=== PATIENT | male | born 1955 | race Caucasian/White ===

== ENCOUNTER 2016-06-07 11:02 | Inpatient (IN) | payer OTHER ==
[2016-06-07 11:21] VITALS: BMI 36.1
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
[2016-06-07] MEDS ORDERED: NICOTINE POLACRILEX 4 MG GUM BUC PRN (14:35)
[2016-06-07] MEDS ORDERED: guaiFENesin/D-METHORPHAN HB 10 ML UNIT-DOSE CUPS PO PRN (14:35)
[2016-06-07] MEDS ORDERED: ACETAMINOPHEN 325 MG TABLET (FP) PO PRN (14:35)
[2016-06-07] MEDS ORDERED: MAGNESIUM HYDROX 2400MG/30ML ORAL SUSPENSION 30 ML CUP PO PRN (14:35)
[2016-06-07] MEDS ORDERED: MAG HYDROX/AL HYDROX/SIMETH 30 ML UNIT-DOSE CUP PO PRN (14:35)
[2016-06-07] MEDS ORDERED: P-EPHED 60MG/TRIPROLIDI 2.5MG TABLET PO PRN (14:35)
[2016-06-07] MEDS ORDERED: MAGNESIUM CITRATE 300 ML BOTTLE PO PRN (14:35)
[2016-06-07] MEDS ORDERED: LOPERAMIDE HCL 2 MG CAPSULE PO PRN (14:35)
[2016-06-07] MEDS ORDERED: MENTHOL/PHENOL 1 EACH UD MM PRN (14:35)
[2016-06-07] MEDS ORDERED: diphenhydrAMINE HCL 50 MG CAPSULE PO PRN (14:35)
[2016-06-07] MEDS ORDERED: hydrOXYzine PAMOATE 50 MG CAPSULE (FP) PO PRN (14:35)
[2016-06-07] MEDS ORDERED: ALBUTEROL SO4 6.7 GM HFA INHALER IH PRN (14:37)
[2016-06-07] MEDS ORDERED: chlordiazePOXIDE HCL 25 MG CAPSULE PO ONE (14:49)
[2016-06-07] MEDS ORDERED: ALBUTEROL SO4 2.5/IPRATROPIUM 0.5 INH SOL 3 ML VIAL.NEB. NEB ONE (14:51)
[2016-06-07] MEDS: IBUPROFEN 400 MG TABLET (FP) PO PRN (17:22)
[2016-06-07] MEDS: chlordiazePOXIDE HCL 25 MG CAPSULE PO SCH ×2 (17:23→22:27)
[2016-06-07] MEDS: metFORMIN HCL 500 MG TABLET (FP) PO SCH ×2 (17:24→22:31)
[2016-06-07] MEDS: chlordiazePOXIDE HCL 25 MG CAPSULE PO PRN (19:04)
[2016-06-07] MEDS: THIAMINE HCL 100 MG TABLET (FP) PO SCH (22:27)
[2016-06-08] MEDS: chlordiazePOXIDE HCL 25 MG CAPSULE PO PRN (00:52)
[2016-06-08 02:28] LABS: HIV 1 & 2 AB NEGATIVE; HIV 1 AGp24 NEGATIVE
[2016-06-08] MEDS ORDERED: METHADONE HCL 40 MG DISPERSABLE TABLET ONE (04:32)
[2016-06-08] MEDS ORDERED: METHADONE HCL 10 MG TABLET ONE (04:32)
[2016-06-08] MEDS: METHADONE 80 MG, METHADONE 10 MG PO SCH (05:35)
[2016-06-08] MEDS: chlordiazePOXIDE HCL 25 MG CAPSULE PO SCH ×4 (05:36→22:20)
[2016-06-08] MEDS ORDERED: METHADONE HCL 10 MG TABLET PO SCH (06:00)
[2016-06-08] MEDS: metFORMIN HCL 500 MG TABLET (FP) PO SCH ×2 (08:07→17:11)
[2016-06-08] MEDS: PRENATAL VITAMINS W/ FOLIC ACID TABLET (FP) PO SCH (10:16)
[2016-06-08] MEDS: NICOTINE 21 MG/24 HOURS TOPICAL PATCH TD SCH (10:16)
[2016-06-08] MEDS: HYDROCHLOROTHIAZIDE 25 MG TABLET (FP) PO SCH (10:16)
[2016-06-08 10:22] LABS: MCH 30.3 pg (25.7-33.7); MCHC 31.9 g/dl (32.0-35.9); MEAN CELL VOLUME 95.2 fl (80-96); MEAN PLT VOLUME 8.5 fl (7.5-11.1); PLATELET COUNT 128 K/MM3 (134-434); RDW 17.1 % (11.9-15.9); WHITE BLOOD COUNT 5.2 K/mm3 (4.0-10.0)
[2016-06-08 10:38] LABS: ALBUMIN 3.5 g/dl (3.4-5.0); ALK PHOS 160 U/L (45-117); ANION GAP 15 (8-16); BILIRUBIN,TOTAL 0.7 mg/dL (0.2-1.0); CO2 28 mmol/L (21-32); CREATININE 0.8 mg/dL (0.7-1.3); GLUCOSE,RANDOM 107 mg/dL (74-106); SGOT/AST 161 U/L (15-37); SGPT/ALT 67 U/L (12-78); TOT PROT 7.1 g/dl (6.4-8.2)
--- NOTE | 2016-06-08 10:49 | CONSULT ---
[facility] Psychiatric Consult - Data Date of interview: 06/08/16 Admission source: [facility] Identifying data: Readmission to [facility] for this 61 y/o male seeking detox treatment on for opioid and alcohol dependence.Patient is single without chldren,domiciled,disabled and supported on SSD benefits. Substance Abuse History: - Smoking Cessation. Smoking history: Current every day smoker. Have you smoked in the past 12 months: Yes. Aproximately how many cigarettes per day: 15. Hx Chewing Tobacco Use: No. Initiated information on smoking cessation: Yes. 'Breaking Loose' booklet given: 06/07/16. - Substance & Tx. History. Hx Alcohol Use: Yes. Hx Substance Use: Yes. Substance Use Type : Alcohol. Hx Substance Use Treatment: No. - Substances Abused. Alcohol. Route: Oral. Frequency: Daily. Amount used: 2-3 pints vodka. Age of first use : 21. Date of Last Use: 06/07/16. Confirmed by the patient. Medical History: Bronchial asthma,diabetes mellitus,hypertension,hepatitis C, obesity and neuropathy. Psychiatric History: No reported history of psychiatric hospitalizations.Patient endorses the diagnoses of MDD and insomnia.He states that he gets his psychiatric outpatient services at [facility].Medications : bupropion and trazodone (doses not recalled).Mr Castro denies history of suicide attempts. Physical/Sexual Abuse/Trauma History: Patient denies. Additional Comment: Urine Drug Screen Results: BZO-Benzodiazepines, MTD- Methadone.Noted. Mental Status Exam - Mental Status Exam Alert and Oriented to: Time, Place, Person Cognitive Function: Good Patient Appearance: Well Groomed Mood: Nervous, Withdrawn, Anxious Affect: Mood Congruent Patient Behavior: Fatigued, Appropriate, Cooperative Speech Pattern: Clear, Appropriate Voice Loudness: Normal Thought Process: Goal Oriented Thought Disorder: Not Present Hallucinations: Denies Suicidal Ideation: Denies Homicidal Ideation: Denies Insight/Judgement: Poor Sleep: Poorly, Difficulty falling asleep Appetite: Good Muscle strength/Tone: Normal Gait/Station: Other (walks with a cane.) Psychiatric Findings - Problem List ([place] 1, 2,3) (1) Alcohol dependence with uncomplicated withdrawal Current Visit: Yes Status: Acute (2) Nicotine dependence Current Visit: Yes Status: Acute Qualifiers: Nicotine product type: cigarettes Substance use status: uncomplicated Qualified Code(s): F17.210 - Nicotine dependence, cigarettes, uncomplicated (3) Opioid dependence on agonist therapy Current Visit: Yes Status: Acute (4) Substance induced mood disorder Current Visit: Yes Status: Acute (5) Depressive disorder Current Visit: Yes Status: Chronic (6) Bilateral edema of lower extremity Current Visit: Yes Status: Chronic (7) Asthma Current Visit: Yes Status: Chronic Qualifiers: Asthma severity: mild intermittent Asthma complication type: uncomplicated Qualified Code(s): J45.20 - Mild intermittent asthma, uncomplicated (8) Diabetes mellitus Current Visit: Yes Status: Chronic Qualifiers: Diabetes mellitus type: type 1 Diabetes mellitus complication status: without complication Qualified Code(s): E10.9 - Type 1 diabetes mellitus without complications (9) Hypertension Current Visit: Yes Status: Chronic Qualifiers: Hypertension type: essential hypertension Qualified Code(s): I10 - Essential (primary) hypertension - Initial Treatment Plan Initial Treatment Plan: Psychoeducation.Detoxification.Medications : trazodone 100 mg po hs + bupropion XL 150 mg po daily.Seroquel held (prolonged QT on EKG) .Side effects/benefits discussed with the patient.Made aware of the risk of priapism and advised to alert MD/RN if painful/prolonged erection.He agrees with this plan.Medications are verified via review of pharmacy claims.Noted filled scripts on 05/27/16 for trazodone,bupropion and seroquel @ [facility].No scripts necessary at discharge.
--- NOTE | 2016-06-08 11:14 | EKG ---
Test Reason : Blood Pressure : / mmHG Vent. Rate : 089 BPM Atrial Rate : 089 BPM P-R Int : 136 ms QRS Dur : 082 ms QT Int : 382 ms P-R-T Axes : 068 057 039 degrees QTc Int : 464 ms NORMAL SINUS RHYTHM NONSPECIFIC ST AND T WAVE ABNORMALITY PROLONGED QT ABNORMAL ECG NO PREVIOUS ECGS AVAILABLE Confirmed by JOYCELYN AARON MD ([id number]) on 06/08/2016 11:13:57 AM Referred By: Filemon Bojorquez Confirmed By:JOYCELYN AARON MD
--- NOTE | 2016-06-08 11:15 | PN ---
[facility] CIWA - CIWA Score Nausea/Vomitin-No Nausea/No Vomiting Muscle Tremors: 4-Moderate,w/Arms Extend Anxiety: 4-Mod. Anxious/Guarded Agitation: 4-Moderately Restless Paroxysmal Sweats: 1-Minimal Palms Moist Orientation: 0-Oriented Tacttile Disturbances: 3-Moderate Itch/Numb/Burn Auditory Disturbances: 0-None Visual Disturbances: 0-None Headache: 0-None Present CIWA-Ar Total Score: 16 BHS Progress Note (SOAP) Subjective: TREMORS,SWEATS,ANXIETY,FATIGUE. Objective: 06/08/16 11:14 Vital Signs Temperature 97.9 F 06/08/16 09:40 Pulse Rate 81 06/08/16 09:40 Respiratory Rate 18 06/08/16 09:40 Blood Pressure 143/76 06/08/16 09:40 O2 Sat by Pulse Oximetry (%) Laboratory Last Values WBC 5.2 K/mm3 (4.0-10.0) 06/08/16 06:00 RBC 3.89 M/mm3 (4.00-5.60) L 06/08/16 06:00 Hgb 11.8 GM/dL (11.7-16.9) 06/08/16 06:00 Hct 37.1 % (35.4-49) 06/08/16 06:00 MCV 95.2 fl (80-96) 06/08/16 06:00 MCHC 31.9 g/dl (32.0-35.9) L 06/08/16 06:00 RDW 17.1 % (11.9-15.9) H 06/08/16 06:00 Plt Count 128 K/MM3 (134-434) L 06/08/16 06:00 MPV 8.5 fl (7.5-11.1) 06/08/16 06:00 Sodium 142 mmol/L (136-145) 06/08/16 06:00 Potassium 4.5 mmol/L (3.5-5.1) 06/08/16 06:00 Chloride 99 mmol/L (98-107) 06/08/16 06:00 Carbon Dioxide 28 mmol/L (21-32) 06/08/16 06:00 Anion Gap 15 (8-16) 06/08/16 06:00 BUN 10 mg/dL (7-18) 06/08/16 06:00 Creatinine 0.8 mg/dL (0.7-1.3) 06/08/16 06:00 Creat Clearance w eGFR > 60 (>60) 06/08/16 06:00 POC Glucometer 84 UNITS (()) 06/08/16 05:34 Random Glucose 107 mg/dL (74-106) H 06/08/16 06:00 Calcium 8.0 mg/dL (8.5-10.1) L 06/08/16 06:00 Total Bilirubin 0.7 mg/dL (0.2-1.0) 06/08/16 06:00 AST 161 U/L (15-37) H 06/08/16 06:00 ALT 67 U/L (12-78) 06/08/16 06:00 Alkaline Phosphatase 160 U/L (45-117) H 06/08/16 06:00 Total Protein 7.1 g/dl (6.4-8.2) 06/08/16 06:00 Albumin 3.5 g/dl (3.4-5.0) 06/08/16 06:00 HIV 1&2 Antibody Screen Negative 06/07/16 13:00 HIV P24 Antigen Negative 06/07/16 13:00 Assessment: 06/08/16 11:15 WITHDRAWAL SX Plan: CONTINUE DETOX
[2016-06-08] MEDS: IBUPROFEN 400 MG TABLET (FP) PO PRN (20:17)
--- NOTE | 2016-06-08 20:34 | PN ---
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
[2016-06-08] MEDS: THIAMINE HCL 100 MG TABLET (FP) PO SCH (22:20)
[2016-06-08] MEDS: traZODone HCL 100 MG TABLET (FP) PO SCH (22:20)
[2016-06-08] MEDS: GABAPENTIN 300 MG CAPSULE (FP) PO SCH (22:20)
[2016-06-09] MEDS ORDERED: METHADONE HCL 10 MG TABLET ONE (04:17)
[2016-06-09] MEDS ORDERED: METHADONE HCL 40 MG DISPERSABLE TABLET ONE (04:18)
[2016-06-09] MEDS: METHADONE 80 MG, METHADONE 10 MG PO SCH (06:00)
[2016-06-09] MEDS: chlordiazePOXIDE HCL 25 MG CAPSULE PO SCH ×2 (06:00→10:17)
[2016-06-09] MEDS: metFORMIN HCL 500 MG TABLET (FP) PO SCH ×2 (06:52→17:27)
[2016-06-09] MEDS: PRENATAL VITAMINS W/ FOLIC ACID TABLET (FP) PO SCH (10:16)
[2016-06-09] MEDS: GABAPENTIN 300 MG CAPSULE (FP) PO SCH ×2 (10:16→22:19)
[2016-06-09] MEDS: HYDROCHLOROTHIAZIDE 25 MG TABLET (FP) PO SCH (10:16)
[2016-06-09] MEDS: NICOTINE 21 MG/24 HOURS TOPICAL PATCH TD SCH (10:17)
--- NOTE | 2016-06-09 14:23 | PN ---
S CIWA - CIWA Score Nausea/Vomitin-No Nausea/No Vomiting Muscle Tremors: 4-Moderate,w/Arms Extend Anxiety: 3 Agitation: 2 Paroxysmal Sweats: 3 Orientation: 4Disoriented Place/Person Tacttile Disturbances: 1-Very Mild Itch/Numbness Auditory Disturbances: 0-None Visual Disturbances: 0-None Headache: 2-Mild CIWA-Ar Total Score: 19 S Progress Note (SOAP) Subjective: Tremors, Body Aches, Sweating, H/A, Interrupted sleep. Objective: PT. A 7 O X 2 (DISORIENTED TO LOCATION); PT. OBSERVED AMBULATING ON UNIT. 06/09/16 14:20 Vital Signs Temperature 96.7 F L 06/09/16 11:17 Pulse Rate 86 06/09/16 11:17 Respiratory Rate 19 06/09/16 11:17 Blood Pressure 126/79 06/09/16 11:17 O2 Sat by Pulse Oximetry (%) Laboratory Last Values WBC 5.2 K/mm3 (4.0-10.0) 06/08/16 06:00 RBC 3.89 M/mm3 (4.00-5.60) L 06/08/16 06:00 Hgb 11.8 GM/dL (11.7-16.9) 06/08/16 06:00 Hct 37.1 % (35.4-49) 06/08/16 06:00 MCV 95.2 fl (80-96) 06/08/16 06:00 MCHC 31.9 g/dl (32.0-35.9) L 06/08/16 06:00 RDW 17.1 % (11.9-15.9) H 06/08/16 06:00 Plt Count 128 K/MM3 (134-434) L 06/08/16 06:00 MPV 8.5 fl (7.5-11.1) 06/08/16 06:00 Sodium 142 mmol/L (136-145) 06/08/16 06:00 Potassium 4.5 mmol/L (3.5-5.1) 06/08/16 06:00 Chloride 99 mmol/L (98-107) 06/08/16 06:00 Carbon Dioxide 28 mmol/L (21-32) 06/08/16 06:00 Anion Gap 15 (8-16) 06/08/16 06:00 BUN 10 mg/dL (7-18) 06/08/16 06:00 Creatinine 0.8 mg/dL (0.7-1.3) 06/08/16 06:00 Creat Clearance w eGFR > 60 (>60) 06/08/16 06:00 POC Glucometer 105 UNITS (()) 06/09/16 06:02 Random Glucose 107 mg/dL (74-106) H 06/08/16 06:00 Calcium 8.0 mg/dL (8.5-10.1) L 06/08/16 06:00 Total Bilirubin 0.7 mg/dL (0.2-1.0) 06/08/16 06:00 AST 161 U/L (15-37) H 06/08/16 06:00 ALT 67 U/L (12-78) 06/08/16 06:00 Alkaline Phosphatase 160 U/L (45-117) H 06/08/16 06:00 Total Protein 7.1 g/dl (6.4-8.2) 06/08/16 06:00 Albumin 3.5 g/dl (3.4-5.0) 06/08/16 06:00 RPR Titer Nonreactive (NONREACTIVE) 06/08/16 06:00 HIV 1&2 Antibody Screen Negative 06/07/16 13:00 HIV P24 Antigen Negative 06/07/16 13:00 LABS NOTED. Assessment: 06/09/16 14:22 WITHDRAWAL SYMPTOMS. Plan: CONTINUE DETOX. ADVISED PATIENT TO FOLLOW-UP WITH [facility] / REHAB MEDICAL PROVIDER AFTER DISCHARGE FROM DETOX FOR GENERAL MEDICAL ASSESSMENT AND FOR ABNORMAL LAB VALUES.
[2016-06-09] MEDS: chlordiazePOXIDE 5 MG CAPSULE PO SCH ×2 (17:27→22:19)
[2016-06-09] MEDS: THIAMINE HCL 100 MG TABLET (FP) PO SCH (22:19)
[2016-06-09] MEDS: traZODone HCL 100 MG TABLET (FP) PO SCH (22:19)
[2016-06-10] MEDS ORDERED: METHADONE HCL 40 MG DISPERSABLE TABLET ONE (04:38)
[2016-06-10] MEDS ORDERED: METHADONE HCL 10 MG TABLET ONE (04:38)
[2016-06-10] MEDS: METHADONE 80 MG, METHADONE 10 MG PO SCH (05:39)
[2016-06-10] MEDS: chlordiazePOXIDE 5 MG CAPSULE PO SCH ×2 (05:39→10:34)
[2016-06-10] MEDS: IBUPROFEN 400 MG TABLET (FP) PO PRN (05:42)
[2016-06-10] MEDS: metFORMIN HCL 500 MG TABLET (FP) PO SCH ×2 (08:02→16:30)
[2016-06-10] MEDS: PRENATAL VITAMINS W/ FOLIC ACID TABLET (FP) PO SCH (10:33)
[2016-06-10] MEDS: NICOTINE 21 MG/24 HOURS TOPICAL PATCH TD SCH (10:34)
[2016-06-10] MEDS: HYDROCHLOROTHIAZIDE 25 MG TABLET (FP) PO SCH (10:34)
[2016-06-10] MEDS: GABAPENTIN 300 MG CAPSULE (FP) PO SCH ×2 (10:34→22:55)
--- NOTE | 2016-06-10 11:28 | PN ---
BHS Progress Note (SOAP) Subjective: Sweating,interrupted sleep,restless Objective: 06/10/16 11:27 Laboratory Last Values WBC 5.2 K/mm3 (4.0-10.0) 06/08/16 06:00 RBC 3.89 M/mm3 (4.00-5.60) L 06/08/16 06:00 Hgb 11.8 GM/dL (11.7-16.9) 06/08/16 06:00 Hct 37.1 % (35.4-49) 06/08/16 06:00 MCV 95.2 fl (80-96) 06/08/16 06:00 MCHC 31.9 g/dl (32.0-35.9) L 06/08/16 06:00 RDW 17.1 % (11.9-15.9) H 06/08/16 06:00 Plt Count 128 K/MM3 (134-434) L 06/08/16 06:00 MPV 8.5 fl (7.5-11.1) 06/08/16 06:00 Sodium 142 mmol/L (136-145) 06/08/16 06:00 Potassium 4.5 mmol/L (3.5-5.1) 06/08/16 06:00 Chloride 99 mmol/L (98-107) 06/08/16 06:00 Carbon Dioxide 28 mmol/L (21-32) 06/08/16 06:00 Anion Gap 15 (8-16) 06/08/16 06:00 BUN 10 mg/dL (7-18) 06/08/16 06:00 Creatinine 0.8 mg/dL (0.7-1.3) 06/08/16 06:00 Creat Clearance w eGFR > 60 (>60) 06/08/16 06:00 POC Glucometer 128 UNITS (()) 06/10/16 05:39 Random Glucose 107 mg/dL (74-106) H 06/08/16 06:00 Calcium 8.0 mg/dL (8.5-10.1) L 06/08/16 06:00 Total Bilirubin 0.7 mg/dL (0.2-1.0) 06/08/16 06:00 AST 161 U/L (15-37) H 06/08/16 06:00 ALT 67 U/L (12-78) 06/08/16 06:00 Alkaline Phosphatase 160 U/L (45-117) H 06/08/16 06:00 Total Protein 7.1 g/dl (6.4-8.2) 06/08/16 06:00 Albumin 3.5 g/dl (3.4-5.0) 06/08/16 06:00 RPR Titer Nonreactive (NONREACTIVE) 06/08/16 06:00 HIV 1&2 Antibody Screen Negative 06/07/16 13:00 HIV P24 Antigen Negative 06/07/16 13:00 Vital Signs - 8 hr 06/10/16 06/10/16 03:30 06:28 Temperature 98 F Pulse Rate 98 H Respiratory 20 20 Rate Blood Pressure 142/86 labs noted Assessment: 06/10/16 11:27 Withdrawal Sx. Plan: Continue detox
[2016-06-10] MEDS ORDERED: chlordiazePOXIDE HCL 10 MG CAPSULE PO PRN (13:52)
[2016-06-10] MEDS ORDERED: chlordiazePOXIDE HCL 10 MG CAPSULE PO SCH (17:00)
[2016-06-10] MEDS: traZODone HCL 100 MG TABLET (FP) PO SCH (22:55)
[2016-06-10] MEDS: THIAMINE HCL 100 MG TABLET (FP) PO SCH (22:55)
[2016-06-11] MEDS ORDERED: METHADONE HCL 10 MG TABLET ONE (01:32)
[2016-06-11] MEDS ORDERED: METHADONE HCL 40 MG DISPERSABLE TABLET ONE (01:33)
[2016-06-11] MEDS: METHADONE 80 MG, METHADONE 10 MG PO SCH (05:14)
[2016-06-11] MEDS: metFORMIN HCL 500 MG TABLET (FP) PO SCH ×2 (06:30→17:33)
[2016-06-11] MEDS: HYDROCHLOROTHIAZIDE 25 MG TABLET (FP) PO SCH (10:18)
[2016-06-11] MEDS: PRENATAL VITAMINS W/ FOLIC ACID TABLET (FP) PO SCH (10:18)
[2016-06-11] MEDS: GABAPENTIN 300 MG CAPSULE (FP) PO SCH ×2 (10:19→21:18)
[2016-06-11] MEDS: NICOTINE 21 MG/24 HOURS TOPICAL PATCH TD SCH (10:19)
--- NOTE | 2016-06-11 16:37 | PN ---
[facility]HS Progress Note (SOAP) Subjective: Tremors, Sweating, Fatigue, Body aches, Nausea, interrupted sleep. Objective: PT. A & O X 3, OBSERVED AMBULATING ON UNIT WITH CANE. 06/11/16 16:33 Vital Signs Temperature 98.7 F 06/11/16 10:19 Pulse Rate 99 H 06/11/16 10:19 Respiratory Rate 18 06/11/16 10:19 Blood Pressure 106/71 06/11/16 10:19 O2 Sat by Pulse Oximetry (%) Laboratory Last Values WBC 5.2 K/mm3 (4.0-10.0) 06/08/16 06:00 RBC 3.89 M/mm3 (4.00-5.60) L 06/08/16 06:00 Hgb 11.8 GM/dL (11.7-16.9) 06/08/16 06:00 Hct 37.1 % (35.4-49) 06/08/16 06:00 MCV 95.2 fl (80-96) 06/08/16 06:00 MCHC 31.9 g/dl (32.0-35.9) L 06/08/16 06:00 RDW 17.1 % (11.9-15.9) H 06/08/16 06:00 Plt Count 128 K/MM3 (134-434) L 06/08/16 06:00 MPV 8.5 fl (7.5-11.1) 06/08/16 06:00 Sodium 142 mmol/L (136-145) 06/08/16 06:00 Potassium 4.5 mmol/L (3.5-5.1) 06/08/16 06:00 Chloride 99 mmol/L (98-107) 06/08/16 06:00 Carbon Dioxide 28 mmol/L (21-32) 06/08/16 06:00 Anion Gap 15 (8-16) 06/08/16 06:00 BUN 10 mg/dL (7-18) 06/08/16 06:00 Creatinine 0.8 mg/dL (0.7-1.3) 06/08/16 06:00 Creat Clearance w eGFR > 60 (>60) 06/08/16 06:00 POC Glucometer 116 UNITS (()) 06/11/16 05:14 Random Glucose 107 mg/dL (74-106) H 06/08/16 06:00 Calcium 8.0 mg/dL (8.5-10.1) L 06/08/16 06:00 Total Bilirubin 0.7 mg/dL (0.2-1.0) 06/08/16 06:00 AST 161 U/L (15-37) H 06/08/16 06:00 ALT 67 U/L (12-78) 06/08/16 06:00 Alkaline Phosphatase 160 U/L (45-117) H 06/08/16 06:00 Total Protein 7.1 g/dl (6.4-8.2) 06/08/16 06:00 Albumin 3.5 g/dl (3.4-5.0) 06/08/16 06:00 RPR Titer Nonreactive (NONREACTIVE) 06/08/16 06:00 HIV 1&2 Antibody Screen Negative 06/07/16 13:00 HIV P24 Antigen Negative 06/07/16 13:00 LABS NOTED. 06/11/16 16:35 Assessment: 06/11/16 16:35 WITHDRAWAL SYMPTOMS. Plan: CONTINUE DETOX. ADVISED PATIENT TO FOLLOW-UP WITH [facility]OR / REHAB MEDICAL PROVIDER AFTER DISCHARGE FROM DETOX FOR MEDICAL ASSESSMENT AND FOR ABNORMAL LAB VALUES.
[2016-06-11] MEDS: traZODone HCL 100 MG TABLET (FP) PO SCH (21:18)
[2016-06-11] MEDS: THIAMINE HCL 100 MG TABLET (FP) PO SCH (21:18)
[2016-06-12] MEDS ORDERED: ALBUTEROL SO4 2.5/IPRATROPIUM 0.5 INH SOL 3 ML VIAL.NEB. NEB ONE (01:47)
--- NOTE | 2016-06-12 02:16 | PN ---
[facility] Progress Note Note: CALLED TO EVALUATE PATIENT WHO FELL IN THE ROOM ALERT,NO LOC NO OBVIOUS HEAD INJURY LUNG EXPIRATORY WHEEZING BOTH LUNG HEART TACHYCARDIA ABDOMEN SOFT,NO TENDERNESS EXTREMITIES EDEMA BOTH LEGS PULSE OX 81,[id number] IMPRESSION FALL POSSIBLE HEAD INJURY ACUTE EXACERBATION OF ASTHMA TYPE 2 DM HTN EDEMA BOTH LEGS ALCOHOL DEPENDENCE WITH UNCOMPLICATED WITHDRAWAL MMTP 90 MGS/DAY,LAST MEDICATED 06/11/16 TREATMENT O2 BY NASAL CANULA 2 L/MIN DUONEB NEBULIZER TREATMENT TO ER FOR EVALUATION AT [facility] INITIATE FALL PROTOCOL1 SPOKE WITH DR HAWK TO BE TRANSPORTED BY [facility] ACLS PULSE OX IS 96,BP 118/78,P110.R24,T 99.2
[2016-06-12] MEDS ORDERED: METHADONE HCL 10 MG TABLET ONE (05:57)
[2016-06-12] MEDS ORDERED: METHADONE HCL 40 MG DISPERSABLE TABLET ONE (05:58)
[2016-06-12] MEDS: METHADONE 80 MG, METHADONE 10 MG PO SCH (06:10)
[2016-06-12] MEDS: metFORMIN HCL 500 MG TABLET (FP) PO SCH ×2 (07:39→17:55)
[2016-06-12 09:45] VITALS: BP 139/74; PULSE 105; TEMP 97.9
[2016-06-12] MEDS ORDERED: NALOXONE HCL 0.4 MG/ML VIAL IM ONE (10:11)
--- NOTE | 2016-06-12 10:36 | PN ---
[facility] Progress Note Note: SAW PT DURING MORNING ROUNDS VERY LETHARGIC, SLIGHTLY LABORED BREATHING, DIFFICULT TO AROUSE, SOME EYE OPENING ON COMMAND,DIAPHORETIC. STAFF REPORTED THAT PT WAS BROUGHT BACK TO [facility] FROM [facility] ER EARLIER THIS MORNING AT 06:05 PER NURSE FOR C/O FALL LAST NIGHT. PT RECIEVED METHADONE 90 MG THIS MORNING AT 6:10 PER NURSE. PT COMPLETING HIS DETOX PROTOCOL TODAY. Vital Signs Temperature 97.9 F 06/12/16 09:00 Pulse Rate 105 H 06/12/16 09:00 Respiratory Rate 20 06/12/16 09:00 Blood Pressure 139/74 06/12/16 09:00 O2 Sat by Pulse Oximetry (%) PULSE OX: 53% ROOM AIR; RR 17 BGM = 146 MG/DL PLAN:NARCAN 0.4 MG ONCE. TRANSPORT PT BY AMBULANCE TO [facility] FOR STABILIZATION BEFORE DISCHARGING PATIENT. PT HAS COMPLETED DETOX TODAY. SPOKE TO DR. GAINES AT THE [facility] ER AND ACCEPTED PATIENT'S CASE. ADDENDUM: PT RESPONDING NOW FAVORABLY AFTER NARCAN 0.4 MG I.M X 1 DOSE AT 10: 20 AM. SPONTENOUS VERBAL RESPONSE NOW TO EMT CREW'S COMMANDS. REPEAT PULSE OX WITH O2 2 L NC = 95%
[2016-06-12] MEDS: HYDROCHLOROTHIAZIDE 25 MG TABLET (FP) PO SCH (10:55)
[2016-06-12] MEDS: GABAPENTIN 300 MG CAPSULE (FP) PO SCH ×2 (10:55→23:16)
[2016-06-12] MEDS: PRENATAL VITAMINS W/ FOLIC ACID TABLET (FP) PO SCH (10:55)
[2016-06-12] MEDS: NICOTINE 21 MG/24 HOURS TOPICAL PATCH TD SCH (10:55)
[2016-06-12] MEDS: traZODone HCL 100 MG TABLET (FP) PO SCH (23:16)
[2016-06-12] MEDS: THIAMINE HCL 100 MG TABLET (FP) PO SCH (23:16)
--- NOTE | 2016-06-16 10:39 | DS ---
[facility] Detox Discharge Summary Admission Date: 06/07/16 Discharge Date: 06/12/16 - History Present History: Alcohol Dependence, MMTP Pertinent Past History: type II DM Edema of the legs - Physical Exam Results Vital Signs: Vital Signs Temperature 97.9 F 06/12/16 09:00 Pulse Rate 105 H 06/12/16 09:00 Respiratory Rate 20 06/12/16 09:00 Blood Pressure 139/74 06/12/16 09:00 O2 Sat by Pulse Oximetry (%) Pertinent Admission Physical Exam Findings: withdrawal sx. Laboratory Last Values WBC 5.2 K/mm3 (4.0-10.0) 06/08/16 06:00 RBC 3.89 M/mm3 (4.00-5.60) L 06/08/16 06:00 Hgb 11.8 GM/dL (11.7-16.9) 06/08/16 06:00 Hct 37.1 % (35.4-49) 06/08/16 06:00 MCV 95.2 fl (80-96) 06/08/16 06:00 MCHC 31.9 g/dl (32.0-35.9) L 06/08/16 06:00 RDW 17.1 % (11.9-15.9) H 06/08/16 06:00 Plt Count 128 K/MM3 (134-434) L 06/08/16 06:00 MPV 8.5 fl (7.5-11.1) 06/08/16 06:00 Sodium 142 mmol/L (136-145) 06/08/16 06:00 Potassium 4.5 mmol/L (3.5-5.1) 06/08/16 06:00 Chloride 99 mmol/L (98-107) 06/08/16 06:00 Carbon Dioxide 28 mmol/L (21-32) 06/08/16 06:00 Anion Gap 15 (8-16) 06/08/16 06:00 BUN 10 mg/dL (7-18) 06/08/16 06:00 Creatinine 0.8 mg/dL (0.7-1.3) 06/08/16 06:00 Creat Clearance w eGFR > 60 (>60) 06/08/16 06:00 POC Glucometer 146 UNITS (()) 06/12/16 09:56 Random Glucose 107 mg/dL (74-106) H 06/08/16 06:00 Calcium 8.0 mg/dL (8.5-10.1) L 06/08/16 06:00 Total Bilirubin 0.7 mg/dL (0.2-1.0) 06/08/16 06:00 AST 161 U/L (15-37) H 06/08/16 06:00 ALT 67 U/L (12-78) 06/08/16 06:00 Alkaline Phosphatase 160 U/L (45-117) H 06/08/16 06:00 Total Protein 7.1 g/dl (6.4-8.2) 06/08/16 06:00 Albumin 3.5 g/dl (3.4-5.0) 06/08/16 06:00 RPR Titer Nonreactive (NONREACTIVE) 06/08/16 06:00 HIV 1&2 Antibody Screen Negative 06/07/16 13:00 HIV P24 Antigen Negative 06/07/16 13:00 labs noted - Treatment Hospital Course: Detox Protocol Followed Patient has Accepted a Rehab Referral to: Pt. was transferred to med/surg because he was very drowsy. - Medication Discharge Medications: Ambulatory Orders Albuterol Sulfate Inhaler - [Ventolin Hfa Inhaler -] 2 inh PO Q4H PRN 06/07/16 Bupropion HCl [Wellbutrin Xl -] 150 mg PO DAILY 06/07/16 Gabapentin [Neurontin] 600 mg PO BID 06/07/16 Hydrochlorothiazide [Hctz -] 25 mg PO DAILY 06/07/16 Ibuprofen [Motrin -] 800 mg PO BID 06/07/16 Metformin HCl [Glucophage] 1,000 mg PO BID 06/07/16 Quetiapine Fumarate [Seroquel -] 200 mg PO HS 06/07/16 Trazodone HCl [Desyrel -] 100 mg PO HS 06/07/16 - Diagnosis (1) Alcohol dependence with uncomplicated withdrawal Status: Acute (2) Nicotine dependence Status: Acute Qualifiers: Nicotine product type: cigarettes Substance use status: uncomplicated Qualified Code(s): F17.210 - Nicotine dependence, cigarettes, uncomplicated (3) Opioid dependence on agonist therapy Status: Acute (4) Asthma Status: Chronic Qualifiers: Asthma severity: mild intermittent Asthma complication type: uncomplicated Qualified Code(s): J45.20 - Mild intermittent asthma, uncomplicated (5) Bilateral edema of lower extremity Status: Chronic (6) Diabetes mellitus Status: Chronic Qualifiers: Diabetes mellitus type: type 2 Diabetes mellitus complication status: without complication Diabetes mellitus intermodal truck driver insulin use: with intermodal truck driver use Qualified Code(s): E11.9 - Type 2 diabetes mellitus without complications; Z79.4 - assisted (current) use of insulin (7) Hypertension Status: Chronic Qualifiers: Hypertension type: essential hypertension Qualified Code(s): I10 - Essential (primary) hypertension (8) Substance induced mood disorder Status: Acute (9) Depressive disorder Status: Chronic - AMA Did Patient Leave Against Medical Advice: No
== END 2016-06-12 11:37 | disposition short-term general hospital (02) | DRG 897 ==
LOC: YASAS 11:02 → Y3N 13:45
PROVIDERS: ADMIT Internal Medicine; ATTEND Internal Medicine
PROC: HZ2ZZZZ Detoxification Services for Substance Abuse Treatment (ICD-10-PCS; principal; 2016-06-07)
DX: F10.230 Alcohol dependence with withdrawal, uncomplicated (principal); F11.20 Opioid dependence, uncomplicated; J45.901 Unspecified asthma with (acute) exacerbation; F17.210 Nicotine dependence, cigarettes, uncomplicated; F19.24 Other psychoactive substance dependence with psychoactive substance-induced mood disorder; F32.9 Major depressive disorder, single episode, unspecified; E11.42 Type 2 diabetes mellitus with diabetic polyneuropathy; I10 Essential (primary) hypertension; R60.9 Edema, unspecified; R26.2 Difficulty in walking, not elsewhere classified; E66.9 Obesity, unspecified; Z68.36 Body mass index [BMI] 36.0-36.9, adult; B18.2 Chronic viral hepatitis C; R06.00 Dyspnea, unspecified; S09.90XA Unspecified injury of head, initial encounter; Y93.9 Activity, unspecified; Y92.230 Patient room in hospital as the place of occurrence of the external cause; W45.8XXA Other foreign body or object entering through skin, initial encounter; X58.XXXA Exposure to other specified factors, initial encounter
CPT/HCPCS: 36415; 80053; 85027; 86593; 87389; 93005; 93010; 94640

== ENCOUNTER 2016-06-12 11:02 | Inpatient (IN) | payer OTHER ==
--- NOTE | 2016-06-12 11:07 | PDOC ---
History of Present Illness - General History Source: Patient, EMS, Old Records Exam Limitations: No Limitations - History of Present Illness Initial Comments: 06/12/16 11:34 The patient is a 61 year old male brought via EMS from [facility], with a significant past medical history of alcohol dependence, diabetes mellitus, hypertension, Hepatitis C, obesity and asthma, who presents to the emergency department after being disoriented after he was given methadone today, he was given Narcan on route. He states that he uses 90 mg of methadone. The patient was in the ED earlier this morning s/p fall and wheezing and got a head CT that was within normal limits. The patient denies chest pain, shortness of breath, headache and dizziness. Denies fever, chills, nausea, vomit, diarrhea and constipation. Denies dysuria, frequency, urgency and hematuria. Allergies: None Past surgical history: None reported Social history: Alcohol use (2-3 pints vodka daily). Cigarette use (15 daily). Opioid abuse <Sergey Burton - Last Filed: 06/12/16 12:15> - General History Source: Patient Exam Limitations: No Limitations <Jo Lopez - Last Filed: 06/12/16 16:45> - General Stated Complaint: OVERDOSE Time Seen by Provider: 06/12/16 11:06 Past History <Sergey Burton - Last Filed: 06/12/16 12:15> - Past Medical History Anemia: No Asthma: Yes Cancer: No Cardiac Disorders: No CVA: No COPD: No Diabetes: Yes GI Disorders: No Disorders: No HTN: Yes (on meds.) Hypercholesterolemia: No Kidney Stones: No Liver Disease: No Suicide Attempt (Hx): No Seizures: No Thyroid Disease: No - Surgical History Abdominal Surgery: No Appendectomy: No Cardiac Surgery: No Cholecystectomy: No Gastric Stapling: No GI Surgery: No Lung Surgery: No Neurologic Surgery: No - Reproductive History Testicular Surgery: No - Immunization History Immunization Up to Date: No - Psycho/Social/Smoking Cessation Hx Anxiety: Yes Suicidal Ideation: No Smoking History: Current every day smoker Have you smoked in the past 12 months: Yes Number of Cigarettes Smoked Daily: 15 'Breaking Loose' booklet given: 06/07/16 Hx Alcohol Use: Yes Drug/Substance Use Hx: Yes Substance Use Type: Alcohol Hx Substance Use Treatment: No <Jo Lopez - Last Filed: 06/12/16 16:45> - Past Medical History Allergies/Adverse Reactions: Allergies Allergy/AdvReac Type Severity Reaction Status Date / Time No Known Allergies Allergy Verified 06/12/16 03:24 Home Medications: Ambulatory Orders Albuterol Sulfate Inhaler - [Ventolin Hfa Inhaler -] 2 inh PO Q4H PRN 06/07/16 Bupropion HCl [Wellbutrin Xl -] 150 mg PO DAILY 06/07/16 Gabapentin [Neurontin] 600 mg PO BID 06/07/16 Hydrochlorothiazide [Hctz -] 25 mg PO DAILY 06/07/16 Ibuprofen [Motrin -] 800 mg PO BID 06/07/16 Metformin HCl [Glucophage] 1,000 mg PO BID 06/07/16 Quetiapine Fumarate [Seroquel -] 200 mg PO HS 06/07/16 Trazodone HCl [Desyrel -] 100 mg PO HS 06/07/16 Review of Systems - Review of Systems Able to Perform ROS?: Yes Comments:: 06/12/16 11:34 GENERAL/CONSTITUTIONAL: +Disoriented. No fever or chills. No weakness. HEAD, EYES, EARS, NOSE AND THROAT: No change in vision. No ear pain or discharge. No sore throat. CARDIOVASCULAR: No chest pain or shortness of breath RESPIRATORY: No cough, wheezing, or hemoptysis. GASTROINTESTINAL: No nausea, vomiting, diarrhea or constipation. GENITOURINARY: No dysuria, frequency, or change in urination. MUSCULOSKELETAL: No joint or muscle swelling or pain. No neck or back pain. SKIN: No rash NEUROLOGIC: No headache, vertigo, loss of consciousness, or change in strength/ sensation. ENDOCRINE: No increased thirst. No abnormal weight change HEMATOLOGIC/LYMPHATIC: No anemia, easy bleeding, or history of blood clots. ALLERGIC/IMMUNOLOGIC: No hives or skin allergy. <Sergey Burton - Last Filed: 06/12/16 12:15> *Physical Exam - Vital Signs Last Vital Signs Temp Pulse Resp BP Pulse Ox 97.9 F 89 20 128/73 94 L 06/12/16 11:17 06/12/16 11:17 06/12/16 11:17 06/12/16 11:06/12/16 11:20 - Physical Exam Comments: 06/12/16 11:35 GENERAL: Awake, lethargic but arousable to verbal stimuli, in no acute distress HEAD: No signs of trauma, normocephalic, atraumatic EYES: PERRLA, EOMI, sclera anicteric, conjunctiva clear ENT: Auricles normal inspection, hearing grossly normal, nares patent, oropharynx clear without exudates. Moist mucosa NECK: Normal ROM, supple, no lymphadenopathy, JVD, or masses LUNGS: +Expiratory ronchi. No distress, speaks full sentences. HEART: Regular rate and rhythm, normal S1 and S2, no murmurs, rubs or gallops, peripheral pulses normal and equal bilaterally. ABDOMEN: Soft, nontender, normoactive bowel sounds. No guarding, no rebound. No masses EXTREMITIES: +Venous stasis changes of the lower extremities bilaterally. Normal range of motion, no edema. No clubbing or cyanosis. NEUROLOGICAL: Cranial nerves II through XII grossly intact. Normal speech, no focal sensorimotor deficits SKIN: Warm, Dry, normal turgor, no rashes or lesions noted. <Sergey Burton - Last Filed: 06/12/16 12:15> Heart Score/ECG Review #1 ECG reviewed & interpreted by me at: 16:44 06/12/16 16:44 Twelve-lead EKG was performed and reviewed by me. There is normal sinus rhythm with a normal rate of 89 bpm. The axis is normal. The intervals are abnormal - pr:89ms, QRS:80ms, QTc:506ms (prolonged). There are no ST or T wave abnormalities. <Jo Lopez - Last Filed: 06/12/16 16:45> ED Treatment Course - LABORATORY CBC & Chemistry Diagram: 06/12/16 11:50 - RADIOLOGY Radiograph Interpretation: 06/12/16 12:16 Chest X-Ray Reviewed by: Dr. Maximo Santiago Impression: No evidence of active pulmonary disease. - Medications Given in the ED: ED Medications Discontinued Medications Generic Name Dose Route Start Last Admin Trade Name Freq PRN Reason Stop Dose Admin Naloxone HCl 0.4 mg 06/12/16 11:21 06/12/16 11:28 Narcan - IVPUSH 06/12/16 11:22 0.4 mg ONCE ONE Administration <Sergey Burton - Last Filed: 06/12/16 12:15> - LABORATORY CBC & Chemistry Diagram: 06/12/16 12:28 06/12/16 11:50 <Jo Lopez - Last Filed: 06/12/16 16:45> Medical Decision Making - Medical Decision Making 06/12/16 11:06 A portion of this note was documented by scribe services under my direction. I have reviewed the details of the note, within reason, and agree with the documentation with the following case summary and management plan written by me. Nursing documentation reviewed and incorporated into medical decision making 06/12/16 13:37 THis is a 61 yo M with a history of HTN, HLD, DM, Alcohol abuse, Opioid abuse on methadone who presents to the ER for a 2nd time due to somnolence He was seen in the ER s/p a fall from standing Work up in the ER was negative Pt discharged back to [facility] Pt found several hours later unresponsive and hypoxic to 50% Pt give supplemental O2 Pt sent to the ER via EMS Pt given Narcan en route Pt more awake Pt noted to be somnolent in the ER Given Narcan 0.4 Pt arousable to voice RR: 10 Will check labs Will monitor for hypoxia 06/12/16 13:40 Laboratory Tests 06/12/16 06/12/16 11:50 12:28 WBC 6.2 Hgb 12.0 Hct 36.9 Plt Count 112 L Anion Gap 10 Creatinine 0.8 Creatine Kinase 637 H CK-MB (CK-2) 1.122 Troponin I 0.02 B-Natriuretic Peptide 43.45 case reviewed with Tom Will place on observation to monitor for hypoxia Will return to [facility] in the AM <Jo Lopez - Last Filed: 06/12/16 16:45> *DC/Admit/Observation/Transfer - Attestations Scribe Attestion: 06/12/16 11:35 Documentation prepared by Sergey Burton, acting as medical administrative technician for Jo Lopez MD <Sergey Burton - Last Filed: 06/12/16 12:15> - Discharge Dispostion Admit: Yes <Jo Lopez - Last Filed: 06/12/16 16:45> Diagnosis at time of Disposition: Sedated due to medication - Discharge Dispostion Condition at time of disposition: Stable
[2016-06-12] MEDS ORDERED: NALOXONE HCL 0.4 MG/ML VIAL ONE (11:15)
[2016-06-12 11:20] VITALS: BMI 35.2
[2016-06-12] MEDS ORDERED: NALOXONE HCL 0.4 MG/ML VIAL IVPUSH ONE (11:21)
[2016-06-12 12:27] LABS: ALBUMIN 2.9 g/dl (3.4-5.0); ANION GAP 10 (8-16); CALCIUM 8.5 mg/dL (8.5-10.1); CO2 30 mmol/L (21-32); CREATININE 0.8 mg/dL (0.7-1.3); GLUCOSE,RANDOM 130 mg/dL (74-106); SGPT/ALT 53 U/L (12-78); TOT PROT 6.5 g/dl (6.4-8.2)
[2016-06-12 12:29] LABS: ALK PHOS 115 U/L (45-117); TROPONIN I 0.02 ng/ml (0.00-0.05)
[2016-06-12 12:30] LABS: SGOT/AST 83 U/L (15-37)
[2016-06-12 12:43] LABS: BASOPHIL 0.2 % (0-2.0); EOSINOPHIL 0.6 % (0-4.5); MCH 30.9 pg (25.7-33.7); MCHC 32.6 g/dl (32.0-35.9); MEAN PLT VOLUME 7.8 fl (7.5-11.1); NEUTROPHILS 77.1 % (42.8-82.8); PLATELET COUNT 112 K/MM3 (134-434); WHITE BLOOD COUNT 6.2 K/mm3 (4.0-10.0)
[2016-06-12 13:33] LABS: URINE APPEARANCE CLEAR; URINE BILIRUBIN NEGATIVE (NEGATIVE); URINE BLOOD NEGATIVE (NEGATIVE); URINE COLOR YELLOW; URINE GLUCOSE (UA) NEGATIVE (NEGATIVE); URINE KETONE NEGATIVE (NEGATIVE); URINE LEUK ESTERASE NEGATIVE (NEGATIVE); URINE NITRITE NEGATIVE (NEGATIVE); URINE PROTEIN NEGATIVE (NEGATIVE); URINE UROBILINOGEN 2.0 E.U/dl E.U./dl (0.2-1.0)
[2016-06-12 13:47] LABS: URINE MARIJUANA THC NEGATIVE ng/ml (CUTOFF=50)
[2016-06-12] MEDS ORDERED: ALBUTEROL SO4 6.7 GM HFA INHALER IH PRN (14:47)
[2016-06-12] MEDS ORDERED: IBUPROFEN 400 MG TABLET (FP) PO PRN (14:47)
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
[2016-06-12] MEDS ORDERED: ONDANSETRON 4 MG/2 ML VIAL IVPB PRN (14:49)
[2016-06-12] MEDS ORDERED: ALBUTEROL SO4 0.083% IH SOL 2.5 MG/3 ML VIAL.NEB. NEB PRN (14:49)
[2016-06-12] MEDS ORDERED: ACETAMINOPHEN 325 MG TABLET (FP) PO PRN (14:49)
[2016-06-12] MEDS: SODIUM CHLORIDE 1,000 ML IV SCH (15:08)
[2016-06-12] MEDS: metFORMIN HCL 500 MG TABLET (FP) PO SCH (18:48)
[2016-06-12] MEDS ORDERED: PT OWN MED DRAWER 7, Y5N ONE (21:11)
[2016-06-12] MEDS ORDERED: traZODone HCL 50 MG TABLET (FP) ONE (21:11)
--- NOTE | 2016-06-12 21:24 | EKG ---
Test Reason : Blood Pressure : / mmHG Vent. Rate : 089 BPM Atrial Rate : 089 BPM P-R Int : 136 ms QRS Dur : 080 ms QT Int : 416 ms P-R-T Axes : 053 051 014 degrees QTc Int : 506 ms NORMAL SINUS RHYTHM PROLONGED QT ABNORMAL ECG WHEN COMPARED WITH ECG OF 07-JUN-2016 15:47, T WAVE VARIATION Confirmed by SHEN ESCALANTE MD ([id number]) on 06/12/2016 9:24:27 PM Referred By: Confirmed By:SHEN ESCALANTE MD
[2016-06-12] MEDS ORDERED: PATIENT'S OWN MEDICATION (NON-FORMULARY) (Gabapentin [Neurontin] 600 MG) PO SCH (22:00)
[2016-06-12] MEDS ORDERED: PATIENT'S OWN MEDICATION (NON-FORMULARY) (Metformin Hcl [Glucophage] 1,000 MG) PO SCH (22:00)
[2016-06-12] MEDS: traZODone HCL 100 MG TABLET (FP) PO SCH (22:19)
[2016-06-12] MEDS: QUEtiapine FUMARATE 200 MG TABLET PO SCH (22:20)
[2016-06-12] MEDS: GABAPENTIN 300 MG CAPSULE (FP) PO SCH (22:20)
[2016-06-13] MEDS ORDERED: METHADONE HCL 10 MG TABLET PO SCH (06:00)
[2016-06-13] MEDS: metFORMIN HCL 500 MG TABLET (FP) PO SCH ×2 (06:31→18:08)
[2016-06-13] MEDS ORDERED: METHADONE HCL 40 MG DISPERSABLE TABLET ONE (07:02)
[2016-06-13] MEDS ORDERED: METHADONE HCL 10 MG TABLET ONE (07:02)
[2016-06-13] MEDS: METHADONE 80 MG, METHADONE 10 MG PO SCH (07:03)
[2016-06-13 08:03] LABS: MCH 30.6 pg (25.7-33.7); MEAN CELL VOLUME 95.4 fl (80-96); MEAN PLT VOLUME 8.4 fl (7.5-11.1); PLATELET COUNT 112 K/MM3 (134-434); RDW 16.3 % (11.9-15.9); WHITE BLOOD COUNT 5.2 K/mm3 (4.0-10.0)
[2016-06-13 08:33] LABS: CALCIUM 8.5 mg/dL (8.5-10.1); CREATININE 0.6 mg/dL (0.7-1.3)
[2016-06-13] MEDS ORDERED: PT OWN MED DRAWER 7, Y5N ONE ×3 (09:55→21:15)
[2016-06-13] MEDS: HYDROCHLOROTHIAZIDE 25 MG TABLET (FP) PO SCH (10:01)
[2016-06-13] MEDS: GABAPENTIN 300 MG CAPSULE (FP) PO SCH ×2 (10:04→22:14)
[2016-06-13] MEDS: SODIUM CHLORIDE 1,000 ML IV SCH ×2 (15:38→20:14)
--- NOTE | 2016-06-13 17:21 | PN ---
Physical Exam: SUBJECTIVE: Patient seen and examined. He was sitting in the chair, in no acute distress, on 2 liters of nasal cannula. He was able to answered my questions slowly, with slurred speech and fell back to sleep easily. Denies any chest pain. OBJECTIVE: Vital Signs Period Temp Pulse Resp BP Sys/Cavazos Pulse Ox Last 24 Hr 98 F-98.9 F 73-88 18-20 92-120/60-78 94-94 GENERAL: Lethargic, in no acute distress, requires supplemental oxygenation, slurred speech HEAD: Normal with no signs of trauma. EYES: PERRL, extraocular movements intact, sclera anicteric, conjunctiva clear. No ptosis. ENT: moist mucous membranes. NECK: Trachea midline, full range of motion, supple. LUNGS: Posterior bilateral lung sounds with diminished breath sounds, no wheezing. HEART: Regular rate and rhythm ABDOMEN: Soft, nontender, nondistended, normoactive bowel sounds, no guarding, no rebound, no hepatosplenomegaly, no masses. EXTREMITIES: Trace edema on bilateral lower extremities. NEUROLOGICAL: Normal speech PSYCH: Normal mood, normal affect. SKIN: Warm, dry, normal turgor, no rashes or lesions noted Laboratory Results - last 24 hr 06/13/16 06/13/16 06/13/16 06:20 06:20 06:30 WBC 5.2 RBC 3.87 L Hgb 11.8 Hct 36.9 MCV 95.4 MCHC 32.0 RDW 16.3 H Plt Count 112 L MPV 8.4 Sodium 140 Potassium 3.9 Chloride 98 Carbon Dioxide 33 H Anion Gap 9 BUN 13 Creatinine 0.6 L D POC Glucometer 97 Random Glucose 79 D Calcium 8.5 Active Medications Generic Name Dose Route Start Last Admin Trade Name Freq PRN Reason Stop Dose Admin Acetaminophen 650 mg 06/12/16 14:49 Tylenol - PO Q4H PRN FEVER OR PAIN Albuterol Sulfate 1 amp 06/12/16 14:49 Ventolin 0.083% Nebulizer Soln - NEB Q4H PRN SHORT OF BREATH/WHEEZING Albuterol Sulfate 2 puff 06/12/16 14:47 Ventolin Hfa Inhaler - IH Q4H PRN ASTHMA Bupropion HCl 150 mg 06/13/16 10:00 06/13/16 10:02 Wellbutrin Xl - PO 150 mg DAILY THERESA Administration Gabapentin 600 mg 06/12/16 22:00 06/13/16 10:04 Neurontin - PO Not Given BID THERESA Hydrochlorothiazide 25 mg 06/13/16 10:00 06/13/16 10:01 Hctz - PO 25 mg DAILY THERESA Administration Sodium Chloride 1,000 mls @ 75 mls/hr 06/12/16 15:00 06/13/16 15:38 Normal Saline - IV Not Given ASDIR THERESA Ibuprofen 800 mg 06/12/16 14:47 Motrin - PO Q12H PRN PAIN Metformin HCl 1,000 mg 06/12/16 16:30 06/13/16 06:31 Glucophage - PO 1,000 mg BIDI THERESA Administration Methadone HCl 80 mg/ Methadone 90 mg 06/13/16 07:00 06/13/16 07:03 HCl 10 mg PO 90 mg DAILY@0600 THERESA Administration Ondansetron HCl 4 mg 06/12/16 14:49 Zofran Injection IVPB Q6H PRN NAUSEA Quetiapine Fumarate 200 mg 06/12/16 22:00 06/12/16 22:20 Seroquel - PO Not Given HS THERESA Trazodone HCl 100 mg 06/12/16 22:00 06/12/16 22:19 Desyrel - PO Not Given HS THERESA ASSESSMENT/PLAN: The patient is a 61 year old male brought via EMS from [facility]. He has a significant past medical history of alcohol dependence, diabetes mellitus, hypertension, Hepatitis C, obesity and asthma. He presented to the ED after becoming disoriented after he was given methadone maintenance. He was given Narcan x 2 doses and now admitted for inpatient observation. The patient denies chest pain, shortness of breath, headache and dizziness. UTOX + ecstasy, + benzos Imaging: chest xray 06/12/2016 with no evidence of active pulmonary disease. Pulmonary; Acute hypoxic respiratory failure - likely secondary to methadone maintenance dose Assessment/Plan: During admission, given Narcan twice for worsening lethargy. He is on 2 liters of nasal cannula but remains lethargic - wean off oxygen as tolerated Primary RN attempted to wean him of supplemental oxygen but his oxygen saturations dropped down to the 80s on room air Dr. Velasquez consulted for further methadone management Respiratory pre and post ordered, PT evaluation ordered Fall Risk Asthma - chronic Assessment/Plan: No acute exacerbation, no wheezing noted on exam Albuterol PRN Supplemental oxygen as needed - wean off as tolerated Cardiology: Hypertension - chronic Assessment/Plan: BP controlled on HCTZ 25mg daily monitor Psych: Depression - chronic Assessment/Plan: Currently managed on Trazodone, Wellbutrin, Seroquel ETOH dependence: Assessment/Plan: s/p Librium taper, now on methadone maintenance Endocrine: Diabetes mellitus - chronic Assessment/Plan: Novolog sliding scale, monitor BGMs. F.E.N. Fluids: no IVF, tolerating PO Electrolytes: within normal limits Nutrition: diabetic diet Prophylaxis: DVT: SCDS bilateral legs GI: colace as needed PT evaluation: walked only 45 feet with PT today, monitor for improvement. Disposition: Requires inpatient observation. Full Code. Visit type - Emergency Visit Emergency Visit: Yes ED Registration Date: 06/12/16 Care time: The patient presented to the Emergency Department on the above date and was hospitalized for further evaluation of their emergent condition. - New Patient This patient is new to me today: Yes Date on this admission: 06/13/16 - Critical Care Critical Care patient: No - Discharge Referral Referred to [facility] No
[2016-06-13] MEDS ORDERED: traZODone HCL 50 MG TABLET (FP) ONE (21:14)
[2016-06-13] MEDS: traZODone HCL 100 MG TABLET (FP) PO SCH (22:13)
[2016-06-13] MEDS: QUEtiapine FUMARATE 200 MG TABLET PO SCH (22:14)
[2016-06-14] MEDS ORDERED: METHADONE HCL 10 MG TABLET ONE (05:46)
[2016-06-14] MEDS ORDERED: METHADONE HCL 40 MG DISPERSABLE TABLET ONE (05:46)
[2016-06-14] MEDS: METHADONE 80 MG, METHADONE 10 MG PO SCH (06:05)
[2016-06-14] MEDS: metFORMIN HCL 500 MG TABLET (FP) PO SCH (06:58)
[2016-06-14 08:30] LABS: BASOPHIL 0.5 % (0-2.0); EOSINOPHIL 2.4 % (0-4.5); MCH 30.6 pg (25.7-33.7); MCHC 31.8 g/dl (32.0-35.9); MEAN PLT VOLUME 8.5 fl (7.5-11.1); PLATELET COUNT 130 K/MM3 (134-434); RDW 15.6 % (11.9-15.9); WHITE BLOOD COUNT 4.2 K/mm3 (4.0-10.0)
[2016-06-14] MEDS ORDERED: SODIUM CHLORIDE 1,000 ML IV STA (09:03)
[2016-06-14 09:04] LABS: ALBUMIN 2.8 g/dl (3.4-5.0); ALK PHOS 119 U/L (45-117); ANION GAP 7 (8-16); BILIRUBIN,TOTAL 0.8 mg/dL (0.2-1.0); CALCIUM 8.1 mg/dL (8.5-10.1); CO2 34 mmol/L (21-32); CREATININE 0.7 mg/dL (0.7-1.3); GLUCOSE,RANDOM 79 mg/dL (74-106); SGOT/AST 89 U/L (15-37); SGPT/ALT 53 U/L (12-78); TOT PROT 6.2 g/dl (6.4-8.2)
[2016-06-14] MEDS ORDERED: PT OWN MED DRAWER 7, Y5N ONE ×3 (09:43→09:48)
[2016-06-14] MEDS: HYDROCHLOROTHIAZIDE 25 MG TABLET (FP) PO SCH (09:45)
[2016-06-14] MEDS: GABAPENTIN 300 MG CAPSULE (FP) PO SCH (09:46)
[2016-06-14] MEDS: SODIUM CHLORIDE 1,000 ML IV SCH (10:37)
[2016-06-14] MEDS ORDERED: QUEtiapine FUMARATE 200 MG TABLET PO SCH ×2 (11:04→11:17)
[2016-06-14] MEDS ORDERED: METHADONE HCL 40 MG DISPERSABLE TABLET PO SCH (11:09)
--- NOTE | 2016-06-14 11:24 | PN ---
Physical Exam: SUBJECTIVE: Patient seen and examined. He says he likes to sleep, he denies CP, nausea, vomiting. He is unable to have a meaningful conversation Events: hypotensive, 1L bolus given OBJECTIVE: Vital Signs Period Temp Pulse Resp BP Sys/Cavazos Pulse Ox Last 24 Hr 97.4 F-99.0 F 70-104 18-20 92-122/60-70 94-94 PE Gen: lethargic Neuro: awakens to verbal stimuli, slurred speech, cn 2-12intact Heent: b/l [place] pupils Pulm: bi basilar crackles, mild wheeze + NC CV: s1 s2 rrr no mrg Abd: s nt nd + bs, trace dermatitis to lower abd Ext: venous skin changes b/l lethargy with +1 edema CBCD WBC 4.2 K/mm3 (4.0-10.0) 06/14/16 07:00 RBC 3.75 M/mm3 (4.00-5.60) L 06/14/16 07:00 Hgb 11.5 GM/dL (11.7-16.9) L 06/14/16 07:00 Hct 36.0 % (35.4-49) 06/14/16 07:00 MCV 96.0 fl (80-96) 06/14/16 07:00 MCHC 31.8 g/dl (32.0-35.9) L 06/14/16 07:00 RDW 15.6 % (11.9-15.9) 06/14/16 07:00 Plt Count 130 K/MM3 (134-434) L 06/14/16 07:00 MPV 8.5 fl (7.5-11.1) 06/14/16 07:00 CMP Sodium 143 mmol/L (136-145) 06/14/16 07:00 Potassium 4.4 mmol/L (3.5-5.1) 06/14/16 07:00 Chloride 102 mmol/L (98-107) 06/14/16 07:00 Carbon Dioxide 34 mmol/L (21-32) H 06/14/16 07:00 Anion Gap 7 (8-16) L 06/14/16 07:00 BUN 17 mg/dL (7-18) D 06/14/16 07:00 Creatinine 0.7 mg/dL (0.7-1.3) 06/14/16 07:00 Creat Clearance w eGFR > 60 (>60) 06/14/16 07:00 Calcium 8.1 mg/dL (8.5-10.1) L 06/14/16 07:00 Total Bilirubin 0.8 mg/dL (0.2-1.0) 06/14/16 07:00 AST 89 U/L (15-37) H 06/14/16 07:00 ALT 53 U/L (12-78) 06/14/16 07:00 Alkaline Phosphatase 119 U/L (45-117) H 06/14/16 07:00 Total Protein 6.2 g/dl (6.4-8.2) L 06/14/16 07:00 Albumin 2.8 g/dl (3.4-5.0) L 06/14/16 07:00 06/12/16 13:30 MDMA (Ecstasy) Screen Positive Active Medications Generic Name Dose Route Start Last Admin Trade Name Freq PRN Reason Stop Dose Admin Acetaminophen 650 mg 06/12/16 14:49 Tylenol - PO Q4H PRN FEVER OR PAIN Albuterol Sulfate 1 amp 06/12/16 14:49 06/13/16 22:35 Ventolin 0.083% Nebulizer Soln - NEB 1 amp Q4H PRN Administration SHORT OF BREATH/WHEEZING Albuterol Sulfate 2 puff 06/12/16 14:47 Ventolin Hfa Inhaler - IH Q4H PRN ASTHMA Albuterol/Ipratropium 1 amp 06/14/16 11:30 Duoneb - NEB 06/15/16 11:29 Q4H THERESA Bupropion HCl 150 mg 06/13/16 10:00 06/14/16 09:46 Wellbutrin Xl - PO 150 mg DAILY THERESA Administration Gabapentin 600 mg 06/12/16 22:00 06/14/16 09:46 Neurontin - PO Not Given BID THERESA Hydrochlorothiazide 25 mg 06/13/16 10:00 06/14/16 09:45 Hctz - PO Not Given DAILY THERESA Sodium Chloride 1,000 mls @ 75 mls/hr 06/12/16 15:00 06/14/16 10:37 Normal Saline - IV 75 mls/hr ASDIR THERESA Administration Methadone HCl 40 mg 06/14/16 11:09 Dolophine - PO DAILY@0600 THERESA Ondansetron HCl 4 mg 06/12/16 14:49 Zofran Injection IVPB Q6H PRN NAUSEA Quetiapine Fumarate 100 mg 06/14/16 11:17 Seroquel - PO HS THERESA Trazodone HCl 100 mg 06/12/16 22:00 06/13/16 22:13 Desyrel - PO 100 mg HS THERESA Administration Assessment: 61 year male with a history of HTN, DM II, asthma, depression, alcohol dependence admitted for hypxia and lethargy at [facility] for ETOH detox , given narcan x2 in field. Plan: 1. Acute hypoxic respiratory failure likely secondary to Methadone with AMS - Stable on NC, however continues to be lethargic requiring supplemental oxygen - Decrease maintenance dose methadone to 40mg daily - Start duonebs q4 x24hr - Monitor for hypoxia - Dr. Tano Dyson to see pt 2. Hypotensive - Likely from high dose methadone - 1L NS bolus with moderate increase, asymptomatic - Hold HCTZ today - Narcan PRN 3. Depression - Decrease Seroquel 100mg HS, give HS PRN insomnia, otherwise hold - Continue Wellbutrin - Hold Trazodone, neurontin prn lethargy 4. Alcohol dependence with withdrawal - Completed Librium detox 5. DM II - Hold metformin, pt is too lethargic to eat - Fingersticks with Novolog sliding scale Visit type - Emergency Visit Emergency Visit: Yes ED Registration Date: 06/12/16 Care time: The patient presented to the Emergency Department on the above date and was hospitalized for further evaluation of their emergent condition. - New Patient This patient is new to me today: Yes Date on this admission: 06/14/16 - Critical Care Critical Care patient: No - Discharge Referral Referred to [facility] Med P.C.: No
[2016-06-14] MEDS ORDERED: QUEtiapine FUMARATE 100 MG TABLET (FP) PO PRN (11:40)
[2016-06-14] MEDS: ALBUTEROL SO4 2.5/IPRATROPIUM 0.5 INH SOL 3 ML VIAL.NEB. NEB SCH ×4 (12:44→23:28)
[2016-06-14] MEDS ORDERED: INSULIN SLIDING SCALE (NOVOLOG) 1 VIAL SQ SCH (16:30)
[2016-06-14] MEDS: INSULIN SLIDING SCALE (NOVOLOG) 1 VIAL SQ SCH ×2 (17:30→22:34)
[2016-06-15] MEDS: ALBUTEROL SO4 2.5/IPRATROPIUM 0.5 INH SOL 3 ML VIAL.NEB. NEB SCH ×2 (03:00→07:33)
[2016-06-15] MEDS: INSULIN SLIDING SCALE (NOVOLOG) 1 VIAL SQ SCH ×4 (06:41→21:47)
[2016-06-15 08:17] LABS: CALCIUM 7.9 mg/dL (8.5-10.1); CREATININE 0.6 mg/dL (0.7-1.3); MAGNESIUM 1.4 mg/dL (1.8-2.4); PHOSPHOROUS 3.1 mg/dL (2.5-4.9)
[2016-06-15] MEDS ORDERED: PT OWN MED DRAWER 7, Y5N ONE (09:55)
[2016-06-15] MEDS: GABAPENTIN 300 MG CAPSULE (FP) PO SCH (09:59)
[2016-06-15] MEDS: HYDROCHLOROTHIAZIDE 25 MG TABLET (FP) PO SCH (09:59)
[2016-06-15] MEDS ORDERED: MAGNESIUM SULF 50% (8.12 MEQ/2 ML-1 GM VIAL) IVPB ONE (12:00)
--- NOTE | 2016-06-15 13:31 | PN ---
Physical Exam: SUBJECTIVE: Patient seen and examined. His mental status is greatly improved today, he does remember me. He wants to know how he came to the hospital. He is tolerating meals and aware of his medical hx. OBJECTIVE: Vital Signs Period Temp Pulse Resp BP Sys/Cavazos Pulse Ox Last 24 Hr 97.5 F-98.9 F 73-84 16-20 108-123/64-74 90-94 PE Neuro: awake, alert, cn 2-12intact Pulm: L base crackles +NC CV: s1 s2 rrr no mrg Abd: s nt nd + bs Ext: venous skin changes b/l lethargy with +1 edema Laboratory Results - last 24 hr 06/14/16 06/15/16 06/15/16 17:14 06:30 06:40 Sodium 142 Potassium 4.3 Chloride 101 Carbon Dioxide 32 Anion Gap 9 BUN 13 D Creatinine 0.6 L POC Glucometer 101 99 Random Glucose 91 Calcium 7.9 L Phosphorus 3.1 Magnesium 1.4 L Active Medications Generic Name Dose Route Start Last Admin Trade Name Freq PRN Reason Stop Dose Admin Acetaminophen 650 mg 06/12/16 14:49 Tylenol - PO Q4H PRN FEVER OR PAIN Albuterol Sulfate 1 amp 06/12/16 14:49 06/13/16 22:35 Ventolin 0.083% Nebulizer Soln - NEB 1 amp Q4H PRN Administration SHORT OF BREATH/WHEEZING Albuterol Sulfate 2 puff 06/12/16 14:47 Ventolin Hfa Inhaler - IH Q4H PRN ASTHMA Bupropion HCl 150 mg 06/13/16 10:00 06/15/16 09:59 Wellbutrin Xl - PO 150 mg DAILY THERESA Administration Gabapentin 600 mg 06/12/16 22:00 06/15/16 09:59 Neurontin - PO Not Given BID THERESA Hydrochlorothiazide 25 mg 06/13/16 10:00 06/15/16 09:59 Hctz - PO Not Given DAILY THERESA Sodium Chloride 1,000 mls @ 75 mls/hr 06/12/16 15:00 06/14/16 10:37 Normal Saline - IV 75 mls/hr ASDIR THERESA Administration Insulin Aspart 1 vial 06/14/16 16:30 06/15/16 12:37 Novolog Vial Sliding Scale - SQ Not Given ACHS THERESA Protocol Methadone HCl 40 mg 06/14/16 11:09 06/15/16 06:15 Dolophine - PO 40 mg DAILY@0600 THERESA Administration Ondansetron HCl 4 mg 06/12/16 14:49 Zofran Injection IVPB Q6H PRN NAUSEA Quetiapine Fumarate 100 mg 06/14/16 11:40 Seroquel - PO HS PRN INSOMNIA Trazodone HCl 100 mg 06/12/16 22:00 06/13/16 22:13 Desyrel - PO 100 mg HS THERESA Administration Assessment: 61 year male with a history of HTN, DM II, asthma, depression, alcohol dependence admitted for hypxia and lethargy at [facility] for ETOH detox , given narcan x2 in field. Plan: 1. Acute hypoxic respiratory failure likely secondary to Methadone with AMS - Mental status improved - Methadone 40mg daily - Awaiting Dr. Tano Dyson input regarding dose 2. Hypotensive - BP stable - Resume HCTZ 3. Depression - Resume home dose seroquel 200mg HS - Will stop trazodone - Continue Wellbutrin - Restart Gabapentin tomorrow - Placed call to Psych MD Dr. Sanders re psych meds, awaiting call back 4. Alcohol dependence with withdrawal - Completed Librium detox 5. DM II - Hold metformin, pt is too lethargic to eat - BGM, ISS, ACHS 6. Hypomagnesemia - Replete 2gm IV x1 Visit type - Emergency Visit Emergency Visit: Yes ED Registration Date: 06/12/16 Care time: The patient presented to the Emergency Department on the above date and was hospitalized for further evaluation of their emergent condition. - New Patient This patient is new to me today: No - Critical Care Critical Care patient: No
--- NOTE | 2016-06-15 15:54 | PN ---
[facility] Progress Note (SOAP) Subjective: Pt. was sent to [facility] because of over sedation. Pt. wqas on methadone 90mg, neurontin 600mg bid & seroquel 200mg hs in addition to wellbutrin 150mg daily. Objective: 06/15/16 15:52 Vital Signs - 8 hr 06/15/16 06/15/16 06/15/16 08:00 09:06 14:43 Temperature 98.9 F 99 F Pulse Rate 84 73 Respiratory 20 20 Rate Blood Pressure 123/74 O2 Sat by Pulse 94 L Oximetry (%) Laboratory Last Values WBC 4.2 K/mm3 (4.0-10.0) 06/14/16 07:00 RBC 3.75 M/mm3 (4.00-5.60) L 06/14/16 07:00 Hgb 11.5 GM/dL (11.7-16.9) L 06/14/16 07:00 Hct 36.0 % (35.4-49) 06/14/16 07:00 MCV 96.0 fl (80-96) 06/14/16 07:00 MCHC 31.8 g/dl (32.0-35.9) L 06/14/16 07:00 RDW 15.6 % (11.9-15.9) 06/14/16 07:00 Plt Count 130 K/MM3 (134-434) L 06/14/16 07:00 MPV 8.5 fl (7.5-11.1) 06/14/16 07:00 Neutrophils % 56.0 % (42.8-82.8) D 06/14/16 07:00 Lymphocytes % 29.6 % (8-40) D 06/14/16 07:00 Monocytes % 11.5 % (3.8-10.2) H 06/14/16 07:00 Eosinophils % 2.4 % (0-4.5) D 06/14/16 07:00 Basophils % 0.5 % (0-2.0) 06/14/16 07:00 Sodium 142 mmol/L (136-145) 06/15/16 06:30 Potassium 4.3 mmol/L (3.5-5.1) 06/15/16 06:30 Chloride 101 mmol/L (98-107) 06/15/16 06:30 Carbon Dioxide 32 mmol/L (21-32) 06/15/16 06:30 Anion Gap 9 (8-16) 06/15/16 06:30 BUN 13 mg/dL (7-18) D 06/15/16 06:30 Creatinine 0.6 mg/dL (0.7-1.3) L 06/15/16 06:30 Creat Clearance w eGFR > 60 (>60) 06/14/16 07:00 POC Glucometer 110 UNITS (()) 06/15/16 12:10 Random Glucose 91 mg/dL (74-106) 06/15/16 06:30 Calcium 7.9 mg/dL (8.5-10.1) L 06/15/16 06:30 Phosphorus 3.1 mg/dL (2.5-4.9) 06/15/16 06:30 Magnesium 1.4 mg/dL (1.8-2.4) L 06/15/16 06:30 Total Bilirubin 0.8 mg/dL (0.2-1.0) 06/14/16 07:00 AST 89 U/L (15-37) H 06/14/16 07:00 ALT 53 U/L (12-78) 06/14/16 07:00 Alkaline Phosphatase 119 U/L (45-117) H 06/14/16 07:00 Creatine Kinase 637 IU/L (39-308) H 06/12/16 11:50 Creatine Kinase Index 0.2 % (0.0-5.0) 06/12/16 11:50 CK-MB (CK-2) 1.122 ng/ml (0.5-3.6) 06/12/16 11:50 CK-MB (CK-2) Rel Index Cancelled 06/12/16 11:50 Troponin I 0.02 ng/ml (0.00-0.05) 06/12/16 11:50 B-Natriuretic Peptide 43.45 pg/ml (5-125) 06/12/16 11:50 Total Protein 6.2 g/dl (6.4-8.2) L 06/14/16 07:00 Albumin 2.8 g/dl (3.4-5.0) L 06/14/16 07:00 Urine Color Yellow 06/12/16 13:19 Urine Appearance Clear 06/12/16 13:19 Urine pH 6.0 (5.0-8.0) 06/12/16 13:19 Ur Specific [place] 1.011 (1.001-1.035) 06/12/16 13:19 Urine Protein Negative (NEGATIVE) 06/12/16 13:19 Urine Glucose (UA) Negative (NEGATIVE) 06/12/16 13:19 Urine Ketones Negative (NEGATIVE) 06/12/16 13:19 Urine Blood Negative (NEGATIVE) 06/12/16 13:19 Urine Nitrite Negative (NEGATIVE) 06/12/16 13:19 Urine Bilirubin Negative (NEGATIVE) 06/12/16 13:19 Urine Urobilinogen 2.0 e.u/dl E.U./dl (0.2-1.0) 06/12/16 13:19 Ur Leukocyte Esterase Negative (NEGATIVE) 06/12/16 13:19 Opiates Screen Negative ng/ml (FPRHTV=084) 06/12/16 13:30 Methadone Screen Positive ng/ml (DHRLMN=820) 06/12/16 13:30 Barbiturate Screen Negative ng/ml (PSUEYF=414) 06/12/16 13:30 Phencyclidine Screen Negative ng/ml (CUTOFF=25) 06/12/16 13:30 Ur Amphetamines Screen Negative ng/ml (YFUBJI=876) 06/12/16 13:30 MDMA (Ecstasy) Screen Positive ng/ml (NXZHRV=891) 06/12/16 13:30 Benzodiazepines Screen Positive ng/ml (YJXFXA=181) 06/12/16 13:30 Cocaine Screen Negative ng/ml (VVLCCH=717) 06/12/16 13:30 U Marijuana (THC) Screen Negative ng/ml (CUTOFF=50) 06/12/16 13:30 labs noted Assessment: 06/15/16 15:53 Drug interactions Plan: lower the dose of all the meds & observe Pt.
[2016-06-15] MEDS: GABAPENTIN 100 MG CAPSULE (FP) PO SCH (21:47)
[2016-06-15] MEDS: QUEtiapine FUMARATE 25 MG TABLET (FP) PO SCH (21:47)
[2016-06-15] MEDS ORDERED: QUEtiapine FUMARATE 100 MG TABLET (FP) PO SCH (22:00)
[2016-06-16] MEDS: INSULIN SLIDING SCALE (NOVOLOG) 1 VIAL SQ SCH ×4 (06:53→21:49)
[2016-06-16 08:05] LABS: CALCIUM 8.3 mg/dL (8.5-10.1); CREATININE 0.6 mg/dL (0.7-1.3); MAGNESIUM 1.7 mg/dL (1.8-2.4)
[2016-06-16] MEDS ORDERED: PT OWN MED DRAWER 7, Y5N ONE (08:49)
[2016-06-16] MEDS: HYDROCHLOROTHIAZIDE 25 MG TABLET (FP) PO SCH (08:59)
[2016-06-16] MEDS: GABAPENTIN 100 MG CAPSULE (FP) PO SCH ×2 (08:59→21:42)
[2016-06-16] MEDS: METHADONE HCL 40 MG DISPERSABLE TABLET PO SCH (08:59)
[2016-06-16] MEDS ORDERED: MAGNESIUM SULF 50% (8.12 MEQ/2 ML-1 GM VIAL) IVPB ONE (10:00)
--- NOTE | 2016-06-16 14:29 | PN ---
Physical Exam: SUBJECTIVE: Patient seen and examined. He says he is feeling better today, he is still weak. He wants to go to rehab OBJECTIVE: Vital Signs Period Temp Pulse Resp BP Sys/Cavazos Pulse Ox Last 24 Hr 98.2 F-98.6 F 71-88 18-20 126-138/68-77 88-96 PE Neuro: awake, alert, cn 2-12intact Pulm: Clear with scattered rhonchi CV: s1 s2 rrr no mrg Abd: s nt nd + bs Ext: venous skin changes b/l lethargy with +1 edema Gait: ambulating with walker well Laboratory Results - last 24 hr 06/15/16 06/15/16 06/16/16 16:48 21:46 06:00 Sodium 142 Potassium 4.1 Chloride 103 Carbon Dioxide 32 Anion Gap 7 L BUN 9 D Creatinine 0.6 L POC Glucometer 108 149 Random Glucose 98 Calcium 8.3 L Magnesium 1.7 L D Active Medications Generic Name Dose Route Start Last Admin Trade Name Freq PRN Reason Stop Dose Admin Acetaminophen 650 mg 06/12/16 14:49 Tylenol - PO Q4H PRN FEVER OR PAIN Albuterol Sulfate 1 amp 06/12/16 14:49 06/13/16 22:35 Ventolin 0.083% Nebulizer Soln - NEB 1 amp Q4H PRN Administration SHORT OF BREATH/WHEEZING Albuterol Sulfate 2 puff 06/12/16 14:47 Ventolin Hfa Inhaler - IH Q4H PRN ASTHMA Bupropion HCl 150 mg 06/13/16 10:00 06/16/16 09:00 Wellbutrin Xl - PO 150 mg DAILY THERESA Administration Gabapentin 200 mg 06/15/16 15:50 06/16/16 08:59 Neurontin - PO 200 mg BID THERESA Administration Hydrochlorothiazide 25 mg 06/13/16 10:00 06/16/16 08:59 Hctz - PO 25 mg DAILY THERESA Administration Insulin Aspart 1 vial 06/14/16 16:30 06/16/16 11:57 Novolog Vial Sliding Scale - SQ Not Given ACHS THERESA Protocol Methadone HCl 40 mg 06/16/16 10:00 06/16/16 08:59 Dolophine - PO 40 mg DAILY THERESA Administration Ondansetron HCl 4 mg 06/12/16 14:49 Zofran Injection IVPB Q6H PRN NAUSEA Quetiapine Fumarate 50 mg 06/15/16 22:00 06/15/16 21:47 Seroquel - PO 50 mg HS THERESA Administration Assessment: 61 year male with a history of HTN, DM II, asthma, depression, alcohol dependence admitted for hypxia and lethargy at [facility] for ETOH detox , given narcan x2 in field. Plan: 1. Acute hypoxic respiratory failure likely secondary to Methadone with AMS - Mental status appears at baseline - Methadone 40mg daily - Stable on RA 2. Depression - Reduce seroquel 50mg HS - Continue Wellbutrin - Gabapentin 200 BID 3. Hypotensive - BP stable - Daily HCTZ 4. Alcohol dependence with withdrawal - Completed Librium detox - Pt would like to return to [facility] for rehab, d/w CCM plan initiated 5. DM II - BGM, ISS, ACHS 6. Hypomagnesemia - Replete 1gm IV x1 today Dispo: - Pt goes to [facility] for methadone clinic and psych treatment Visit type - Emergency Visit Emergency Visit: Yes ED Registration Date: 06/15/16 Care time: The patient presented to the Emergency Department on the above date and was hospitalized for further evaluation of their emergent condition. - New Patient This patient is new to me today: No - Critical Care Critical Care patient: No
[2016-06-16] MEDS: QUEtiapine FUMARATE 25 MG TABLET (FP) PO SCH (21:42)
[2016-06-17] MEDS: INSULIN SLIDING SCALE (NOVOLOG) 1 VIAL SQ SCH ×4 (06:07→23:08)
[2016-06-17] MEDS ORDERED: PT OWN MED DRAWER 7, Y5N ONE (09:13)
[2016-06-17] MEDS: HYDROCHLOROTHIAZIDE 25 MG TABLET (FP) PO SCH (09:33)
[2016-06-17] MEDS: GABAPENTIN 100 MG CAPSULE (FP) PO SCH ×2 (09:33→22:35)
[2016-06-17] MEDS: METHADONE HCL 40 MG DISPERSABLE TABLET PO SCH (09:33)
[2016-06-17] MEDS ORDERED: MAGNESIUM SULF 50% (8.12 MEQ/2 ML-1 GM VIAL) IVPB ONE (16:20)
--- NOTE | 2016-06-17 16:22 | PN ---
Physical Exam: SUBJECTIVE: Patient seen and examined. NAD, stable off RA. OBJECTIVE: Vital Signs Period Temp Pulse Resp BP Sys/Cavazos Pulse Ox Last 24 Hr 98.1 F-99 F 72-93 18-20 108-137/66-80 90-90 PE Neuro: awake, alert, cn 2-12intact Pulm: Clear with scattered rhonchi CV: s1 s2 rrr no mrg Abd: s nt nd + bs Ext: venous skin changes b/l lethargy with +1 edema Laboratory Results - last 24 hr 06/16/16 06/16/16 06/17/16 17:59 21:48 05:32 POC Glucometer 104 108 94 Magnesium 06/17/16 06/17/16 07:00 11:38 POC Glucometer 131 Magnesium 1.5 L Active Medications Generic Name Dose Route Start Last Admin Trade Name Freq PRN Reason Stop Dose Admin Acetaminophen 650 mg 06/12/16 14:49 Tylenol - PO Q4H PRN FEVER OR PAIN Albuterol Sulfate 1 amp 06/12/16 14:49 06/13/16 22:35 Ventolin 0.083% Nebulizer Soln - NEB 1 amp Q4H PRN Administration SHORT OF BREATH/WHEEZING Albuterol Sulfate 2 puff 06/12/16 14:47 Ventolin Hfa Inhaler - IH Q4H PRN ASTHMA Bupropion HCl 150 mg 06/13/16 10:00 06/17/16 09:34 Wellbutrin Xl - PO 150 mg DAILY THERESA Administration Gabapentin 200 mg 06/15/16 15:50 06/17/16 09:33 Neurontin - PO 200 mg BID THERESA Administration Hydrochlorothiazide 25 mg 06/13/16 10:00 06/17/16 09:33 Hctz - PO 25 mg DAILY THERESA Administration Insulin Aspart 1 vial 06/14/16 16:30 06/17/16 11:39 Novolog Vial Sliding Scale - SQ Not Given ACHS THERESA Protocol Methadone HCl 40 mg 06/16/16 10:00 06/17/16 09:33 Dolophine - PO 40 mg DAILY THERESA Administration Ondansetron HCl 4 mg 06/12/16 14:49 Zofran Injection IVPB Q6H PRN NAUSEA Quetiapine Fumarate 50 mg 06/15/16 22:00 06/16/16 21:42 Seroquel - PO 50 mg HS THERESA Administration Assessment: 61 year male with a history of HTN, DM II, asthma, depression, alcohol dependence admitted for hypoxia and lethargy at [facility] for ETOH detox , given narcan x2 in field. Plan: 1. Acute hypoxic respiratory failure likely secondary to Methadone with AMS - Resolved - Maintain methadone 40mg daily per Dr. Tano Dyson 2. Depression - Seroquel 50mg HS - Continue Wellbutrin - Gabapentin 200 BID 3. Hypotensive - BP stable - Daily HCTZ 4. Alcohol dependence with withdrawal - Completed Librium detox - Add Folic acid, Thiamin daily - Pt would like to return to [facility] for rehab, plan for transfer tomorrow 5. DM II - BGM, ISS, ACHS 6. Hypomagnesemia - Replete 1gm IV x2 today Dispo: - Pt goes to [facility] for methadone clinic and psych treatment Visit type - Emergency Visit Emergency Visit: Yes ED Registration Date: 06/15/16 Care time: The patient presented to the Emergency Department on the above date and was hospitalized for further evaluation of their emergent condition. - New Patient This patient is new to me today: No - Critical Care Critical Care patient: No
[2016-06-17] MEDS: FOLIC ACID 1 MG TABLET (FP) PO SCH (17:47)
[2016-06-17] MEDS: QUEtiapine FUMARATE 25 MG TABLET (FP) PO SCH (22:35)
[2016-06-17] MEDS: THIAMINE HCL 100 MG TABLET (FP) PO SCH (22:36)
[2016-06-18] MEDS: INSULIN SLIDING SCALE (NOVOLOG) 1 VIAL SQ SCH ×4 (06:16→21:48)
[2016-06-18 09:27] LABS: CALCIUM 9.2 mg/dL (8.5-10.1); CREATININE 0.8 mg/dL (0.7-1.3); MAGNESIUM 1.6 mg/dL (1.8-2.4)
[2016-06-18] MEDS: HYDROCHLOROTHIAZIDE 25 MG TABLET (FP) PO SCH (09:38)
[2016-06-18] MEDS: GABAPENTIN 100 MG CAPSULE (FP) PO SCH ×2 (09:38→21:12)
[2016-06-18] MEDS: FOLIC ACID 1 MG TABLET (FP) PO SCH (09:38)
[2016-06-18] MEDS: METHADONE HCL 40 MG DISPERSABLE TABLET PO SCH (09:38)
[2016-06-18] MEDS ORDERED: METHADONE HCL 40 MG DISPERSABLE TABLET PO SCH (11:01)
[2016-06-18] MEDS ORDERED: METHADONE HCL 10 MG TABLET PO ONE (11:01)
--- NOTE | 2016-06-18 11:07 | PN ---
Physical Exam: SUBJECTIVE: Patient seen and examined. He says he feels uncomfortable and anxious, he would like his regular dose of methadone, he says he cant sleep. He is alert and aware of his clinic, he says he will bring his d/c papers to his doctor at [facility]. OBJECTIVE: Vital Signs Period Temp Pulse Resp BP Sys/Cavazos Pulse Ox Last 24 Hr 97.9 F-99 F 76-84 16-20 108-122/65-72 94 PE Neuro: awake, alert, cn 2-12intact Pulm: clear bases, scattered crackles, +productive intermittent cough, no sob CV: s1 s2 rrr no mrg Abd: s nt nd + bs Ext: venous skin changes b/l lethargy with +1 edema Skin: r arm tattoo Laboratory Results - last 24 hr 06/18/16 06/18/16 05:54 06:30 Sodium 140 Potassium 4.0 Chloride 99 Carbon Dioxide 34 H Anion Gap 7 L BUN 13 D Creatinine 0.8 D POC Glucometer 105 Random Glucose 92 Calcium 9.2 Magnesium 1.6 L Active Medications Generic Name Dose Route Start Last Admin Trade Name Freq PRN Reason Stop Dose Admin Acetaminophen 650 mg 06/12/16 14:49 Tylenol - PO Q4H PRN FEVER OR PAIN Albuterol Sulfate 1 amp 06/12/16 14:49 06/13/16 22:35 Ventolin 0.083% Nebulizer Soln - NEB 1 amp Q4H PRN Administration SHORT OF BREATH/WHEEZING Albuterol Sulfate 2 puff 06/12/16 14:47 Ventolin Hfa Inhaler - IH Q4H PRN ASTHMA Bupropion HCl 150 mg 06/13/16 10:00 06/18/16 09:39 Wellbutrin Xl - PO 150 mg DAILY THERESA Administration Folic Acid 1 mg 06/17/16 16:30 06/18/16 09:38 Folic Acid - PO 1 mg DAILY THERESA Administration Gabapentin 200 mg 06/15/16 15:50 06/18/16 09:38 Neurontin - PO 200 mg BID THERESA Administration Hydrochlorothiazide 25 mg 06/13/16 10:00 06/18/16 09:38 Hctz - PO 25 mg DAILY THERESA Administration Insulin Aspart 1 vial 06/14/16 16:30 06/18/16 06:16 Novolog Vial Sliding Scale - SQ Not Given ACHS THERESA Protocol Ondansetron HCl 4 mg 06/12/16 14:49 Zofran Injection IVPB Q6H PRN NAUSEA Quetiapine Fumarate 50 mg 06/15/16 22:00 06/17/16 22:35 Seroquel - PO 50 mg HS THERESA Administration Thiamine HCl 100 mg 06/17/16 22:00 06/17/16 22:36 Vitamin B1 - PO 100 mg HS THERESA Administration Assessment: 61 year male with a history of HTN, DM II, asthma, depression, alcohol dependence admitted for hypoxia and lethargy at [facility] for ETOH detox , given narcan x2 in field. Plan: 1. Acute hypoxic respiratory failure likely secondary to Methadone with AMS - Resolved - Resume regular maintenance dose of 90mg methadone today, observe response 2. Depression - Increase seroquel 100mg HS - Continue Wellbutrin - Gabapentin 200 BID 3. Hypotensive - Daily HCTZ 4. Alcohol dependence with withdrawal - Completed Librium detox - Continue Folic acid, Thiamin daily 5. DM II - BGM, ISS, ACHS 6. Hypomagnesemia - Replete 2gm IV x1 today Dispo: - If stable with increased methadone, pr home tomorrow Visit type - Emergency Visit Emergency Visit: Yes ED Registration Date: 06/15/16 Care time: The patient presented to the Emergency Department on the above date and was hospitalized for further evaluation of their emergent condition. - New Patient This patient is new to me today: No - Critical Care Critical Care patient: No
[2016-06-18] MEDS ORDERED: METHADONE HCL 40 MG DISPERSABLE TABLET ONE (11:23)
[2016-06-18] MEDS ORDERED: METHADONE HCL 10 MG TABLET ONE (11:23)
[2016-06-18] MEDS ORDERED: METHADONE 40 MG, METHADONE 10 MG PO ONE (11:30)
[2016-06-18] MEDS ORDERED: MAGNESIUM SULF 50% (8.12 MEQ/2 ML-1 GM VIAL) IVPB ONE (11:35)
[2016-06-18] MEDS: THIAMINE HCL 100 MG TABLET (FP) PO SCH (21:12)
[2016-06-18] MEDS ORDERED: QUEtiapine FUMARATE 100 MG TABLET (FP) PO SCH (22:00)
[2016-06-19] MEDS ORDERED: METHADONE HCL 10 MG TABLET ONE (05:36)
[2016-06-19] MEDS ORDERED: METHADONE HCL 40 MG DISPERSABLE TABLET ONE (05:36)
[2016-06-19] MEDS ORDERED: METHADONE 80 MG, METHADONE 10 MG PO SCH (06:00)
[2016-06-19] MEDS ORDERED: METHADONE HCL 40 MG DISPERSABLE TABLET PO SCH (06:00)
[2016-06-19] MEDS: INSULIN SLIDING SCALE (NOVOLOG) 1 VIAL SQ SCH ×2 (06:08→11:06)
[2016-06-19] MEDS ORDERED: PT OWN MED DRAWER 7, Y5N ONE (08:46)
[2016-06-19] MEDS: HYDROCHLOROTHIAZIDE 25 MG TABLET (FP) PO SCH (09:04)
[2016-06-19] MEDS: FOLIC ACID 1 MG TABLET (FP) PO SCH (09:04)
[2016-06-19] MEDS: GABAPENTIN 100 MG CAPSULE (FP) PO SCH (09:08)
--- NOTE | 2016-06-19 09:14 | DS ---
Physical Exam: SUBJECTIVE: Patient seen and examined. He feels well, he says he no longer feels anxious and uncomfortable. He tolerated his regular dose of methadone well. OBJECTIVE: Vital Signs Period Temp Pulse Resp BP Sys/Cavazos Pulse Ox Last 24 Hr 97.8 F-98.2 F 70-83 16-20 100-120/65-76 94-95 PE Neuro: awake, alert, cn 2-12intact Pulm: clear bases, scattered crackles, +productive intermittent cough, no sob CV: s1 s2 rrr no mrg Abd: s nt nd + bs Ext: venous skin changes b/l lethargy with +1 edema Skin: r arm tattoo Laboratory Results - last 24 hr 06/18/16 06/18/16 06/18/16 06:30 17:37 21:15 Sodium 140 Potassium 4.0 Chloride 99 Carbon Dioxide 34 H Anion Gap 7 L BUN 13 D Creatinine 0.8 D POC Glucometer 109 122 Random Glucose 92 Calcium 9.2 Magnesium 1.6 L 06/19/16 06:01 Sodium Potassium Chloride Carbon Dioxide Anion Gap BUN Creatinine POC Glucometer 81 Random Glucose Calcium Magnesium HOSPITAL COURSE: Date of Admission:06/15/16 Date of Discharge: 06/19/16 Minutes to complete discharge: 35 Discharge Summary Reason For Visit: SEDATED DUE TO MEDICATION Current Active Problems Sedated due to medication (Acute) Hospital Course: Initial Hospital Course: Briefly, this 61 year old male who was admitted to [facility] for alcohol detox on 06/07. He fell in his room did not lose consciousness. It was not known if he hit his head. He was found to be wheezing with oxygen saturation 81%. He was given albuterol and sent to the ER. In the ER, he was in no respiratory distress and oxygen saturation was 96%. He was noted to have slurred speech. Head CT was unremarkable and he was discharged back to [facility]. The next morning he was given Methadone 90 mg and later was noted to be lethargic and diaphoretic with labored breathing. Oxygen saturation was 53%. He was given Narcan 0.4 mg and awoke. Oxygen saturation was then 95% on 2 L. In the ER he was noted to again be lethargic and was given another dose of Narcan 0.4 mg, he was unable to give a history and did not know how he came to the ER. Subsequent Hospital Course/Progress note/Discharge Summary by a/p: Assessment: 61 year male with a history of HTN, DM II, asthma, depression, alcohol dependence admitted for hypoxia and lethargy at [facility] for ETOH detox , given narcan x2 in field. Plan: 1. Acute hypoxic respiratory failure likely secondary to Methadone with AMS - Required continuous oxygen for 3 days, tapered off until stable on RA - Methadone decreased to 40mg daily, now 90mg - Resume Methadone he is stable and tolerating well without resp or mental changes 2. Depression - Decreased Seroquel 100mg HS; maintain - Continue Wellbutrin 150mg daily - Decreased Gabapentin 200 BID; maintain 3. HTN - Stable - Daily HCTZ 4. Alcohol dependence with withdrawal - Completed Librium detox - Continue Folic acid, Thiamin daily 5. DM II - Resume homoe metformin 6. Hypomagnesemia - Required IV repletion - Home with mg ox 400mg daily x1 week Dispo: - [facility], will return to psych and methadone clinic [facility] in the [place] for follow up with Dr. Bledsoe, pt is aware of changes and plan and agrees to above plan Condition: Stable - Instructions Diet, Activity, Other Instructions: Please return to the ED for any new, persistent, or worsening symptoms. Follow up with Dr. Sanders this for follow up on your medications and review. Continue medications as directed on home medication as listed on discharge paper work, you are no longer taking trazadone. Changed made: Gabapentin 200mg BID Seroquel 100mg HS Referrals: Filemon Bojorquez MD [Staff Physician] - Disposition: HOME - Home Medications Comprehensive Discharge Medication List: Ambulatory Orders Albuterol Sulfate Inhaler - [Ventolin HFA Inhaler -] 2 inh PO Q4H PRN 06/07/16 Bupropion HCl [Wellbutrin Xl -] 150 mg PO DAILY 06/07/16 Hydrochlorothiazide [Hctz -] 25 mg PO DAILY 06/07/16 Metformin HCl [Glucophage] 1,000 mg PO BID 06/07/16 Folic Acid - 1 mg PO DAILY #30 tablet 06/19/16 Gabapentin [Neurontin -] 200 mg PO BID #120 capsule 06/19/16 Magnesium Oxide [Mag-Ox -] 400 mg PO DAILY #7 tablet 06/19/16 Methadone [Dolophine -] 90 mg PO DAILY@0600 #0 tablet MDD 90mg 06/19/16 Quetiapine Fumarate [Seroquel] 100 mg PO HS #30 tablet 06/19/16 Thiamine HCl [Vitamin B1 -] 100 mg PO HS #30 tablet 06/19/16 This patient is new to me today: No Emergency Visit: Yes ED Registration Date: 06/15/16 Care time: The patient presented to the Emergency Department on the above date and was hospitalized for further evaluation of their emergent condition. Critical Care patient: No - Discharge Referral Referred to [facility] No
[2016-06-19 10:20] VITALS: BP 122/71; PULSE 80; TEMP 98.1
== END 2016-06-19 11:45 | disposition home or self-care (01) | DRG 189 ==
LOC: JER 11:02 → JERBED 13:46 → J8W 16:08 → OBSVTOIN 06-15 15:01
PROVIDERS: ADMIT Internal Medicine; ATTEND Nurse Practitioner Acute Care
PROC: 3E0F7GC Introduction of Other Therapeutic Substance into Respiratory Tract, Via Natural or Artificial Opening (ICD-10-PCS; principal; 2016-06-12)
DX: J96.01 Acute respiratory failure with hypoxia (principal); T40.3X5A Adverse effect of methadone, initial encounter; F10.20 Alcohol dependence, uncomplicated; E11.9 Type 2 diabetes mellitus without complications; J45.909 Unspecified asthma, uncomplicated; F32.9 Major depressive disorder, single episode, unspecified; F17.210 Nicotine dependence, cigarettes, uncomplicated; R41.82 Altered mental status, unspecified; Z79.891 Long term (current) use of opiate analgesic; E83.42 Hypomagnesemia
CPT/HCPCS: 36415; 70450-TC; 71010-TC; 80048; 80053; 80307; 81003; 82550; 82553; 83735; 83880; 84100; 84484; 85025; 85027; 87086; 93005; 93010; 94640; 97116-GP; 97161-GP; 99282-25; 99283-25; G0378; G0480

== ENCOUNTER 2016-06-19 12:26 | Inpatient (IN) | payer OTHER ==
[2016-06-19 13:48] VITALS: BMI 27.2
--- NOTE | 2016-06-19 14:48 | HP ---
[facility] Rehab Assess/Revision - Admission History Admitted to Rehab from: Medical/Surgical Date of Admission to Rehab: 06/19/16. - Vital signs Vital Signs: Vital Signs Period Temp Pulse Resp BP Sys/Cavazos Pulse Ox Last 24 Hr 97.9 F 115 18 122/76 - Findings Detox History & Physical reviewed: No Concur with findings: Yes Comments/Additional Findings: mtp on methadone 90mg/d. chronic alcoholism. dm2. htn. acute hypoxic respiratory failure 2nd methadone.
[2016-06-19] MEDS ORDERED: MAGNESIUM HYDROX 2400MG/30ML ORAL SUSPENSION 30 ML CUP PO PRN (14:52)
[2016-06-19] MEDS ORDERED: P-EPHED 60MG/TRIPROLIDI 2.5MG TABLET PO PRN (14:52)
[2016-06-19] MEDS ORDERED: ACETAMINOPHEN 325 MG TABLET (FP) PO PRN (14:52)
[2016-06-19] MEDS ORDERED: guaiFENesin/D-METHORPHAN HB 10 ML UNIT-DOSE CUPS PO PRN (14:52)
[2016-06-19] MEDS ORDERED: MENTHOL/PHENOL 1 EACH UD MM PRN (14:52)
[2016-06-19] MEDS ORDERED: LOPERAMIDE HCL 2 MG CAPSULE PO PRN (14:52)
[2016-06-19] MEDS ORDERED: NICOTINE POLACRILEX 4 MG GUM BUC PRN (14:52)
[2016-06-19] MEDS ORDERED: MAG HYDROX/AL HYDROX/SIMETH 30 ML UNIT-DOSE CUP PO PRN (14:52)
[2016-06-19] MEDS ORDERED: MAGNESIUM CITRATE 300 ML BOTTLE PO PRN (14:52)
[2016-06-19] MEDS ORDERED: ALBUTEROL SO4 6.7 GM HFA INHALER IH PRN (14:54)
[2016-06-19] MEDS: metFORMIN HCL 500 MG TABLET (FP) PO SCH (16:42)
[2016-06-19] MEDS: INSULIN SLIDING SCALE (NOVOLOG) 1 VIAL SQ SCH (16:44)
[2016-06-19] MEDS: IBUPROFEN 400 MG TABLET (FP) PO PRN (18:26)
[2016-06-19] MEDS: THIAMINE HCL 100 MG TABLET (FP) PO SCH (21:19)
[2016-06-19] MEDS: GABAPENTIN 100 MG CAPSULE (FP) PO SCH (21:19)
[2016-06-19] MEDS: traZODone HCL 100 MG TABLET (FP) PO SCH (21:19)
[2016-06-19] MEDS: diphenhydrAMINE HCL 50 MG CAPSULE PO PRN (21:20)
[2016-06-19] MEDS ORDERED: QUEtiapine FUMARATE 100 MG TABLET (FP) PO SCH (22:00)
[2016-06-20] MEDS: INSULIN SLIDING SCALE (NOVOLOG) 1 VIAL SQ SCH ×2 (06:19→16:54)
[2016-06-20] MEDS: metFORMIN HCL 500 MG TABLET (FP) PO SCH ×2 (06:19→16:54)
[2016-06-20] MEDS ORDERED: METHADONE HCL 10 MG TABLET (FOR DETOX USE ONLY) PO ONE (09:30)
[2016-06-20] MEDS ORDERED: METHADONE HCL 10 MG TABLET PO ONE (09:35)
[2016-06-20] MEDS ORDERED: METHADONE 80 MG, METHADONE 10 MG PO ONE (09:45)
[2016-06-20] MEDS ORDERED: METHADONE HCL 40 MG DISPERSABLE TABLET ONE (09:47)
[2016-06-20] MEDS ORDERED: METHADONE HCL 10 MG TABLET ONE (09:47)
[2016-06-20] MEDS: GABAPENTIN 100 MG CAPSULE (FP) PO SCH ×2 (09:49→21:25)
[2016-06-20] MEDS: HYDROCHLOROTHIAZIDE 25 MG TABLET (FP) PO SCH (09:49)
[2016-06-20] MEDS: MAGNESIUM OXIDE 400 MG TABLET (FP) PO SCH (09:49)
[2016-06-20] MEDS: FOLIC ACID 1 MG TABLET (FP) PO SCH (09:50)
[2016-06-20] MEDS: NICOTINE 21 MG/24 HOURS TOPICAL PATCH TD SCH (09:52)
[2016-06-20] MEDS: PRENATAL VITAMINS W/ FOLIC ACID TABLET (FP) PO SCH (09:52)
[2016-06-20] MEDS ORDERED: INFLUENZA VACCINE 45 MCG/0.5 ML (MDV 16-17) IM ONE (12:00)
--- NOTE | 2016-06-20 12:00 | HP ---
Psychiatrist Admission - Data Date of interview: 06/20/16 Admission source: [facility] Identifying data: This is the second 5N inpatient rehabilitation admission for this 61 year old male who is single without chldren,domiciled, disabled and supported on SSD benefits. Medical History: Bronchial asthma,diabetes mellitus,hypertension,hepatitis C, obesity and neuropathy, smokes cigarettes 1PPD, on MMTP 90 mg/daily. Psychiatric History: Patient reports was diagnosed with Depression, first psychiatric contact in 2012 , saw the psychiatrist at [facility] outpatient program who started with Wellbutrin and Trazodone, he was on and off medications, was seen by and continued medications. Patient reports no history of psychiatric hospitalizations. Physical/Sexual Abuse/Trauma History: Patient denies history of sexual, physical and verbal abuse. Vital Signs: Vital Signs - 24 hr 06/19/16 06/20/16 06/20/16 13:46 00:30 03:30 Temperature 97.9 F Pulse Rate 115 H Respiratory 18 18 18 Rate Blood Pressure 122/76 06/20/16 06/20/16 06:46 10:29 Temperature 98.9 F Pulse Rate 80 Respiratory 20 74 H Rate Blood Pressure 107/65 98/65 Allergies/Adverse Reactions: Allergies Allergy/AdvReac Type Severity Reaction Status Date / Time No Known Allergies Allergy Verified 06/19/16 14:30 Date of last physical exam: 06/19/16 Concur with the findings of this exam: Yes - Substance Abuse/Tx History Hx Alcohol Use: Yes (2-3 pints of vodka) Hx Substance Use: No Hx Substance Use Treatment: Yes ([facility] inpt. and outpatient prograam.) - Admission Criteria Previous failed treatment: Yes Poor recovery environment: Yes Comorbidities: Yes Lacks judgement: Yes Mental Status Exam - Mental Status Exam Alert and Oriented to: Time, Place, Person Cognitive Function: Grossly Intact Patient Appearance: Well Groomed Mood: Depressed, Sad, Anxious Affect: Labile Patient Behavior: Crying, Appropriate, Cooperative Speech Pattern: Clear, Appropriate Voice Loudness: Normal Thought Process: Intact Thought Disorder: Not Present Hallucinations: Denies Suicidal Ideation: Denies Homicidal Ideation: Denies Insight/Judgement: Fair Sleep: Poorly Appetite: Fair Muscle strength/Tone: Normal Gait/Station: Normal Psychiatric Findings - Problem List ([place] 1, 2,3) (1) Methadone maintenance therapy patient Current Visit: No Status: Acute Comment: last dose taken today [id number] of methadone. dose verified (2) Nicotine dependence Current Visit: No Status: Acute Qualifiers: Nicotine product type: cigarettes Substance use status: uncomplicated Qualified Code(s): F17.210 - Nicotine dependence, cigarettes, uncomplicated (3) Alcohol dependence Current Visit: Yes Status: Acute (4) MDD (major depressive disorder), recurrent episode, moderate Current Visit: Yes Status: Acute - Initial Treatment Plan Initial Treatment Plan: Will continue Trazodone and Wellbutrin, monitor progress as needed.
[2016-06-20] MEDS: ACAMPROSATE CALCIUM 333 MG TABLET.DR PO SCH ×2 (13:49→21:25)
[2016-06-20] MEDS: traZODone HCL 100 MG TABLET (FP) PO SCH (21:25)
[2016-06-20] MEDS: THIAMINE HCL 100 MG TABLET (FP) PO SCH (21:25)
[2016-06-21] MEDS ORDERED: METHADONE HCL 10 MG TABLET ONE (03:10)
[2016-06-21] MEDS ORDERED: METHADONE HCL 40 MG DISPERSABLE TABLET ONE (03:10)
[2016-06-21] MEDS ORDERED: METHADONE HCL 40 MG DISPERSABLE TABLET PO SCH (06:00)
[2016-06-21] MEDS: ACAMPROSATE CALCIUM 333 MG TABLET.DR PO SCH ×3 (06:04→21:39)
[2016-06-21] MEDS: metFORMIN HCL 500 MG TABLET (FP) PO SCH ×2 (06:04→16:42)
[2016-06-21] MEDS: METHADONE 80 MG, METHADONE 10 MG PO SCH (06:04)
[2016-06-21] MEDS: INSULIN SLIDING SCALE (NOVOLOG) 1 VIAL SQ SCH ×2 (06:27→16:43)
[2016-06-21] MEDS: GABAPENTIN 100 MG CAPSULE (FP) PO SCH ×2 (09:50→21:38)
[2016-06-21] MEDS: PRENATAL VITAMINS W/ FOLIC ACID TABLET (FP) PO SCH (09:50)
[2016-06-21] MEDS: FOLIC ACID 1 MG TABLET (FP) PO SCH (09:50)
[2016-06-21] MEDS: HYDROCHLOROTHIAZIDE 25 MG TABLET (FP) PO SCH ×2 (09:50→09:53)
[2016-06-21] MEDS: MAGNESIUM OXIDE 400 MG TABLET (FP) PO SCH (09:50)
[2016-06-21] MEDS: NICOTINE 21 MG/24 HOURS TOPICAL PATCH TD SCH (09:51)
--- NOTE | 2016-06-21 14:17 | EKG ---
Test Reason : Blood Pressure : / mmHG Vent. Rate : 083 BPM Atrial Rate : 083 BPM P-R Int : 142 ms QRS Dur : 088 ms QT Int : 434 ms P-R-T Axes : 047 038 004 degrees QTc Int : 509 ms NORMAL SINUS RHYTHM PROLONGED QT ABNORMAL ECG WHEN COMPARED WITH ECG OF 12-JUN-2016 11:16, NO SIGNIFICANT CHANGE WAS FOUND Confirmed by CARMEL DORSEY MD ([id number]) on 06/21/2016 2:16:56 PM Referred By: Confirmed By:CARMEL DORSEY MD
[2016-06-21] MEDS: traZODone HCL 100 MG TABLET (FP) PO SCH (21:38)
[2016-06-21] MEDS: THIAMINE HCL 100 MG TABLET (FP) PO SCH (21:38)
[2016-06-22] MEDS ORDERED: METHADONE HCL 10 MG TABLET ONE (03:07)
[2016-06-22] MEDS ORDERED: METHADONE HCL 40 MG DISPERSABLE TABLET ONE (03:07)
[2016-06-22] MEDS: ACAMPROSATE CALCIUM 333 MG TABLET.DR PO SCH ×3 (06:05→21:39)
[2016-06-22] MEDS: METHADONE 80 MG, METHADONE 10 MG PO SCH (06:05)
[2016-06-22] MEDS: metFORMIN HCL 500 MG TABLET (FP) PO SCH ×2 (06:06→16:41)
[2016-06-22] MEDS: INSULIN SLIDING SCALE (NOVOLOG) 1 VIAL SQ SCH ×2 (06:08→16:41)
[2016-06-22] MEDS: HYDROCHLOROTHIAZIDE 12.5 MG CAPSULE (FP) PO SCH (09:52)
[2016-06-22] MEDS: PRENATAL VITAMINS W/ FOLIC ACID TABLET (FP) PO SCH (09:52)
[2016-06-22] MEDS: MAGNESIUM OXIDE 400 MG TABLET (FP) PO SCH (09:52)
[2016-06-22] MEDS: GABAPENTIN 100 MG CAPSULE (FP) PO SCH ×2 (09:52→21:39)
[2016-06-22] MEDS: FOLIC ACID 1 MG TABLET (FP) PO SCH (09:53)
[2016-06-22] MEDS: NICOTINE 21 MG/24 HOURS TOPICAL PATCH TD SCH (09:54)
[2016-06-22] MEDS: THIAMINE HCL 100 MG TABLET (FP) PO SCH (21:39)
[2016-06-22] MEDS: traZODone HCL 100 MG TABLET (FP) PO SCH (21:39)
[2016-06-23] MEDS ORDERED: METHADONE HCL 10 MG TABLET ONE (03:25)
[2016-06-23] MEDS ORDERED: METHADONE HCL 40 MG DISPERSABLE TABLET ONE (03:26)
[2016-06-23] MEDS: metFORMIN HCL 500 MG TABLET (FP) PO SCH ×2 (06:19→16:39)
[2016-06-23] MEDS: ACAMPROSATE CALCIUM 333 MG TABLET.DR PO SCH ×3 (06:19→21:19)
[2016-06-23] MEDS: METHADONE 80 MG, METHADONE 10 MG PO SCH (06:19)
[2016-06-23] MEDS: INSULIN SLIDING SCALE (NOVOLOG) 1 VIAL SQ SCH ×2 (06:21→16:39)
[2016-06-23] MEDS: GABAPENTIN 100 MG CAPSULE (FP) PO SCH ×2 (09:48→21:19)
[2016-06-23] MEDS: MAGNESIUM OXIDE 400 MG TABLET (FP) PO SCH (09:48)
[2016-06-23] MEDS: HYDROCHLOROTHIAZIDE 12.5 MG CAPSULE (FP) PO SCH (09:48)
[2016-06-23] MEDS: FOLIC ACID 1 MG TABLET (FP) PO SCH (09:49)
[2016-06-23] MEDS: NICOTINE 21 MG/24 HOURS TOPICAL PATCH TD SCH (09:49)
[2016-06-23] MEDS: PRENATAL VITAMINS W/ FOLIC ACID TABLET (FP) PO SCH (09:49)
[2016-06-23] MEDS: HYDROCORTISONE 1% TOPICAL CREAM 30 GM TUBE TP PRN (09:52)
[2016-06-23] MEDS: traZODone HCL 100 MG TABLET (FP) PO SCH (21:19)
[2016-06-23] MEDS: THIAMINE HCL 100 MG TABLET (FP) PO SCH (21:19)
[2016-06-24] MEDS ORDERED: METHADONE HCL 10 MG TABLET ONE (04:44)
[2016-06-24] MEDS ORDERED: METHADONE HCL 40 MG DISPERSABLE TABLET ONE (04:45)
[2016-06-24] MEDS: METHADONE 80 MG, METHADONE 10 MG PO SCH (05:54)
[2016-06-24] MEDS: ACAMPROSATE CALCIUM 333 MG TABLET.DR PO SCH ×3 (05:54→21:12)
[2016-06-24] MEDS: INSULIN SLIDING SCALE (NOVOLOG) 1 VIAL SQ SCH ×2 (06:01→16:36)
[2016-06-24] MEDS: metFORMIN HCL 500 MG TABLET (FP) PO SCH ×2 (06:01→16:36)
[2016-06-24] MEDS: HYDROCHLOROTHIAZIDE 12.5 MG CAPSULE (FP) PO SCH (09:55)
[2016-06-24] MEDS: GABAPENTIN 100 MG CAPSULE (FP) PO SCH ×2 (09:55→21:12)
[2016-06-24] MEDS: MAGNESIUM OXIDE 400 MG TABLET (FP) PO SCH (09:55)
[2016-06-24] MEDS: FOLIC ACID 1 MG TABLET (FP) PO SCH (09:56)
[2016-06-24] MEDS: NICOTINE 21 MG/24 HOURS TOPICAL PATCH TD SCH (09:56)
[2016-06-24] MEDS: PRENATAL VITAMINS W/ FOLIC ACID TABLET (FP) PO SCH (09:57)
[2016-06-24] MEDS: traZODone HCL 100 MG TABLET (FP) PO SCH (21:12)
[2016-06-24] MEDS: THIAMINE HCL 100 MG TABLET (FP) PO SCH (21:12)
[2016-06-25] MEDS ORDERED: METHADONE HCL 10 MG TABLET ONE (03:06)
[2016-06-25] MEDS ORDERED: METHADONE HCL 40 MG DISPERSABLE TABLET ONE (03:07)
[2016-06-25] MEDS: ACAMPROSATE CALCIUM 333 MG TABLET.DR PO SCH ×3 (05:58→21:29)
[2016-06-25] MEDS: METHADONE 80 MG, METHADONE 10 MG PO SCH (05:59)
[2016-06-25] MEDS: metFORMIN HCL 500 MG TABLET (FP) PO SCH ×2 (05:59→16:37)
[2016-06-25] MEDS: INSULIN SLIDING SCALE (NOVOLOG) 1 VIAL SQ SCH ×2 (06:25→16:37)
[2016-06-25] MEDS: GABAPENTIN 100 MG CAPSULE (FP) PO SCH ×2 (09:43→21:29)
[2016-06-25] MEDS: HYDROCHLOROTHIAZIDE 12.5 MG CAPSULE (FP) PO SCH (09:43)
[2016-06-25] MEDS: PRENATAL VITAMINS W/ FOLIC ACID TABLET (FP) PO SCH (09:43)
[2016-06-25] MEDS: MAGNESIUM OXIDE 400 MG TABLET (FP) PO SCH (09:44)
[2016-06-25] MEDS: FOLIC ACID 1 MG TABLET (FP) PO SCH (09:45)
[2016-06-25] MEDS: NICOTINE 21 MG/24 HOURS TOPICAL PATCH TD SCH (09:46)
[2016-06-25] MEDS: THIAMINE HCL 100 MG TABLET (FP) PO SCH (21:29)
[2016-06-25] MEDS: IBUPROFEN 400 MG TABLET (FP) PO PRN (21:29)
[2016-06-25] MEDS: traZODone HCL 100 MG TABLET (FP) PO SCH (21:32)
[2016-06-26] MEDS ORDERED: METHADONE HCL 40 MG DISPERSABLE TABLET ONE (03:05)
[2016-06-26] MEDS ORDERED: METHADONE HCL 10 MG TABLET ONE (03:05)
[2016-06-26] MEDS: ACAMPROSATE CALCIUM 333 MG TABLET.DR PO SCH ×3 (05:52→21:02)
[2016-06-26] MEDS: METHADONE 80 MG, METHADONE 10 MG PO SCH (05:52)
[2016-06-26] MEDS: INSULIN SLIDING SCALE (NOVOLOG) 1 VIAL SQ SCH ×2 (06:10→16:47)
[2016-06-26] MEDS: metFORMIN HCL 500 MG TABLET (FP) PO SCH ×2 (06:11→16:27)
[2016-06-26] MEDS: GABAPENTIN 100 MG CAPSULE (FP) PO SCH ×2 (09:34→21:03)
[2016-06-26] MEDS: FOLIC ACID 1 MG TABLET (FP) PO SCH (09:35)
[2016-06-26] MEDS: MAGNESIUM OXIDE 400 MG TABLET (FP) PO SCH (09:35)
[2016-06-26] MEDS: HYDROCHLOROTHIAZIDE 12.5 MG CAPSULE (FP) PO SCH (09:35)
[2016-06-26] MEDS: PRENATAL VITAMINS W/ FOLIC ACID TABLET (FP) PO SCH (09:35)
[2016-06-26] MEDS: NICOTINE 21 MG/24 HOURS TOPICAL PATCH TD SCH (09:36)
[2016-06-26] MEDS: IBUPROFEN 400 MG TABLET (FP) PO PRN (21:02)
[2016-06-26] MEDS: traZODone HCL 100 MG TABLET (FP) PO SCH (21:03)
[2016-06-26] MEDS: THIAMINE HCL 100 MG TABLET (FP) PO SCH (21:03)
[2016-06-27] MEDS ORDERED: METHADONE HCL 40 MG DISPERSABLE TABLET ONE (06:00)
[2016-06-27] MEDS ORDERED: METHADONE HCL 10 MG TABLET ONE (06:00)
[2016-06-27] MEDS: METHADONE 80 MG, METHADONE 10 MG PO SCH (06:01)
[2016-06-27] MEDS: metFORMIN HCL 500 MG TABLET (FP) PO SCH ×2 (06:01→16:50)
[2016-06-27] MEDS: ACAMPROSATE CALCIUM 333 MG TABLET.DR PO SCH ×3 (06:01→21:15)
[2016-06-27] MEDS: INSULIN SLIDING SCALE (NOVOLOG) 1 VIAL SQ SCH ×2 (06:03→16:50)
[2016-06-27] MEDS: MAGNESIUM OXIDE 400 MG TABLET (FP) PO SCH (10:02)
[2016-06-27] MEDS: HYDROCHLOROTHIAZIDE 12.5 MG CAPSULE (FP) PO SCH (10:02)
[2016-06-27] MEDS: PRENATAL VITAMINS W/ FOLIC ACID TABLET (FP) PO SCH (10:02)
[2016-06-27] MEDS: GABAPENTIN 100 MG CAPSULE (FP) PO SCH ×2 (10:02→21:15)
[2016-06-27] MEDS: TETRAHYDROZOLINE HCL 1 DROP DROPS OD PRN (10:03)
[2016-06-27] MEDS: HYDROCORTISONE 1% TOPICAL CREAM 30 GM TUBE TP PRN (10:03)
[2016-06-27] MEDS: FOLIC ACID 1 MG TABLET (FP) PO SCH (10:04)
[2016-06-27] MEDS: NICOTINE 21 MG/24 HOURS TOPICAL PATCH TD SCH (10:04)
[2016-06-27] MEDS: THIAMINE HCL 100 MG TABLET (FP) PO SCH (21:15)
[2016-06-27] MEDS: traZODone HCL 100 MG TABLET (FP) PO SCH (21:15)
[2016-06-27] MEDS: IBUPROFEN 400 MG TABLET (FP) PO PRN (21:47)
[2016-06-28] MEDS ORDERED: METHADONE HCL 10 MG TABLET ONE (04:56)
[2016-06-28] MEDS ORDERED: METHADONE HCL 40 MG DISPERSABLE TABLET ONE (04:56)
[2016-06-28] MEDS: metFORMIN HCL 500 MG TABLET (FP) PO SCH ×2 (06:11→16:44)
[2016-06-28] MEDS: METHADONE 80 MG, METHADONE 10 MG PO SCH (06:11)
[2016-06-28] MEDS: ACAMPROSATE CALCIUM 333 MG TABLET.DR PO SCH ×3 (06:11→21:13)
[2016-06-28] MEDS: INSULIN SLIDING SCALE (NOVOLOG) 1 VIAL SQ SCH ×2 (06:12→16:44)
[2016-06-28] MEDS: NICOTINE 21 MG/24 HOURS TOPICAL PATCH TD SCH (10:10)
[2016-06-28] MEDS: PRENATAL VITAMINS W/ FOLIC ACID TABLET (FP) PO SCH (10:10)
[2016-06-28] MEDS: MAGNESIUM OXIDE 400 MG TABLET (FP) PO SCH (10:11)
[2016-06-28] MEDS: GABAPENTIN 100 MG CAPSULE (FP) PO SCH ×2 (10:12→21:13)
[2016-06-28] MEDS: FOLIC ACID 1 MG TABLET (FP) PO SCH (10:12)
[2016-06-28] MEDS: HYDROCHLOROTHIAZIDE 12.5 MG CAPSULE (FP) PO SCH (10:12)
[2016-06-28] MEDS: THIAMINE HCL 100 MG TABLET (FP) PO SCH (21:13)
[2016-06-28] MEDS: traZODone HCL 100 MG TABLET (FP) PO SCH (21:13)
[2016-06-28] MEDS: IBUPROFEN 400 MG TABLET (FP) PO PRN (21:14)
[2016-06-29] MEDS ORDERED: METHADONE HCL 10 MG TABLET ONE (02:54)
[2016-06-29] MEDS ORDERED: METHADONE HCL 40 MG DISPERSABLE TABLET ONE (02:55)
[2016-06-29] MEDS: METHADONE 80 MG, METHADONE 10 MG PO SCH (05:49)
[2016-06-29] MEDS: ACAMPROSATE CALCIUM 333 MG TABLET.DR PO SCH ×3 (05:49→21:05)
[2016-06-29] MEDS: INSULIN SLIDING SCALE (NOVOLOG) 1 VIAL SQ SCH ×2 (06:59→16:55)
[2016-06-29] MEDS: metFORMIN HCL 500 MG TABLET (FP) PO SCH ×2 (07:01→17:14)
[2016-06-29] MEDS: HYDROCHLOROTHIAZIDE 12.5 MG CAPSULE (FP) PO SCH (10:08)
[2016-06-29] MEDS: FOLIC ACID 1 MG TABLET (FP) PO SCH (10:08)
[2016-06-29] MEDS: NICOTINE 21 MG/24 HOURS TOPICAL PATCH TD SCH (10:09)
[2016-06-29] MEDS: MAGNESIUM OXIDE 400 MG TABLET (FP) PO SCH (10:10)
[2016-06-29] MEDS: GABAPENTIN 100 MG CAPSULE (FP) PO SCH ×2 (10:11→21:05)
[2016-06-29] MEDS: PRENATAL VITAMINS W/ FOLIC ACID TABLET (FP) PO SCH (10:11)
[2016-06-29] MEDS: IBUPROFEN 400 MG TABLET (FP) PO PRN (21:05)
[2016-06-29] MEDS: THIAMINE HCL 100 MG TABLET (FP) PO SCH (21:05)
[2016-06-29] MEDS: traZODone HCL 100 MG TABLET (FP) PO SCH (21:07)
[2016-06-30] MEDS ORDERED: METHADONE HCL 10 MG TABLET ONE (03:50)
[2016-06-30] MEDS ORDERED: METHADONE HCL 40 MG DISPERSABLE TABLET ONE (03:51)
[2016-06-30] MEDS: METHADONE 80 MG, METHADONE 10 MG PO SCH (06:03)
[2016-06-30] MEDS: ACAMPROSATE CALCIUM 333 MG TABLET.DR PO SCH ×3 (06:04→21:12)
[2016-06-30] MEDS: metFORMIN HCL 500 MG TABLET (FP) PO SCH ×2 (06:04→16:38)
[2016-06-30] MEDS: INSULIN SLIDING SCALE (NOVOLOG) 1 VIAL SQ SCH ×2 (06:21→16:55)
[2016-06-30] MEDS: HYDROCHLOROTHIAZIDE 12.5 MG CAPSULE (FP) PO SCH (09:48)
[2016-06-30] MEDS: MAGNESIUM OXIDE 400 MG TABLET (FP) PO SCH (09:48)
[2016-06-30] MEDS: PRENATAL VITAMINS W/ FOLIC ACID TABLET (FP) PO SCH (09:48)
[2016-06-30] MEDS: GABAPENTIN 100 MG CAPSULE (FP) PO SCH ×2 (09:48→21:12)
[2016-06-30] MEDS: FOLIC ACID 1 MG TABLET (FP) PO SCH (09:48)
[2016-06-30] MEDS: NICOTINE 21 MG/24 HOURS TOPICAL PATCH TD SCH (09:49)
[2016-06-30] MEDS: THIAMINE HCL 100 MG TABLET (FP) PO SCH (21:12)
[2016-06-30] MEDS: traZODone HCL 100 MG TABLET (FP) PO SCH (21:12)
[2016-06-30] MEDS: IBUPROFEN 400 MG TABLET (FP) PO PRN (21:15)
[2016-07-01] MEDS ORDERED: METHADONE HCL 10 MG TABLET ONE (04:11)
[2016-07-01] MEDS ORDERED: METHADONE HCL 40 MG DISPERSABLE TABLET ONE (04:11)
[2016-07-01] MEDS: METHADONE 80 MG, METHADONE 10 MG PO SCH (05:51)
[2016-07-01] MEDS: ACAMPROSATE CALCIUM 333 MG TABLET.DR PO SCH ×3 (05:51→21:10)
[2016-07-01] MEDS: INSULIN SLIDING SCALE (NOVOLOG) 1 VIAL SQ SCH ×2 (06:30→16:35)
[2016-07-01] MEDS: metFORMIN HCL 500 MG TABLET (FP) PO SCH ×2 (06:37→16:34)
[2016-07-01] MEDS: HYDROCHLOROTHIAZIDE 12.5 MG CAPSULE (FP) PO SCH (09:47)
[2016-07-01] MEDS: GABAPENTIN 100 MG CAPSULE (FP) PO SCH ×2 (09:47→21:10)
[2016-07-01] MEDS: TETRAHYDROZOLINE HCL 1 DROP DROPS OD PRN (09:47)
[2016-07-01] MEDS: HYDROCORTISONE 1% TOPICAL CREAM 30 GM TUBE TP PRN (09:47)
[2016-07-01] MEDS: MAGNESIUM OXIDE 400 MG TABLET (FP) PO SCH (09:47)
[2016-07-01] MEDS: FOLIC ACID 1 MG TABLET (FP) PO SCH (09:47)
[2016-07-01] MEDS: PRENATAL VITAMINS W/ FOLIC ACID TABLET (FP) PO SCH (09:48)
[2016-07-01] MEDS: NICOTINE 21 MG/24 HOURS TOPICAL PATCH TD SCH (09:48)
[2016-07-01] MEDS: traZODone HCL 100 MG TABLET (FP) PO SCH (21:10)
[2016-07-01] MEDS: THIAMINE HCL 100 MG TABLET (FP) PO SCH (21:10)
[2016-07-01] MEDS: diphenhydrAMINE HCL 50 MG CAPSULE PO PRN (21:11)
[2016-07-02] MEDS ORDERED: METHADONE HCL 40 MG DISPERSABLE TABLET ONE (03:11)
[2016-07-02] MEDS ORDERED: METHADONE HCL 10 MG TABLET ONE (03:11)
[2016-07-02] MEDS: METHADONE 80 MG, METHADONE 10 MG PO SCH (06:11)
[2016-07-02] MEDS: metFORMIN HCL 500 MG TABLET (FP) PO SCH ×2 (06:11→17:26)
[2016-07-02] MEDS: ACAMPROSATE CALCIUM 333 MG TABLET.DR PO SCH ×3 (06:11→21:08)
[2016-07-02] MEDS: INSULIN SLIDING SCALE (NOVOLOG) 1 VIAL SQ SCH ×2 (06:17→17:27)
[2016-07-02] MEDS: GABAPENTIN 100 MG CAPSULE (FP) PO SCH ×2 (09:39→21:08)
[2016-07-02] MEDS: PRENATAL VITAMINS W/ FOLIC ACID TABLET (FP) PO SCH (09:39)
[2016-07-02] MEDS: MAGNESIUM OXIDE 400 MG TABLET (FP) PO SCH (09:40)
[2016-07-02] MEDS: FOLIC ACID 1 MG TABLET (FP) PO SCH (09:40)
[2016-07-02] MEDS: HYDROCHLOROTHIAZIDE 12.5 MG CAPSULE (FP) PO SCH (09:40)
[2016-07-02] MEDS: NICOTINE 21 MG/24 HOURS TOPICAL PATCH TD SCH (09:41)
[2016-07-02] MEDS: traZODone HCL 100 MG TABLET (FP) PO SCH (21:08)
[2016-07-02] MEDS: THIAMINE HCL 100 MG TABLET (FP) PO SCH (21:08)
[2016-07-02] MEDS: diphenhydrAMINE HCL 50 MG CAPSULE PO PRN (21:09)
[2016-07-03] MEDS ORDERED: METHADONE HCL 10 MG TABLET ONE (03:07)
[2016-07-03] MEDS ORDERED: METHADONE HCL 40 MG DISPERSABLE TABLET ONE (03:08)
[2016-07-03] MEDS: ACAMPROSATE CALCIUM 333 MG TABLET.DR PO SCH ×3 (06:06→21:18)
[2016-07-03] MEDS: METHADONE 80 MG, METHADONE 10 MG PO SCH (06:06)
[2016-07-03] MEDS: metFORMIN HCL 500 MG TABLET (FP) PO SCH ×2 (06:06→17:03)
[2016-07-03] MEDS: INSULIN SLIDING SCALE (NOVOLOG) 1 VIAL SQ SCH ×2 (07:09→17:04)
[2016-07-03] MEDS: HYDROCHLOROTHIAZIDE 12.5 MG CAPSULE (FP) PO SCH (09:32)
[2016-07-03] MEDS: FOLIC ACID 1 MG TABLET (FP) PO SCH (09:32)
[2016-07-03] MEDS: GABAPENTIN 100 MG CAPSULE (FP) PO SCH ×2 (09:32→21:18)
[2016-07-03] MEDS: MAGNESIUM OXIDE 400 MG TABLET (FP) PO SCH (09:32)
[2016-07-03] MEDS: PRENATAL VITAMINS W/ FOLIC ACID TABLET (FP) PO SCH (09:32)
[2016-07-03] MEDS: NICOTINE 21 MG/24 HOURS TOPICAL PATCH TD SCH (09:41)
[2016-07-03] MEDS: THIAMINE HCL 100 MG TABLET (FP) PO SCH (21:18)
[2016-07-03] MEDS: traZODone HCL 100 MG TABLET (FP) PO SCH (21:18)
[2016-07-03] MEDS: diphenhydrAMINE HCL 50 MG CAPSULE PO PRN (21:19)
[2016-07-04] MEDS ORDERED: METHADONE HCL 10 MG TABLET ONE (04:45)
[2016-07-04] MEDS ORDERED: METHADONE HCL 40 MG DISPERSABLE TABLET ONE (04:45)
[2016-07-04] MEDS: METHADONE 80 MG, METHADONE 10 MG PO SCH (06:05)
[2016-07-04] MEDS: ACAMPROSATE CALCIUM 333 MG TABLET.DR PO SCH ×3 (06:05→21:12)
[2016-07-04] MEDS: metFORMIN HCL 500 MG TABLET (FP) PO SCH ×2 (06:05→17:04)
[2016-07-04] MEDS: INSULIN SLIDING SCALE (NOVOLOG) 1 VIAL SQ SCH ×2 (06:10→17:04)
[2016-07-04] MEDS: HYDROCHLOROTHIAZIDE 12.5 MG CAPSULE (FP) PO SCH (09:32)
[2016-07-04] MEDS: PRENATAL VITAMINS W/ FOLIC ACID TABLET (FP) PO SCH (09:32)
[2016-07-04] MEDS: MAGNESIUM OXIDE 400 MG TABLET (FP) PO SCH (09:32)
[2016-07-04] MEDS: GABAPENTIN 100 MG CAPSULE (FP) PO SCH ×2 (09:32→21:12)
[2016-07-04] MEDS: FOLIC ACID 1 MG TABLET (FP) PO SCH (09:32)
[2016-07-04] MEDS: NICOTINE 21 MG/24 HOURS TOPICAL PATCH TD SCH (09:33)
[2016-07-04] MEDS: traZODone HCL 100 MG TABLET (FP) PO SCH (21:12)
[2016-07-04] MEDS: THIAMINE HCL 100 MG TABLET (FP) PO SCH (21:12)
[2016-07-04] MEDS: diphenhydrAMINE HCL 50 MG CAPSULE PO PRN (21:12)
[2016-07-05] MEDS ORDERED: METHADONE HCL 40 MG DISPERSABLE TABLET ONE (05:05)
[2016-07-05] MEDS ORDERED: METHADONE HCL 10 MG TABLET ONE (05:05)
[2016-07-05] MEDS: ACAMPROSATE CALCIUM 333 MG TABLET.DR PO SCH ×3 (06:13→21:11)
[2016-07-05] MEDS: metFORMIN HCL 500 MG TABLET (FP) PO SCH ×2 (06:13→17:08)
[2016-07-05] MEDS: METHADONE 80 MG, METHADONE 10 MG PO SCH (06:14)
[2016-07-05] MEDS: INSULIN SLIDING SCALE (NOVOLOG) 1 VIAL SQ SCH ×2 (06:37→17:09)
[2016-07-05] MEDS: HYDROCHLOROTHIAZIDE 12.5 MG CAPSULE (FP) PO SCH (10:06)
[2016-07-05] MEDS: NICOTINE 21 MG/24 HOURS TOPICAL PATCH TD SCH (10:06)
[2016-07-05] MEDS: GABAPENTIN 100 MG CAPSULE (FP) PO SCH ×2 (10:06→21:12)
[2016-07-05] MEDS: FOLIC ACID 1 MG TABLET (FP) PO SCH (10:06)
[2016-07-05] MEDS: MAGNESIUM OXIDE 400 MG TABLET (FP) PO SCH (10:06)
[2016-07-05] MEDS: PRENATAL VITAMINS W/ FOLIC ACID TABLET (FP) PO SCH (10:07)
[2016-07-05] MEDS: traZODone HCL 100 MG TABLET (FP) PO SCH (21:12)
[2016-07-05] MEDS: diphenhydrAMINE HCL 50 MG CAPSULE PO PRN (21:12)
[2016-07-05] MEDS: THIAMINE HCL 100 MG TABLET (FP) PO SCH (21:12)
[2016-07-06] MEDS ORDERED: METHADONE HCL 40 MG DISPERSABLE TABLET ONE (03:11)
[2016-07-06] MEDS ORDERED: METHADONE HCL 10 MG TABLET ONE (03:11)
[2016-07-06] MEDS: METHADONE 80 MG, METHADONE 10 MG PO SCH (05:52)
[2016-07-06] MEDS: ACAMPROSATE CALCIUM 333 MG TABLET.DR PO SCH ×3 (05:52→21:07)
[2016-07-06] MEDS: metFORMIN HCL 500 MG TABLET (FP) PO SCH ×2 (06:02→16:36)
[2016-07-06] MEDS: INSULIN SLIDING SCALE (NOVOLOG) 1 VIAL SQ SCH ×2 (06:25→16:37)
[2016-07-06] MEDS: PRENATAL VITAMINS W/ FOLIC ACID TABLET (FP) PO SCH (09:33)
[2016-07-06] MEDS: FOLIC ACID 1 MG TABLET (FP) PO SCH (09:33)
[2016-07-06] MEDS: SIMETHICONE 80 MG TAB.CHEW (FP) PO PRN (09:33)
[2016-07-06] MEDS: GABAPENTIN 100 MG CAPSULE (FP) PO SCH ×2 (09:33→21:07)
[2016-07-06] MEDS: NICOTINE 21 MG/24 HOURS TOPICAL PATCH TD SCH (09:35)
[2016-07-06] MEDS: HYDROCHLOROTHIAZIDE 12.5 MG CAPSULE (FP) PO SCH (09:37)
[2016-07-06] MEDS: TETRAHYDROZOLINE HCL 1 DROP DROPS OD PRN (10:03)
[2016-07-06] MEDS: MAGNESIUM OXIDE 400 MG TABLET (FP) PO SCH (11:52)
[2016-07-06] MEDS: THIAMINE HCL 100 MG TABLET (FP) PO SCH (21:07)
[2016-07-06] MEDS: traZODone HCL 100 MG TABLET (FP) PO SCH (21:07)
[2016-07-06] MEDS: diphenhydrAMINE HCL 50 MG CAPSULE PO PRN (21:08)
[2016-07-07] MEDS ORDERED: METHADONE HCL 10 MG TABLET ONE (03:13)
[2016-07-07] MEDS ORDERED: METHADONE HCL 40 MG DISPERSABLE TABLET ONE (03:14)
[2016-07-07] MEDS: metFORMIN HCL 500 MG TABLET (FP) PO SCH ×2 (06:15→17:12)
[2016-07-07] MEDS: ACAMPROSATE CALCIUM 333 MG TABLET.DR PO SCH ×3 (06:15→21:16)
[2016-07-07] MEDS: METHADONE 80 MG, METHADONE 10 MG PO SCH (06:16)
[2016-07-07] MEDS: INSULIN SLIDING SCALE (NOVOLOG) 1 VIAL SQ SCH ×2 (06:20→17:13)
[2016-07-07] MEDS: NICOTINE 21 MG/24 HOURS TOPICAL PATCH TD SCH (09:47)
[2016-07-07] MEDS: HYDROCHLOROTHIAZIDE 12.5 MG CAPSULE (FP) PO SCH (09:48)
[2016-07-07] MEDS: PRENATAL VITAMINS W/ FOLIC ACID TABLET (FP) PO SCH (09:48)
[2016-07-07] MEDS: GABAPENTIN 100 MG CAPSULE (FP) PO SCH ×2 (09:48→21:16)
[2016-07-07] MEDS: MAGNESIUM OXIDE 400 MG TABLET (FP) PO SCH (09:48)
[2016-07-07] MEDS: FOLIC ACID 1 MG TABLET (FP) PO SCH (09:48)
[2016-07-07] MEDS: SIMETHICONE 80 MG TAB.CHEW (FP) PO PRN (09:50)
[2016-07-07] MEDS: traZODone HCL 100 MG TABLET (FP) PO SCH (21:16)
[2016-07-07] MEDS: THIAMINE HCL 100 MG TABLET (FP) PO SCH (21:16)
[2016-07-07] MEDS: diphenhydrAMINE HCL 50 MG CAPSULE PO PRN (21:17)
[2016-07-08] MEDS ORDERED: METHADONE HCL 10 MG TABLET ONE (03:12)
[2016-07-08] MEDS ORDERED: METHADONE HCL 40 MG DISPERSABLE TABLET ONE (03:12)
[2016-07-08] MEDS: METHADONE 80 MG, METHADONE 10 MG PO SCH (06:20)
[2016-07-08] MEDS: ACAMPROSATE CALCIUM 333 MG TABLET.DR PO SCH ×3 (06:20→21:06)
[2016-07-08] MEDS: metFORMIN HCL 500 MG TABLET (FP) PO SCH ×2 (06:20→17:06)
[2016-07-08] MEDS: INSULIN SLIDING SCALE (NOVOLOG) 1 VIAL SQ SCH ×2 (06:21→17:10)
[2016-07-08] MEDS: NICOTINE 21 MG/24 HOURS TOPICAL PATCH TD SCH (09:42)
[2016-07-08] MEDS: FOLIC ACID 1 MG TABLET (FP) PO SCH (09:42)
[2016-07-08] MEDS: MAGNESIUM OXIDE 400 MG TABLET (FP) PO SCH (09:42)
[2016-07-08] MEDS: HYDROCHLOROTHIAZIDE 12.5 MG CAPSULE (FP) PO SCH (09:42)
[2016-07-08] MEDS: PRENATAL VITAMINS W/ FOLIC ACID TABLET (FP) PO SCH (09:42)
[2016-07-08] MEDS: GABAPENTIN 100 MG CAPSULE (FP) PO SCH ×2 (09:42→21:07)
[2016-07-08] MEDS: traZODone HCL 100 MG TABLET (FP) PO SCH (21:06)
[2016-07-08] MEDS: THIAMINE HCL 100 MG TABLET (FP) PO SCH (21:06)
[2016-07-08] MEDS: diphenhydrAMINE HCL 50 MG CAPSULE PO PRN (21:07)
[2016-07-09] MEDS ORDERED: METHADONE HCL 10 MG TABLET ONE (03:08)
[2016-07-09] MEDS ORDERED: METHADONE HCL 40 MG DISPERSABLE TABLET ONE (03:08)
[2016-07-09] MEDS: METHADONE 80 MG, METHADONE 10 MG PO SCH (05:45)
[2016-07-09] MEDS: ACAMPROSATE CALCIUM 333 MG TABLET.DR PO SCH ×3 (05:45→21:11)
[2016-07-09] MEDS: INSULIN SLIDING SCALE (NOVOLOG) 1 VIAL SQ SCH ×2 (06:16→17:06)
[2016-07-09] MEDS: metFORMIN HCL 500 MG TABLET (FP) PO SCH ×2 (06:18→17:05)
[2016-07-09] MEDS: HYDROCORTISONE 1% TOPICAL CREAM 30 GM TUBE TP PRN (09:47)
[2016-07-09] MEDS: TETRAHYDROZOLINE HCL 1 DROP DROPS OD PRN (09:48)
[2016-07-09] MEDS: HYDROCHLOROTHIAZIDE 12.5 MG CAPSULE (FP) PO SCH (09:48)
[2016-07-09] MEDS: PRENATAL VITAMINS W/ FOLIC ACID TABLET (FP) PO SCH (09:48)
[2016-07-09] MEDS: MAGNESIUM OXIDE 400 MG TABLET (FP) PO SCH (09:48)
[2016-07-09] MEDS: GABAPENTIN 100 MG CAPSULE (FP) PO SCH ×2 (09:48→21:11)
[2016-07-09] MEDS: FOLIC ACID 1 MG TABLET (FP) PO SCH (09:48)
[2016-07-09] MEDS: SIMETHICONE 80 MG TAB.CHEW (FP) PO PRN (11:00)
[2016-07-09] MEDS: NICOTINE 21 MG/24 HOURS TOPICAL PATCH TD SCH (11:06)
[2016-07-09] MEDS: traZODone HCL 100 MG TABLET (FP) PO SCH (21:11)
[2016-07-09] MEDS: THIAMINE HCL 100 MG TABLET (FP) PO SCH (21:11)
[2016-07-09] MEDS: diphenhydrAMINE HCL 50 MG CAPSULE PO PRN (21:12)
[2016-07-10] MEDS ORDERED: METHADONE HCL 40 MG DISPERSABLE TABLET ONE (05:03)
[2016-07-10] MEDS ORDERED: METHADONE HCL 10 MG TABLET ONE (05:03)
[2016-07-10] MEDS: ACAMPROSATE CALCIUM 333 MG TABLET.DR PO SCH ×3 (05:48→21:09)
[2016-07-10] MEDS: METHADONE 80 MG, METHADONE 10 MG PO SCH (05:48)
[2016-07-10] MEDS: INSULIN SLIDING SCALE (NOVOLOG) 1 VIAL SQ SCH ×2 (06:21→17:11)
[2016-07-10] MEDS: metFORMIN HCL 500 MG TABLET (FP) PO SCH ×2 (06:31→17:10)
[2016-07-10] MEDS: FOLIC ACID 1 MG TABLET (FP) PO SCH (09:58)
[2016-07-10] MEDS: HYDROCHLOROTHIAZIDE 12.5 MG CAPSULE (FP) PO SCH (09:58)
[2016-07-10] MEDS: GABAPENTIN 100 MG CAPSULE (FP) PO SCH ×2 (09:58→21:09)
[2016-07-10] MEDS: MAGNESIUM OXIDE 400 MG TABLET (FP) PO SCH (09:58)
[2016-07-10] MEDS: NICOTINE 21 MG/24 HOURS TOPICAL PATCH TD SCH (09:59)
[2016-07-10] MEDS: PRENATAL VITAMINS W/ FOLIC ACID TABLET (FP) PO SCH (09:59)
[2016-07-10] MEDS: traZODone HCL 100 MG TABLET (FP) PO SCH (21:09)
[2016-07-10] MEDS: THIAMINE HCL 100 MG TABLET (FP) PO SCH (21:09)
[2016-07-10] MEDS: diphenhydrAMINE HCL 50 MG CAPSULE PO PRN (21:10)
[2016-07-11] MEDS ORDERED: METHADONE HCL 10 MG TABLET ONE (03:15)
[2016-07-11] MEDS ORDERED: METHADONE HCL 40 MG DISPERSABLE TABLET ONE (03:15)
[2016-07-11] MEDS: metFORMIN HCL 500 MG TABLET (FP) PO SCH ×2 (06:04→17:11)
[2016-07-11] MEDS: METHADONE 80 MG, METHADONE 10 MG PO SCH (06:05)
[2016-07-11] MEDS: ACAMPROSATE CALCIUM 333 MG TABLET.DR PO SCH ×3 (06:05→21:10)
[2016-07-11] MEDS: INSULIN SLIDING SCALE (NOVOLOG) 1 VIAL SQ SCH ×2 (06:19→17:11)
[2016-07-11] MEDS: HYDROCHLOROTHIAZIDE 12.5 MG CAPSULE (FP) PO SCH (09:46)
[2016-07-11] MEDS: FOLIC ACID 1 MG TABLET (FP) PO SCH (09:46)
[2016-07-11] MEDS: PRENATAL VITAMINS W/ FOLIC ACID TABLET (FP) PO SCH (09:46)
[2016-07-11] MEDS: MAGNESIUM OXIDE 400 MG TABLET (FP) PO SCH (09:47)
[2016-07-11] MEDS: NICOTINE 21 MG/24 HOURS TOPICAL PATCH TD SCH (09:47)
[2016-07-11] MEDS: GABAPENTIN 100 MG CAPSULE (FP) PO SCH ×2 (09:47→21:10)
[2016-07-11] MEDS: SIMETHICONE 80 MG TAB.CHEW (FP) PO PRN (09:49)
[2016-07-11] MEDS: THIAMINE HCL 100 MG TABLET (FP) PO SCH (21:10)
[2016-07-11] MEDS: traZODone HCL 100 MG TABLET (FP) PO SCH (21:10)
[2016-07-11] MEDS: diphenhydrAMINE HCL 50 MG CAPSULE PO PRN (21:11)
[2016-07-12] MEDS ORDERED: METHADONE HCL 10 MG TABLET ONE (03:16)
[2016-07-12] MEDS ORDERED: METHADONE HCL 40 MG DISPERSABLE TABLET ONE (03:17)
[2016-07-12] MEDS: METHADONE 80 MG, METHADONE 10 MG PO SCH (06:04)
[2016-07-12] MEDS: ACAMPROSATE CALCIUM 333 MG TABLET.DR PO SCH ×3 (06:04→21:07)
[2016-07-12] MEDS: metFORMIN HCL 500 MG TABLET (FP) PO SCH ×2 (06:04→17:13)
[2016-07-12] MEDS: INSULIN SLIDING SCALE (NOVOLOG) 1 VIAL SQ SCH ×2 (06:06→17:14)
[2016-07-12] MEDS: MAGNESIUM OXIDE 400 MG TABLET (FP) PO SCH (10:00)
[2016-07-12] MEDS: FOLIC ACID 1 MG TABLET (FP) PO SCH (10:00)
[2016-07-12] MEDS: HYDROCHLOROTHIAZIDE 12.5 MG CAPSULE (FP) PO SCH (10:00)
[2016-07-12] MEDS: NICOTINE 21 MG/24 HOURS TOPICAL PATCH TD SCH (10:00)
[2016-07-12] MEDS: GABAPENTIN 100 MG CAPSULE (FP) PO SCH ×2 (10:00→21:08)
[2016-07-12] MEDS: PRENATAL VITAMINS W/ FOLIC ACID TABLET (FP) PO SCH (10:00)
[2016-07-12] MEDS: SIMETHICONE 80 MG TAB.CHEW (FP) PO PRN (10:02)
[2016-07-12] MEDS: traZODone HCL 100 MG TABLET (FP) PO SCH (21:07)
[2016-07-12] MEDS: THIAMINE HCL 100 MG TABLET (FP) PO SCH (21:07)
[2016-07-12] MEDS: diphenhydrAMINE HCL 50 MG CAPSULE PO PRN (21:08)
[2016-07-13] MEDS ORDERED: METHADONE HCL 10 MG TABLET ONE (05:39)
[2016-07-13] MEDS ORDERED: METHADONE HCL 40 MG DISPERSABLE TABLET ONE (05:39)
[2016-07-13] MEDS: ACAMPROSATE CALCIUM 333 MG TABLET.DR PO SCH ×3 (05:54→21:08)
[2016-07-13] MEDS: METHADONE 80 MG, METHADONE 10 MG PO SCH (05:55)
[2016-07-13] MEDS: metFORMIN HCL 500 MG TABLET (FP) PO SCH ×2 (06:12→17:18)
[2016-07-13] MEDS: INSULIN SLIDING SCALE (NOVOLOG) 1 VIAL SQ SCH ×2 (06:14→17:18)
[2016-07-13] MEDS: GABAPENTIN 100 MG CAPSULE (FP) PO SCH ×2 (09:40→21:08)
[2016-07-13] MEDS: FOLIC ACID 1 MG TABLET (FP) PO SCH (09:40)
[2016-07-13] MEDS: HYDROCHLOROTHIAZIDE 12.5 MG CAPSULE (FP) PO SCH (09:40)
[2016-07-13] MEDS: PRENATAL VITAMINS W/ FOLIC ACID TABLET (FP) PO SCH (09:41)
[2016-07-13] MEDS: NICOTINE 21 MG/24 HOURS TOPICAL PATCH TD SCH (09:41)
[2016-07-13] MEDS: SIMETHICONE 80 MG TAB.CHEW (FP) PO PRN (09:44)
[2016-07-13] MEDS: MAGNESIUM OXIDE 400 MG TABLET (FP) PO SCH (09:55)
[2016-07-13] MEDS: traZODone HCL 100 MG TABLET (FP) PO SCH (21:08)
[2016-07-13] MEDS: THIAMINE HCL 100 MG TABLET (FP) PO SCH (21:08)
[2016-07-13] MEDS: diphenhydrAMINE HCL 50 MG CAPSULE PO PRN (21:08)
[2016-07-14] MEDS ORDERED: METHADONE HCL 10 MG TABLET ONE (03:01)
[2016-07-14] MEDS ORDERED: METHADONE HCL 40 MG DISPERSABLE TABLET ONE (03:02)
[2016-07-14] MEDS: METHADONE 80 MG, METHADONE 10 MG PO SCH (06:04)
[2016-07-14] MEDS: ACAMPROSATE CALCIUM 333 MG TABLET.DR PO SCH ×3 (06:04→21:14)
[2016-07-14] MEDS: INSULIN SLIDING SCALE (NOVOLOG) 1 VIAL SQ SCH ×2 (06:31→16:30)
[2016-07-14] MEDS: metFORMIN HCL 500 MG TABLET (FP) PO SCH ×2 (07:49→16:29)
[2016-07-14] MEDS: GABAPENTIN 100 MG CAPSULE (FP) PO SCH ×2 (09:49→21:13)
[2016-07-14] MEDS: MAGNESIUM OXIDE 400 MG TABLET (FP) PO SCH (09:49)
[2016-07-14] MEDS: FOLIC ACID 1 MG TABLET (FP) PO SCH (09:49)
[2016-07-14] MEDS: PRENATAL VITAMINS W/ FOLIC ACID TABLET (FP) PO SCH (09:49)
[2016-07-14] MEDS: HYDROCHLOROTHIAZIDE 12.5 MG CAPSULE (FP) PO SCH (09:49)
[2016-07-14] MEDS: NICOTINE 21 MG/24 HOURS TOPICAL PATCH TD SCH (09:50)
[2016-07-14] MEDS: SIMETHICONE 80 MG TAB.CHEW (FP) PO PRN (09:51)
[2016-07-14] MEDS: THIAMINE HCL 100 MG TABLET (FP) PO SCH (21:13)
[2016-07-14] MEDS: diphenhydrAMINE HCL 50 MG CAPSULE PO PRN (21:14)
[2016-07-14] MEDS: traZODone HCL 100 MG TABLET (FP) PO SCH (21:14)
[2016-07-15] MEDS ORDERED: METHADONE HCL 40 MG DISPERSABLE TABLET ONE (03:35)
[2016-07-15] MEDS ORDERED: METHADONE HCL 10 MG TABLET ONE (03:35)
[2016-07-15] MEDS: ACAMPROSATE CALCIUM 333 MG TABLET.DR PO SCH ×3 (06:05→21:11)
[2016-07-15] MEDS: METHADONE 80 MG, METHADONE 10 MG PO SCH (06:05)
[2016-07-15] MEDS: INSULIN SLIDING SCALE (NOVOLOG) 1 VIAL SQ SCH ×2 (06:29→16:39)
[2016-07-15] MEDS: metFORMIN HCL 500 MG TABLET (FP) PO SCH ×2 (07:56→16:38)
[2016-07-15] MEDS: HYDROCHLOROTHIAZIDE 12.5 MG CAPSULE (FP) PO SCH (09:45)
[2016-07-15] MEDS: GABAPENTIN 100 MG CAPSULE (FP) PO SCH ×2 (09:45→21:12)
[2016-07-15] MEDS: NICOTINE 21 MG/24 HOURS TOPICAL PATCH TD SCH (09:45)
[2016-07-15] MEDS: FOLIC ACID 1 MG TABLET (FP) PO SCH (09:45)
[2016-07-15] MEDS: PRENATAL VITAMINS W/ FOLIC ACID TABLET (FP) PO SCH (09:45)
[2016-07-15] MEDS: MAGNESIUM OXIDE 400 MG TABLET (FP) PO SCH (09:45)
[2016-07-15] MEDS: SIMETHICONE 80 MG TAB.CHEW (FP) PO PRN (09:47)
[2016-07-15] MEDS: diphenhydrAMINE HCL 50 MG CAPSULE PO PRN (21:12)
[2016-07-15] MEDS: THIAMINE HCL 100 MG TABLET (FP) PO SCH (21:12)
[2016-07-15] MEDS: traZODone HCL 100 MG TABLET (FP) PO SCH (21:12)
[2016-07-16] MEDS ORDERED: METHADONE HCL 40 MG DISPERSABLE TABLET ONE (03:43)
[2016-07-16] MEDS ORDERED: METHADONE HCL 10 MG TABLET ONE (03:43)
[2016-07-16] MEDS: METHADONE 80 MG, METHADONE 10 MG PO SCH (06:02)
[2016-07-16] MEDS: ACAMPROSATE CALCIUM 333 MG TABLET.DR PO SCH ×3 (06:02→21:02)
[2016-07-16] MEDS: metFORMIN HCL 500 MG TABLET (FP) PO SCH ×2 (06:03→16:33)
[2016-07-16] MEDS: INSULIN SLIDING SCALE (NOVOLOG) 1 VIAL SQ SCH ×2 (06:04→16:35)
[2016-07-16] MEDS: PRENATAL VITAMINS W/ FOLIC ACID TABLET (FP) PO SCH (09:59)
[2016-07-16] MEDS: HYDROCHLOROTHIAZIDE 12.5 MG CAPSULE (FP) PO SCH (09:59)
[2016-07-16] MEDS: FOLIC ACID 1 MG TABLET (FP) PO SCH (09:59)
[2016-07-16] MEDS: SIMETHICONE 80 MG TAB.CHEW (FP) PO PRN (09:59)
[2016-07-16] MEDS: NICOTINE 21 MG/24 HOURS TOPICAL PATCH TD SCH (10:00)
[2016-07-16] MEDS: MAGNESIUM OXIDE 400 MG TABLET (FP) PO SCH (10:00)
[2016-07-16] MEDS: GABAPENTIN 100 MG CAPSULE (FP) PO SCH ×2 (10:00→21:02)
[2016-07-16] MEDS: THIAMINE HCL 100 MG TABLET (FP) PO SCH (21:02)
[2016-07-16] MEDS: traZODone HCL 100 MG TABLET (FP) PO SCH (21:02)
[2016-07-16] MEDS: diphenhydrAMINE HCL 50 MG CAPSULE PO PRN (21:03)
[2016-07-17] MEDS ORDERED: METHADONE HCL 40 MG DISPERSABLE TABLET ONE (03:22)
[2016-07-17] MEDS ORDERED: METHADONE HCL 10 MG TABLET ONE (03:22)
[2016-07-17] MEDS: metFORMIN HCL 500 MG TABLET (FP) PO SCH (06:04)
[2016-07-17] MEDS: ACAMPROSATE CALCIUM 333 MG TABLET.DR PO SCH (06:04)
[2016-07-17] MEDS: METHADONE 80 MG, METHADONE 10 MG PO SCH (06:04)
[2016-07-17] MEDS: INSULIN SLIDING SCALE (NOVOLOG) 1 VIAL SQ SCH (06:15)
[2016-07-17 06:58] VITALS: BP 109/70; PULSE 76; TEMP 97.5
[2016-07-17] MEDS: HYDROCHLOROTHIAZIDE 12.5 MG CAPSULE (FP) PO SCH (09:37)
[2016-07-17] MEDS: GABAPENTIN 100 MG CAPSULE (FP) PO SCH (09:37)
[2016-07-17] MEDS: NICOTINE 21 MG/24 HOURS TOPICAL PATCH TD SCH (09:37)
[2016-07-17] MEDS: FOLIC ACID 1 MG TABLET (FP) PO SCH (09:37)
[2016-07-17] MEDS: MAGNESIUM OXIDE 400 MG TABLET (FP) PO SCH (09:37)
[2016-07-17] MEDS: PRENATAL VITAMINS W/ FOLIC ACID TABLET (FP) PO SCH (09:37)
[2016-07-17] MEDS: SIMETHICONE 80 MG TAB.CHEW (FP) PO PRN (09:38)
--- NOTE | 2016-07-17 09:53 | PN ---
Psychiatric Progress Note Vital Signs: Vital Signs Period Temp Pulse Resp BP Sys/Cavazos Pulse Ox Last 24 Hr 97.5 F 69-76 18-18 109-118/68-70 Date of Session: 07/17/16 Chief Complaint:: discharge visit HPI: Bronchial asthma,diabetes mellitus,hypertension,hepatitis C,obesity and neuropathy have been medically managed. ROS: Patient has addressed alcohol, nicotine dependence comorbid MDD. Current Medications: Active Medications Generic Name Dose Route Start Last Admin Trade Name Freq PRN Reason Stop Dose Admin Acamprosate 666 mg 06/20/16 14:00 07/17/16 06:04 Campral - PO 666 mg TID THERESA Administration Acetaminophen 650 mg 06/19/16 14:52 Tylenol - PO Q4H PRN FEVER OR PAIN Al Hydroxide/Mg Hydroxide 30 ml 06/19/16 14:52 Mylanta Oral Suspension - PO Q6H PRN DYSPEPSIA Albuterol Sulfate 2 puff 06/19/16 14:54 07/12/16 22:33 Ventolin Hfa Inhaler - IH 2 puff Q4H PRN Administration ASTHMA Bupropion HCl 150 mg 06/20/16 10:00 07/17/16 09:37 Wellbutrin Xl - PO 150 mg DAILY THERESA Administration Diphenhydramine HCl 50 mg 06/19/16 14:52 07/16/16 21:03 Benadryl - PO 50 mg HSMR1 PRN Administration FOR ITCHING Eucalyptus/Menthol/Phenol/Sorbitol 1 each 06/19/16 14:52 Cepastat Lozenge - MM Q4H PRN SORE THROAT Folic Acid 1 mg 06/20/16 10:00 07/17/16 09:37 Folic Acid - PO 1 mg DAILY THERESA Administration Gabapentin 200 mg 06/19/16 22:00 07/17/16 09:37 Neurontin - PO 200 mg BID THERESA Administration Guaifenesin 10 ml 06/19/16 14:52 Robitussin Dm - PO Q6H PRN COUGH Hydrochlorothiazide 12.5 mg 06/21/16 12:00 07/17/16 09:37 Hctz - PO 12.5 mg DAILY THERESA Administration Hydrocortisone 1 applic 06/21/16 12:03 07/09/16 09:47 Hytone 1% Cream - TP 1 applic BID PRN Administration DRY SKIN Ibuprofen 400 mg 06/19/16 14:52 06/30/16 21:15 Motrin - PO 400 mg Q6H PRN Administration PAIN Insulin Aspart 1 vial 06/19/16 16:30 07/17/16 06:15 Novolog Vial Sliding Scale - SQ Not Given BIDAC [facility] Protocol Loperamide HCl 4 mg 06/19/16 14:52 Imodium - PO Q6H PRN DIARRHEA Magnesium Hydroxide 30 ml 06/19/16 14:52 Milk Of Magnesia - PO DAILY PRN CONSTIPATION Magnesium Oxide 400 mg 06/20/16 10:00 07/17/16 09:37 Mag-Ox - PO 400 mg DAILY THERESA Administration Metformin HCl 1,000 mg 06/19/16 16:30 07/17/16 06:04 Glucophage - PO 1,000 mg BID@0700,1630 THERESA Administration Methadone HCl 80 mg/ Methadone 90 mg 07/10/16 06:00 07/17/16 06:04 HCl 10 mg PO 90 mg DAILY@0600 THERESA Administration Nicotine 21 mg 06/20/16 10:00 07/17/16 09:37 Nicoderm Patch - TD Not Given DAILY [facility] Nicotine Polacrilex 4 mg 06/19/16 14:52 Nicorette Gum - BUC Q2H PRN NICOTINE REPLACEMENT RX Multivit/Folic Acid/Iron 1 tab 06/20/16 10:00 07/17/16 09:37 Vitamins (Sjr) - PO 1 tab DAILY THERESA Administration Pseudoephedrine/Triprolidine 1 combo 06/19/16 14:52 Actifed - PO TID PRN NASAL CONGESTION Simethicone 80 mg 07/05/16 12:35 07/17/16 09:38 Mylicon - PO 80 mg QID PRN Administration GAS Tetrahydrozoline HCl 1 drop 06/26/16 13:15 07/09/16 09:48 Visine - OD 1 drop TID PRN Administration DRY EYES Thiamine HCl 100 mg 06/19/16 22:00 07/16/16 21:02 Vitamin B1 - PO 100 mg HS THERESA Administration Trazodone HCl 100 mg 06/19/16 22:00 07/16/16 21:02 Desyrel - PO 100 mg HS THERESA Administration Current Side Effect: No Lab tests ordered: No Lab tests reviewed: Yes Provider note:: Patient has completed today his treatment and met his goals, will continue to address his issues at [facility] outpatient program. Patient gained insights into his problem and motivated to continue maitain abstinence. He reports that he learned a lot through this treatment, he understands the negative impact of his behavior on his major life areas, including physical and mental health. Patient was encouraged to utilize all supports available to prevent relapse. Patient continues to find that his current medications effective, no side-effects reported, patient reports he is more energetic, less depressed and less anxious and has no crave for alcohol, scripts provided, patient is stable for discharge. Total face to face time:: 35 Mental Status Exam - Mental Status Exam Alert and Oriented to: Time, Place, Person Cognitive Function: Good Patient Appearance: Well Groomed Mood: Hopeful Affect: Appropriate, Mood Congruent Patient Behavior: Appropriate, Cooperative Speech Pattern: Clear, Appropriate Voice Loudness: Normal Thought Process: Intact, Goal Oriented Thought Disorder: Not Present Hallucinations: Denies Suicidal Ideation: Denies Homicidal Ideation: Denies Insight/Judgement: Fair Sleep: Well Appetite: Good Muscle strength/Tone: Normal Gait/Station: Normal Psychiatric Treatment Plan - Problem List (1) Methadone maintenance therapy patient Current Visit: No Comment: last dose taken today [id number] of methadone. dose verified (2) Nicotine dependence Current Visit: No Qualifiers: Nicotine product type: cigarettes Substance use status: uncomplicated Qualified Code(s): F17.210 - Nicotine dependence, cigarettes, uncomplicated (3) Alcohol dependence Current Visit: Yes (4) MDD (major depressive disorder), recurrent episode, moderate Current Visit: Yes
== END 2016-07-17 10:25 | disposition home or self-care (01) | DRG 895 ==
LOC: YASAS 12:26 → Y5N 15:44
PROVIDERS: ADMIT Psychiatry & Neurology Psychiatry; ATTEND Psychiatry & Neurology Psychiatry
PROC: HZ42ZZZ Group Counseling for Substance Abuse Treatment, Cognitive-Behavioral (ICD-10-PCS; principal; 2016-07-17)
DX: F11.20 Opioid dependence, uncomplicated (principal); F33.9 Major depressive disorder, recurrent, unspecified; F10.20 Alcohol dependence, uncomplicated; F17.210 Nicotine dependence, cigarettes, uncomplicated; E11.9 Type 2 diabetes mellitus without complications; Z79.4 Long term (current) use of insulin; Z79.84 Long term (current) use of oral hypoglycemic drugs; I10 Essential (primary) hypertension; J45.909 Unspecified asthma, uncomplicated; B18.2 Chronic viral hepatitis C; G62.9 Polyneuropathy, unspecified
CPT/HCPCS: 93005; 93010

== ENCOUNTER 2016-10-02 13:17 | Inpatient (IN) | payer OTHER ==
[2016-10-02 15:53] VITALS: BMI 35.7
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
[2016-10-02] MEDS ORDERED: diphenhydrAMINE HCL 50 MG CAPSULE PO PRN (20:24)
[2016-10-02] MEDS ORDERED: chlordiazePOXIDE HCL 25 MG CAPSULE PO PRN (20:24)
[2016-10-02] MEDS ORDERED: MENTHOL/PHENOL 1 EACH UD MM PRN (20:24)
[2016-10-02] MEDS ORDERED: MAG HYDROX/AL HYDROX/SIMETH 30 ML UNIT-DOSE CUP PO PRN (20:24)
[2016-10-02] MEDS ORDERED: MAGNESIUM HYDROX 2400MG/30ML ORAL SUSPENSION 30 ML CUP PO PRN (20:24)
[2016-10-02] MEDS ORDERED: MAGNESIUM CITRATE 300 ML BOTTLE PO PRN (20:24)
[2016-10-02] MEDS ORDERED: guaiFENesin/D-METHORPHAN HB 10 ML UNIT-DOSE CUPS PO PRN (20:24)
[2016-10-02] MEDS ORDERED: P-EPHED 60MG/TRIPROLIDI 2.5MG TABLET PO PRN (20:24)
[2016-10-02] MEDS ORDERED: LOPERAMIDE HCL 2 MG CAPSULE PO PRN (20:24)
[2016-10-02] MEDS ORDERED: ACETAMINOPHEN 325 MG TABLET (FP) PO PRN (20:24)
[2016-10-02] MEDS ORDERED: NICOTINE POLACRILEX 2 MG GUM BC PRN (20:24)
[2016-10-02] MEDS ORDERED: NAPROXEN 500 MG TABLET (FP) PO PRN (20:27)
[2016-10-02] MEDS ORDERED: GABAPENTIN 100 MG CAPSULE (FP) PO SCH (20:30)
[2016-10-02] MEDS ORDERED: ALBUTEROL SO4 6.7 GM HFA INHALER IH PRN (20:30)
[2016-10-02] MEDS ORDERED: MAGNESIUM OXIDE 400 MG TABLET (FP) PO SCH (22:00)
[2016-10-02] MEDS ORDERED: THIAMINE HCL 100 MG TABLET (FP) PO SCH (22:00)
[2016-10-02] MEDS ORDERED: SENNOSIDES 8.6MG TABLET (FP) PO SCH (22:00)
[2016-10-02] MEDS ORDERED: chlordiazePOXIDE HCL 25 MG CAPSULE PO SCH (23:00)
[2016-10-02] MEDS: ALBUTEROL SO4 2.5/IPRATROPIUM 0.5 INH SOL 3 ML VIAL.NEB. NEB PRN (23:50)
[2016-10-03] MEDS: ALBUTEROL SO4 2.5/IPRATROPIUM 0.5 INH SOL 3 ML VIAL.NEB. NEB PRN (00:05)
[2016-10-03 00:24] VITALS: BP 136/78; PULSE 90; TEMP 97.6
--- NOTE | 2016-10-03 00:30 | PN ---
[facility] Progress Note Note: ASKED TO SEE PT FOR 02 SAT 45% S/P NEB TXMENT NOW 77%. PT POOR HISTORIAN AND CONFUSED DUE TO INTOXICATION AND POSSIBLE SEDATION FROM LIBRIUM. LYING IN BED AROUSABLE BUT CONFUSED TO PLACE AND TIME. REQUIRES REORIENTATION CV RRR LUNGS PRODUCTIVE COUGH GREENISH PURULENT SPUTUM. EXPIRATORY WHEEZING 02 SAT 80 % ON RA AFTER 2 NEB TXMENTS PRESENTLY 94% ON 2 L NC BGM 98 MG/DL Last Vital Signs Temp Pulse Resp BP Pulse Ox 97.6 F 90 16 136/78 10/03/16 00:23 10/03/16 00:23 10/03/16 00:23 10/03/16 00:23 A- HYPOXEMIA, ASTHMA EXACERBATION, R/O PNA. ADMITTED TODAY TO DETOX FOR ALCOHOLISM GRADY NOW .239 PMHX: DM, NICOTINE DEP, ASTHMA, HEP C, HTN, MMTP 90 MG LDM TODAY P- O2 2 L NC TRANFER TO [facility] FOR EVAL REPORT GIVEN TO DR. THAKKAR
[2016-10-03] MEDS ORDERED: GABAPENTIN 100 MG CAPSULE (FP) PO SCH (06:00)
[2016-10-03] MEDS ORDERED: metFORMIN HCL 500 MG TABLET (FP) PO SCH (07:00)
[2016-10-03] MEDS ORDERED: PRENATAL VITAMINS W/ FOLIC ACID TABLET (FP) PO SCH (10:00)
[2016-10-03] MEDS ORDERED: NICOTINE 14 MG/24 HOURS TOPICAL PATCH TD SCH (10:00)
--- NOTE | 2016-10-03 12:50 | EKG ---
Test Reason : Blood Pressure : / mmHG Vent. Rate : 079 BPM Atrial Rate : 079 BPM P-R Int : 146 ms QRS Dur : 090 ms QT Int : 434 ms P-R-T Axes : 058 052 043 degrees QTc Int : 497 ms NORMAL SINUS RHYTHM SEPTAL INFARCT , AGE UNDETERMINED ABNORMAL ECG WHEN COMPARED WITH ECG OF 19-JUN-2016 22:49, T WAVE INVERSION NOW EVIDENT IN ANTERIOR LEADS Confirmed by LEANDRO CLINTON, SERGIO ([id number]) on 10/03/2016 12:49:37 PM Referred By: Confirmed By:SERGIO REEVES MD
[2016-10-03] MEDS ORDERED: chlordiazePOXIDE HCL 25 MG CAPSULE PO SCH (23:00)
[2016-10-04] MEDS ORDERED: chlordiazePOXIDE 5 MG CAPSULE PO SCH (23:00)
[2016-10-05] MEDS ORDERED: chlordiazePOXIDE HCL 10 MG CAPSULE PO SCH (23:00)
== END 2016-10-03 05:21 | disposition short-term general hospital (02) | DRG 897 ==
LOC: YASAS 13:17 → Y3N 21:13
PROVIDERS: ADMIT Internal Medicine; ATTEND Internal Medicine
PROC: HZ2ZZZZ Detoxification Services for Substance Abuse Treatment (ICD-10-PCS; principal; 2016-10-02)
DX: F10.230 Alcohol dependence with withdrawal, uncomplicated (principal); F11.20 Opioid dependence, uncomplicated; J45.901 Unspecified asthma with (acute) exacerbation; F17.210 Nicotine dependence, cigarettes, uncomplicated; E11.9 Type 2 diabetes mellitus without complications; B18.2 Chronic viral hepatitis C; R09.02 Hypoxemia; I10 Essential (primary) hypertension; E66.9 Obesity, unspecified; Z68.35 Body mass index [BMI] 35.0-35.9, adult; K21.9 Gastro-esophageal reflux disease without esophagitis; R26.2 Difficulty in walking, not elsewhere classified; Z99.89 Dependence on other enabling machines and devices; M25.462 Effusion, left knee; M25.461 Effusion, right knee
CPT/HCPCS: 93005; 93010; 94640

== ENCOUNTER 2016-10-03 01:07 | Inpatient (IN) | payer OTHER ==
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
[2016-10-03 02:07] LABS: BASOPHIL 0.5 % (0-2.0); EOSINOPHIL 2.6 % (0-4.5); MCH 30.4 pg (25.7-33.7); MCHC 31.8 g/dl (32.0-35.9); MEAN CELL VOLUME 95.5 fl (80-96); NEUTROPHILS 54.4 % (42.8-82.8); RDW 16.4 % (11.9-15.9); WHITE BLOOD COUNT 4.4 K/mm3 (4.0-10.0)
[2016-10-03 02:19] LABS: INR 1.32 (0.82-1.09); PROTHROMBIN TIME (PATIENT) 14.6 SEC (9.98-11.88)
[2016-10-03 02:30] LABS: ANION GAP 15 (8-16); BILIRUBIN,TOTAL 0.8 mg/dL (0.2-1.0); CALCIUM 7.7 mg/dL (8.5-10.1); CO2 31 mmol/L (21-32); COCKROFT - GAULT 118.89; CREATININE 0.9 mg/dL (0.7-1.3); GLUCOSE,RANDOM 88 mg/dL (74-106); MAGNESIUM 1.7 mg/dL (1.8-2.4); SGOT/AST 156 U/L (15-37); SGPT/ALT 65 U/L (12-78); TOT PROT 6.6 g/dl (6.4-8.2)
[2016-10-03 02:34] LABS: ALK PHOS 125 U/L (45-117); TROPONIN I 0.03 ng/ml (0.00-0.05)
[2016-10-03 03:17] LABS: MEAN PLT VOLUME 7.7 fl (7.5-11.1); PLATELET COUNT 85 K/MM3 (134-434)
[2016-10-03] MEDS ORDERED: CALCIUM GLUCONATE 10% - 1,000 MG/10 ML VIAL IVPB ONE (03:23)
[2016-10-03] MEDS ORDERED: MAGNESIUM SULF 50% (8.12 MEQ/2 ML-1 GM VIAL) IVPB ONE ×2 (03:24→23:51)
[2016-10-03] MEDS ORDERED: POTASSIUM CHLORIDE 20 MEQ PREMIX IVPB 100 ML IVPB ONE (03:24)
[2016-10-03] MEDS ORDERED: CALCIUM GLUCONATE 10% - 1,000 MG/10 ML VIAL ONE (03:30)
[2016-10-03] MEDS ORDERED: MAGNESIUM SULF 50% (8.12 MEQ/2 ML-1 GM VIAL) ONE (03:30)
[2016-10-03] MEDS ORDERED: SODIUM CHLORIDE 1,000 ML IV SCH (03:30)
[2016-10-03] MEDS ORDERED: KCL 10 MEQ IVPB 100 ML IVPB ONE ×2 (03:31→05:20)
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
[2016-10-03] MEDS ORDERED: ALBUTEROL SO4 2.5/IPRATROPIUM 0.5 INH SOL 3 ML VIAL.NEB. NEB PRN ×2 (03:56→06:11)
[2016-10-03] MEDS: KCL 10 MEQ IVPB 100 ML IVPB SCH ×2 (04:15→05:15)
[2016-10-03] MEDS ORDERED: FUROSEMIDE 40 MG/4 ML INJECTABLE VIAL IVPUSH ONE (07:07)
[2016-10-03] MEDS ORDERED: METHADONE HCL 10 MG TABLET PO SCH (07:45)
[2016-10-03] MEDS ORDERED: chlordiazePOXIDE HCL 25 MG CAPSULE PO PRN (07:47)
[2016-10-03 09:25] LABS: CALCIUM 8.1 mg/dL (8.5-10.1); COCKROFT - GAULT 152.86; CREATININE 0.7 mg/dL (0.7-1.3)
[2016-10-03] MEDS: FOLIC ACID 1 MG TABLET (FP) PO SCH (10:01)
[2016-10-03] MEDS: GABAPENTIN 100 MG CAPSULE (FP) PO SCH ×2 (10:02→22:34)
[2016-10-03] MEDS ORDERED: chlordiazePOXIDE HCL 25 MG CAPSULE ONE ×4 (10:05→22:33)
[2016-10-03] MEDS ORDERED: METHADONE HCL 10 MG TABLET ONE (11:04)
[2016-10-03] MEDS ORDERED: METHADONE HCL 40 MG DISPERSABLE TABLET ONE (11:04)
[2016-10-03] MEDS: METHADONE 80 MG, METHADONE 10 MG PO SCH (11:22)
[2016-10-03 12:02] LABS: URINE APPEARANCE CLEAR; URINE BILIRUBIN NEGATIVE (NEGATIVE); URINE BLOOD NEGATIVE (NEGATIVE); URINE COLOR COLORLESS; URINE GLUCOSE (UA) NEGATIVE (NEGATIVE); URINE KETONE NEGATIVE (NEGATIVE); URINE LEUK ESTERASE NEGATIVE (NEGATIVE); URINE NITRITE NEGATIVE (NEGATIVE); URINE PROTEIN NEGATIVE (NEGATIVE); URINE UROBILINOGEN NEGATIVE E.U./dl (0.2-1.0)
[2016-10-03] MEDS ORDERED: chlordiazePOXIDE HCL 25 MG CAPSULE PO ONE (12:06)
[2016-10-03 12:10] LABS: CALCIUM 8.2 mg/dL (8.5-10.1); COCKROFT - GAULT 178.33; CREATININE 0.6 mg/dL (0.7-1.3); PHOSPHOROUS 3.1 mg/dL (2.5-4.9)
--- NOTE | 2016-10-03 12:10 | CONSULT ---
Consult Detox [facility] Reason for Current Admission/Consult: Alcohol detox Referred by:: Harriett Maynard NP - History History of Present Illness: 61 y/o man sent from [facility] because of chest pain & SOB. O2 sat went down to 45% to 75% after nebulizer Tx. - History Source History Provided By: Patient, Medical Record Limitations to Obtaining History: No Limitations - Alcohol/Substance Use Hx Alcohol Use: Yes - Current Drug/Alcohol Use Alcohol Route: Oral Frequency: Daily Amount used: Vodka 3 pints Date of Last Use: 10/02/16 - Significant Medical Findings: Laboratory Last Values WBC 3.4 K/mm3 (4.0-10.0) L D 10/05/16 06:10 RBC 3.85 M/mm3 (4.00-5.60) L 10/05/16 06:10 Hgb 12.1 GM/dL (11.7-16.9) 10/05/16 06:10 Hct 37.2 % (35.4-49) 10/05/16 06:10 MCV 96.8 fl (80-96) H 10/05/16 06:10 MCHC 32.4 g/dl (32.0-35.9) 10/05/16 06:10 RDW 16.0 % (11.9-15.9) H 10/05/16 06:10 Plt Count 79 K/MM3 (134-434) L 10/05/16 06:10 MPV 8.4 fl (7.5-11.1) 10/05/16 06:10 Neutrophils % 59.9 % (42.8-82.8) 10/05/16 06:10 Lymphocytes % 30.7 % (8-40) 10/05/16 06:10 Monocytes % 6.0 % (3.8-10.2) 10/05/16 06:10 Eosinophils % 3.0 % (0-4.5) 10/05/16 06:10 Basophils % 0.4 % (0-2.0) 10/05/16 06:10 Differential Comment Slide scanned 10/03/16 02:00 INR 1.32 (0.82-1.09) H 10/03/16 02:00 D-Dimer 653 ng/ml (<200-235) H 10/04/16 10:13 Sodium 143 mmol/L (136-145) 10/05/16 06:10 Potassium 3.2 mmol/L (3.5-5.1) L 10/05/16 06:10 Chloride 98 mmol/L (98-107) 10/05/16 06:10 Carbon Dioxide 35 mmol/L (21-32) H 10/05/16 06:10 Anion Gap 10 (8-16) 10/05/16 06:10 BUN 10 mg/dL (7-18) D 10/05/16 06:10 Creatinine 0.5 mg/dL (0.7-1.3) L 10/05/16 06:10 Creat Clearance w eGFR > 60 (>60) 10/05/16 06:10 Random Glucose 95 mg/dL (74-106) 10/05/16 06:10 Lactic Acid 1.4 mmol/L (0.4-2.0) 10/04/16 08:30 Phosphorus 3.1 mg/dL (2.5-4.9) 10/03/16 11:28 Calcium 7.7 mg/dL (8.5-10.1) L 10/05/16 06:10 Magnesium 1.3 mg/dL (1.8-2.4) L 10/05/16 06:10 Total Bilirubin 1.4 mg/dL (0.2-1.0) H D 10/05/16 06:10 AST 109 U/L (15-37) H D 10/05/16 06:10 ALT 54 U/L (12-78) 10/05/16 06:10 Alkaline Phosphatase 133 U/L (45-117) H 10/05/16 06:10 Creatine Kinase 92 IU/L (39-308) 10/04/16 08:30 Creatine Kinase Index 1.2 % (0.0-5.0) 10/03/16 02:00 CK-MB (CK-2) 2.125 ng/ml (0.5-3.6) 10/03/16 02:00 CK-MB (CK-2) Rel Index Cancelled 10/03/16 02:00 Troponin I < 0.01 ng/ml (0.00-0.05) D 10/04/16 08:30 B-Natriuretic Peptide 33.95 pg/ml (5-125) 10/03/16 02:00 Total Protein 5.7 g/dl (6.4-8.2) L 10/05/16 06:10 Albumin 2.6 g/dl (3.4-5.0) L 10/05/16 06:10 Lipase 157 U/L (73-393) 10/03/16 02:00 Urine Color Colorless 10/03/16 11:46 Urine Appearance Clear 10/03/16 11:46 Urine pH 5.0 (5.0-8.0) 10/03/16 11:46 Ur Specific [place] 1.010 (1.005-1.025) 10/03/16 11:46 Urine Protein Negative (NEGATIVE) 10/03/16 11:46 Urine Glucose (UA) Negative (NEGATIVE) 10/03/16 11:46 Urine Ketones Negative (NEGATIVE) 10/03/16 11:46 Urine Blood Negative (NEGATIVE) 10/03/16 11:46 Urine Nitrite Negative (NEGATIVE) 10/03/16 11:46 Urine Bilirubin Negative (NEGATIVE) 10/03/16 11:46 Urine Urobilinogen Negative E.U./dl (0.2-1.0) 10/03/16 11:46 Ur Leukocyte Esterase Negative (NEGATIVE) 10/03/16 11:46 Opiates Screen Negative ng/ml (AYCGNJ=987) 10/03/16 11:43 Methadone Screen Positive ng/ml (IOCCAC=494) 10/03/16 11:43 Barbiturate Screen Negative ng/ml (VOMKYE=140) 10/03/16 11:43 Phencyclidine Screen Negative ng/ml (CUTOFF=25) 10/03/16 11:43 Ur Amphetamines Screen Negative ng/ml (GVASWU=105) 10/03/16 11:43 MDMA (Ecstasy) Screen Negative ng/ml (TYCZVI=922) 10/03/16 11:43 Benzodiazepines Screen Negative ng/ml (MJLJUF=577) 10/03/16 11:43 Cocaine Screen Negative ng/ml (LFFFOA=850) 10/03/16 11:43 U Marijuana (THC) Screen Negative ng/ml (CUTOFF=50) 10/03/16 11:43 Alcohol, Quantitative 221.1 mg/dl (0-5) H* 10/03/16 02:00 labs noted CIWA Score - CIWA Score Nausea/Vomitin-Mild Nausea/No Vomiting Muscle Tremors: 4-Moderate,w/Arms Extend Anxiety: 3 Agitation: 3 Paroxysmal Sweats: 3 Orientation: 0-Oriented Tacttile Disturbances: 0-None Auditory Disturbances: 0-None Visual Disturbances: 0-None Headache: 0-None Present CIWA-Ar Total Score: 14 Assessment Plan - Diagnosis (1) Alcohol dependence with uncomplicated withdrawal Status: Acute (2) Opioid dependence on agonist therapy Status: Acute - Medication Detox Regimen/Protocol: [facility]
[2016-10-03 12:51] LABS: MAGNESIUM 1.5 mg/dL (1.8-2.4)
--- NOTE | 2016-10-03 12:59 | EKG ---
Test Reason : Blood Pressure : / mmHG Vent. Rate : 069 BPM Atrial Rate : 069 BPM P-R Int : 144 ms QRS Dur : 092 ms QT Int : 492 ms P-R-T Axes : 046 037 049 degrees QTc Int : 527 ms NORMAL SINUS RHYTHM NONSPECIFIC T WAVE ABNORMALITY PROLONGED QT ABNORMAL ECG WHEN COMPARED WITH ECG OF 19-JUN-2016 22:49, NONSPECIFIC T WAVE ABNORMALITY NOW EVIDENT IN ANTERIOR LEADS Confirmed by LEANDRO CLINTON, SERGIO ([id number]) on 10/03/2016 12:59:29 PM Referred By: Confirmed By:SERGIO REEVES MD
[2016-10-03 13:01] LABS: URINE MARIJUANA THC NEGATIVE ng/ml (CUTOFF=50)
[2016-10-03] MEDS ORDERED: FUROSEMIDE 40 MG/4 ML INJECTABLE VIAL IVPUSH SCH (14:00)
[2016-10-03] MEDS ORDERED: SPIRONOLACTONE 25 MG TABLET (FP) PO SCH (14:15)
[2016-10-03 14:51] LABS: CALCIUM 8.3 mg/dL (8.5-10.1); CREATININE 0.5 mg/dL (0.7-1.3)
[2016-10-03] MEDS ORDERED: SPIRONOLACTONE 25 MG TABLET (FP) ONE (16:45)
[2016-10-03] MEDS: chlordiazePOXIDE HCL 25 MG CAPSULE PO SCH ×2 (16:48→22:35)
[2016-10-03] MEDS ORDERED: GABAPENTIN 100 MG CAPSULE (FP) ONE (22:34)
[2016-10-03] MEDS: THIAMINE HCL 100 MG TABLET (FP) PO SCH (22:46)
[2016-10-04] MEDS ORDERED: chlordiazePOXIDE HCL 25 MG CAPSULE ONE ×3 (05:30→17:01)
[2016-10-04] MEDS: chlordiazePOXIDE HCL 25 MG CAPSULE PO SCH ×4 (05:36→22:50)
[2016-10-04] MEDS ORDERED: METHADONE HCL 10 MG TABLET ONE (06:41)
[2016-10-04] MEDS ORDERED: METHADONE HCL 40 MG DISPERSABLE TABLET ONE (06:41)
[2016-10-04] MEDS: METHADONE 80 MG, METHADONE 10 MG PO SCH (06:53)
[2016-10-04 07:23] LABS: BASOPHIL 0.3 % (0-2.0); EOSINOPHIL 2.7 % (0-4.5); MCH 31.7 pg (25.7-33.7); MCHC 33.1 g/dl (32.0-35.9); MEAN CELL VOLUME 95.5 fl (80-96); NEUTROPHILS 61.6 % (42.8-82.8); PLATELET COUNT 75 K/MM3 (134-434); RDW 15.9 % (11.9-15.9); WHITE BLOOD COUNT 5.3 K/mm3 (4.0-10.0)
[2016-10-04 09:24] LABS: MAGNESIUM 1.4 mg/dL (1.8-2.4)
[2016-10-04 09:34] LABS: TROPONIN I < 0.01 ng/ml (0.00-0.05)
[2016-10-04] MEDS ORDERED: MAGNESIUM OXIDE 400 MG TABLET (FP) PO ONE (10:05)
[2016-10-04] MEDS: GABAPENTIN 100 MG CAPSULE (FP) PO SCH ×2 (11:00→22:50)
[2016-10-04] MEDS: FOLIC ACID 1 MG TABLET (FP) PO SCH (11:00)
[2016-10-04] MEDS: SPIRONOLACTONE 25 MG TABLET (FP) PO SCH (11:00)
--- NOTE | 2016-10-04 11:06 | PN ---
Progress Note (short form) - Note Progress Note: Subjective: The patient was seen and examined at the bedside, he states he is feeling "much better" Current Medications Generic Name Dose Route Start Last Admin Trade Name Freq PRN Reason Stop Dose Admin Albuterol/Ipratropium 1 amp 10/03/16 03:56 Duoneb - NEB Q6H PRN SHORTNESS OF BREATH Bupropion HCl 150 mg 10/03/16 10:00 10/03/16 10:02 Wellbutrin Xl - PO 150 mg DAILY THERESA Administration Chlordiazepoxide HCl 25 mg 10/03/16 07:47 10/03/16 10:10 Librium - PO 10/06/16 07:46 25 mg Q4H PRN Administration WITHDRAWAL(CONT SUBST) Chlordiazepoxide HCl 50 mg 10/03/16 17:00 10/04/16 05:36 Librium - PO 10/04/16 11:01 50 mg [id number] THERESA Administration Chlordiazepoxide HCl 25 mg 10/04/16 17:00 Librium - PO 10/05/16 11:01 [id number] THERESA Chlordiazepoxide HCl 15 mg 10/05/16 17:00 Librium - PO 10/06/16 11:01 [id number] THERESA Folic Acid 1 mg 10/03/16 10:00 10/03/16 10:01 Folic Acid - PO 1 mg DAILY THERESA Administration Gabapentin 200 mg 10/03/16 10:00 10/03/16 22:34 Neurontin - PO 200 mg BID THERESA Administration Methadone HCl 80 mg/ Methadone 90 mg 10/03/16 10:45 10/04/16 06:53 HCl 10 mg PO 90 mg DAILY@0600 THERESA Administration Spironolactone 100 mg 10/04/16 10:00 Aldactone - PO DAILY THERESA Thiamine HCl 100 mg 10/03/16 22:00 10/03/16 22:46 Vitamin B1 - PO Not Given HS [facility] Objective: Vital Signs Period Temp Pulse Resp BP Sys/Cavazos Pulse Ox Last 24 Hr 97.8 F-98.8 F 72-88 16-20 110-141/58-81 92-97 Physical Exam: Refused exam CBCD WBC 5.3 K/mm3 (4.0-10.0) 10/04/16 06:15 RBC 3.92 M/mm3 (4.00-5.60) L 06/15/17 06:15 Hgb 12.4 GM/dL (11.7-16.9) 10/04/16 06:15 Hct 37.5 % (35.4-49) 10/04/16 06:15 MCV 95.5 fl (80-96) 10/04/16 06:15 MCHC 33.1 g/dl (32.0-35.9) 10/04/16 06:15 RDW 15.9 % (11.9-15.9) 10/04/16 06:15 Plt Count 75 K/MM3 (134-434) L 10/04/16 06:15 MPV 8.0 fl (7.5-11.1) 10/04/16 06:15 CMP Sodium 140 mmol/L (136-145) 10/03/16 13:45 Potassium 3.8 mmol/L (3.5-5.1) 10/03/16 13:45 Chloride 94 mmol/L (98-107) L 10/03/16 13:45 Carbon Dioxide 36 mmol/L (21-32) H 10/03/16 13:45 Anion Gap 10 (8-16) 10/03/16 13:45 BUN 17 mg/dL (7-18) 10/03/16 13:45 Creatinine 0.5 mg/dL (0.7-1.3) L 10/03/16 13:45 Creat Clearance w eGFR > 60 (>60) 10/03/16 02:00 Random Glucose 84 mg/dL (74-106) 10/03/16 13:45 Calcium 8.3 mg/dL (8.5-10.1) L 10/03/16 13:45 Total Bilirubin 0.8 mg/dL (0.2-1.0) 10/03/16 02:00 AST 156 U/L (15-37) H D 10/03/16 02:00 ALT 65 U/L (12-78) D 10/03/16 02:00 Alkaline Phosphatase 125 U/L (45-117) H 10/03/16 02:00 Total Protein 6.6 g/dl (6.4-8.2) 10/03/16 02:00 Albumin 3.0 g/dl (3.4-5.0) L 10/03/16 02:00 CARDIAC ENZYMES Creatine Kinase 92 IU/L (39-308) 10/04/16 08:30 Troponin I < 0.01 ng/ml (0.00-0.05) D 10/04/16 08:30 Microbiology 10/03/16 02:00 Blood - Peripheral Venous Blood Culture - Preliminary NO GROWTH OBTAINED AFTER 24 HOURS, INCUBATION TO CONTINUE FOR 4 DAYS. 10/03/16 01:50 Blood - Peripheral Venous Blood Culture - Preliminary NO GROWTH OBTAINED AFTER 24 HOURS, INCUBATION TO CONTINUE FOR 4 DAYS. Assessment: This is a 61 year old male with PMHx of HTN, DMII, asthma, depression, alcohol dependence who presented to the ED with hypoxia and lethargy from [facility] for ETOH detox Plan: 1) Cardiology: Chest pain - Trop x2 negative - ECHO with normal LV size and function, LV normal wall motion. Trace to mild MR - Patient currently denies any chest pain - F/u cardiology consult HTN - BP withing guildlines 2) Pulmonary: Shortness of breath - Asthma exacerbation vs. liver cirrhosis with possible portal HTN - No evidence of CHF - Chest X-ray with no evidence of active pulmonary disease - Patient 97% on 4L NC - F/u d-dimer, low suspicion for PE (IVC filter in place) - B/l lower extremity doppler negative for DVT - Duonebs prn 3) GI: Alcoholic liver cirrhosis - Librium taper per detox MD - Continue folic acid - Continue thiamine - F/u GI consult Thrombocytopenia 2/2 chronic alcohol abuse 4) Endocrine: DM - Blood sugars controlled, not requiring insulin 5) Psych: Bipolar disorder - Continue Wellbutrin - Hold Seroquel secondary to prolonged QT Heroin abuse - Continue Methadone 6) F/E/N: - Sodium controlled/diabetic diet - Hypomagnesemia: replete 7) Prophylaxis: - SCDs bilaterally - Hold all chemical dvt prophylaxis 2/2 thrombocytopenia 8) Dispo: - Requires continued inpatient care CODE STATUS: FULL CODE Visit type - Emergency Visit Emergency Visit: Yes ED Registration Date: 10/03/16 Care time: The patient presented to the Emergency Department on the above date and was hospitalized for further evaluation of their emergent condition. - New Patient This patient is new to me today: Yes Date on this admission: 10/07/16 - Critical Care Critical Care patient: No
[2016-10-04 13:51] VITALS: BMI 35.6
--- NOTE | 2016-10-04 20:58 | CON.GI ---
Consult Consult Specialty:: Gastroenterology Reason for Consultation:: cirrhosis and ascitis - History of Present Illness History of Present Illness: 61 y/o was admitted with DT's on abdominal ultrtasound, he was noted to have dilated CBD, hepatomegaly and ascitis. He has been trying to stop drinking for the past 5 years but was unsuccessful. He denies abdominal pain, nause and vomiting. - Alcohol/Substance Use Hx Alcohol Use: Yes - Smoking History Smoking history: Current every day smoker Have you smoked in the past 12 months: Yes Aproximately how many cigarettes per day: 10 Home Medications - Allergies Allergies/Adverse Reactions: Allergies Allergy/AdvReac Type Severity Reaction Status Date / Time No Known Allergies Allergy Verified 10/03/16 02:25 - Home Medications Home Medications: Ambulatory Orders Hydrochlorothiazide [Hctz -] 25 mg PO DAILY 06/07/16 Metformin HCl [Glucophage] 1,000 mg PO BID 06/07/16 Folic Acid - 1 mg PO DAILY #30 tablet 06/19/16 Gabapentin [Neurontin -] 200 mg PO BID #120 capsule 06/19/16 Magnesium Oxide [Mag-Ox -] 400 mg PO DAILY #7 tablet 06/19/16 Methadone [Dolophine -] 90 mg PO DAILY@0600 #0 tablet MDD 90mg 06/19/16 Quetiapine Fumarate [Seroquel] 100 mg PO HS #30 tablet 06/19/16 Thiamine HCl [Vitamin B1 -] 100 mg PO HS #30 tablet 06/19/16 Albuterol Sulfate Inhaler - [Ventolin HFA Inhaler -] 2 inh PO Q4H PRN #1 inh Acamprosate Calcium [Campral -] 666 mg PO TID #180 tab 07/17/16 Bupropion HCl [Wellbutrin Xl -] 150 mg PO DAILY #30 tab 07/17/16 Trazodone HCl [Desyrel -] 100 mg PO HS #30 tablet 07/17/16 Family Disease History - Family Disease History Family Disease History: CA: Father (), Other: Father, Mother () Physical Exam-GI Vital Signs: Vital Signs Temperature 98.1 F 10/04/16 18:07 Pulse Rate 66 10/04/16 18:07 Respiratory Rate 18 10/04/16 18:07 Blood Pressure 124/74 06/15/17 18:07 O2 Sat by Pulse Oximetry (%) 96 10/04/16 18:07 Constitutional: Yes: Well Nourished Eyes: Yes: Conjunctiva Clear HENT: Yes: Atraumatic Neck: Yes: Supple Cardiovascular: Yes: Regular Rate and Rhythm Respiratory: Yes: CTA Bilaterally ...Palpate: Yes: Hepatomegaly, Soft, Splenomegaly. No: Firm/Rigid, Guarding, Pulsatile Mass, Tenderness Labs: CBC, BMP 10/04/16 06:15 10/03/16 13:45 INR, PTT INR 1.32 (0.82-1.09) H 10/03/16 02:00 Problem List - Problems (1) Dilated bile duct Assessment/Plan: most likely secondary to chronic use of Methadone R> MRI of the pancreas to r/o other etiology Code(s): K83.8 - OTHER SPECIFIED DISEASES OF BILIARY TRACT (2) Hepatomegaly Assessment/Plan: secondary to alcohol liver disease continue to abstain form alcohol continue alcohol detox made aware to follow-up in the GI clinic of [facility] Code(s): R16.0 - HEPATOMEGALY, NOT ELSEWHERE CLASSIFIED (3) Portal hypertension Code(s): K76.6 - PORTAL HYPERTENSION
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
[2016-10-04] MEDS: THIAMINE HCL 100 MG TABLET (FP) PO SCH (22:50)
[2016-10-05] MEDS: chlordiazePOXIDE HCL 25 MG CAPSULE PO SCH ×2 (04:28→10:49)
[2016-10-05] MEDS ORDERED: METHADONE HCL 10 MG TABLET ONE (05:51)
[2016-10-05] MEDS ORDERED: METHADONE HCL 40 MG DISPERSABLE TABLET ONE (05:51)
[2016-10-05] MEDS: METHADONE 80 MG, METHADONE 10 MG PO SCH (05:52)
[2016-10-05 07:54] LABS: BASOPHIL 0.4 % (0-2.0); MCH 31.4 pg (25.7-33.7); MCHC 32.4 g/dl (32.0-35.9); MEAN CELL VOLUME 96.8 fl (80-96); MEAN PLT VOLUME 8.4 fl (7.5-11.1); NEUTROPHILS 59.9 % (42.8-82.8); PLATELET COUNT 79 K/MM3 (134-434); WHITE BLOOD COUNT 3.4 K/mm3 (4.0-10.0)
[2016-10-05 08:30] LABS: MAGNESIUM 1.3 mg/dL (1.8-2.4)
[2016-10-05] MEDS ORDERED: MAGNESIUM SULF 50% (8.12 MEQ/2 ML-1 GM VIAL) IVPB ONE (08:38)
[2016-10-05 09:17] LABS: ALBUMIN 2.6 g/dl (3.4-5.0); ANION GAP 10 (8-16); BILIRUBIN,TOTAL 1.4 mg/dL (0.2-1.0); CALCIUM 7.7 mg/dL (8.5-10.1); CO2 35 mmol/L (21-32); CREATININE 0.5 mg/dL (0.7-1.3); GLUCOSE,RANDOM 95 mg/dL (74-106); SGOT/AST 109 U/L (15-37); SGPT/ALT 54 U/L (12-78); TOT PROT 5.7 g/dl (6.4-8.2)
--- NOTE | 2016-10-05 09:17 | PN ---
Progress Note (short form) - Note Progress Note: Subjective: The patient was seen and examined at the bedside, he has no complaints at this time Current Medications Generic Name Dose Route Start Last Admin Trade Name Rajiv PRN Reason Stop Dose Admin Albuterol/Ipratropium 1 amp 10/03/16 03:56 Duoneb - NEB Q6H PRN SHORTNESS OF BREATH Bupropion HCl 150 mg 10/03/16 10:00 10/04/16 11:00 Wellbutrin Xl - PO 150 mg DAILY THERESA Administration Chlordiazepoxide HCl 25 mg 10/03/16 07:47 10/03/16 10:10 Librium - PO 10/06/16 07:46 25 mg Q4H PRN Administration WITHDRAWAL(CONT SUBST) Chlordiazepoxide HCl 25 mg 10/04/16 17:00 10/05/16 04:28 Librium - PO 10/05/16 11:01 25 mg [id number] THERESA Administration Chlordiazepoxide HCl 15 mg 10/05/16 17:00 Librium - PO 10/06/16 11:01 [id number] THERESA Folic Acid 1 mg 10/03/16 10:00 10/04/16 11:00 Folic Acid - PO 1 mg DAILY THERESA Administration Gabapentin 200 mg 10/03/16 10:00 10/04/16 22:50 Neurontin - PO 200 mg BID THERESA Administration Methadone HCl 80 mg/ Methadone 90 mg 10/03/16 10:45 10/05/16 05:52 HCl 10 mg PO 90 mg DAILY@0600 THERESA Administration Nicotine 14 mg 10/05/16 10:00 Nicoderm Patch - TD DAILY THERESA Spironolactone 100 mg 10/04/16 10:00 10/04/16 11:00 Aldactone - PO 100 mg DAILY THERESA Administration Thiamine HCl 100 mg 10/03/16 22:00 10/04/16 22:50 Vitamin B1 - PO 100 mg HS THERESA Administration Objective: Vital Signs Period Temp Pulse Resp BP Sys/Cavazos Pulse Ox Last 24 Hr 97.7 F-98.2 F 66-75 18-20 101-136/64-78 94-98 Physical Exam: Refused exam CBCD WBC 3.4 K/mm3 (4.0-10.0) L D 10/05/16 06:10 RBC 3.85 M/mm3 (4.00-5.60) L 10/05/16 06:10 Hgb 12.1 GM/dL (11.7-16.9) 10/05/16 06:10 Hct 37.2 % (35.4-49) 10/05/16 06:10 MCV 96.8 fl (80-96) H 10/05/16 06:10 MCHC 32.4 g/dl (32.0-35.9) 10/05/16 06:10 RDW 16.0 % (11.9-15.9) H 10/05/16 06:10 Plt Count 79 K/MM3 (134-434) L 10/05/16 06:10 MPV 8.4 fl (7.5-11.1) 10/05/16 06:10 CMP Sodium 143 mmol/L (136-145) 10/05/16 06:10 Potassium 3.2 mmol/L (3.5-5.1) L 10/05/16 06:10 Chloride 98 mmol/L (98-107) 10/05/16 06:10 Carbon Dioxide 35 mmol/L (21-32) H 10/05/16 06:10 Anion Gap 10 (8-16) 10/05/16 06:10 BUN 10 mg/dL (7-18) D 10/05/16 06:10 Creatinine 0.5 mg/dL (0.7-1.3) L 10/05/16 06:10 Creat Clearance w eGFR > 60 (>60) 10/05/16 06:10 Random Glucose 95 mg/dL (74-106) 10/05/16 06:10 Calcium 7.7 mg/dL (8.5-10.1) L 10/05/16 06:10 Total Bilirubin 1.4 mg/dL (0.2-1.0) H D 10/05/16 06:10 AST 109 U/L (15-37) H D 10/05/16 06:10 ALT 54 U/L (12-78) 10/05/16 06:10 Alkaline Phosphatase 133 U/L (45-117) H 10/05/16 06:10 Total Protein 5.7 g/dl (6.4-8.2) L 10/05/16 06:10 Albumin 2.6 g/dl (3.4-5.0) L 10/05/16 06:10 CARDIAC ENZYMES Creatine Kinase 92 IU/L (39-308) 10/04/16 08:30 Troponin I < 0.01 ng/ml (0.00-0.05) D 10/04/16 08:30 Microbiology 10/03/16 02:00 Blood - Peripheral Venous Blood Culture - Preliminary NO GROWTH OBTAINED AFTER 48 HOURS, INCUBATION TO CONTINUE FOR 3 DAYS. 10/03/16 01:50 Blood - Peripheral Venous Blood Culture - Preliminary NO GROWTH OBTAINED AFTER 48 HOURS, INCUBATION TO CONTINUE FOR 3 DAYS. Assessment: This is a 61 year old male with PMHx of HTN, DMII, asthma, depression, alcohol dependence who presented to the ED with hypoxia and lethargy from [facility] for ETOH detox Plan: 1) Cardiology: Chest pain - Trop x2 negative - ECHO with normal LV size and function, LV normal wall motion. Trace to mild MR - Patient currently denies any chest pain - Appreciate cardiology consult Prolonged qtc - Continue cardiac monitoring HTN - BP within guildlines 2) Pulmonary: Shortness of breath - Resolved - No evidence of CHF - Still requiring O2, becomes hypoxic off oxygen - Chest X-ray with no evidence of active pulmonary disease - IVC filter in place - B/l lower extremity doppler negative for DVT - F/u chest CTA to r/o PE - Duonebs prn 3) GI: Dilated bile duct - F/u MRCP Alcoholic liver cirrhosis - Librium taper per detox MD - Continue folic acid - Continue thiamine - F/u GI consult Thrombocytopenia 2/2 chronic alcohol abuse 4) Endocrine: DM - Blood sugars controlled, not requiring insulin 5) Psych: Bipolar disorder - Continue Wellbutrin - Hold Seroquel secondary to prolonged QT Heroin abuse - Continue Methadone 6) F/E/N: - Sodium controlled/diabetic diet - Hypomagnesemia: replete - Hypokalemia: replete 7) Prophylaxis: - SCDs bilaterally - Hold all chemical dvt prophylaxis 2/2 thrombocytopenia - Nicotine patch, smoking cessation 8) Dispo: - Requires continued inpatient care CODE STATUS: FULL CODE Visit type - Emergency Visit Emergency Visit: Yes ED Registration Date: 10/03/16 Care time: The patient presented to the Emergency Department on the above date and was hospitalized for further evaluation of their emergent condition. - New Patient This patient is new to me today: No - Critical Care Critical Care patient: No
[2016-10-05 09:18] LABS: ALK PHOS 133 U/L (45-117)
[2016-10-05] MEDS ORDERED: POTASSIUM CHLORIDE TABS 20 MEQ TABLET.ER (FP) PO ONE (09:22)
--- NOTE | 2016-10-05 09:30 | EKG ---
Test Reason : Blood Pressure : / mmHG Vent. Rate : 075 BPM Atrial Rate : 075 BPM P-R Int : 132 ms QRS Dur : 090 ms QT Int : 480 ms P-R-T Axes : 053 040 032 degrees QTc Int : 536 ms NORMAL SINUS RHYTHM NONSPECIFIC ST AND T WAVE ABNORMALITY PROLONGED QT ABNORMAL ECG WHEN COMPARED WITH ECG OF 03-OCT-2016 01:40, NO SIGNIFICANT CHANGE WAS FOUND Confirmed by JOYCELYN AARON MD ([id number]) on 10/05/2016 9:30:27 AM Referred By: MALLORIE VILLAGOMEZ Confirmed By:JOYCELYN AARON MD
[2016-10-05] MEDS ORDERED: MAGNESIUM SULF 50% (8.12 MEQ/2 ML-1 GM VIAL) ONE (10:41)
[2016-10-05] MEDS: GABAPENTIN 100 MG CAPSULE (FP) PO SCH ×2 (10:48→22:20)
[2016-10-05] MEDS: FOLIC ACID 1 MG TABLET (FP) PO SCH (10:49)
[2016-10-05] MEDS: SPIRONOLACTONE 25 MG TABLET (FP) PO SCH (10:49)
--- NOTE | 2016-10-05 11:37 | PN ---
Progress Note (short form) - Note Progress Note: s: no cp sob palps dizzy o: Vital Signs Period Temp Pulse Resp BP Sys/Cavazos Pulse Ox Last 24 Hr 97.7 F-98.2 F 66-75 18-20 101-136/60-78 94-98 NAD, calm, no jvd cta bl nl eff rrr s1s2 no mrg ext with no e/c/c + venous stasis changes aaox3 no jaundice, diaphoresis Current Medications Generic Name Dose Route Start Last Admin Trade Name Freq PRN Reason Stop Dose Admin Albuterol/Ipratropium 1 amp 10/03/16 03:56 Duoneb - NEB Q6H PRN SHORTNESS OF BREATH Bupropion HCl 150 mg 10/03/16 10:00 10/05/16 10:49 Wellbutrin Xl - PO 150 mg DAILY THERESA Administration Chlordiazepoxide HCl 25 mg 10/03/16 07:47 10/03/16 10:10 Librium - PO 10/06/16 07:46 25 mg Q4H PRN Administration WITHDRAWAL(CONT SUBST) Chlordiazepoxide HCl 15 mg 10/05/16 17:00 Librium - PO 10/06/16 11:01 [id number] THERESA Folic Acid 1 mg 10/03/16 10:00 10/05/16 10:49 Folic Acid - PO 1 mg DAILY THERESA Administration Gabapentin 200 mg 10/03/16 10:00 10/05/16 10:48 Neurontin - PO 200 mg BID THERESA Administration Methadone HCl 80 mg/ Methadone 90 mg 10/03/16 10:45 10/05/16 05:52 HCl 10 mg PO 90 mg DAILY@0600 THERESA Administration Nicotine 14 mg 10/05/16 10:00 Nicoderm Patch - TD DAILY THERESA Spironolactone 100 mg 10/04/16 10:00 10/05/16 10:49 Aldactone - PO 100 mg DAILY THERESA Administration Thiamine HCl 100 mg 10/03/16 22:00 10/04/16 22:50 Vitamin B1 - PO 100 mg HS THERESA Administration CBC, BMP 10/05/16 06:10 10/05/16 06:10 EKG: nsr. abnormal twave morphology. prolonged qtc 527 ms. no ischemic changes tele: nsr echo here 09/2016: nl lv/rv/valves abd u/s: biliary duct dilation. hepatomegaly/cirrhosis, splenomegaly, small amount of ascites cxr: reported as normal, but by my review poor visualization of costophrenic angles, can't r/o effusion. a/p: 61 yo smoker on methadone maintenace with h/o etoh abuse, HTN, prior hep C diagnosis, DM, depression, asa presents from detox where he was found to be lethargic/difficult to arouse and hypoxic. lethargy/hypoxia - altered mental status. Broad ddx medications, hypoxia, etc... head CT negative. + cirrhosis, GI following. - echo wnl - tele unremarkable Prolonged qtc - management of underlying electrolyte abnormalities - avoid qtc prolonging drugs - repeat ekg to monitor sob - resolved now - bnp low, recent poor po intake. Nl EF. Would not diurese further with lasix. Agree with aldactone given cirrhosis and small amount of ascites. close electrolyte monitoring - EKG without ischemic changes. ce's negative - plans per pmd + tobacco/drug - smoking cessation/detox per pmd/detox consult. HTN - controlled.
[2016-10-05] MEDS: chlordiazePOXIDE 5 MG CAPSULE PO SCH ×2 (16:36→22:20)
[2016-10-05] MEDS: NICOTINE 14 MG/24 HOURS TOPICAL PATCH TD SCH (16:49)
[2016-10-05] MEDS: PIPERACILLIN/TAZOB 3.375 GM/50 ML PRE-DOCKED IVPB SCH (18:00)
[2016-10-05] MEDS: THIAMINE HCL 100 MG TABLET (FP) PO SCH (22:20)
[2016-10-06] MEDS ORDERED: METHADONE HCL 10 MG TABLET ONE (06:16)
[2016-10-06] MEDS ORDERED: METHADONE HCL 40 MG DISPERSABLE TABLET ONE (06:16)
[2016-10-06] MEDS: chlordiazePOXIDE 5 MG CAPSULE PO SCH ×2 (06:25→11:12)
[2016-10-06] MEDS: METHADONE 80 MG, METHADONE 10 MG PO SCH (06:26)
[2016-10-06 06:44] LABS: BASOPHIL 0.5 % (0-2.0); EOSINOPHIL 2.7 % (0-4.5); MCHC 32.1 g/dl (32.0-35.9); MEAN CELL VOLUME 96.6 fl (80-96); MEAN PLT VOLUME 8.5 fl (7.5-11.1); NEUTROPHILS 56.8 % (42.8-82.8); PLATELET COUNT 94 K/MM3 (134-434); RDW 15.5 % (11.9-15.9); WHITE BLOOD COUNT 3.2 K/mm3 (4.0-10.0)
[2016-10-06 07:42] LABS: ALBUMIN 2.7 g/dl (3.4-5.0); ANION GAP 8 (8-16); CALCIUM 8.3 mg/dL (8.5-10.1); CO2 34 mmol/L (21-32); GLUCOSE,RANDOM 120 mg/dL (74-106); MAGNESIUM 1.6 mg/dL (1.8-2.4); PHOSPHOROUS 2.7 mg/dL (2.5-4.9); SGOT/AST 116 U/L (15-37); SGPT/ALT 58 U/L (12-78)
[2016-10-06 07:45] LABS: ALK PHOS 131 U/L (45-117); BILIRUBIN,TOTAL 1.1 mg/dL (0.2-1.0); CREATININE 0.5 mg/dL (0.7-1.3); TOT PROT 5.8 g/dl (6.4-8.2)
[2016-10-06] MEDS ORDERED: PT OWN MED DRAWER 7, Y5N ONE (09:47)
[2016-10-06] MEDS: NICOTINE 14 MG/24 HOURS TOPICAL PATCH TD SCH (09:54)
[2016-10-06] MEDS: FOLIC ACID 1 MG TABLET (FP) PO SCH (09:56)
[2016-10-06] MEDS: GABAPENTIN 100 MG CAPSULE (FP) PO SCH ×2 (09:56→21:38)
[2016-10-06] MEDS: SPIRONOLACTONE 25 MG TABLET (FP) PO SCH (09:59)
[2016-10-06] MEDS ORDERED: LEVOFLOXACIN 750 MG TABLET PO SCH (10:00)
--- NOTE | 2016-10-06 11:19 | PN ---
Progress Note (short form) - Note Progress Note: s: no cp palps dizzy +mild sob o: Vital Signs Period Temp Pulse Resp BP Sys/Cavazos Pulse Ox Last 24 Hr 97.5 F-98.7 F 70-87 16-20 103-117/58-71 94 NAD, calm, no jvd diff exp wheeze, nl eff rrr s1s2 no mrg ext with no e/c/c + venous stasis changes aaox3 no jaundice, diaphoresis Current Medications Generic Name Dose Route Start Last Admin Trade Name Freq PRN Reason Stop Dose Admin Albuterol/Ipratropium 1 amp 10/03/16 03:56 Duoneb - NEB Q6H PRN SHORTNESS OF BREATH Bupropion HCl 150 mg 10/03/16 10:00 10/06/16 09:55 Wellbutrin Xl - PO 150 mg DAILY THERESA Administration Folic Acid 1 mg 10/03/16 10:00 10/06/16 09:56 Folic Acid - PO 1 mg DAILY THERESA Administration Gabapentin 200 mg 10/03/16 10:00 10/06/16 09:56 Neurontin - PO 200 mg BID THERESA Administration Methadone HCl 80 mg/ Methadone 90 mg 10/03/16 10:45 10/06/16 06:26 HCl 10 mg PO 90 mg DAILY@0600 THERESA Administration Nicotine 14 mg 10/05/16 10:00 10/06/16 09:54 Nicoderm Patch - TD 14 mg DAILY THERESA Administration Spironolactone 100 mg 10/04/16 10:00 10/06/16 09:59 Aldactone - PO 100 mg DAILY THERESA Administration Thiamine HCl 100 mg 10/03/16 22:00 10/05/16 22:20 Vitamin B1 - PO 100 mg HS THERESA Administration CBC, BMP 10/06/16 06:00 10/06/16 06:00 EKG: nsr. abnormal twave morphology. prolonged qtc 527 ms. no ischemic changes tele: pt refuses echo here 09/2016: nl lv/rv/valves abd u/s: biliary duct dilation. hepatomegaly/cirrhosis, splenomegaly, small amount of ascites cxr: reported as normal, but by my review poor visualization of costophrenic angles, can't r/o effusion. a/p: 61 yo smoker on methadone maintenace with h/o etoh abuse, HTN, prior hep C diagnosis, DM, depression, presents from detox where he was found to be lethargic/difficult to arouse and hypoxic. lethargy/hypoxia - altered mental status. Broad ddx medications, hypoxia, etc... head CT negative. + cirrhosis, GI following. - echo wnl - tele unremarkable Prolonged qtc - continued management of underlying electrolyte abnormalities - avoid qtc prolonging drugs - consider lowering methadone dose sob - bnp low, recent poor po intake. Nl EF. Would not diurese further with lasix. Agree with aldactone given cirrhosis and small amount of ascites. close electrolyte monitoring - EKG without ischemic changes. ce's negative - wheezing on exam, ?copd, plans per pmd + tobacco/drug - smoking cessation/detox per pmd/detox consult. HTN - controlled.
--- NOTE | 2016-10-06 14:17 | PN ---
Progress Note (short form) - Note Progress Note: Subjective: The patient was seen and examined at the bedside, he is complaining of cough with sputum production which he states resolved the past two days but is back now. CT chest with RML infiltrate Will start Zosyn for possible aspiration pneumonia Current Medications Generic Name Dose Route Start Last Admin Trade Name Freq PRN Reason Stop Dose Admin Albuterol/Ipratropium 1 amp 10/03/16 03:56 Duoneb - NEB Q6H PRN SHORTNESS OF BREATH Bupropion HCl 150 mg 10/03/16 10:00 10/06/16 09:55 Wellbutrin Xl - PO 150 mg DAILY THERESA Administration Folic Acid 1 mg 10/03/16 10:00 10/06/16 09:56 Folic Acid - PO 1 mg DAILY THERESA Administration Gabapentin 200 mg 10/03/16 10:00 10/06/16 09:56 Neurontin - PO 200 mg BID THERESA Administration Methadone HCl 80 mg/ Methadone 90 mg 10/03/16 10:45 10/06/16 06:26 HCl 10 mg PO 90 mg DAILY@0600 THERESA Administration Nicotine 14 mg 10/05/16 10:00 10/06/16 09:54 Nicoderm Patch - TD 14 mg DAILY THERESA Administration Piperacillin Sod/Tazobactam Sod 3.375 gm 10/06/16 14:15 Zosyn 3.375gm Ivpb (Pre-Docked) IVPB Q8H-IV THERESA Protocol Spironolactone 100 mg 10/04/16 10:00 10/06/16 09:59 Aldactone - PO 100 mg DAILY THERESA Administration Thiamine HCl 100 mg 10/03/16 22:00 10/05/16 22:20 Vitamin B1 - PO 100 mg HS THERESA Administration Objective: Vital Signs Period Temp Pulse Resp BP Sys/Cavazos Pulse Ox Last 24 Hr 97.5 F-98.7 F 70-87 16-20 103-117/58-71 94-94 Physical Exam: Lungs: B/l expiratory wheezing and rhonci Patient refused remainder of exam CBCD WBC 3.2 K/mm3 (4.0-10.0) L 10/06/16 06:00 RBC 3.82 M/mm3 (4.00-5.60) L 10/06/16 06:00 Hgb 11.9 GM/dL (11.7-16.9) 10/06/16 06:00 Hct 37.0 % (35.4-49) 10/06/16 06:00 MCV 96.6 fl (80-96) H 10/06/16 06:00 MCHC 32.1 g/dl (32.0-35.9) 10/06/16 06:00 RDW 15.5 % (11.9-15.9) 10/06/16 06:00 Plt Count 94 K/MM3 (134-434) L 10/06/16 06:00 MPV 8.5 fl (7.5-11.1) 10/06/16 06:00 CMP Sodium 142 mmol/L (136-145) 10/06/16 06:00 Potassium 3.7 mmol/L (3.5-5.1) 10/06/16 06:00 Chloride 100 mmol/L (98-107) 10/06/16 06:00 Carbon Dioxide 34 mmol/L (21-32) H 10/06/16 06:00 Anion Gap 8 (8-16) 10/06/16 06:00 BUN 9 mg/dL (7-18) 10/06/16 06:00 Creatinine 0.5 mg/dL (0.7-1.3) L 10/06/16 06:00 Creat Clearance w eGFR > 60 (>60) 10/06/16 06:00 Random Glucose 120 mg/dL (74-106) H D 10/06/16 06:00 Calcium 8.3 mg/dL (8.5-10.1) L 10/06/16 06:00 Total Bilirubin 1.1 mg/dL (0.2-1.0) H D 10/06/16 06:00 AST 116 U/L (15-37) H 10/06/16 06:00 ALT 58 U/L (12-78) 10/06/16 06:00 Alkaline Phosphatase 131 U/L (45-117) H 10/06/16 06:00 Total Protein 5.8 g/dl (6.4-8.2) L 10/06/16 06:00 Albumin 2.7 g/dl (3.4-5.0) L 10/06/16 06:00 CARDIAC ENZYMES Creatine Kinase 92 IU/L (39-308) 06/15/17 08:30 Troponin I < 0.01 ng/ml (0.00-0.05) D 10/04/16 08:30 Assessment: This is a 61 year old male with PMHx of HTN, DMII, asthma, depression, alcohol dependence who presented to the ED with hypoxia and lethargy from [facility] for ETOH detox Plan: 1) Cardiology: Chest pain - Trop x2 negative - ECHO with normal LV size and function, LV normal wall motion. Trace to mild MR - Patient currently denies any chest pain - Appreciate cardiology consult Prolonged qtc - Continue cardiac monitoring - F/u Dr. Tano Dyson reconsult to possibly decrease Methadone dose given prolonged qtc HTN - BP within guildlines 2) Pulmonary: Acute asthma exacerbation, hypoxia, aspiration pneumonia - Start Solumedrol 40mg IVPB q8h - No evidence of CHF - Chest X-ray with no evidence of active pulmonary disease - IVC filter in place - B/l lower extremity doppler negative for DVT - Will give Zosyn for possible aspiration pneumonia - F/u sputum culture - Duonebs prn 3) GI: Dilated bile duct - F/u MRCP Alcoholic liver cirrhosis - Librium taper per detox MD - Continue folic acid - Continue thiamine - Elevated ammonia, order lactulose - Appreciate GI consult Thrombocytopenia 2/2 chronic alcohol abuse 4) Endocrine: DM - Blood sugars controlled, not requiring insulin 5) Psych: Bipolar disorder - Continue Wellbutrin - Hold Seroquel secondary to prolonged QT Heroin abuse - Continue Methadone 6) F/E/N: - Sodium controlled/diabetic diet - Hypomagnesemia: replete - Hypokalemia: resolved 7) Prophylaxis: - SCDs bilaterally - Hold all chemical dvt prophylaxis 2/2 thrombocytopenia - Nicotine patch, smoking cessation 8) Dispo: - Requires continued inpatient care CODE STATUS: FULL CODE Visit type - Emergency Visit Emergency Visit: Yes ED Registration Date: 10/03/16 Care time: The patient presented to the Emergency Department on the above date and was hospitalized for further evaluation of their emergent condition. - New Patient This patient is new to me today: No - Critical Care Critical Care patient: No
[2016-10-06] MEDS ORDERED: LACTULOSE 20 GM/30 ML UDC (FOR ORAL USE ONLY) PO ONE (15:00)
[2016-10-06] MEDS ORDERED: MAGNESIUM SULF 50% (8.12 MEQ/2 ML-1 GM VIAL) IVPB ONE (15:00)
[2016-10-06] MEDS ORDERED: PIPERACILLIN/TAZOB 3.375 GM/50 ML PRE-DOCKED IVPB ONE (15:00)
[2016-10-06] MEDS: methylPREDNISolone NA SUCC 40 MG/1 ML VIAL IVPB SCH ×2 (16:19→18:35)
[2016-10-06] MEDS: ALBUTEROL SO4 2.5/IPRATROPIUM 0.5 INH SOL 3 ML VIAL.NEB. NEB SCH ×2 (18:01→23:19)
[2016-10-06] MEDS ORDERED: guaiFENesin 200 MG/10 ML 10 ML UNIT-DOSE CUPS PO PRN (19:48)
[2016-10-06] MEDS: THIAMINE HCL 100 MG TABLET (FP) PO SCH (21:38)
[2016-10-07] MEDS: methylPREDNISolone NA SUCC 40 MG/1 ML VIAL IVPB SCH ×3 (01:19→17:25)
[2016-10-07] MEDS: PIPERACILLIN/TAZOB 3.375 GM/50 ML PRE-DOCKED IVPB SCH (02:00)
[2016-10-07] MEDS ORDERED: METHADONE HCL 10 MG TABLET ONE (05:17)
[2016-10-07] MEDS ORDERED: METHADONE HCL 40 MG DISPERSABLE TABLET ONE (05:17)
[2016-10-07] MEDS: METHADONE 80 MG, METHADONE 10 MG PO SCH (05:22)
[2016-10-07] MEDS: ALBUTEROL SO4 2.5/IPRATROPIUM 0.5 INH SOL 3 ML VIAL.NEB. NEB SCH ×4 (06:25→23:49)
[2016-10-07 07:18] LABS: ALBUMIN 2.7 g/dl (3.4-5.0); ANION GAP 6 (8-16); CALCIUM 8.9 mg/dL (8.5-10.1); CO2 33 mmol/L (21-32); MAGNESIUM 1.5 mg/dL (1.8-2.4)
[2016-10-07 07:22] LABS: ALK PHOS 151 U/L (45-117); CREATININE 0.8 mg/dL (0.7-1.3); SGOT/AST 111 U/L (15-37); SGPT/ALT 67 U/L (12-78); TOT PROT 6.4 g/dl (6.4-8.2)
[2016-10-07 07:44] LABS: GLUCOSE,RANDOM 323 mg/dL (74-106)
--- NOTE | 2016-10-07 08:13 | HOSP ---
Subjective - Review of Symptoms Subjective: Asked to see pt for constipation Pt alert in nad. he reports constipation x 5 days. he denies associated fevers, chills, nausea vomiting, abdominal pain. he reports taking sosa laxative at home for constipation physical: Gen- in nad, obese GI- soft non-tender no rebound no guarding, BS normoactive, no rigidity, obese abdomen REsp- no cough, no cyanosis, no accessory muscle use Neuro- alert speech clear Assessment/Plan: 61 year old male with PMHx of HTN, DMII, asthma, depression, alcohol dependence who presented to the ED with hypoxia and lethargy from [facility] for ETOH detox seen for constipation 1. Constipation- extra dose of lactulose 20GM x 1. Start Miralax 17GM PO daily, Monitor BM Pt seen at 647am 10/07 Physical Examination Vital Signs: Vital Signs Temperature 98.1 F 10/07/16 06:00 Pulse Rate 76 10/07/16 06:00 Respiratory Rate 20 10/07/16 06:00 Blood Pressure 127/75 10/07/16 06:00 O2 Sat by Pulse Oximetry (%) 91 L 10/06/16 21:00 Labs: CBC, BMP 10/06/16 06:00 10/07/16 06:00
--- NOTE | 2016-10-07 08:23 | PN ---
Progress Note (short form) - Note Progress Note: ID Full note dictated Currently alert eating breakfast miminal couph sputum clear NO fever Selected Entries 10/07/16 06:00 Temperature 98.1 F Pulse Rate 76 Respiratory 20 Rate Blood Pressure 127/75 Lung Clear Microbiology 10/03/16 02:00 Blood - Peripheral Venous Blood Culture - Preliminary NO GROWTH OBTAINED AFTER 96 HOURS, INCUBATION TO CONTINUE FOR 1 DAYS. 10/03/16 01:50 Blood - Peripheral Venous Blood Culture - Preliminary NO GROWTH OBTAINED AFTER 96 HOURS, INCUBATION TO CONTINUE FOR 1 DAYS. Laboratory Tests 10/03/16 10/06/16 10/07/16 02:00 06:00 06:00 WBC 3.2 L Hgb 11.9 Plt Count 94 L Random Glucose 323 H* D Magnesium 1.5 L Total Bilirubin 1.0 ALT 67 Ammonia Alcohol, Quantitative 221.1 H* 10/07/16 06:00 WBC Hgb Plt Count Random Glucose Magnesium Total Bilirubin ALT Ammonia 56.65 H Alcohol, Quantitative Assessment Altered mental status Alcoholism Cirrhosis Minimal infiltrates aspiration considered Plan 1 dose of Ertepenem today Augmentin 875mg bid tomorrow 5 days Bc [place] Problem List - Problems (1) Alcohol dependence Code(s): F10.20 - ALCOHOL DEPENDENCE, UNCOMPLICATED (2) Pneumonia Code(s): J18.9 - PNEUMONIA, UNSPECIFIED ORGANISM (3) Cirrhosis Code(s): K74.60 - UNSPECIFIED CIRRHOSIS OF LIVER
[2016-10-07] MEDS ORDERED: LACTULOSE 20 GM/30 ML UDC (FOR ORAL USE ONLY) PO ONE (08:30)
[2016-10-07] MEDS ORDERED: MAGNESIUM OXIDE 400 MG TABLET (FP) PO ONE (08:45)
[2016-10-07] MEDS ORDERED: ERTAPENEM SODIUM 1 GM in SODIUM CHLORIDE 50 ML IVPB ONE (09:00)
[2016-10-07] MEDS ORDERED: PT OWN MED DRAWER 7, Y5N ONE (09:09)
[2016-10-07] MEDS: LACTULOSE 20 GM/30 ML UDC (FOR ORAL USE ONLY) PO SCH ×2 (09:11→21:08)
[2016-10-07] MEDS: SPIRONOLACTONE 25 MG TABLET (FP) PO SCH (09:11)
[2016-10-07] MEDS: FOLIC ACID 1 MG TABLET (FP) PO SCH (09:12)
[2016-10-07] MEDS: GABAPENTIN 100 MG CAPSULE (FP) PO SCH ×2 (09:12→21:14)
[2016-10-07] MEDS: NICOTINE 14 MG/24 HOURS TOPICAL PATCH TD SCH (09:12)
[2016-10-07] MEDS: POLYETHYLENE GLYCOL 3350 119 GM BTL PO SCH (09:17)
--- NOTE | 2016-10-07 09:47 | PN ---
Progress Note (short form) - Note Progress Note: Subjective: The patient was seen and examined at the bedside, he reports feeling better today Current Medications Generic Name Dose Route Start Last Admin Trade Name Rajiv PRN Reason Stop Dose Admin Albuterol/Ipratropium 1 amp 10/06/16 15:14 10/07/16 06:25 Duoneb - NEB 1 amp QIDR THERESA Administration Amoxicillin/Clavulanate Potassium 1 tab 10/08/16 08:30 Augmentin - 875mg Tablet PO BID@0800,1730 THERESA Bupropion HCl 150 mg 10/03/16 10:00 10/07/16 09:15 Wellbutrin Xl - PO 150 mg DAILY THERESA Administration Folic Acid 1 mg 10/03/16 10:00 10/07/16 09:12 Folic Acid - PO 1 mg DAILY THERESA Administration Gabapentin 200 mg 10/03/16 10:00 10/07/16 09:12 Neurontin - PO 200 mg BID THERESA Administration Insulin Aspart 1 vial 10/07/16 11:00 Novolog Vial Sliding Scale - SQ ACHS [facility] Protocol Lactulose 20 gm 10/07/16 10:00 10/07/16 09:11 Cephulac (Oral Use) PO Not Given BID THERESA Methadone HCl 80 mg/ Methadone 90 mg 10/03/16 10:45 10/07/16 05:22 HCl 10 mg PO 90 mg DAILY@0600 THERESA Administration Methylprednisolone Sodium Succinate 40 mg 10/06/16 15:15 10/07/16 09:15 Solu-Medrol - IVPB 40 mg Q8H-IV THERESA Administration Nicotine 14 mg 10/05/16 10:00 10/07/16 09:12 Nicoderm Patch - TD 14 mg DAILY THERESA Administration Polyethylene Glycol 17 gm 10/07/16 10:00 10/07/16 09:17 Miralax (For Daily Use) - PO 17 grams DAILY THERESA Administration Spironolactone 100 mg 10/04/16 10:00 10/07/16 09:11 Aldactone - PO 100 mg DAILY THERESA Administration Thiamine HCl 100 mg 10/03/16 22:00 10/06/16 21:38 Vitamin B1 - PO 100 mg HS THERESA Administration Objective: Vital Signs Period Temp Pulse Resp BP Sys/Cavazos Pulse Ox Last 24 Hr 98.1 F-98.7 F 70-87 20-20 110-127/67-75 91 Physical Exam: Lungs: CTA bilaterally Heart: RRR, S1S2 Abd: Soft, non-tender, non-distended. Normoactive bowel sounds Ext: Warm, well-perfused. 2+ DP/PT bilaterally Neuro: CN 2-12 intact CBCD WBC 3.2 K/mm3 (4.0-10.0) L 10/06/16 06:00 RBC 3.82 M/mm3 (4.00-5.60) L 10/06/16 06:00 Hgb 11.9 GM/dL (11.7-16.9) 10/06/16 06:00 Hct 37.0 % (35.4-49) 10/06/16 06:00 MCV 96.6 fl (80-96) H 10/06/16 06:00 MCHC 32.1 g/dl (32.0-35.9) 10/06/16 06:00 RDW 15.5 % (11.9-15.9) 10/06/16 06:00 Plt Count 94 K/MM3 (134-434) L 10/06/16 06:00 MPV 8.5 fl (7.5-11.1) 10/06/16 06:00 CMP Sodium 139 mmol/L (136-145) 10/07/16 06:00 Potassium 4.3 mmol/L (3.5-5.1) 10/07/16 06:00 Chloride 100 mmol/L (98-107) 10/07/16 06:00 Carbon Dioxide 33 mmol/L (21-32) H 10/07/16 06:00 Anion Gap 6 (8-16) L 10/07/16 06:00 BUN 11 mg/dL (7-18) D 10/07/16 06:00 Creatinine 0.8 mg/dL (0.7-1.3) D 10/07/16 06:00 Creat Clearance w eGFR > 60 (>60) 10/07/16 06:00 Random Glucose 323 mg/dL (74-106) H* D 10/07/16 06:00 Calcium 8.9 mg/dL (8.5-10.1) 10/07/16 06:00 Total Bilirubin 1.0 mg/dL (0.2-1.0) 10/07/16 06:00 AST 111 U/L (15-37) H 10/07/16 06:00 ALT 67 U/L (12-78) 10/07/16 06:00 Alkaline Phosphatase 151 U/L (45-117) H 10/07/16 06:00 Total Protein 6.4 g/dl (6.4-8.2) 10/07/16 06:00 Albumin 2.7 g/dl (3.4-5.0) L 10/07/16 06:00 CARDIAC ENZYMES Creatine Kinase 92 IU/L (39-308) 10/04/16 08:30 Troponin I < 0.01 ng/ml (0.00-0.05) D 10/04/16 08:30 Microbiology 10/03/16 02:00 Blood - Peripheral Venous Blood Culture - Preliminary NO GROWTH OBTAINED AFTER 96 HOURS, INCUBATION TO CONTINUE FOR 1 DAYS. 10/03/16 01:50 Blood - Peripheral Venous Blood Culture - Preliminary NO GROWTH OBTAINED AFTER 96 HOURS, INCUBATION TO CONTINUE FOR 1 DAYS. Assessment: This is a 61 year old male with PMHx of HTN, DMII, asthma, depression, alcohol dependence who presented to the ED with hypoxia and lethargy from [facility] for ETOH detox Plan: 1) Cardiology: Chest pain - Trop x2 negative - ECHO with normal LV size and function, LV normal wall motion. Trace to mild MR - Patient currently denies any chest pain - Appreciate cardiology consult Prolonged qtc - Continue cardiac monitoring - F/u Dr. Tano Dyson reconsult to possibly decrease Methadone dose given prolonged qtc HTN - BP within guildlines 2) Pulmonary: Acute asthma exacerbation, hypoxia, aspiration pneumonia - No wheezing on exam today - Continue Solumedrol 40mg IVPB q8h, taper tomorrow - No evidence of CHF - Chest X-ray with no evidence of active pulmonary disease - IVC filter in place - B/l lower extremity doppler negative for DVT - Ertapenem today followed by Augmentin x5 days - F/u sputum culture - Duonebs prn - Appreciate ID consult 3) GI: Dilated bile duct - MRCP reviewed: hepatosplenomegaly noted and cirrhosis Alcoholic liver cirrhosis - Librium detox completed - Continue folic acid - Continue thiamine - Elevated ammonia, continue lactulose - Appreciate GI consult Thrombocytopenia 2/2 chronic alcohol abuse 4) Endocrine: DM - BGM ACHS - ISS ACHS 5) Psych: Bipolar disorder - Continue Wellbutrin - Hold Seroquel secondary to prolonged QT Heroin abuse - Continue Methadone 6) F/E/N: - Sodium controlled/diabetic diet - Hypomagnesemia: replete - Monitor electrolytes 7) Prophylaxis: - SCDs bilaterally - Hold all chemical dvt prophylaxis 2/2 thrombocytopenia - Nicotine patch, smoking cessation 8) Dispo: - Requires continued inpatient care CODE STATUS: FULL CODE Visit type - Emergency Visit Emergency Visit: Yes ED Registration Date: 10/03/16 Care time: The patient presented to the Emergency Department on the above date and was hospitalized for further evaluation of their emergent condition. - New Patient This patient is new to me today: No - Critical Care Critical Care patient: No
--- NOTE | 2016-10-07 10:53 | PN ---
Progress Note (short form) - Note Progress Note: s: no cp palps dizzy; sob improved o: Vital Signs Period Temp Pulse Resp BP Sys/Cavazos Pulse Ox Last 24 Hr 97.6 F-98.6 F 70-88 20-20 105-127/67-75 91 NAD, calm, no jvd cta bl nl eff rrr s1s2 no mrg ext with no e/c/c + venous stasis changes aaox3 no jaundice, diaphoresis Current Medications Generic Name Dose Route Start Last Admin Trade Name Freq PRN Reason Stop Dose Admin Albuterol/Ipratropium 1 amp 10/06/16 15:14 10/07/16 06:25 Duoneb - NEB 1 amp QIDR THERESA Administration Amoxicillin/Clavulanate Potassium 1 tab 10/08/16 08:30 Augmentin - 875mg Tablet PO BID@0800,1730 THERESA Bupropion HCl 150 mg 10/03/16 10:00 10/07/16 09:15 Wellbutrin Xl - PO 150 mg DAILY THERESA Administration Folic Acid 1 mg 10/03/16 10:00 10/07/16 09:12 Folic Acid - PO 1 mg DAILY THERESA Administration Gabapentin 200 mg 10/03/16 10:00 10/07/16 09:12 Neurontin - PO 200 mg BID THERESA Administration Insulin Aspart 1 vial 10/07/16 11:00 Novolog Vial Sliding Scale - SQ ACHS [facility] Protocol Lactulose 20 gm 10/07/16 10:00 10/07/16 09:11 Cephulac (Oral Use) PO Not Given BID THERESA Methadone HCl 80 mg/ Methadone 90 mg 10/03/16 10:45 10/07/16 05:22 HCl 10 mg PO 90 mg DAILY@0600 THERESA Administration Methylprednisolone Sodium Succinate 40 mg 10/06/16 15:15 10/07/16 09:15 Solu-Medrol - IVPB 40 mg Q8H-IV THERESA Administration Nicotine 14 mg 10/05/16 10:00 10/07/16 09:12 Nicoderm Patch - TD 14 mg DAILY THERESA Administration Polyethylene Glycol 17 gm 10/07/16 10:00 10/07/16 09:17 Miralax (For Daily Use) - PO 17 grams DAILY THERESA Administration Spironolactone 100 mg 10/04/16 10:00 10/07/16 09:11 Aldactone - PO 100 mg DAILY THERESA Administration Thiamine HCl 100 mg 10/03/16 22:00 10/06/16 21:38 Vitamin B1 - PO 100 mg HS THERESA Administration CBC, BMP 10/06/16 06:00 10/07/16 06:00 EKG: nsr. abnormal twave morphology. prolonged qtc 527 ms. no ischemic changes tele: pt refuses echo here 09/2016: nl lv/rv/valves abd u/s: biliary duct dilation. hepatomegaly/cirrhosis, splenomegaly, small amount of ascites cxr: reported as normal, but by my review poor visualization of costophrenic angles, can't r/o effusion. a/p: 61 yo smoker on methadone maintenace with h/o etoh abuse, HTN, prior hep C diagnosis, DM, depression, presents from detox where he was found to be lethargic/difficult to arouse and hypoxic. lethargy/hypoxia - altered mental status. Broad ddx medications, hypoxia, etc... head CT negative. + cirrhosis, GI following. - echo wnl - tele unremarkable Prolonged qtc - continued management of underlying electrolyte abnormalities - avoid qtc prolonging drugs - consider lowering methadone dose sob - bnp low, recent poor po intake. Nl EF. Would not diurese further with lasix. Agree with aldactone given cirrhosis and small amount of ascites. close electrolyte monitoring - EKG without ischemic changes. ce's negative - wheezing on exam so started on steroids for copd with improvement in sob today + tobacco/drug - smoking cessation/detox per pmd/detox consult. HTN - controlled.
[2016-10-07] MEDS: INSULIN SLIDING SCALE (NOVOLOG) 1 VIAL SQ SCH ×3 (12:11→21:16)
--- NOTE | 2016-10-07 15:49 | CONS ---
DATE OF CONSULTATION: DATE OF DICTATION: 10/07/2016 This is a 61-year-old [place] man who I am asked to see for evaluation of pneumonia. He has a history of chronic alcoholism, which is active, and is a former heroin abuser, having been now on methadone for some time. He is also diabetic, asthmatic, and has a bipolar history. He was admitted to [facility] for detox and transferred here when he began to complain of shortness of breath. He was apparently noted to be somnolent at the detox unit while receiving Librium and methadone. He had no fever but was apparently hypoxemic. His alcohol level was 221, and he noted drinking vodka 3 pints daily. He is also a pack a day cigarette smoker. He was empirically treated with piperacillin/tazobactam for possible aspiration pneumonia. A CAT scan of the chest was obtained on October 05. I reviewed the film myself, noting that there was a small infiltrated noted in the right base. At the current time, he appears alert, sitting in a chair, quite comfortable, eating breakfast. He has minimal cough and minimal sputum, with currently clear sputum, which was apparently purulent before. PHYSICAL EXAMINATION: General: He was an alert male in no acute distress. Vital Signs: His temperature was 98.1, pulse 76, blood pressure 127/75, respirations 20. Neck: Supple. Lungs: Clear to P&A. Heart: S1, S2. Regular rhythm without murmur. Abdomen: Soft, nontender. Extremities: Without edema. The white count is 3.2, hemoglobin 11.9, platelets of 94,000. BUN 11, creatinine 0.8, bilirubin 1.0, alkaline phosphatase 151, ammonia 65, albumin 2.7. Toxicology positive for methadone and alcohol. ASSESSMENT: A 61-year-old male with active alcoholism, on methadone and Librium detox, presents with altered mental status, hypoxemia, and small right-sided infiltrate. Presumptive diagnosis: Aspiration pneumonia. He has been treated with a dose of piperacillin/tazobactam, clinically appears fine at the current time. He has underlying cirrhosis and diabetes as well as a history of hepatitis C and has been HIV tested negative in the past. At the current time, I would feel comfortable giving him a dose of ertapenem 1 g now with rapid switch to oral antibiotics Augmentin 875 mg b.i.d. for another 3 to 5 days. MARISELA THURMAN M.D. MOLLY/[id number]
[2016-10-07] MEDS: THIAMINE HCL 100 MG TABLET (FP) PO SCH (21:14)
[2016-10-07] MEDS: MAGNESIUM OXIDE 400 MG TABLET (FP) PO SCH (21:14)
[2016-10-08] MEDS: methylPREDNISolone NA SUCC 40 MG/1 ML VIAL IVPB SCH ×3 (01:09→21:50)
[2016-10-08] MEDS ORDERED: METHADONE HCL 10 MG TABLET ONE (05:47)
[2016-10-08] MEDS ORDERED: METHADONE HCL 40 MG DISPERSABLE TABLET ONE (05:47)
[2016-10-08] MEDS: METHADONE 80 MG, METHADONE 10 MG PO SCH (05:55)
[2016-10-08] MEDS: ALBUTEROL SO4 2.5/IPRATROPIUM 0.5 INH SOL 3 ML VIAL.NEB. NEB SCH ×3 (06:15→18:16)
[2016-10-08] MEDS: INSULIN SLIDING SCALE (NOVOLOG) 1 VIAL SQ SCH ×4 (06:15→21:49)
[2016-10-08] MEDS ORDERED: INSULIN (NOVOLOG) ASPART 100 UNITS/ML 10ML VIAL ONE (06:16)
[2016-10-08 08:02] LABS: MCH 31.3 pg (25.7-33.7); MCHC 32.4 g/dl (32.0-35.9); MEAN CELL VOLUME 96.4 fl (80-96); MEAN PLT VOLUME 8.2 fl (7.5-11.1); PLATELET COUNT 101 K/MM3 (134-434); RDW 15.6 % (11.9-15.9)
[2016-10-08 09:09] LABS: ALBUMIN 2.9 g/dl (3.4-5.0); ALK PHOS 151 U/L (45-117); ANION GAP 8 (8-16); BILIRUBIN,TOTAL 0.8 mg/dL (0.2-1.0); CALCIUM 9.1 mg/dL (8.5-10.1); CO2 30 mmol/L (21-32); CREATININE 0.7 mg/dL (0.7-1.3); GLUCOSE,RANDOM 274 mg/dL (74-106); MAGNESIUM 1.6 mg/dL (1.8-2.4); SGOT/AST 81 U/L (15-37); SGPT/ALT 65 U/L (12-78); TOT PROT 6.5 g/dl (6.4-8.2)
[2016-10-08] MEDS: NICOTINE 14 MG/24 HOURS TOPICAL PATCH TD SCH (09:28)
[2016-10-08] MEDS: LACTULOSE 20 GM/30 ML UDC (FOR ORAL USE ONLY) PO SCH ×2 (09:29→21:56)
[2016-10-08] MEDS: FOLIC ACID 1 MG TABLET (FP) PO SCH (09:29)
[2016-10-08] MEDS: MAGNESIUM OXIDE 400 MG TABLET (FP) PO SCH ×2 (09:29→21:50)
[2016-10-08] MEDS: SPIRONOLACTONE 25 MG TABLET (FP) PO SCH (09:29)
[2016-10-08] MEDS: GABAPENTIN 100 MG CAPSULE (FP) PO SCH ×2 (09:29→21:50)
[2016-10-08] MEDS: AMOX TR/POT CLAV 875MG/125MG TABLETS (FP) PO SCH ×2 (09:29→16:53)
--- NOTE | 2016-10-08 09:37 | PN ---
Progress Note, Physician Chief Complaint: altered MS History of Present Illness: denies cp, sob, palpitations, presyncope - Current Medication List Current Medications: Active Medications Albuterol/Ipratropium (Duoneb -) 1 amp NEB QIDR [facility] Last Admin: 10/08/16 06:15 Dose: 1 amp Amoxicillin/Clavulanate Potassium (Augmentin - 875mg Tablet) 1 tab PO BID@0800, 1730 [facility] Bupropion HCl (Wellbutrin Xl -) 150 mg PO DAILY [facility] Last Admin: 10/07/16 09:15 Dose: 150 mg Folic Acid (Folic Acid -) 1 mg PO DAILY [facility] Last Admin: 10/07/16 09:12 Dose: 1 mg Gabapentin (Neurontin -) 200 mg PO BID [facility] Last Admin: 10/07/16 21:14 Dose: 200 mg Insulin Aspart (Novolog Vial Sliding Scale -) 1 vial SQ ACHS [facility] PRN Reason: Protocol Last Admin: 10/08/16 06:15 Dose: 4 units Lactulose (Cephulac (Oral Use)) 20 gm PO BID [facility] Last Admin: 10/07/16 21:08 Dose: Not Given Magnesium Oxide (Mag-Ox -) 400 mg PO BID [facility] Last Admin: 10/07/16 21:14 Dose: 400 mg Methadone HCl 80 mg/ Methadone (HCl 10 mg) 90 mg PO DAILY@0600 [facility] Last Admin: 10/08/16 05:55 Dose: 90 mg Methylprednisolone Sodium Succinate (Solu-Medrol -) 40 mg IVPB Q8H-IV [facility] Last Admin: 10/08/16 01:09 Dose: 40 mg Nicotine (Nicoderm Patch -) 14 mg TD DAILY [facility] Last Admin: 10/07/16 09:12 Dose: 14 mg Polyethylene Glycol (Miralax (For Daily Use) -) 17 gm PO DAILY [facility] Last Admin: 10/07/16 09:17 Dose: 17 grams Spironolactone (Aldactone -) 100 mg PO DAILY [facility] Last Admin: 10/07/16 09:11 Dose: 100 mg Thiamine HCl (Vitamin B1 -) 100 mg PO HS [facility] Last Admin: 10/07/16 21:14 Dose: 100 mg - Objective Vital Signs: Vital Signs Temperature 97.6 F 10/08/16 06:00 Pulse Rate 77 10/08/16 06:00 Respiratory Rate 20 10/08/16 06:00 Blood Pressure 143/78 10/08/16 06:00 O2 Sat by Pulse Oximetry (%) 93 L 10/07/16 21:00 Constitutional: Yes: Well Nourished, No Distress, Calm Cardiovascular: Yes: Regular Rate and Rhythm, S1, S2. No: Gallop, Murmur Respiratory: Yes: Regular, CTA Bilaterally. No: Accessory Muscle Use, Rales, Wheezes Extremities: No: Cold Edema: No Neurological: Yes: Alert. No: Seizure Psychiatric: No: Agitated Labs: CBC, BMP 10/08/16 06:58 10/08/16 06:58 INR, PTT INR 1.32 (0.82-1.09) H 10/03/16 02:00 Assessment/Plan echo here 09/2016: nl lv/rv/valves abd u/s: biliary duct dilation. hepatomegaly/cirrhosis, splenomegaly, small amount of ascites cxr: reported as normal, but by my review poor visualization of costophrenic angles, can't r/o effusion. a/p: 61 yo smoker on methadone maintenace with h/o etoh abuse, HTN, prior hep C diagnosis, DM, depression, presents from detox where he was found to be lethargic/difficult to arouse and hypoxic. lethargy/hypoxia - altered mental status: ? hepatic encephalopathy (elevated ammonia), vs medications, hypoxia - tx per GI, hospitalist Prolonged qtc - continued management of underlying electrolyte abnormalities - avoid qtc prolonging drugs - consider lowering methadone dose or changing to alternative agent if QT remains prolonged - rpt ECG today for QT monitoring sob - bnp low, recent poor po intake. Nl EF. Would not diurese further with lasix. Agree with aldactone given cirrhosis and small amount of ascites. close electrolyte monitoring - EKG without ischemic changes. ce's negative - wheezing on exam so started on steroids for copd with improvement in sob today + tobacco/drug - smoking cessation/detox per pmd/detox consult. HTN - controlled.
[2016-10-08] MEDS: POLYETHYLENE GLYCOL 3350 119 GM BTL PO SCH (09:43)
--- NOTE | 2016-10-08 12:45 | PN ---
Progress Note, Physician - Current Medication List Current Medications: Active Medications Albuterol/Ipratropium (Duoneb -) 1 amp NEB QIDR [facility] Last Admin: 10/08/16 11:55 Dose: 1 amp Amoxicillin/Clavulanate Potassium (Augmentin - 875mg Tablet) 1 tab PO BID@0800, 1730 [facility] Last Admin: 10/08/16 09:29 Dose: 1 tab Bupropion HCl (Wellbutrin Xl -) 150 mg PO DAILY [facility] Last Admin: 10/08/16 09:29 Dose: 150 mg Folic Acid (Folic Acid -) 1 mg PO DAILY [facility] Last Admin: 10/08/16 09:29 Dose: 1 mg Gabapentin (Neurontin -) 200 mg PO BID [facility] Last Admin: 10/08/16 09:29 Dose: 200 mg Insulin Aspart (Novolog Vial Sliding Scale -) 1 vial SQ ACHS [facility] PRN Reason: Protocol Last Admin: 10/08/16 12:19 Dose: 2 units Lactulose (Cephulac (Oral Use)) 20 gm PO BID [facility] Last Admin: 10/08/16 09:29 Dose: 20 gm Magnesium Oxide (Mag-Ox -) 400 mg PO BID [facility] Last Admin: 10/08/16 09:29 Dose: 400 mg Methadone HCl 80 mg/ Methadone (HCl 10 mg) 90 mg PO DAILY@0600 [facility] Last Admin: 10/08/16 05:55 Dose: 90 mg Methylprednisolone Sodium Succinate (Solu-Medrol -) 40 mg IVPB BID [facility] Nicotine (Nicoderm Patch -) 14 mg TD DAILY [facility] Last Admin: 10/08/16 09:28 Dose: 14 mg Polyethylene Glycol (Miralax (For Daily Use) -) 17 gm PO DAILY [facility] Last Admin: 10/08/16 09:43 Dose: Not Given Spironolactone (Aldactone -) 100 mg PO DAILY [facility] Last Admin: 10/08/16 09:29 Dose: 100 mg Thiamine HCl (Vitamin B1 -) 100 mg PO HS [facility] Last Admin: 10/07/16 21:14 Dose: 100 mg - Objective Vital Signs: Vital Signs Temperature 98.4 F 10/08/16 09:00 Pulse Rate 84 10/08/16 09:00 Respiratory Rate 20 10/08/16 09:00 Blood Pressure 112/60 10/08/16 09:00 O2 Sat by Pulse Oximetry (%) 93 L 10/08/16 09:00 Labs: CBC, BMP 10/08/16 06:58 10/08/16 06:58 INR, PTT INR 1.32 (0.82-1.09) H 10/03/16 02:00
--- NOTE | 2016-10-08 12:46 | PN ---
Physical Exam: SUBJECTIVE: Patient seen and examined at the bedside. He denies pain or shortness of breath. States he feels well. OBJECTIVE: Denies pain, in no acute distress No wheezing on exam, will convert PO prednisone in a.m. and d/c planning Patient asking to go to rehab @ [facility] Vital Signs Period Temp Pulse Resp BP Sys/Cavazos Pulse Ox Last 24 Hr 97.6 F-98.4 F 76-86 20-20 112-143/60-78 93-93 GENERAL: The patient is awake, alert, and fully oriented, in no acute distress. HEAD: Normal with no signs of trauma. EYES: PERRL, extraocular movements intact, sclera anicteric, conjunctiva clear. No ptosis. ENT: Ears normal, nares patent, oropharynx clear without exudates, moist mucous membranes. NECK: Trachea midline, full range of motion, supple. LUNGS: Breath sounds equal, diminished ABDOMEN: Soft, nontender, nondistended, normoactive bowel sounds, no guarding, no rebound, no hepatosplenomegaly, no masses. NEUROLOGICAL: Normal speech, gait not observed. PSYCH: Normal mood, normal affect. SKIN: Warm, dry, normal turgor, no rashes or lesions noted Laboratory Results - last 24 hr 10/07/16 10/07/16 10/08/16 17:11 21:13 05:49 WBC RBC Hgb Hct MCV MCHC RDW Plt Count MPV Sodium Potassium Chloride Carbon Dioxide Anion Gap BUN Creatinine Creat Clearance w eGFR POC Glucometer 275 334 284 Random Glucose Calcium Magnesium Total Bilirubin AST ALT Alkaline Phosphatase Ammonia Total Protein Albumin 10/08/16 10/08/16 10/08/16 06:58 06:58 09:10 WBC 5.0 D RBC 3.78 L Hgb 11.8 Hct 36.5 MCV 96.4 H MCHC 32.4 RDW 15.6 Plt Count 101 L MPV 8.2 Sodium 138 Potassium 4.5 Chloride 100 Carbon Dioxide 30 Anion Gap 8 BUN 16 D Creatinine 0.7 Creat Clearance w eGFR > 60 POC Glucometer Random Glucose 274 H Calcium 9.1 Magnesium 1.6 L Total Bilirubin 0.8 AST 81 H D ALT 65 Alkaline Phosphatase 151 H Ammonia 40.22 H Total Protein 6.5 Albumin 2.9 L 10/08/16 12:13 WBC RBC Hgb Hct MCV MCHC RDW Plt Count MPV Sodium Potassium Chloride Carbon Dioxide Anion Gap BUN Creatinine Creat Clearance w eGFR POC Glucometer 247 Random Glucose Calcium Magnesium Total Bilirubin AST ALT Alkaline Phosphatase Ammonia Total Protein Albumin Active Medications Generic Name Dose Route Start Last Admin Trade Name Rajiv PRN Reason Stop Dose Admin Albuterol/Ipratropium 1 amp 10/06/16 15:14 10/08/16 11:55 Duoneb - NEB 1 amp QIDR THERESA Administration Amoxicillin/Clavulanate Potassium 1 tab 10/08/16 08:30 10/08/16 09:29 Augmentin - 875mg Tablet PO 1 tab BID@0800,1730 THERESA Administration Bupropion HCl 150 mg 10/03/16 10:00 10/08/16 09:29 Wellbutrin Xl - PO 150 mg DAILY [facility]A Administration Folic Acid 1 mg 10/03/16 10:00 10/08/16 09:29 Folic Acid - PO 1 mg DAILY [facility]ERESA Administration Gabapentin 200 mg 10/03/16 10:00 10/08/16 09:29 Neurontin - PO 200 mg BID THERESA Administration Insulin Aspart 1 vial 10/07/16 11:00 10/08/16 12:19 Novolog Vial Sliding Scale - SQ 2 units ACHS [facility]A Administration Protocol Lactulose 20 gm 10/07/16 10:00 10/08/16 09:29 Cephulac (Oral Use) PO 20 gm BID [facility]ERESA Administration Magnesium Oxide 400 mg 10/07/16 22:00 10/08/16 09:29 Mag-Ox - PO 400 mg BID [facility]A Administration Methadone HCl 80 mg/ Methadone 90 mg 10/03/16 10:45 10/08/16 05:55 HCl 10 mg PO 90 mg DAILY@0600 THERESA Administration Methylprednisolone Sodium Succinate 40 mg 10/08/16 22:00 Solu-Medrol - IVPB BID [facility]A Nicotine 14 mg 10/05/16 10:00 10/08/16 09:28 Nicoderm Patch - TD 14 mg DAILY [facility]A Administration Polyethylene Glycol 17 gm 10/07/16 10:00 10/08/16 09:43 Miralax (For Daily Use) - PO Not Given DAILY [facility]ERESA Spironolactone 100 mg 10/04/16 10:00 10/08/16 09:29 Aldactone - PO 100 mg DAILY [facility]A Administration Thiamine HCl 100 mg 10/03/16 22:00 10/07/16 21:14 Vitamin B1 - PO 100 mg HS [facility]ERESA Administration ASSESSMENT/PLAN: Patient is a 61 year old male with a significant past medical history of ETOH abuse, heroin abuse, asthma, hypertension, diabetes, bipolar and neuropathy. He presented to the ED from [facility] with chest pain and shortness of breath. Cardiology Chest Pain - resolved Assessment/Plan: Denies chest pain or shortness of breath on exam Echo reviewed, shows normal LV and function, trace to mild mitral regurg Cardiology following, EKG ordered for today to re-assess QT prolongation Holding seroquel and consider decreasing methadone dose as per Dr. Tano Dyson Hypertension: Assessment/Plan: Monitor BP Pulmonary: Shortness of breath - resolved Assessment/Plan: Tolerating room air Has history of asthma, no wheezing on today's exam, no SOB with ambulation Will decrease steriods to BID in anticipation to converting to PO in a.m. On Augmentin 875mg x 5 days - started on 10/08/16 Chest xray reviewed Duonebs as needed GI: Alcoholic Liver Cirrhosis Assessment/Plan: Librium completed Elevated ammonia levels, will increase Lactulose On folic and thiamine Will d/c back to [facility] for rehab Endocrine: Diabetes Mellitus Assessment/Plan: Monitor BGMs Psych: ETOH ABuse Assessment/Plan: detox complete, rehab @ [facility] on d/c Heroin Abuse Assessment/Plan: On methadone, reconsult Dr. Tano Dyson for possible decrease of methadone dose Bipolar disorder Assessment/Plan: On Wellbutrin Seroquel held due to prolonged Qt, continue to hold on d/c Cardiology following F.E.N. Fluids: PO Electrolytes: within normal limits Nutrition: sodium controlled/diabetic diet Prophylaxis: SCDs, ambulation Disposition: Likely d/c to [facility] in am. for rehab. Full Code.
--- NOTE | 2016-10-08 13:22 | EKG ---
Test Reason : Blood Pressure : / mmHG Vent. Rate : 073 BPM Atrial Rate : 073 BPM P-R Int : 134 ms QRS Dur : 094 ms QT Int : 448 ms P-R-T Axes : 058 045 030 degrees QTc Int : 493 ms NORMAL SINUS RHYTHM PROLONGED QT ABNORMAL ECG WHEN COMPARED WITH ECG OF 05-OCT-2016 09:07, T WAVE VARIATION Confirmed by SHEN ESCALANTE MD ([id number]) on 10/08/2016 1:21:54 PM Referred By: TEE BORRERO Confirmed By:SHEN ESCALANTE MD
[2016-10-08] MEDS ORDERED: MAGNESIUM OXIDE 400 MG TABLET (FP) PO ONE (18:18)
[2016-10-08] MEDS: THIAMINE HCL 100 MG TABLET (FP) PO SCH (21:50)
[2016-10-09] MEDS: ALBUTEROL SO4 2.5/IPRATROPIUM 0.5 INH SOL 3 ML VIAL.NEB. NEB SCH ×3 (06:05→11:25)
[2016-10-09] MEDS ORDERED: METHADONE HCL 40 MG DISPERSABLE TABLET ONE (06:14)
[2016-10-09] MEDS ORDERED: METHADONE HCL 10 MG TABLET ONE (06:14)
[2016-10-09] MEDS: METHADONE 80 MG, METHADONE 10 MG PO SCH (06:18)
[2016-10-09] MEDS: INSULIN SLIDING SCALE (NOVOLOG) 1 VIAL SQ SCH ×3 (06:18→16:34)
[2016-10-09] MEDS ORDERED: INSULIN (NOVOLOG) ASPART 100 UNITS/ML 10ML VIAL ONE (06:30)
[2016-10-09 07:34] LABS: BASOPHIL 0.4 % (0-2.0); EOSINOPHIL 0.3 % (0-4.5); MCH 31.4 pg (25.7-33.7); MCHC 32.6 g/dl (32.0-35.9); MEAN CELL VOLUME 96.2 fl (80-96); MEAN PLT VOLUME 7.8 fl (7.5-11.1); PLATELET COUNT 108 K/MM3 (134-434); RDW 15.4 % (11.9-15.9)
[2016-10-09 08:31] LABS: ALBUMIN 2.7 g/dl (3.4-5.0); ANION GAP 5 (8-16); CALCIUM 8.8 mg/dL (8.5-10.1); CO2 31 mmol/L (21-32); CREATININE 0.8 mg/dL (0.7-1.3); GLUCOSE,RANDOM 253 mg/dL (74-106); SGOT/AST 86 U/L (15-37); SGPT/ALT 69 U/L (12-78)
[2016-10-09 08:33] LABS: ALK PHOS 137 U/L (45-117); TOT PROT 6.1 g/dl (6.4-8.2)
[2016-10-09] MEDS: MAGNESIUM OXIDE 400 MG TABLET (FP) PO SCH (09:28)
[2016-10-09] MEDS: FOLIC ACID 1 MG TABLET (FP) PO SCH (09:28)
[2016-10-09] MEDS: methylPREDNISolone NA SUCC 40 MG/1 ML VIAL IVPB SCH (09:28)
[2016-10-09] MEDS: AMOX TR/POT CLAV 875MG/125MG TABLETS (FP) PO SCH ×2 (09:28→16:35)
[2016-10-09] MEDS: SPIRONOLACTONE 25 MG TABLET (FP) PO SCH (09:28)
[2016-10-09] MEDS: GABAPENTIN 100 MG CAPSULE (FP) PO SCH (09:29)
[2016-10-09] MEDS: POLYETHYLENE GLYCOL 3350 119 GM BTL PO SCH (09:29)
[2016-10-09] MEDS: NICOTINE 14 MG/24 HOURS TOPICAL PATCH TD SCH (09:30)
--- NOTE | 2016-10-09 10:07 | PN ---
Progress Note (short form) - Note Progress Note: Chief Complaint: altered MS History of Present Illness: denies cp, sob, palpitations, presyncope. Wants to go home. Current Medications Albuterol/Ipratropium (Duoneb -) 1 amp NEB QIDR [facility] Last Admin: 10/09/16 06:05 Dose: 1 amp Amoxicillin/Clavulanate Potassium (Augmentin - 875mg Tablet) 1 tab PO BID@0800, 1730 [facility] Last Admin: 10/09/16 09:28 Dose: 1 tab Bupropion HCl (Wellbutrin Xl -) 150 mg PO DAILY [facility] Last Admin: 10/09/16 09:28 Dose: 150 mg Folic Acid (Folic Acid -) 1 mg PO DAILY [facility] Last Admin: 10/09/16 09:28 Dose: 1 mg Gabapentin (Neurontin -) 200 mg PO BID [facility] Last Admin: 10/09/16 09:29 Dose: 200 mg Insulin Aspart (Novolog Vial Sliding Scale -) 1 vial SQ ACHS [facility] PRN Reason: Protocol Last Admin: 10/09/16 06:18 Dose: 4 units Lactulose (Cephulac (Oral Use)) 20 gm PO TID [facility] Magnesium Oxide (Mag-Ox -) 400 mg PO BID [facility] Last Admin: 10/09/16 09:28 Dose: 400 mg Methadone HCl 80 mg/ Methadone (HCl 10 mg) 90 mg PO DAILY@0600 [facility] Last Admin: 10/09/16 06:18 Dose: 90 mg Methylprednisolone Sodium Succinate (Solu-Medrol -) 40 mg IVPB BID [facility] Last Admin: 10/09/16 09:28 Dose: 40 mg Nicotine (Nicoderm Patch -) 14 mg TD DAILY [facility] Last Admin: 10/09/16 09:30 Dose: 14 mg Polyethylene Glycol (Miralax (For Daily Use) -) 17 gm PO DAILY [facility] Last Admin: 10/09/16 09:29 Dose: 17 grams Prednisone (Deltasone -) 20 mg PO ONCE ONE Stop: 10/09/16 09:36 Spironolactone (Aldactone -) 100 mg PO DAILY [facility] Last Admin: 10/09/16 09:28 Dose: 100 mg Thiamine HCl (Vitamin B1 -) 100 mg PO HS [facility] Last Admin: 10/08/16 21:50 Dose: 100 mg Vital Signs - 24 hr 10/08/16 10/08/1617 15:32 17:56 21:00 Temperature 98.3 F 98.1 F Pulse Rate 82 73 Respiratory 20 18 16 Rate Blood Pressure 114/65 141/82 O2 Sat by Pulse 94 L Oximetry (%) 10/08/16 10/09/16 10/09/16 21:41 05:47 09:00 Temperature 98.1 F 98.2 F Pulse Rate 76 66 Respiratory 16 16 18 Rate Blood Pressure 124/80 137/87 O2 Sat by Pulse 92 L Oximetry (%) 10/09/16 09:26 Temperature 98.0 F Pulse Rate 76 Respiratory 18 Rate Blood Pressure 110/68 O2 Sat by Pulse Oximetry (%) Intake & Output 10/07/16 10/08/16 10/09/16 10/10/16 07:59 07:59 07:59 07:59 Intake Total 1090 740 500 Output Total 2 2 Balance 1090 738 498 Constitutional: Yes: Well Nourished, No Distress, Calm Cardiovascular: Yes: Regular Rate and Rhythm, S1, S2. No: Gallop, Murmur Respiratory: Yes: Regular, CTA Bilaterally. No: Accessory Muscle Use, Rales, Wheezes Extremities: No: Cold Edema: trace Neurological: Yes: Alert. No: Seizure Psychiatric: No: Agitated Labs: CBC, BMP 10/09/16 06:30 10/09/16 06:30 Laboratory Tests 10/09/16 06:30 Magnesium 1.7 L Total Bilirubin 1.0 D AST 86 H ALT 69 Alkaline Phosphatase 137 H Albumin 2.7 L Assessment/Plan echo here 09/2016: nl lv/rv/valves abd u/s: biliary duct dilation. hepatomegaly/cirrhosis, splenomegaly, small amount of ascites cxr: reported as normal, but by my review poor visualization of costophrenic angles, can't r/o effusion. Not keeping telemetry on chest cta 10/05: no pe. nl aorta. mild atelectasis probable rt infiltrate. trace rt pl effusion. interstitial thickening and fine nodularity in rml suggestive of infiltrates. splenomegaly. liver abnormalities noted. a/p: 61 yo smoker on methadone maintenace with h/o etoh abuse, HTN, prior hep C diagnosis, DM, depression, presents from detox where he was found to be lethargic/difficult to arouse and hypoxic. lethargy/hypoxia, improved - altered mental status: ? hepatic encephalopathy (elevated ammonia), vs medications, hypoxia - tx per GI, hospitalist Prolonged qtc - Patient wanting tot leave today --> - avoid qtc prolonging drugs - discussed with primary here and doctors who prescribe his methadone are aware of qtc prolongation. Will defer to them regarding ability to adjust dose as outpatient - Set up to get repeat ECG this week for QT monitoring - qtc length remains prolonged but improving (< 500). Would recommend repleting magnesium to > 2 prior to discharge if patient willing to stay. Follow up monitoring as mentioned above. sob - bnp low, recent poor po intake. Nl EF. Deferred diuresis with lasix. Agree with aldactone given cirrhosis and small amount of ascites. close electrolyte monitoring - EKG without ischemic changes. ce's negative - wheezing on exam so started on steroids for copd, also with possible asp pna given abs. sx's improved. + tobacco/drug - smoking cessation/detox per pmd/detox consult. HTN - controlled.
[2016-10-09] MEDS ORDERED: predniSONE 20 MG TABLET (UD) PO ONE (10:30)
[2016-10-09] MEDS ORDERED: MAGNESIUM SULF 50% (8.12 MEQ/2 ML-1 GM VIAL) IVPB ONE (10:30)
[2016-10-09 11:10] LABS: MAGNESIUM 1.7 mg/dL (1.8-2.4)
[2016-10-09] MEDS ORDERED: MAGNESIUM OXIDE 400 MG TABLET (FP) PO ONE ×2 (12:00→15:53)
--- NOTE | 2016-10-09 13:48 | DS ---
Physical Exam: SUBJECTIVE: Patient seen and examined. He is comfortable at rest, no shortness of breath with ambulation. Tolerating room air. Patient states he does not want to go to [facility] and instead is opting to go home. OBJECTIVE: Made patient an appointment with Dr. Thomas this October 11 @ 11:30 a.m.. Patient instructed to take his discharge instruction paperwork along with the EKGs. Patient instructed that he is to have his ammonia levels rechecked, as his Lactulose was increased to TID He will need close monitoring of his blood sugars while on the steroids. Further, he has been instructed that he is to bring the EKGs to his methadone clinic as his Methadone dose will likely need to be decreased secondary to prolonged QT. I spoke with Obed Feliciano LPN at the Methadone clinic @ [address] and made him aware of the prolonged QT. As per Mr. Feliciano he will make the physicians aware and asked that the EKGs be sent with the patient on next visit. Patient advised to have his magnesium levels rechecked and have a repeat EKG with Dr. Thomas. Advised to continue taking the magnesium supplements as lack of magnesium puts him at risk for cardiac arrhythmias. Patient verbalized understanding. Patient sent home with a quick prednisone taper. Patient aware to not take the Seroquel until he sees PCP (Lillian Thomas) who will further instruct. Vital Signs Period Temp Pulse Resp BP Sys/Cavazos Pulse Ox Last 24 Hr 97.5 F-98.3 F 66-82 16-20 110-141/58-87 92-94 PHYSICAL EXAM GENERAL: The patient is awake, alert, and fully oriented, in no acute distress. HEAD: Normal with no signs of trauma. EYES: PERRL, extraocular movements intact, sclera anicteric, conjunctiva clear. No ptosis. ENT: Ears normal, nares patent, oropharynx clear without exudates, moist mucous membranes. NECK: Trachea midline, full range of motion, supple. LUNGS: Breath sounds equal, diminished ABDOMEN: Soft, nontender, nondistended, normoactive bowel sounds, no guarding, no rebound, no hepatosplenomegaly, no masses. NEUROLOGICAL: Normal speech, gait not observed. PSYCH: Normal mood, normal affect. SKIN: Warm, dry, normal turgor, no rashes or lesions noted LABS Laboratory Results - last 24 hr 10/08/16 10/08/16 10/09/16 16:51 20:48 05:35 WBC RBC Hgb Hct MCV MCHC RDW Plt Count MPV Neutrophils % Lymphocytes % Monocytes % Eosinophils % Basophils % Sodium Potassium Chloride Carbon Dioxide Anion Gap BUN Creatinine Creat Clearance w eGFR POC Glucometer 250 344 254 Random Glucose Calcium Magnesium Total Bilirubin AST ALT Alkaline Phosphatase Total Protein Albumin 10/09/16 10/09/16 10/09/16 06:30 06:30 06:30 WBC 4.0 RBC 3.67 L Hgb 11.5 L Hct 35.2 L MCV 96.2 H MCHC 32.6 RDW 15.4 Plt Count 108 L MPV 7.8 Neutrophils % 74.0 D Lymphocytes % 15.2 D Monocytes % 10.1 Eosinophils % 0.3 D Basophils % 0.4 Sodium 138 Potassium 4.4 Chloride 102 Carbon Dioxide 31 Anion Gap 5 L BUN 18 Creatinine 0.8 Creat Clearance w eGFR > 60 POC Glucometer Random Glucose 253 H Calcium 8.8 Magnesium 1.7 L Cancelled Total Bilirubin 1.0 D AST 86 H ALT 69 Alkaline Phosphatase 137 H Total Protein 6.1 L Albumin 2.7 L 10/09/16 11:19 WBC RBC Hgb Hct MCV MCHC RDW Plt Count MPV Neutrophils % Lymphocytes % Monocytes % Eosinophils % Basophils % Sodium Potassium Chloride Carbon Dioxide Anion Gap BUN Creatinine Creat Clearance w eGFR POC Glucometer 191 Random Glucose Calcium Magnesium Total Bilirubin AST ALT Alkaline Phosphatase Total Protein Albumin HOSPITAL COURSE: Date of Admission:10/03/16 Date of Discharge: 10/09/16 ASSESSMENT/PLAN: Patient is a 61 year old male with a significant past medical history of ETOH abuse, heroin abuse, asthma, hypertension, diabetes, bipolar and neuropathy. He presented to the ED from [facility] with chest pain and shortness of breath. Cardiology Chest Pain - resolved Assessment/Plan: Denies chest pain or shortness of breath on exam Echo reviewed, shows normal LV and function, trace to mild mitral regurg Cardiology following, EKG ordered for today to re-assess QT prolongation Continue to hold Seroquel and decrease dose of Methadone Methadone clinic contacted by conventional underwriter (see above note). Hypertension: Assessment/Plan: Monitor BP Pulmonary: Shortness of breath - resolved Assessment/Plan: Tolerating room air Has history of asthma, no wheezing on today's exam, no SOB with ambulation Quick steriod taper on discharge On Augmentin 875mg x 5 days - through October 11/2017 GI: Alcoholic Liver Cirrhosis - chronic Assessment/Plan: Librium completed Elevated ammonia levels, will increase Lactulose to TID On folic and thiamine Patient refusing [facility], asking to go home Endocrine: Diabetes Mellitus - chronic Assessment/Plan: Monitor BGMs, on home Metformin Psych: ETOH Abuse - chronic Assessment/Plan: detox complete, refusing rehab [facility] Heroin Abuse - chronic Assessment/Plan: On methadone, home clinic called and advised to reduce dose of methadone Patient is to bring EKGs and physicians at clinic will review same Bipolar disorder - chronic Assessment/Plan: On Wellbutrin Seroquel held due to prolonged Qt, continue to hold on d/c Cardiology following Disposition: Discharge home with close follow up with his PCP this . Appointment made. Full code. Minutes to complete discharge: 120 Discharge Summary Reason For Visit: SOB ELECTROLYTE IMBALANCE Current Active Problems Alcohol dependence (Acute) Chest pain (Acute) Cirrhosis (Acute) DVT prophylaxis (Acute) Dilated bile duct (Acute) Electrolyte imbalance (Acute) Hepatomegaly (Acute) Heroin dependence (Acute) Lactic acidemia (Acute) Opioid dependence on agonist therapy (Acute) Pneumonia (Acute) Portal hypertension (Acute) Shortness of breath (Acute) Condition: Improved - Instructions Diet, Activity, Other Instructions: Mr. Castro: You have an appointment with Dr. Thomas this October 11 @ 11:30 a.m.. PLEASE take this discharge instruction paperwork with you as well as the EKGs. Your PCP can call us to discuss further: [facility] medical @ [facility] [phone]. You will need to have your Ammonia levels repeated and have your blood sugar monitored. You will have to have your Methadone dose decreased as you have QT prolongation. Please take the EKG with you on your follow up appointment. I spoke to Obed Feliciano LPN and he is aware. Please have your magnesium levels rechecked and have a repeat EKG with Dr. Thomas. Continue taking the magnesium supplements. Lack of magnesium in your blood puts you at risk for cardiac arrhythmias. Do not take the Seroquel until you PCP (Lillian Thomas) clears you to take this medication. New Medications: Take Prednisone as follows: 10/10/2016 Prednisone 40mg daily 10/11/2016 Prednisone 30mg daily 10/12/2016 Prednisone 20mg daily 10/13/2016 Prednisone 10mg daily Then stop taking the Prednisone Amoxcicillin 875mg twice per day until October 11. Lactulose 20mg three times per day morning, noon and night - It is important that you take this medication as prescribed. Please call with any questions Hannah Cuenca [place] [phone] Disposition: HOME - Home Medications Comprehensive Discharge Medication List: Ambulatory Orders Hydrochlorothiazide [Hctz -] 25 mg PO DAILY 06/07/16 Metformin HCl [Glucophage] 1,000 mg PO BID 06/07/16 Folic Acid - 1 mg PO DAILY #30 tablet 06/19/16 Gabapentin [Neurontin -] 200 mg PO BID #120 capsule 06/19/16 Magnesium Oxide [Mag-Ox -] 400 mg PO DAILY #7 tablet 06/19/16 Thiamine HCl [Vitamin B1 -] 100 mg PO HS #30 tablet 06/19/16 Albuterol Sulfate Inhaler - [Ventolin HFA Inhaler -] 2 inh PO Q4H PRN #1 inh Acamprosate Calcium [Campral -] 666 mg PO TID #180 tab 07/17/16 Bupropion HCl [Wellbutrin Xl -] 150 mg PO DAILY #30 tab 07/17/16 Trazodone HCl [Desyrel -] 100 mg PO HS #30 tablet 07/17/16 Amox-Tr/K Cl [Augmentin 875-125mg Tablet -] 1 tab PO BID@0800,1730 #6 tablet Bupropion HCl [Wellbutrin Xl -] 150 mg PO DAILY #30 tab 10/09/16 Lactulose (Oral Use) [Cephulac -] 20 gm PO TID #1 bottle 10/09/16 Magnesium Oxide [Mag-Ox -] 400 mg PO BID #60 tablet 10/09/16 Prednisone See Taper PO DAILY #20 tablet 10/09/16 Spironolactone [Aldactone -] 100 mg PO DAILY #60 tablet 10/09/16 This patient is new to me today: Yes Date on this admission: 10/09/16 Emergency Visit: Yes ED Registration Date: 10/03/16 Care time: The patient presented to the Emergency Department on the above date and was hospitalized for further evaluation of their emergent condition. Critical Care patient: No - Discharge Referral Referred to [facility] No
[2016-10-09] MEDS ORDERED: LACTULOSE 20 GM/30 ML UDC (FOR ORAL USE ONLY) PO SCH (14:00)
--- NOTE | 2016-10-09 14:38 | EKG ---
Test Reason : Blood Pressure : / mmHG Vent. Rate : 071 BPM Atrial Rate : 071 BPM P-R Int : 134 ms QRS Dur : 094 ms QT Int : 454 ms P-R-T Axes : 055 039 038 degrees QTc Int : 493 ms NORMAL SINUS RHYTHM PROLONGED QT ABNORMAL ECG WHEN COMPARED WITH ECG OF 08-OCT-2016 10:02, NO SIGNIFICANT CHANGE WAS FOUND Confirmed by SHEN ESCALANTE MD ([id number]) on 10/09/2016 2:38:19 PM Referred By: Alfonzo TAMAYO Confirmed By:SHEN ESCALANTE MD
[2016-10-09 15:45] VITALS: BP 146/86; PULSE 76; TEMP 98.2
== END 2016-10-09 17:10 | disposition home or self-care (01) | DRG 190 ==
LOC: JER 01:07 → JERBED 04:04 → J4S 10-04 17:45
PROVIDERS: ADMIT Internal Medicine; ATTEND Nurse Practitioner Family
DX: J44.0 Chronic obstructive pulmonary disease with (acute) lower respiratory infection (principal); J18.9 Pneumonia, unspecified organism; F11.20 Opioid dependence, uncomplicated; J45.901 Unspecified asthma with (acute) exacerbation; K76.6 Portal hypertension; R07.9 Chest pain, unspecified; F10.20 Alcohol dependence, uncomplicated; I10 Essential (primary) hypertension; K59.00 Constipation, unspecified; E11.9 Type 2 diabetes mellitus without complications; K70.31 Alcoholic cirrhosis of liver with ascites; F17.210 Nicotine dependence, cigarettes, uncomplicated; F31.9 Bipolar disorder, unspecified; E83.42 Hypomagnesemia; E87.6 Hypokalemia; D69.6 Thrombocytopenia, unspecified; G62.9 Polyneuropathy, unspecified; J44.1 Chronic obstructive pulmonary disease with (acute) exacerbation
CPT/HCPCS: 36415; 70450-TC; 71010-TC; 71275-TC; 74182-TC; 76705-TC; 80048; 80053; 80307; 81003; 82140; 82378; 82550; 82553; 83605; 83690; 83735; 83880; 84100; 84484; 85025; 85027; 85379; 85610; 86301; 87040; 87070; 87205; 93005; 93010; 93306-TC; 93970-TC; 94640; 94761; 97116-GP; 97161-GP; 99285-25

== ENCOUNTER 2017-05-03 08:38 | Inpatient (IN) | payer OTHER ==
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
[2017-05-03] MEDS ORDERED: LOPERAMIDE HCL 2 MG CAPSULE PO PRN (12:58)
[2017-05-03] MEDS ORDERED: chlordiazePOXIDE HCL 25 MG CAPSULE PO PRN (12:58)
[2017-05-03] MEDS ORDERED: ACETAMINOPHEN 325 MG TABLET (FP) PO PRN (12:58)
[2017-05-03] MEDS ORDERED: MAGNESIUM HYDROX 2400MG/30ML ORAL SUSPENSION 30 ML CUP PO PRN (12:58)
[2017-05-03] MEDS ORDERED: MENTHOL/PHENOL 1 EACH UD MM PRN (12:58)
[2017-05-03] MEDS ORDERED: P-EPHED 60MG/TRIPROLIDI 2.5MG TABLET PO PRN (12:58)
[2017-05-03] MEDS ORDERED: guaiFENesin/D-METHORPHAN HB 10 ML UNIT-DOSE CUPS PO PRN (12:58)
[2017-05-03] MEDS ORDERED: MAGNESIUM CITRATE 300 ML BOTTLE PO PRN (12:58)
[2017-05-03] MEDS ORDERED: MAG HYDROX/AL HYDROX/SIMETH 30 ML UNIT-DOSE CUP PO PRN (12:58)
[2017-05-03] MEDS ORDERED: NICOTINE POLACRILEX 2 MG GUM BUC PRN (12:58)
[2017-05-03] MEDS ORDERED: ALBUTEROL SO4 18 GM HFA INHALER IH PRN (13:00)
[2017-05-03] MEDS ORDERED: PATIENT'S OWN MEDICATION (NON-FORMULARY) (Metformin Hcl [Glucophage] 1,000 MG) PO SCH (13:00)
[2017-05-03] MEDS ORDERED: METHADONE HCL 40 MG DISPERSABLE TABLET PO SCH (13:00)
[2017-05-03] MEDS ORDERED: AMMONIUM LACTATE 12% LOTION 225 GM BOTTLE TP PRN (13:05)
[2017-05-03] MEDS ORDERED: chlordiazePOXIDE HCL 25 MG CAPSULE PO ONE (14:00)
[2017-05-03] MEDS ORDERED: METHADONE HCL 10 MG TABLET ONE (14:18)
[2017-05-03] MEDS ORDERED: METHADONE HCL 40 MG DISPERSABLE TABLET ONE (14:18)
[2017-05-03] MEDS: NICOTINE 14 MG/24 HOURS TOPICAL PATCH TD SCH (14:27)
[2017-05-03] MEDS: LIDOCAINE 5% TOPICAL PATCH TP SCH (14:27)
[2017-05-03] MEDS: HYDROCHLOROTHIAZIDE 25 MG TABLET (FP) PO SCH (14:28)
[2017-05-03] MEDS: METHADONE 40 MG, METHADONE 20 MG PO SCH (14:28)
[2017-05-03] MEDS: CYCLOBENZAPRINE HCL 5 MG TABLET PO SCH ×2 (14:28→22:39)
--- NOTE | 2017-05-03 15:59 | CONSULT ---
[facility] Psychiatric Consult - Data Date of interview: 05/03/17 Admission source: [facility] Identifying data: Pt. is a 62 year old man, single, without kids, and on SSD. This is one of multiple admissions for patient. Pt. admitted to for heroin and alcohol dependence. Substance Abuse History: Following information confirmed with Mr. Castro: - Smoking Cessation. Smoking history: Current every day smoker. Have you smoked in the past 12 months: Yes. Aproximately how many cigarettes per day: 10. Cigars Per Day: 0. Hx Chewing Tobacco Use: No. Initiated information on smoking cessation: Yes. 'Breaking Loose' booklet given: 05/03/17. - Substance & Tx. History. Hx Alcohol Use: Yes. Substance Use Type: Alcohol, Heroin. Hx Substance Use Treatment: Yes (MMTP). - Substances Abused. Alcohol. Route: Oral. Frequency: Daily. Amount used: vodka(2 pints). Age of first use: 16. Date of Last Use: 05/02/17. Heroin. Route: Inhalation. Frequency: Daily. Amount used: 1-2 bags. Age of first use: 17. Date of Last Use: 04/29/17 Medical History: Asthma, diabetes, and hypertension. Psychiatric History: Pt denies h/o psychiatric hospitalization. Reports OPC at [facility] with Dr. Sanders. Pt is currently prescribed seroquel 100mg but reports medication nonadherence. Pt. requesting to resume seroquel 50mg for insomnia while in detox. Pt. denies h/o suicide attempt. Physical/Sexual Abuse/Trauma History: Denies. Additional Comment: Urine Drug Screen Results: BZO-Benzodiazepines, MTD- Methadone, TCA-Tricyclic Antidepress Mental Status Exam - Mental Status Exam Alert and Oriented to: Time, Place, Person Cognitive Function: Fair Patient Appearance: Unkempt Mood: Depressed Affect: Mood Congruent Patient Behavior: Crying (Pt. tearful.), Cooperative Voice Loudness: Normal Thought Process: Goal Oriented Thought Disorder: Not Present Hallucinations: Denies Suicidal Ideation: Denies Homicidal Ideation: Denies Insight/Judgement: Poor Sleep: Poorly Appetite: Fair Muscle strength/Tone: Normal Gait/Station: Other (Pt. uses a cane to ambulate.) Psychiatric Findings - Problem List ([place] 1, 2,3) (1) Alcohol dependence with uncomplicated withdrawal Current Visit: Yes Status: Acute (2) Alcohol dependence Current Visit: Yes Status: Acute (3) Bipolar disorder Current Visit: Yes Status: Chronic Comment: Self reports. (4) Nicotine dependence Current Visit: Yes Status: Chronic Qualifiers: (5) Opioid dependence on agonist therapy Current Visit: Yes Status: Chronic (6) Methadone maintenance therapy patient Current Visit: Yes Status: Chronic Comment: 90mg of methadone. verified pending (7) Insomnia Current Visit: Yes Status: Acute - Initial Treatment Plan Initial Treatment Plan: Psychoeducation provided. Detoxification in progress. Pt. requested seroquel 50mg for sleep but at this time seroquel will not be ordered. Pt. presents as sedated and fatigure and ambulates with a walker which puts him at a higher risk for falls. Pt. made aware of this decision and is in agreement with the psychiatric nurse practitioner.
[2017-05-03] MEDS: chlordiazePOXIDE HCL 25 MG CAPSULE PO SCH ×2 (17:25→22:39)
[2017-05-03] MEDS: metFORMIN HCL 500 MG TABLET (FP) PO SCH (17:25)
[2017-05-03] MEDS: THIAMINE HCL 100 MG TABLET (FP) PO SCH ×2 (22:39→22:40)
[2017-05-03] MEDS: LIDOCAINE PATCH REMOVAL MC SCH (23:10)
[2017-05-03 23:14] LABS: URINE APPEARANCE TURBID; URINE BILIRUBIN NEGATIVE (NEGATIVE); URINE BLOOD NEGATIVE (NEGATIVE); URINE COLOR YELLOW; URINE GLUCOSE (UA) NEGATIVE (NEGATIVE); URINE KETONE NEGATIVE (NEGATIVE); URINE LEUK ESTERASE TRACE (NEGATIVE); URINE NITRITE NEGATIVE (NEGATIVE); URINE PROTEIN NEGATIVE (NEGATIVE); URINE UROBILINOGEN NEGATIVE mg/dL (0.2-1.0)
[2017-05-04 00:24] LABS: URINE MUCUS RARE
[2017-05-04] MEDS: chlordiazePOXIDE HCL 25 MG CAPSULE PO SCH ×4 (05:26→22:13)
[2017-05-04] MEDS: CYCLOBENZAPRINE HCL 5 MG TABLET PO SCH ×3 (05:26→22:14)
[2017-05-04] MEDS: metFORMIN HCL 500 MG TABLET (FP) PO SCH ×2 (08:45→17:28)
[2017-05-04] MEDS ORDERED: METHADONE HCL 10 MG TABLET ONE (08:59)
[2017-05-04] MEDS ORDERED: METHADONE HCL 40 MG DISPERSABLE TABLET ONE (08:59)
--- NOTE | 2017-05-04 09:55 | PN ---
S CIWA - CIWA Score Nausea/Vomitin Muscle Tremors: 3 Anxiety: 3 Agitation: 1-Slight > Activity Paroxysmal Sweats: 3 Orientation: 0-Oriented Tacttile Disturbances: 0-None Auditory Disturbances: 7Continuous Hallucination Visual Disturbances: 0-None Headache: 0-None Present CIWA-Ar Total Score: 19 BHS Progress Note (SOAP) Subjective: b/l knee pain tremors night sweats trouble sleeping Objective: 05/04/17 09:54 sitting up in bed, cane by bedside no acute distress Vital Signs Temperature 98.4 F 05/04/17 06:00 Pulse Rate 82 05/04/17 06:00 Respiratory Rate 18 05/04/17 06:00 Blood Pressure 122/63 05/04/17 06:00 O2 Sat by Pulse Oximetry (%) Laboratory Last Values POC Glucometer 94 UNITS (80-120) 05/04/17 05:25 Urine Color Yellow 05/03/17 21:00 Urine Appearance Turbid 05/03/17 21:00 Urine pH 5.0 (5.0-8.0) 05/03/17 21:00 Ur Specific [place] 1.019 (1.001-1.035) 05/03/17 21:00 Urine Protein Negative (NEGATIVE) 05/03/17 21:00 Urine Glucose (UA) Negative (NEGATIVE) 05/03/17 21:00 Urine Ketones Negative (NEGATIVE) 05/03/17 21:00 Urine Blood Negative (NEGATIVE) 05/03/17 21:00 Urine Nitrite Negative (NEGATIVE) 05/03/17 21:00 Urine Bilirubin Negative (NEGATIVE) 05/03/17 21:00 Urine Urobilinogen Negative mg/dL (0.2-1.0) 05/03/17 21:00 Ur Leukocyte Esterase Trace (NEGATIVE) 05/03/17 21:00 Urine WBC (Auto) None /hpf (3-5) 05/03/17 21:00 Urine RBC (Auto) 3 /hpf (0-3) 05/03/17 21:00 Urine Mucus Rare 05/03/17 21:00 HIV 1&2 Antibody Screen Negative 05/03/17 12:50 HIV P24 Antigen Negative 05/03/17 12:50 labs noted 05/04/17 09:56 Assessment: 05/04/17 09:55 withdrawal symptoms Plan: continue detox increase fluid intake Motrin PRN
[2017-05-04] MEDS: PRENATAL VITAMINS W/ FOLIC ACID TABLET (FP) PO SCH (10:19)
[2017-05-04] MEDS: METHADONE 40 MG, METHADONE 20 MG PO SCH (10:19)
[2017-05-04] MEDS: NICOTINE 14 MG/24 HOURS TOPICAL PATCH TD SCH (10:23)
[2017-05-04] MEDS: LIDOCAINE 5% TOPICAL PATCH TP SCH (10:23)
[2017-05-04 10:44] LABS: ANION GAP 4 (8-16); BLOOD UREA NITROGEN 14 mg/dL (7-18); CALCIUM 8.3 mg/dL (8.5-10.1); CHLORIDE 104 mmol/L (98-107); CO2 32 mmol/L (21-32); GLUCOSE,RANDOM 88 mg/dL (74-106); SGPT/ALT 40 U/L (12-78); SODIUM 140 mmol/L (136-145)
[2017-05-04 10:48] LABS: ALK PHOS 119 U/L (45-117); BILIRUBIN,TOTAL 0.4 mg/dL (0.2-1.0); CREATININE 0.9 mg/dL (0.7-1.3); SGOT/AST 47 U/L (15-37); TOT PROT 6.6 g/dl (6.4-8.2)
[2017-05-04 10:49] LABS: HEMATOCRIT 37.4 % (35.4-49); HEMOGLOBIN 11.9 GM/dL (11.7-16.9); MCH 30.8 pg (25.7-33.7); MCHC 31.9 g/dl (32.0-35.9); MEAN CELL VOLUME 96.4 fl (80-96); PLATELET COUNT 174 K/MM3 (134-434); RBC 3.88 M/mm3 (4.00-5.60); RDW 14.7 % (11.9-15.9); WHITE BLOOD COUNT 5.8 K/mm3 (4.0-10.0)
[2017-05-04] MEDS: HYDROCHLOROTHIAZIDE 25 MG TABLET (FP) PO SCH (12:54)
[2017-05-04] MEDS: SPIRONOLACTONE 25 MG TABLET (FP) PO SCH (12:54)
--- NOTE | 2017-05-04 17:09 | EKG ---
Test Reason : Blood Pressure : / mmHG Vent. Rate : 078 BPM Atrial Rate : 078 BPM P-R Int : 132 ms QRS Dur : 088 ms QT Int : 442 ms P-R-T Axes : 059 037 021 degrees QTc Int : 503 ms NORMAL SINUS RHYTHM PACEMAKER UNDER-SENSING, VS PACING SPIKE IS ARTIFACTUAL--CLINICAL CORRELATION REQUIRED PROLONGED QT ABNORMAL ECG Confirmed by TEE BORRERO MD ([id number]) on 05/04/2017 5:08:54 PM Referred By: Confirmed By:TEE BORRERO MD
[2017-05-04] MEDS: THIAMINE HCL 100 MG TABLET (FP) PO SCH ×2 (22:13→22:14)
[2017-05-04] MEDS: LIDOCAINE PATCH REMOVAL MC SCH (22:13)
[2017-05-05] MEDS: CYCLOBENZAPRINE HCL 5 MG TABLET PO SCH ×3 (05:22→22:05)
[2017-05-05] MEDS: chlordiazePOXIDE HCL 25 MG CAPSULE PO SCH ×2 (05:22→10:14)
[2017-05-05] MEDS: IBUPROFEN 400 MG TABLET (FP) PO PRN ×2 (05:23→22:06)
[2017-05-05] MEDS: metFORMIN HCL 500 MG TABLET (FP) PO SCH ×2 (07:02→17:26)
[2017-05-05] MEDS: SPIRONOLACTONE 25 MG TABLET (FP) PO SCH (10:13)
[2017-05-05] MEDS: PRENATAL VITAMINS W/ FOLIC ACID TABLET (FP) PO SCH (10:14)
[2017-05-05] MEDS: HYDROCHLOROTHIAZIDE 25 MG TABLET (FP) PO SCH (10:14)
[2017-05-05] MEDS: NICOTINE 14 MG/24 HOURS TOPICAL PATCH TD SCH (10:15)
[2017-05-05] MEDS: LIDOCAINE 5% TOPICAL PATCH TP SCH (10:16)
[2017-05-05] MEDS ORDERED: METHADONE HCL 10 MG TABLET ONE (10:17)
[2017-05-05] MEDS: METHADONE 40 MG, METHADONE 20 MG PO SCH (10:17)
[2017-05-05] MEDS ORDERED: METHADONE HCL 40 MG DISPERSABLE TABLET ONE (10:17)
--- NOTE | 2017-05-05 11:58 | PN ---
[facility] CIWA - CIWA Score Nausea/Vomitin-No Nausea/No Vomiting Muscle Tremors: 3 Anxiety: 3 Agitation: 3 Paroxysmal Sweats: 1-Minimal Palms Moist Orientation: 0-Oriented Tacttile Disturbances: 0-None Auditory Disturbances: 0-None Visual Disturbances: 0-None Headache: 0-None Present CIWA-Ar Total Score: 10 S Progress Note (SOAP) Subjective: tremor anxiety sweat can not sleep throughout the night Objective: 05/05/17 11:56 Vital Signs Temperature 98.0 F 05/05/17 10:00 Pulse Rate 88 05/05/17 10:00 Respiratory Rate 20 05/05/17 10:00 Blood Pressure 108/69 05/05/17 10:00 O2 Sat by Pulse Oximetry (%) Laboratory Last Values WBC 5.8 K/mm3 (4.0-10.0) D 05/04/17 06:00 RBC 3.88 M/mm3 (4.00-5.60) L 05/04/17 06:00 Hgb 11.9 GM/dL (11.7-16.9) 05/04/17 06:00 Hct 37.4 % (35.4-49) 05/04/17 06:00 MCV 96.4 fl (80-96) H 05/04/17 06:00 MCH 30.8 pg (25.7-33.7) 05/04/17 06:00 MCHC 31.9 g/dl (32.0-35.9) L 05/04/17 06:00 RDW 14.7 % (11.9-15.9) 05/04/17 06:00 Plt Count 174 K/MM3 (134-434) D 05/04/17 06:00 MPV 9.0 fl (7.5-11.1) D 05/04/17 06:00 Sodium 140 mmol/L (136-145) 05/04/17 06:00 Potassium 5.0 mmol/L (3.5-5.1) 05/04/17 06:00 Chloride 104 mmol/L (98-107) 05/04/17 06:00 Carbon Dioxide 32 mmol/L (21-32) 05/04/17 06:00 Anion Gap 4 (8-16) L 05/04/17 06:00 BUN 14 mg/dL (7-18) D 05/04/17 06:00 Creatinine 0.9 mg/dL (0.7-1.3) 05/04/17 06:00 Creat Clearance w eGFR > 60 (>60) 05/04/17 06:00 POC Glucometer 104 UNITS (80-120) 05/05/17 05:21 Random Glucose 88 mg/dL (74-106) D 05/04/17 06:00 Calcium 8.3 mg/dL (8.5-10.1) L 05/04/17 06:00 Total Bilirubin 0.4 mg/dL (0.2-1.0) D 05/04/17 06:00 AST 47 U/L (15-37) H D 05/04/17 06:00 ALT 40 U/L (12-78) D 05/04/17 06:00 Alkaline Phosphatase 119 U/L (45-117) H 05/04/17 06:00 Total Protein 6.6 g/dl (6.4-8.2) 05/04/17 06:00 Albumin 3.0 g/dl (3.4-5.0) L 05/04/17 06:00 Urine Color Yellow 05/03/17 21:00 Urine Appearance Turbid 05/03/17 21:00 Urine pH 5.0 (5.0-8.0) 05/03/17 21:00 Ur Specific [place] 1.019 (1.001-1.035) 05/03/17 21:00 Urine Protein Negative (NEGATIVE) 05/03/17 21:00 Urine Glucose (UA) Negative (NEGATIVE) 05/03/17 21:00 Urine Ketones Negative (NEGATIVE) 05/03/17 21:00 Urine Blood Negative (NEGATIVE) 05/03/17 21:00 Urine Nitrite Negative (NEGATIVE) 05/03/17 21:00 Urine Bilirubin Negative (NEGATIVE) 05/03/17 21:00 Urine Urobilinogen Negative mg/dL (0.2-1.0) 05/03/17 21:00 Ur Leukocyte Esterase Trace (NEGATIVE) 05/03/17 21:00 Urine WBC (Auto) None /hpf (3-5) 05/03/17 21:00 Urine RBC (Auto) 3 /hpf (0-3) 05/03/17 21:00 Urine Mucus Rare 05/03/17 21:00 RPR Titer Nonreactive (NONREACTIVE) 05/04/17 06:00 HIV 1&2 Antibody Screen Negative 05/03/17 12:50 HIV P24 Antigen Negative 05/03/17 12:50 lab noted Assessment: 05/05/17 11:57 withdrawal sx Plan: continue detox
[2017-05-05] MEDS: chlordiazePOXIDE 5 MG CAPSULE PO SCH ×2 (17:26→22:06)
[2017-05-05] MEDS: LIDOCAINE PATCH REMOVAL MC SCH (22:06)
[2017-05-05] MEDS: THIAMINE HCL 100 MG TABLET (FP) PO SCH ×2 (22:07→22:08)
[2017-05-06] MEDS: chlordiazePOXIDE 5 MG CAPSULE PO SCH ×2 (05:34→10:17)
[2017-05-06] MEDS: CYCLOBENZAPRINE HCL 5 MG TABLET PO SCH ×3 (05:34→22:11)
[2017-05-06] MEDS: metFORMIN HCL 500 MG TABLET (FP) PO SCH ×2 (07:00→17:36)
[2017-05-06] MEDS: HYDROCHLOROTHIAZIDE 25 MG TABLET (FP) PO SCH (10:17)
[2017-05-06] MEDS: PRENATAL VITAMINS W/ FOLIC ACID TABLET (FP) PO SCH (10:17)
[2017-05-06] MEDS ORDERED: METHADONE HCL 40 MG DISPERSABLE TABLET ONE (10:18)
[2017-05-06] MEDS ORDERED: METHADONE HCL 10 MG TABLET ONE (10:18)
[2017-05-06] MEDS: METHADONE 40 MG, METHADONE 20 MG PO SCH (10:19)
[2017-05-06] MEDS: NICOTINE 14 MG/24 HOURS TOPICAL PATCH TD SCH (10:20)
[2017-05-06] MEDS: LIDOCAINE 5% TOPICAL PATCH TP SCH (10:22)
[2017-05-06] MEDS: SPIRONOLACTONE 25 MG TABLET (FP) PO SCH (12:25)
--- NOTE | 2017-05-06 13:01 | PN ---
BHS Progress Note (SOAP) Subjective: ALERT,IRRITABLE,ANXIOUS,INTERRUPTED SLEEP,TREMOR Objective: 05/06/17 13:00 Vital Signs Temperature 98 F 05/06/17 11:52 Pulse Rate 76 05/06/17 11:52 Respiratory Rate 18 05/06/17 11:52 Blood Pressure 116/73 05/06/17 11:52 O2 Sat by Pulse Oximetry (%) Assessment: 05/06/17 13:00 WITHDRAWAL SYMPTOM 05/06/17 13:01 BGM 91 Plan: CONTINUE DETOX,,BGM MONITORING,DISCHARGE IN AM
[2017-05-06] MEDS: chlordiazePOXIDE HCL 10 MG CAPSULE PO SCH ×2 (17:36→22:10)
[2017-05-06] MEDS: THIAMINE HCL 100 MG TABLET (FP) PO SCH ×2 (22:10→22:11)
[2017-05-06] MEDS: LIDOCAINE PATCH REMOVAL MC SCH (23:13)
[2017-05-07] MEDS: CYCLOBENZAPRINE HCL 5 MG TABLET PO SCH ×3 (05:45→21:36)
[2017-05-07] MEDS: chlordiazePOXIDE HCL 10 MG CAPSULE PO SCH ×2 (05:45→10:10)
[2017-05-07] MEDS: IBUPROFEN 400 MG TABLET (FP) PO PRN (05:48)
[2017-05-07] MEDS ORDERED: METHADONE HCL 40 MG DISPERSABLE TABLET ONE (09:08)
[2017-05-07] MEDS ORDERED: METHADONE HCL 10 MG TABLET ONE (09:08)
[2017-05-07] MEDS: METHADONE 40 MG, METHADONE 20 MG PO SCH (10:09)
[2017-05-07] MEDS: NICOTINE 14 MG/24 HOURS TOPICAL PATCH TD SCH (10:09)
[2017-05-07] MEDS: SPIRONOLACTONE 25 MG TABLET (FP) PO SCH (10:10)
[2017-05-07] MEDS: HYDROCHLOROTHIAZIDE 25 MG TABLET (FP) PO SCH (10:10)
[2017-05-07] MEDS: PRENATAL VITAMINS W/ FOLIC ACID TABLET (FP) PO SCH (10:10)
--- NOTE | 2017-05-07 10:21 | PN ---
BHS Progress Note (SOAP) Subjective: low appetite sweats shakes chills Objective: 05/07/17 10:20 Vital Signs Temperature 99.5 F 05/07/17 06:39 Pulse Rate 83 05/07/17 06:39 Respiratory Rate 18 05/07/17 06:39 Blood Pressure 124/69 05/07/17 06:39 O2 Sat by Pulse Oximetry (%) aaox3 ambulating no acute distress Assessment: 05/07/17 10:20 withdrawal sx Plan: continue detox increase fluids
[2017-05-07] MEDS: LIDOCAINE 5% TOPICAL PATCH TP SCH (15:26)
[2017-05-07] MEDS: metFORMIN HCL 500 MG TABLET (FP) PO SCH ×2 (15:26→16:47)
[2017-05-07 16:41] VITALS: BMI 32.1
[2017-05-07] MEDS: LIDOCAINE PATCH REMOVAL MC SCH (21:34)
[2017-05-07] MEDS: THIAMINE HCL 100 MG TABLET (FP) PO SCH ×2 (21:36→21:37)
[2017-05-07] MEDS: hydrOXYzine PAMOATE 50 MG CAPSULE (FP) PO PRN (21:36)
[2017-05-08] MEDS: CYCLOBENZAPRINE HCL 5 MG TABLET PO SCH ×3 (06:07→21:10)
[2017-05-08] MEDS ORDERED: METHADONE HCL 40 MG DISPERSABLE TABLET PO SCH (06:30)
[2017-05-08] MEDS ORDERED: METHADONE HCL 10 MG TABLET ONE (07:07)
[2017-05-08] MEDS ORDERED: METHADONE HCL 40 MG DISPERSABLE TABLET ONE (07:07)
[2017-05-08] MEDS: METHADONE 40 MG, METHADONE 20 MG PO SCH (07:09)
[2017-05-08] MEDS: metFORMIN HCL 500 MG TABLET (FP) PO SCH ×2 (07:11→16:51)
[2017-05-08] MEDS: LIDOCAINE 5% TOPICAL PATCH TP SCH (09:46)
[2017-05-08] MEDS: NICOTINE 14 MG/24 HOURS TOPICAL PATCH TD SCH (09:46)
[2017-05-08] MEDS: PRENATAL VITAMINS W/ FOLIC ACID TABLET (FP) PO SCH (09:46)
[2017-05-08] MEDS: HYDROCHLOROTHIAZIDE 25 MG TABLET (FP) PO SCH (09:46)
[2017-05-08] MEDS: SPIRONOLACTONE 25 MG TABLET (FP) PO SCH (09:46)
[2017-05-08] MEDS: IBUPROFEN 400 MG TABLET (FP) PO PRN (10:14)
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
[2017-05-08] MEDS: QUEtiapine FUMARATE 100 MG TABLET (FP) PO SCH (21:10)
[2017-05-08] MEDS: traZODone HCL 100 MG TABLET (FP) PO SCH (21:10)
[2017-05-08] MEDS: THIAMINE HCL 100 MG TABLET (FP) PO SCH ×2 (21:10→21:12)
[2017-05-08] MEDS: LIDOCAINE PATCH REMOVAL MC SCH (21:11)
[2017-05-09] MEDS ORDERED: METHADONE HCL 10 MG TABLET ONE (04:11)
[2017-05-09] MEDS ORDERED: METHADONE HCL 40 MG DISPERSABLE TABLET ONE (04:12)
[2017-05-09] MEDS: METHADONE 40 MG, METHADONE 20 MG PO SCH (06:30)
[2017-05-09] MEDS: CYCLOBENZAPRINE HCL 5 MG TABLET PO SCH ×3 (06:30→21:58)
[2017-05-09] MEDS: metFORMIN HCL 500 MG TABLET (FP) PO SCH ×2 (06:30→16:48)
[2017-05-09] MEDS: PRENATAL VITAMINS W/ FOLIC ACID TABLET (FP) PO SCH (09:40)
[2017-05-09] MEDS: NICOTINE 14 MG/24 HOURS TOPICAL PATCH TD SCH (09:40)
[2017-05-09] MEDS: LIDOCAINE 5% TOPICAL PATCH TP SCH (09:41)
[2017-05-09] MEDS: IBUPROFEN 400 MG TABLET (FP) PO PRN (09:41)
[2017-05-09] MEDS: HYDROCHLOROTHIAZIDE 25 MG TABLET (FP) PO SCH (09:43)
[2017-05-09] MEDS: SPIRONOLACTONE 25 MG TABLET (FP) PO SCH (09:43)
[2017-05-09] MEDS: QUEtiapine FUMARATE 100 MG TABLET (FP) PO SCH (21:57)
[2017-05-09] MEDS: traZODone HCL 100 MG TABLET (FP) PO SCH (21:57)
[2017-05-09] MEDS: LIDOCAINE PATCH REMOVAL MC SCH (21:58)
[2017-05-09] MEDS: THIAMINE HCL 100 MG TABLET (FP) PO SCH ×2 (21:58→21:59)
[2017-05-10] MEDS ORDERED: METHADONE HCL 10 MG TABLET ONE (04:18)
[2017-05-10] MEDS ORDERED: METHADONE HCL 40 MG DISPERSABLE TABLET ONE (04:18)
[2017-05-10] MEDS: CYCLOBENZAPRINE HCL 5 MG TABLET PO SCH ×3 (06:39→22:02)
[2017-05-10] MEDS: METHADONE 40 MG, METHADONE 20 MG PO SCH (06:39)
[2017-05-10] MEDS: metFORMIN HCL 500 MG TABLET (FP) PO SCH ×2 (07:35→16:54)
[2017-05-10] MEDS: IBUPROFEN 400 MG TABLET (FP) PO PRN (08:24)
[2017-05-10] MEDS: PRENATAL VITAMINS W/ FOLIC ACID TABLET (FP) PO SCH (10:29)
[2017-05-10] MEDS: NICOTINE 14 MG/24 HOURS TOPICAL PATCH TD SCH (10:29)
[2017-05-10] MEDS: LIDOCAINE 5% TOPICAL PATCH TP SCH (10:30)
[2017-05-10] MEDS: HYDROCHLOROTHIAZIDE 25 MG TABLET (FP) PO SCH (10:30)
[2017-05-10] MEDS: SPIRONOLACTONE 25 MG TABLET (FP) PO SCH (10:30)
[2017-05-10] MEDS: hydrOXYzine PAMOATE 50 MG CAPSULE (FP) PO PRN (22:02)
[2017-05-10] MEDS: THIAMINE HCL 100 MG TABLET (FP) PO SCH ×2 (22:02→22:03)
[2017-05-10] MEDS: QUEtiapine FUMARATE 100 MG TABLET (FP) PO SCH (22:03)
[2017-05-10] MEDS: LIDOCAINE PATCH REMOVAL MC SCH (22:03)
[2017-05-10] MEDS: traZODone HCL 100 MG TABLET (FP) PO SCH (22:03)
[2017-05-11] MEDS ORDERED: METHADONE HCL 10 MG TABLET ONE (04:13)
[2017-05-11] MEDS ORDERED: METHADONE HCL 40 MG DISPERSABLE TABLET ONE (04:13)
[2017-05-11] MEDS: CYCLOBENZAPRINE HCL 5 MG TABLET PO SCH ×3 (06:24→21:13)
[2017-05-11] MEDS: METHADONE 40 MG, METHADONE 20 MG PO SCH (06:24)
[2017-05-11] MEDS: metFORMIN HCL 500 MG TABLET (FP) PO SCH ×2 (07:23→16:51)
[2017-05-11] MEDS: SPIRONOLACTONE 25 MG TABLET (FP) PO SCH (10:19)
[2017-05-11] MEDS: NICOTINE 14 MG/24 HOURS TOPICAL PATCH TD SCH (10:19)
[2017-05-11] MEDS: PRENATAL VITAMINS W/ FOLIC ACID TABLET (FP) PO SCH (10:19)
[2017-05-11] MEDS: HYDROCHLOROTHIAZIDE 25 MG TABLET (FP) PO SCH (10:19)
[2017-05-11] MEDS: LIDOCAINE 5% TOPICAL PATCH TP SCH (10:19)
[2017-05-11] MEDS: IBUPROFEN 400 MG TABLET (FP) PO PRN ×2 (12:47→19:54)
[2017-05-11] MEDS: traZODone HCL 100 MG TABLET (FP) PO SCH (21:13)
[2017-05-11] MEDS: QUEtiapine FUMARATE 100 MG TABLET (FP) PO SCH (21:13)
[2017-05-11] MEDS: THIAMINE HCL 100 MG TABLET (FP) PO SCH ×2 (21:13→22:06)
[2017-05-11] MEDS: LIDOCAINE PATCH REMOVAL MC SCH (21:15)
[2017-05-12] MEDS ORDERED: METHADONE HCL 10 MG TABLET ONE (04:17)
[2017-05-12] MEDS ORDERED: METHADONE HCL 40 MG DISPERSABLE TABLET ONE (04:17)
[2017-05-12] MEDS: CYCLOBENZAPRINE HCL 5 MG TABLET PO SCH ×3 (05:56→21:43)
[2017-05-12] MEDS: METHADONE 40 MG, METHADONE 20 MG PO SCH (05:57)
[2017-05-12] MEDS: metFORMIN HCL 500 MG TABLET (FP) PO SCH ×2 (07:01→16:47)
[2017-05-12] MEDS: LIDOCAINE 5% TOPICAL PATCH TP SCH (10:06)
[2017-05-12] MEDS: NICOTINE 14 MG/24 HOURS TOPICAL PATCH TD SCH (10:06)
[2017-05-12] MEDS: HYDROCHLOROTHIAZIDE 25 MG TABLET (FP) PO SCH (10:06)
[2017-05-12] MEDS: PRENATAL VITAMINS W/ FOLIC ACID TABLET (FP) PO SCH (10:06)
[2017-05-12] MEDS: SPIRONOLACTONE 25 MG TABLET (FP) PO SCH (10:07)
[2017-05-12] MEDS: IBUPROFEN 400 MG TABLET (FP) PO PRN (13:06)
[2017-05-12] MEDS: QUEtiapine FUMARATE 100 MG TABLET (FP) PO SCH (21:42)
[2017-05-12] MEDS: THIAMINE HCL 100 MG TABLET (FP) PO SCH ×2 (21:42→21:44)
[2017-05-12] MEDS: traZODone HCL 100 MG TABLET (FP) PO SCH (21:43)
[2017-05-12] MEDS: LIDOCAINE PATCH REMOVAL MC SCH (21:44)
[2017-05-13] MEDS ORDERED: METHADONE HCL 10 MG TABLET ONE (03:17)
[2017-05-13] MEDS ORDERED: METHADONE HCL 40 MG DISPERSABLE TABLET ONE (03:18)
[2017-05-13] MEDS: metFORMIN HCL 500 MG TABLET (FP) PO SCH ×2 (06:10→16:55)
[2017-05-13] MEDS: METHADONE 40 MG, METHADONE 20 MG PO SCH (06:10)
[2017-05-13] MEDS: CYCLOBENZAPRINE HCL 5 MG TABLET PO SCH ×3 (06:10→22:13)
--- NOTE | 2017-05-13 08:13 | PN ---
Psychiatric Progress Note Vital Signs: Vital Signs Period Temp Pulse Resp BP Sys/Cavazos Pulse Ox Last 24 Hr 98.4 F 79-89 18-19 98-132/62-75 ROS: Asthma, GERD, DM, HTN were medically managed Current Medications: Active Medications Generic Name Dose Route Start Last Admin Trade Name Freq PRN Reason Stop Dose Admin Acetaminophen 650 mg 05/03/17 12:58 05/05/17 06:43 Tylenol - PO 650 mg Q4H PRN Administration FEVER Al Hydroxide/Mg Hydroxide 30 ml 05/03/17 12:58 Mylanta Oral Suspension - PO Q6H PRN DYSPEPSIA Albuterol Sulfate 2 puff 05/03/17 13:00 Ventolin Hfa Inhaler - IH Q4H PRN ASTHMA Cyclobenzaprine HCl 5 mg 05/03/17 14:00 05/13/17 06:10 Cyclobenzaprine Hcl PO 5 mg TID THERESA Administration Eucalyptus/Menthol/Phenol/Sorbitol 1 each 05/03/17 12:58 Cepastat Lozenge - MM Q4H PRN SORE THROAT Guaifenesin 10 ml 05/03/17 12:58 Robitussin Dm - PO Q6H PRN COUGH Hydrochlorothiazide 25 mg 05/03/17 14:00 05/12/17 10:06 Hctz - PO Not Given DAILY THERESA Hydroxyzine Pamoate 50 mg 05/03/17 12:58 05/10/17 22:02 Vistaril - PO 50 mg Q4H PRN Administration AGITATION Ibuprofen 400 mg 05/03/17 12:58 05/12/17 13:06 Motrin - PO 400 mg Q6H PRN Administration PAIN LEVEL 4-6 Lactic Acid 1 applic 05/03/17 13:05 Lac-Hydrin 12 TP DAILY PRN DRY SKIN Lidocaine 1 patch 05/03/17 14:02 05/12/17 10:06 Lidoderm Patch - TP 1 patch DAILY THERESA Administration Loperamide HCl 4 mg 05/03/17 12:58 Imodium - PO Q6H PRN DIARRHEA Magnesium Citrate 300 ml 05/03/17 12:58 Citroma - PO Q48H PRN CONSTIPATION Magnesium Hydroxide 30 ml 05/03/17 12:58 Milk Of Magnesia - PO DAILY PRN CONSTIPATION Metformin HCl 1,000 mg 05/03/17 16:30 05/13/17 06:10 Glucophage - PO 1,000 mg BID@0700,1630 THERESA Administration Methadone HCl 40 mg/ Methadone 60 mg 05/08/17 07:00 05/13/17 06:10 HCl 20 mg PO 05/15/17 06:29 60 mg DAILY@0600 THERESA Administration Miscellaneous 1 each 05/03/17 22:00 05/12/17 21:44 Lidoderm Patch Removal MC 1 each DAILY@2200 THERESA Administration Nicotine 14 mg 05/03/17 14:07 05/12/17 10:06 Nicoderm Patch - TD 14 mg DAILY THERESA Administration Nicotine Polacrilex 2 mg 05/03/17 12:58 Nicorette Gum - BUC Q2H PRN NICOTINE REPLACEMENT RX Multivit/Folic Acid/Iron 1 tab 05/04/17 10:00 05/12/17 10:06 Vitamins (Sjr) - PO 1 tab DAILY THERESA Administration Pseudoephedrine/Triprolidine 1 combo 05/03/17 12:58 Actifed - PO TID PRN NASAL CONGESTION Quetiapine Fumarate 100 mg 05/08/17 22:00 05/12/17 21:42 Seroquel - PO 100 mg HS THERESA Administration Spironolactone 100 mg 05/04/17 10:00 05/12/17 10:07 Aldactone - PO Not Given DAILY THERESA Thiamine HCl 100 mg 05/03/17 22:00 05/12/17 21:42 Vitamin B1 - PO 100 mg HS THERESA Administration Thiamine HCl 100 mg 05/03/17 22:00 05/12/17 21:44 Vitamin B1 - PO 100 mg HS THERESA Administration Trazodone HCl 100 mg 05/08/17 22:00 05/12/17 21:43 Desyrel - PO 100 mg HS THERESA Administration Psychiatric Treatment Plan - Problem List (1) Alcohol dependence Current Visit: Yes (2) Opioid dependence on agonist therapy Current Visit: Yes (3) Nicotine dependence Current Visit: Yes Qualifiers: Nicotine product type: cigarettes (4) Bipolar disorder Current Visit: Yes Comment: Self reports. (5) Substance induced mood disorder Current Visit: Yes (6) Substance-induced sleep disorder Current Visit: Yes (7) Asthma Current Visit: Yes Qualifiers: Asthma severity: mild (8) GERD (gastroesophageal reflux disease) Current Visit: Yes Qualifiers: Esophagitis presence: without esophagitis Qualified Code(s): K21.9 - Gastro -esophageal reflux disease without esophagitis (9) Diabetes mellitus Current Visit: No Qualifiers: (10) Hypertension Current Visit: No Qualifiers: Hypertension type: essential hypertension Qualified Code(s): I10 - Essential (primary) hypertension
[2017-05-13] MEDS: PRENATAL VITAMINS W/ FOLIC ACID TABLET (FP) PO SCH (09:56)
[2017-05-13] MEDS: NICOTINE 14 MG/24 HOURS TOPICAL PATCH TD SCH (09:56)
[2017-05-13] MEDS: HYDROCHLOROTHIAZIDE 25 MG TABLET (FP) PO SCH (09:57)
[2017-05-13] MEDS: SPIRONOLACTONE 25 MG TABLET (FP) PO SCH (09:57)
[2017-05-13] MEDS: LIDOCAINE 5% TOPICAL PATCH TP SCH (09:57)
[2017-05-13] MEDS: IBUPROFEN 400 MG TABLET (FP) PO PRN (09:57)
[2017-05-13] MEDS: hydrOXYzine PAMOATE 50 MG CAPSULE (FP) PO PRN (22:13)
[2017-05-13] MEDS: traZODone HCL 100 MG TABLET (FP) PO SCH (22:13)
[2017-05-13] MEDS: THIAMINE HCL 100 MG TABLET (FP) PO SCH ×2 (22:13→22:17)
[2017-05-13] MEDS: QUEtiapine FUMARATE 100 MG TABLET (FP) PO SCH (22:13)
[2017-05-13] MEDS: LIDOCAINE PATCH REMOVAL MC SCH (22:14)
[2017-05-14] MEDS ORDERED: METHADONE HCL 40 MG DISPERSABLE TABLET ONE (04:20)
[2017-05-14] MEDS ORDERED: METHADONE HCL 10 MG TABLET ONE (04:20)
[2017-05-14] MEDS: CYCLOBENZAPRINE HCL 5 MG TABLET PO SCH ×3 (06:10→21:10)
[2017-05-14] MEDS: METHADONE 40 MG, METHADONE 20 MG PO SCH (06:11)
[2017-05-14] MEDS: metFORMIN HCL 500 MG TABLET (FP) PO SCH ×2 (07:28→16:53)
[2017-05-14] MEDS: PRENATAL VITAMINS W/ FOLIC ACID TABLET (FP) PO SCH (10:11)
[2017-05-14] MEDS: NICOTINE 14 MG/24 HOURS TOPICAL PATCH TD SCH (10:12)
[2017-05-14] MEDS: HYDROCHLOROTHIAZIDE 25 MG TABLET (FP) PO SCH (10:12)
[2017-05-14] MEDS: LIDOCAINE 5% TOPICAL PATCH TP SCH (10:12)
[2017-05-14] MEDS: SPIRONOLACTONE 25 MG TABLET (FP) PO SCH (10:12)
[2017-05-14] MEDS: IBUPROFEN 400 MG TABLET (FP) PO PRN (12:48)
[2017-05-14] MEDS: QUEtiapine FUMARATE 100 MG TABLET (FP) PO SCH (21:10)
[2017-05-14] MEDS: THIAMINE HCL 100 MG TABLET (FP) PO SCH ×2 (21:10)
[2017-05-14] MEDS: LIDOCAINE PATCH REMOVAL MC SCH (21:10)
[2017-05-14] MEDS: traZODone HCL 100 MG TABLET (FP) PO SCH (21:10)
[2017-05-15] MEDS ORDERED: METHADONE HCL 40 MG DISPERSABLE TABLET ONE (04:16)
[2017-05-15] MEDS ORDERED: METHADONE HCL 10 MG TABLET ONE (04:16)
[2017-05-15] MEDS: METHADONE 40 MG, METHADONE 20 MG PO SCH (06:33)
[2017-05-15] MEDS: CYCLOBENZAPRINE HCL 5 MG TABLET PO SCH ×3 (06:33→22:09)
[2017-05-15] MEDS: metFORMIN HCL 500 MG TABLET (FP) PO SCH ×2 (07:09→16:53)
[2017-05-15] MEDS: PRENATAL VITAMINS W/ FOLIC ACID TABLET (FP) PO SCH (10:13)
[2017-05-15] MEDS: SPIRONOLACTONE 25 MG TABLET (FP) PO SCH (10:13)
[2017-05-15] MEDS: IBUPROFEN 400 MG TABLET (FP) PO PRN (10:13)
[2017-05-15] MEDS: NICOTINE 14 MG/24 HOURS TOPICAL PATCH TD SCH (10:13)
[2017-05-15] MEDS: HYDROCHLOROTHIAZIDE 25 MG TABLET (FP) PO SCH (10:14)
[2017-05-15] MEDS: LIDOCAINE 5% TOPICAL PATCH TP SCH (10:14)
[2017-05-15] MEDS: THIAMINE HCL 100 MG TABLET (FP) PO SCH ×2 (22:08→22:09)
[2017-05-15] MEDS: traZODone HCL 100 MG TABLET (FP) PO SCH (22:09)
[2017-05-15] MEDS: LIDOCAINE PATCH REMOVAL MC SCH (22:09)
[2017-05-15] MEDS: QUEtiapine FUMARATE 100 MG TABLET (FP) PO SCH (22:09)
[2017-05-16] MEDS ORDERED: METHADONE HCL 10 MG TABLET ONE (04:19)
[2017-05-16] MEDS ORDERED: METHADONE HCL 40 MG DISPERSABLE TABLET ONE (04:19)
[2017-05-16] MEDS: CYCLOBENZAPRINE HCL 5 MG TABLET PO SCH ×3 (06:03→21:32)
[2017-05-16] MEDS: METHADONE 40 MG, METHADONE 20 MG PO SCH (06:03)
[2017-05-16] MEDS: metFORMIN HCL 500 MG TABLET (FP) PO SCH ×2 (07:16→19:00)
[2017-05-16] MEDS ORDERED: PT OWN MED DRAWER 7, Y5N ONE (09:05)
[2017-05-16] MEDS: PRENATAL VITAMINS W/ FOLIC ACID TABLET (FP) PO SCH (10:16)
[2017-05-16] MEDS: IBUPROFEN 400 MG TABLET (FP) PO PRN (10:16)
[2017-05-16] MEDS: HYDROCHLOROTHIAZIDE 25 MG TABLET (FP) PO SCH (10:17)
[2017-05-16] MEDS: LIDOCAINE 5% TOPICAL PATCH TP SCH (10:17)
[2017-05-16] MEDS: NICOTINE 14 MG/24 HOURS TOPICAL PATCH TD SCH (10:17)
[2017-05-16] MEDS: SPIRONOLACTONE 25 MG TABLET (FP) PO SCH (10:17)
[2017-05-16] MEDS: LIDOCAINE PATCH REMOVAL MC SCH (21:33)
[2017-05-16] MEDS: THIAMINE HCL 100 MG TABLET (FP) PO SCH ×2 (21:33→21:34)
[2017-05-16] MEDS: traZODone HCL 100 MG TABLET (FP) PO SCH (21:33)
[2017-05-16] MEDS: QUEtiapine FUMARATE 100 MG TABLET (FP) PO SCH (21:33)
[2017-05-17] MEDS ORDERED: METHADONE HCL 40 MG DISPERSABLE TABLET ONE (03:24)
[2017-05-17] MEDS ORDERED: METHADONE HCL 10 MG TABLET ONE (03:24)
[2017-05-17] MEDS: METHADONE 40 MG, METHADONE 20 MG PO SCH (06:20)
[2017-05-17] MEDS: CYCLOBENZAPRINE HCL 5 MG TABLET PO SCH ×3 (06:20→21:03)
[2017-05-17] MEDS: metFORMIN HCL 500 MG TABLET (FP) PO SCH ×2 (07:36→16:57)
[2017-05-17] MEDS: SPIRONOLACTONE 25 MG TABLET (FP) PO SCH (10:16)
[2017-05-17] MEDS: HYDROCHLOROTHIAZIDE 25 MG TABLET (FP) PO SCH (10:16)
[2017-05-17] MEDS: NICOTINE 14 MG/24 HOURS TOPICAL PATCH TD SCH (10:16)
[2017-05-17] MEDS: PRENATAL VITAMINS W/ FOLIC ACID TABLET (FP) PO SCH (10:16)
[2017-05-17] MEDS: LIDOCAINE 5% TOPICAL PATCH TP SCH (10:16)
[2017-05-17] MEDS: traZODone HCL 100 MG TABLET (FP) PO SCH (21:03)
[2017-05-17] MEDS: LIDOCAINE PATCH REMOVAL MC SCH (21:03)
[2017-05-17] MEDS: THIAMINE HCL 100 MG TABLET (FP) PO SCH ×2 (21:03→21:04)
[2017-05-17] MEDS: hydrOXYzine PAMOATE 50 MG CAPSULE (FP) PO PRN (21:03)
[2017-05-17] MEDS: QUEtiapine FUMARATE 100 MG TABLET (FP) PO SCH (21:04)
[2017-05-18] MEDS ORDERED: METHADONE HCL 10 MG TABLET ONE (03:03)
[2017-05-18] MEDS ORDERED: METHADONE HCL 40 MG DISPERSABLE TABLET ONE (03:03)
[2017-05-18] MEDS: CYCLOBENZAPRINE HCL 5 MG TABLET PO SCH ×3 (06:14→21:18)
[2017-05-18] MEDS: METHADONE 40 MG, METHADONE 20 MG PO SCH (06:14)
[2017-05-18] MEDS: metFORMIN HCL 500 MG TABLET (FP) PO SCH ×2 (07:01→17:41)
[2017-05-18] MEDS: HYDROCHLOROTHIAZIDE 25 MG TABLET (FP) PO SCH (09:57)
[2017-05-18] MEDS: SPIRONOLACTONE 25 MG TABLET (FP) PO SCH (09:57)
[2017-05-18] MEDS: LIDOCAINE 5% TOPICAL PATCH TP SCH (09:57)
[2017-05-18] MEDS: NICOTINE 14 MG/24 HOURS TOPICAL PATCH TD SCH (09:57)
[2017-05-18] MEDS: PRENATAL VITAMINS W/ FOLIC ACID TABLET (FP) PO SCH (09:58)
[2017-05-18] MEDS: THIAMINE HCL 100 MG TABLET (FP) PO SCH ×2 (21:18→21:19)
[2017-05-18] MEDS: QUEtiapine FUMARATE 100 MG TABLET (FP) PO SCH (21:18)
[2017-05-18] MEDS: LIDOCAINE PATCH REMOVAL MC SCH (21:18)
[2017-05-18] MEDS: traZODone HCL 100 MG TABLET (FP) PO SCH (21:18)
[2017-05-19] MEDS ORDERED: METHADONE HCL 10 MG TABLET ONE (02:46)
[2017-05-19] MEDS ORDERED: METHADONE HCL 40 MG DISPERSABLE TABLET ONE (02:47)
[2017-05-19] MEDS: METHADONE 40 MG, METHADONE 20 MG PO SCH (06:01)
[2017-05-19] MEDS: CYCLOBENZAPRINE HCL 5 MG TABLET PO SCH ×3 (06:02→21:17)
[2017-05-19] MEDS: metFORMIN HCL 500 MG TABLET (FP) PO SCH ×2 (07:01→17:36)
[2017-05-19] MEDS: NICOTINE 14 MG/24 HOURS TOPICAL PATCH TD SCH (09:18)
[2017-05-19] MEDS: SPIRONOLACTONE 25 MG TABLET (FP) PO SCH (09:18)
[2017-05-19] MEDS: LIDOCAINE 5% TOPICAL PATCH TP SCH (09:18)
[2017-05-19] MEDS: PRENATAL VITAMINS W/ FOLIC ACID TABLET (FP) PO SCH (09:19)
[2017-05-19] MEDS: HYDROCHLOROTHIAZIDE 25 MG TABLET (FP) PO SCH (09:19)
[2017-05-19] MEDS: THIAMINE HCL 100 MG TABLET (FP) PO SCH ×2 (21:17→21:18)
[2017-05-19] MEDS: traZODone HCL 100 MG TABLET (FP) PO SCH (21:17)
[2017-05-19] MEDS: QUEtiapine FUMARATE 100 MG TABLET (FP) PO SCH (21:17)
[2017-05-19] MEDS: LIDOCAINE PATCH REMOVAL MC SCH (22:30)
[2017-05-20] MEDS ORDERED: METHADONE HCL 40 MG DISPERSABLE TABLET ONE (03:54)
[2017-05-20] MEDS ORDERED: METHADONE HCL 10 MG TABLET ONE (03:54)
[2017-05-20] MEDS: CYCLOBENZAPRINE HCL 5 MG TABLET PO SCH ×3 (06:03→21:28)
[2017-05-20] MEDS: METHADONE 40 MG, METHADONE 20 MG PO SCH (06:03)
[2017-05-20] MEDS: metFORMIN HCL 500 MG TABLET (FP) PO SCH ×2 (07:13→16:54)
[2017-05-20] MEDS: PRENATAL VITAMINS W/ FOLIC ACID TABLET (FP) PO SCH (10:15)
[2017-05-20] MEDS: HYDROCHLOROTHIAZIDE 25 MG TABLET (FP) PO SCH (10:15)
[2017-05-20] MEDS: NICOTINE 14 MG/24 HOURS TOPICAL PATCH TD SCH (10:15)
[2017-05-20] MEDS: LIDOCAINE 5% TOPICAL PATCH TP SCH (10:15)
[2017-05-20] MEDS: SPIRONOLACTONE 25 MG TABLET (FP) PO SCH (10:51)
[2017-05-20] MEDS: QUEtiapine FUMARATE 100 MG TABLET (FP) PO SCH (21:28)
[2017-05-20] MEDS: traZODone HCL 100 MG TABLET (FP) PO SCH (21:28)
[2017-05-20] MEDS: THIAMINE HCL 100 MG TABLET (FP) PO SCH ×2 (21:28→21:29)
[2017-05-20] MEDS: hydrOXYzine PAMOATE 50 MG CAPSULE (FP) PO PRN (21:28)
[2017-05-20] MEDS: LIDOCAINE PATCH REMOVAL MC SCH (21:29)
[2017-05-21] MEDS ORDERED: METHADONE HCL 10 MG TABLET ONE (04:01)
[2017-05-21] MEDS ORDERED: METHADONE HCL 40 MG DISPERSABLE TABLET ONE (04:02)
[2017-05-21] MEDS: METHADONE 40 MG, METHADONE 20 MG PO SCH (06:05)
[2017-05-21] MEDS: CYCLOBENZAPRINE HCL 5 MG TABLET PO SCH ×3 (06:06→21:55)
[2017-05-21] MEDS: metFORMIN HCL 500 MG TABLET (FP) PO SCH ×2 (07:28→16:54)
[2017-05-21] MEDS: SPIRONOLACTONE 25 MG TABLET (FP) PO SCH (10:13)
[2017-05-21] MEDS: LIDOCAINE 5% TOPICAL PATCH TP SCH (10:14)
[2017-05-21] MEDS: NICOTINE 14 MG/24 HOURS TOPICAL PATCH TD SCH (10:14)
[2017-05-21] MEDS: HYDROCHLOROTHIAZIDE 25 MG TABLET (FP) PO SCH (10:14)
[2017-05-21] MEDS: PRENATAL VITAMINS W/ FOLIC ACID TABLET (FP) PO SCH (10:15)
[2017-05-21] MEDS: QUEtiapine FUMARATE 100 MG TABLET (FP) PO SCH (21:55)
[2017-05-21] MEDS: traZODone HCL 100 MG TABLET (FP) PO SCH (21:55)
[2017-05-21] MEDS: THIAMINE HCL 100 MG TABLET (FP) PO SCH ×2 (21:55→21:56)
[2017-05-21] MEDS: LIDOCAINE PATCH REMOVAL MC SCH (21:56)
[2017-05-22] MEDS ORDERED: METHADONE HCL 40 MG DISPERSABLE TABLET ONE (04:02)
[2017-05-22] MEDS ORDERED: METHADONE HCL 10 MG TABLET ONE (04:02)
[2017-05-22] MEDS: METHADONE 40 MG, METHADONE 20 MG PO SCH (06:09)
[2017-05-22] MEDS: CYCLOBENZAPRINE HCL 5 MG TABLET PO SCH ×3 (06:09→21:11)
[2017-05-22] MEDS: metFORMIN HCL 500 MG TABLET (FP) PO SCH ×2 (07:06→17:03)
[2017-05-22] MEDS: SPIRONOLACTONE 25 MG TABLET (FP) PO SCH (10:23)
[2017-05-22] MEDS: HYDROCHLOROTHIAZIDE 25 MG TABLET (FP) PO SCH (10:23)
[2017-05-22] MEDS: LIDOCAINE 5% TOPICAL PATCH TP SCH (10:23)
[2017-05-22] MEDS: NICOTINE 14 MG/24 HOURS TOPICAL PATCH TD SCH (10:23)
[2017-05-22] MEDS: PRENATAL VITAMINS W/ FOLIC ACID TABLET (FP) PO SCH (10:23)
[2017-05-22] MEDS ORDERED: QUEtiapine FUMARATE 50 MG TABLET ONE (19:31)
[2017-05-22] MEDS: THIAMINE HCL 100 MG TABLET (FP) PO SCH ×2 (21:10→22:19)
[2017-05-22] MEDS: traZODone HCL 100 MG TABLET (FP) PO SCH (21:10)
[2017-05-22] MEDS: QUEtiapine FUMARATE 100 MG TABLET (FP) PO SCH (21:12)
[2017-05-22] MEDS: LIDOCAINE PATCH REMOVAL MC SCH (22:19)
[2017-05-23] MEDS ORDERED: METHADONE HCL 40 MG DISPERSABLE TABLET ONE (03:15)
[2017-05-23] MEDS ORDERED: METHADONE HCL 10 MG TABLET ONE (03:15)
[2017-05-23] MEDS: METHADONE 40 MG, METHADONE 20 MG PO SCH (06:10)
[2017-05-23] MEDS: CYCLOBENZAPRINE HCL 5 MG TABLET PO SCH ×3 (06:10→21:03)
[2017-05-23] MEDS: metFORMIN HCL 500 MG TABLET (FP) PO SCH ×2 (07:29→16:36)
[2017-05-23] MEDS: PRENATAL VITAMINS W/ FOLIC ACID TABLET (FP) PO SCH (10:22)
[2017-05-23] MEDS: SPIRONOLACTONE 25 MG TABLET (FP) PO SCH (10:22)
[2017-05-23] MEDS: HYDROCHLOROTHIAZIDE 25 MG TABLET (FP) PO SCH (10:23)
[2017-05-23] MEDS: NICOTINE 14 MG/24 HOURS TOPICAL PATCH TD SCH (10:23)
[2017-05-23] MEDS: LIDOCAINE 5% TOPICAL PATCH TP SCH (10:23)
[2017-05-23] MEDS: LIDOCAINE PATCH REMOVAL MC SCH (21:03)
[2017-05-23] MEDS: traZODone HCL 100 MG TABLET (FP) PO SCH (21:03)
[2017-05-23] MEDS: QUEtiapine FUMARATE 100 MG TABLET (FP) PO SCH (21:03)
[2017-05-23] MEDS: THIAMINE HCL 100 MG TABLET (FP) PO SCH ×2 (21:03→21:04)
[2017-05-24] MEDS ORDERED: METHADONE HCL 10 MG TABLET ONE (04:02)
[2017-05-24] MEDS ORDERED: METHADONE HCL 40 MG DISPERSABLE TABLET ONE (04:02)
[2017-05-24] MEDS: METHADONE 40 MG, METHADONE 20 MG PO SCH (06:10)
[2017-05-24] MEDS: CYCLOBENZAPRINE HCL 5 MG TABLET PO SCH ×3 (06:10→21:19)
[2017-05-24] MEDS: metFORMIN HCL 500 MG TABLET (FP) PO SCH ×2 (07:02→17:15)
[2017-05-24] MEDS: NICOTINE 14 MG/24 HOURS TOPICAL PATCH TD SCH (10:23)
[2017-05-24] MEDS: LIDOCAINE 5% TOPICAL PATCH TP SCH (10:23)
[2017-05-24] MEDS: PRENATAL VITAMINS W/ FOLIC ACID TABLET (FP) PO SCH (10:23)
[2017-05-24] MEDS: SPIRONOLACTONE 25 MG TABLET (FP) PO SCH (10:23)
[2017-05-24] MEDS: HYDROCHLOROTHIAZIDE 25 MG TABLET (FP) PO SCH (10:23)
[2017-05-24] MEDS: LIDOCAINE PATCH REMOVAL MC SCH (21:19)
[2017-05-24] MEDS: traZODone HCL 100 MG TABLET (FP) PO SCH (21:19)
[2017-05-24] MEDS: THIAMINE HCL 100 MG TABLET (FP) PO SCH ×2 (21:19)
[2017-05-24] MEDS: QUEtiapine FUMARATE 100 MG TABLET (FP) PO SCH (21:19)
[2017-05-24] MEDS: hydrOXYzine PAMOATE 50 MG CAPSULE (FP) PO PRN (21:20)
[2017-05-25] MEDS ORDERED: METHADONE HCL 10 MG TABLET ONE (04:06)
[2017-05-25] MEDS ORDERED: METHADONE HCL 40 MG DISPERSABLE TABLET ONE (04:06)
[2017-05-25] MEDS: CYCLOBENZAPRINE HCL 5 MG TABLET PO SCH ×3 (05:48→21:14)
[2017-05-25] MEDS: METHADONE 40 MG, METHADONE 20 MG PO SCH (05:48)
[2017-05-25] MEDS: metFORMIN HCL 500 MG TABLET (FP) PO SCH ×2 (07:49→16:50)
[2017-05-25] MEDS: PRENATAL VITAMINS W/ FOLIC ACID TABLET (FP) PO SCH (10:24)
[2017-05-25] MEDS: LIDOCAINE 5% TOPICAL PATCH TP SCH (10:25)
[2017-05-25] MEDS: NICOTINE 14 MG/24 HOURS TOPICAL PATCH TD SCH (10:25)
[2017-05-25] MEDS: HYDROCHLOROTHIAZIDE 25 MG TABLET (FP) PO SCH (10:25)
[2017-05-25] MEDS: SPIRONOLACTONE 25 MG TABLET (FP) PO SCH (10:25)
[2017-05-25] MEDS: THIAMINE HCL 100 MG TABLET (FP) PO SCH ×2 (21:14→21:15)
[2017-05-25] MEDS: traZODone HCL 100 MG TABLET (FP) PO SCH (21:14)
[2017-05-25] MEDS: QUEtiapine FUMARATE 100 MG TABLET (FP) PO SCH (21:14)
[2017-05-25] MEDS: hydrOXYzine PAMOATE 50 MG CAPSULE (FP) PO PRN (21:14)
[2017-05-25] MEDS: LIDOCAINE PATCH REMOVAL MC SCH (22:03)
[2017-05-26] MEDS ORDERED: METHADONE HCL 10 MG TABLET ONE (04:08)
[2017-05-26] MEDS ORDERED: METHADONE HCL 40 MG DISPERSABLE TABLET ONE (04:09)
[2017-05-26] MEDS: METHADONE 40 MG, METHADONE 20 MG PO SCH (06:19)
[2017-05-26] MEDS: CYCLOBENZAPRINE HCL 5 MG TABLET PO SCH ×3 (06:19→21:09)
[2017-05-26] MEDS: metFORMIN HCL 500 MG TABLET (FP) PO SCH ×2 (07:41→16:43)
[2017-05-26] MEDS: NICOTINE 14 MG/24 HOURS TOPICAL PATCH TD SCH (10:20)
[2017-05-26] MEDS: PRENATAL VITAMINS W/ FOLIC ACID TABLET (FP) PO SCH (10:20)
[2017-05-26] MEDS: SPIRONOLACTONE 25 MG TABLET (FP) PO SCH (10:20)
[2017-05-26] MEDS: LIDOCAINE 5% TOPICAL PATCH TP SCH (10:20)
[2017-05-26] MEDS: HYDROCHLOROTHIAZIDE 25 MG TABLET (FP) PO SCH (10:20)
[2017-05-26] MEDS: QUEtiapine FUMARATE 100 MG TABLET (FP) PO SCH (21:09)
[2017-05-26] MEDS: THIAMINE HCL 100 MG TABLET (FP) PO SCH ×2 (21:09→21:10)
[2017-05-26] MEDS: hydrOXYzine PAMOATE 50 MG CAPSULE (FP) PO PRN (21:09)
[2017-05-26] MEDS: traZODone HCL 100 MG TABLET (FP) PO SCH (21:09)
[2017-05-26] MEDS: LIDOCAINE PATCH REMOVAL MC SCH (21:10)
[2017-05-27] MEDS ORDERED: METHADONE HCL 40 MG DISPERSABLE TABLET ONE (03:20)
[2017-05-27] MEDS ORDERED: METHADONE HCL 10 MG TABLET ONE (03:20)
[2017-05-27] MEDS: METHADONE 40 MG, METHADONE 20 MG PO SCH (06:17)
[2017-05-27] MEDS: CYCLOBENZAPRINE HCL 5 MG TABLET PO SCH ×3 (06:18→22:00)
[2017-05-27] MEDS: metFORMIN HCL 500 MG TABLET (FP) PO SCH ×2 (07:23→16:52)
[2017-05-27] MEDS: SPIRONOLACTONE 25 MG TABLET (FP) PO SCH (10:19)
[2017-05-27] MEDS: PRENATAL VITAMINS W/ FOLIC ACID TABLET (FP) PO SCH (10:19)
[2017-05-27] MEDS: NICOTINE 14 MG/24 HOURS TOPICAL PATCH TD SCH (10:19)
[2017-05-27] MEDS: LIDOCAINE 5% TOPICAL PATCH TP SCH (10:19)
[2017-05-27] MEDS: HYDROCHLOROTHIAZIDE 25 MG TABLET (FP) PO SCH (10:19)
[2017-05-27] MEDS: THIAMINE HCL 100 MG TABLET (FP) PO SCH ×2 (21:59→22:01)
[2017-05-27] MEDS: hydrOXYzine PAMOATE 50 MG CAPSULE (FP) PO PRN (21:59)
[2017-05-27] MEDS: traZODone HCL 100 MG TABLET (FP) PO SCH (22:00)
[2017-05-27] MEDS: QUEtiapine FUMARATE 100 MG TABLET (FP) PO SCH (22:00)
[2017-05-27] MEDS: LIDOCAINE PATCH REMOVAL MC SCH (22:01)
[2017-05-28] MEDS ORDERED: METHADONE HCL 10 MG TABLET ONE (03:12)
[2017-05-28] MEDS ORDERED: METHADONE HCL 40 MG DISPERSABLE TABLET ONE (03:13)
[2017-05-28] MEDS: CYCLOBENZAPRINE HCL 5 MG TABLET PO SCH ×3 (06:01→21:15)
[2017-05-28] MEDS: METHADONE 40 MG, METHADONE 20 MG PO SCH (06:01)
[2017-05-28] MEDS: metFORMIN HCL 500 MG TABLET (FP) PO SCH ×2 (06:39→17:01)
[2017-05-28] MEDS: HYDROCHLOROTHIAZIDE 25 MG TABLET (FP) PO SCH (10:37)
[2017-05-28] MEDS: SPIRONOLACTONE 25 MG TABLET (FP) PO SCH (10:37)
[2017-05-28] MEDS: PRENATAL VITAMINS W/ FOLIC ACID TABLET (FP) PO SCH (10:37)
[2017-05-28] MEDS: NICOTINE 14 MG/24 HOURS TOPICAL PATCH TD SCH (10:37)
[2017-05-28] MEDS: LIDOCAINE 5% TOPICAL PATCH TP SCH (10:38)
[2017-05-28] MEDS: QUEtiapine FUMARATE 100 MG TABLET (FP) PO SCH (21:15)
[2017-05-28] MEDS: THIAMINE HCL 100 MG TABLET (FP) PO SCH ×2 (21:15→21:16)
[2017-05-28] MEDS: traZODone HCL 100 MG TABLET (FP) PO SCH (21:15)
[2017-05-28] MEDS: LIDOCAINE PATCH REMOVAL MC SCH (21:16)
[2017-05-29] MEDS ORDERED: METHADONE HCL 10 MG TABLET ONE (04:10)
[2017-05-29] MEDS ORDERED: METHADONE HCL 40 MG DISPERSABLE TABLET ONE (04:11)
[2017-05-29] MEDS: METHADONE 40 MG, METHADONE 20 MG PO SCH (06:17)
[2017-05-29] MEDS: CYCLOBENZAPRINE HCL 5 MG TABLET PO SCH ×3 (06:18→21:08)
[2017-05-29] MEDS: metFORMIN HCL 500 MG TABLET (FP) PO SCH ×2 (07:10→16:49)
[2017-05-29] MEDS: NICOTINE 14 MG/24 HOURS TOPICAL PATCH TD SCH (10:10)
[2017-05-29] MEDS: PRENATAL VITAMINS W/ FOLIC ACID TABLET (FP) PO SCH (10:10)
[2017-05-29] MEDS: LIDOCAINE 5% TOPICAL PATCH TP SCH (10:10)
[2017-05-29] MEDS: HYDROCHLOROTHIAZIDE 25 MG TABLET (FP) PO SCH (10:10)
[2017-05-29] MEDS: SPIRONOLACTONE 25 MG TABLET (FP) PO SCH (10:10)
[2017-05-29] MEDS: THIAMINE HCL 100 MG TABLET (FP) PO SCH ×2 (21:08→21:09)
[2017-05-29] MEDS: traZODone HCL 100 MG TABLET (FP) PO SCH (21:08)
[2017-05-29] MEDS: QUEtiapine FUMARATE 100 MG TABLET (FP) PO SCH (21:08)
[2017-05-29] MEDS: hydrOXYzine PAMOATE 50 MG CAPSULE (FP) PO PRN (21:08)
[2017-05-29] MEDS: LIDOCAINE PATCH REMOVAL MC SCH (21:09)
[2017-05-30] MEDS ORDERED: METHADONE HCL 40 MG DISPERSABLE TABLET ONE (04:20)
[2017-05-30] MEDS ORDERED: METHADONE HCL 10 MG TABLET ONE (04:20)
[2017-05-30] MEDS: CYCLOBENZAPRINE HCL 5 MG TABLET PO SCH ×3 (06:00→21:07)
[2017-05-30] MEDS: METHADONE 40 MG, METHADONE 20 MG PO SCH (06:00)
[2017-05-30 06:58] VITALS: TEMP 97.5
[2017-05-30] MEDS: metFORMIN HCL 500 MG TABLET (FP) PO SCH ×2 (07:10→16:53)
[2017-05-30] MEDS: PRENATAL VITAMINS W/ FOLIC ACID TABLET (FP) PO SCH (10:20)
[2017-05-30] MEDS: HYDROCHLOROTHIAZIDE 25 MG TABLET (FP) PO SCH (10:20)
[2017-05-30] MEDS: SPIRONOLACTONE 25 MG TABLET (FP) PO SCH (10:20)
[2017-05-30] MEDS: NICOTINE 14 MG/24 HOURS TOPICAL PATCH TD SCH (10:21)
[2017-05-30] MEDS: LIDOCAINE 5% TOPICAL PATCH TP SCH (10:21)
[2017-05-30] MEDS: traZODone HCL 100 MG TABLET (FP) PO SCH (21:07)
[2017-05-30] MEDS: THIAMINE HCL 100 MG TABLET (FP) PO SCH ×2 (21:07→21:08)
[2017-05-30] MEDS: QUEtiapine FUMARATE 100 MG TABLET (FP) PO SCH (21:07)
[2017-05-30] MEDS: LIDOCAINE PATCH REMOVAL MC SCH (21:08)
[2017-05-31] MEDS ORDERED: METHADONE HCL 40 MG DISPERSABLE TABLET ONE (04:12)
[2017-05-31] MEDS ORDERED: METHADONE HCL 10 MG TABLET ONE (04:12)
[2017-05-31] MEDS: CYCLOBENZAPRINE HCL 5 MG TABLET PO SCH (06:02)
[2017-05-31] MEDS: METHADONE 40 MG, METHADONE 20 MG PO SCH (06:02)
[2017-05-31 06:54] VITALS: BP 112/68; PULSE 76
[2017-05-31] MEDS: metFORMIN HCL 500 MG TABLET (FP) PO SCH (07:21)
--- NOTE | 2017-05-31 09:41 | PN ---
Psychiatric Progress Note Vital Signs: Vital Signs Period Temp Pulse Resp BP Sys/Cavazos Pulse Ox Last 24 Hr 97.5 F 76-89 -18 112-122/68-77 Date of Session: 05/31/17 Chief Complaint:: Discharge Note HPI: Patient addressing Alcohol Dependence comorbid with Opoid Dependence on Agonist Therapy, Bipolar Disorder and Substance-induced Mood Disorder ROS: Asthma, GERD, DM, HTN were medically managed Current Medications: Active Medications Generic Name Dose Route Start Last Admin Trade Name Freq PRN Reason Stop Dose Admin Acetaminophen 650 mg 05/03/17 12:58 05/05/17 06:43 Tylenol - PO 650 mg Q4H PRN Administration FEVER Al Hydroxide/Mg Hydroxide 30 ml 05/03/17 12:58 05/14/17 06:13 Mylanta Oral Suspension - PO 30 ml Q6H PRN Administration DYSPEPSIA Albuterol Sulfate 2 puff 05/03/17 13:00 Ventolin Hfa Inhaler - IH Q4H PRN ASTHMA Cyclobenzaprine HCl 5 mg 05/03/17 14:00 05/31/17 06:02 Cyclobenzaprine Hcl PO 5 mg TID THERESA Administration Eucalyptus/Menthol/Phenol/Sorbitol 1 each 05/03/17 12:58 Cepastat Lozenge - MM Q4H PRN SORE THROAT Guaifenesin 10 ml 05/03/17 12:58 Robitussin Dm - PO Q6H PRN COUGH Hydrochlorothiazide 25 mg 05/03/17 14:00 05/30/17 10:20 Hctz - PO 25 mg DAILY THERESA Administration Hydroxyzine Pamoate 50 mg 05/03/17 12:58 05/29/17 21:08 Vistaril - PO 50 mg Q4H PRN Administration AGITATION Ibuprofen 400 mg 05/03/17 12:58 05/16/17 10:16 Motrin - PO 400 mg Q6H PRN Administration PAIN LEVEL 4-6 Lactic Acid 1 applic 05/03/17 13:05 Lac-Hydrin 12 TP DAILY PRN DRY SKIN Lidocaine 1 patch 05/03/17 14:02 05/30/17 10:21 Lidoderm Patch - TP 1 patch DAILY THERESA Administration Loperamide HCl 4 mg 05/03/17 12:58 Imodium - PO Q6H PRN DIARRHEA Magnesium Citrate 300 ml 05/03/17 12:58 Citroma - PO Q48H PRN CONSTIPATION Magnesium Hydroxide 30 ml 05/03/17 12:58 Milk Of Magnesia - PO DAILY PRN CONSTIPATION Metformin HCl 1,000 mg 05/03/17 16:30 05/31/17 07:21 Glucophage - PO 1,000 mg BID@0700,1630 THERESA Administration Methadone HCl 40 mg/ Methadone 60 mg 05/29/17 06:00 05/31/17 06:02 HCl 20 mg PO 06/04/17 05:59 60 mg DAILY@0600 THERESA Administration Miscellaneous 1 each 05/03/17 22:00 05/30/17 21:08 Lidoderm Patch Removal MC 1 each DAILY@2200 THERESA Administration Nicotine 14 mg 05/03/17 14:07 05/30/17 10:21 Nicoderm Patch - TD 14 mg DAILY THERESA Administration Nicotine Polacrilex 2 mg 05/03/17 12:58 Nicorette Gum - BUC Q2H PRN NICOTINE REPLACEMENT RX Multivit/Folic Acid/Iron 1 tab 05/04/17 10:00 05/30/17 10:20 Vitamins (Sjr) - PO 1 tab DAILY THERESA Administration Pseudoephedrine/Triprolidine 1 combo 05/03/17 12:58 Actifed - PO TID PRN NASAL CONGESTION Quetiapine Fumarate 100 mg 05/08/17 22:00 05/30/17 21:07 Seroquel - PO 100 mg HS THERESA Administration Spironolactone 100 mg 05/04/17 10:00 05/30/17 10:20 Aldactone - PO 100 mg DAILY THERESA Administration Thiamine HCl 100 mg 05/03/17 22:00 05/30/17 21:07 Vitamin B1 - PO 100 mg HS THERESA Administration Thiamine HCl 100 mg 05/03/17 22:00 05/30/17 21:08 Vitamin B1 - PO Not Given HS THERESA Trazodone HCl 100 mg 05/08/17 22:00 05/30/17 21:07 Desyrel - PO 100 mg HS THERESA Administration Current Side Effect: No Lab tests ordered: Yes Lab tests reviewed: Yes Provider note:: Patient has completed this program today. He has met his treatment goals and will continue to address his issues in prison residential treatment at [facility]. 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 He responded well to Seroquel 100 mg po HS and Trazadone 100 mg po HS. Scripts for 30 days supply of these medications are electronically transmitted to [facility] at [address] [place] [address]. He is stable for discharge today Total face to face time:: 35 Mental Status Exam - Mental Status Exam Alert and Oriented to: Time, Place, Person Cognitive Function: Fair Patient Appearance: Well Groomed Mood: Hopeful, Euthymic Patient Behavior: Cooperative Speech Pattern: Clear Voice Loudness: Normal Thought Process: Intact, Goal Oriented Thought Disorder: Not Present Hallucinations: Denies Suicidal Ideation: Denies Homicidal Ideation: Denies Insight/Judgement: Fair Sleep: Fair Appetite: Good Muscle strength/Tone: Normal Gait/Station: Other (uses cane as ambulatory aid) Psychiatric Treatment Plan - Problem List (1) Alcohol dependence Current Visit: Yes (2) Opioid dependence on agonist therapy Current Visit: Yes (3) Nicotine dependence Current Visit: Yes Qualifiers: Nicotine product type: cigarettes (4) Bipolar disorder Current Visit: Yes Comment: Self reports. (5) Substance induced mood disorder Current Visit: Yes (6) Substance-induced sleep disorder Current Visit: Yes (7) Asthma Current Visit: Yes Qualifiers: Asthma severity: mild (8) GERD (gastroesophageal reflux disease) Current Visit: Yes Qualifiers: Esophagitis presence: without esophagitis Qualified Code(s): K21.9 - Gastro -esophageal reflux disease without esophagitis (9) Diabetes mellitus Current Visit: No Qualifiers: (10) Hypertension Current Visit: No Qualifiers: Hypertension type: essential hypertension Qualified Code(s): I10 - Essential (primary) hypertension Initial treatment plan: Patient is discharged today and referred to [facility] for prison residential treatment
[2017-05-31] MEDS: PRENATAL VITAMINS W/ FOLIC ACID TABLET (FP) PO SCH (09:48)
[2017-05-31] MEDS: SPIRONOLACTONE 25 MG TABLET (FP) PO SCH (09:48)
[2017-05-31] MEDS: HYDROCHLOROTHIAZIDE 25 MG TABLET (FP) PO SCH (09:48)
[2017-05-31] MEDS: LIDOCAINE 5% TOPICAL PATCH TP SCH (09:49)
[2017-05-31] MEDS: NICOTINE 14 MG/24 HOURS TOPICAL PATCH TD SCH (09:50)
== END 2017-05-31 10:10 | disposition home or self-care (01) | DRG 895 ==
LOC: YASAS 08:38 → Y6N 13:05 → Y3W 05-07 15:29
PROVIDERS: ADMIT Internal Medicine; ATTEND Internal Medicine
PROC: HZ2ZZZZ Detoxification Services for Substance Abuse Treatment (ICD-10-PCS; principal; 2017-05-04)
PROC: HZ42ZZZ Group Counseling for Substance Abuse Treatment, Cognitive-Behavioral (ICD-10-PCS; 2017-05-04)
DX: F19.230 Other psychoactive substance dependence with withdrawal, uncomplicated (principal); F11.20 Opioid dependence, uncomplicated; F19.282 Other psychoactive substance dependence with psychoactive substance-induced sleep disorder; F33.9 Major depressive disorder, recurrent, unspecified; F10.230 Alcohol dependence with withdrawal, uncomplicated; F17.210 Nicotine dependence, cigarettes, uncomplicated; F31.9 Bipolar disorder, unspecified; F19.24 Other psychoactive substance dependence with psychoactive substance-induced mood disorder; I10 Essential (primary) hypertension; J45.909 Unspecified asthma, uncomplicated; K21.9 Gastro-esophageal reflux disease without esophagitis; E11.9 Type 2 diabetes mellitus without complications; G47.00 Insomnia, unspecified; R26.2 Difficulty in walking, not elsewhere classified; Z99.89 Dependence on other enabling machines and devices
CPT/HCPCS: 36415; 80053; 81003; 81015; 82962; 85027; 86593; 87389; 93005; 93010

== ENCOUNTER 2017-07-29 16:02 | Inpatient (IN) | payer OTHER ==
[2017-07-29 16:46] VITALS: BMI 30.7
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
[2017-07-29] MEDS ORDERED: LOPERAMIDE HCL 2 MG CAPSULE PO PRN (18:45)
[2017-07-29] MEDS ORDERED: MAGNESIUM HYDROX 2400MG/30ML ORAL SUSPENSION 30 ML CUP PO PRN (18:45)
[2017-07-29] MEDS ORDERED: chlordiazePOXIDE HCL 25 MG CAPSULE PO PRN (18:45)
[2017-07-29] MEDS ORDERED: IBUPROFEN 400 MG TABLET (FP) PO PRN ×2 (18:45→18:50)
[2017-07-29] MEDS ORDERED: chlordiazePOXIDE HCL 25 MG CAPSULE PO ONE (18:45)
[2017-07-29] MEDS ORDERED: P-EPHED 60MG/TRIPROLIDI 2.5MG TABLET PO PRN (18:45)
[2017-07-29] MEDS ORDERED: NICOTINE POLACRILEX 2 MG GUM BC PRN (18:45)
[2017-07-29] MEDS ORDERED: MAG HYDROX/AL HYDROX/SIMETH 30 ML UNIT-DOSE CUP PO PRN (18:45)
[2017-07-29] MEDS ORDERED: MAGNESIUM CITRATE 300 ML BOTTLE PO PRN (18:45)
[2017-07-29] MEDS ORDERED: ACETAMINOPHEN 325 MG TABLET (FP) PO PRN (18:45)
[2017-07-29] MEDS ORDERED: MENTHOL/PHENOL 1 EACH UD MM PRN (18:45)
[2017-07-29] MEDS ORDERED: ALBUTEROL SO4 18 GM HFA INHALER IH PRN (18:48)
[2017-07-29] MEDS: GABAPENTIN 100 MG CAPSULE (FP) PO SCH (21:27)
[2017-07-29] MEDS: THIAMINE HCL 100 MG TABLET (FP) PO SCH (21:28)
[2017-07-29] MEDS ORDERED: MELATONIN 5 MG TABLETS PO PRN (22:00)
[2017-07-29] MEDS: chlordiazePOXIDE HCL 25 MG CAPSULE PO SCH (22:50)
[2017-07-30 02:48] LABS: URINE APPEARANCE CLEAR; URINE BILIRUBIN NEGATIVE (<2.0 mg/dL); URINE COLOR YELLOW; URINE GLUCOSE (UA) NEGATIVE (NEGATIVE); URINE KETONE NEGATIVE (NEGATIVE); URINE LEUK ESTERASE TRACE (NEGATIVE); URINE NITRITE NEGATIVE (NEGATIVE); URINE PROTEIN NEGATIVE (NEGATIVE); URINE UROBILINOGEN NEGATIVE mg/dL (0.2-1.0)
[2017-07-30 02:57] LABS: EPI CELLS RARE /HPF (FEW); URINE BACTERIA RARE /hpf (NONE SEEN); URINE HYALINE CAST 6 /lpf; URINE MUCUS RARE
[2017-07-30] MEDS: chlordiazePOXIDE HCL 25 MG CAPSULE PO SCH ×5 (05:27→22:21)
[2017-07-30] MEDS: metFORMIN HCL 500 MG TABLET (FP) PO SCH ×2 (06:37→17:44)
[2017-07-30] MEDS ORDERED: METHADONE HCL 10 MG TABLET PO SCH (09:30)
[2017-07-30] MEDS ORDERED: METHADONE HCL 40 MG DISPERSABLE TABLET ONE (10:00)
[2017-07-30] MEDS ORDERED: METHADONE HCL 10 MG TABLET ONE (10:01)
--- NOTE | 2017-07-30 10:16 | CONSULT ---
[facility] Psychiatric Consult - Data Date of interview: 07/30/17 Admission source: [facility] Identifying data: Pt. is a 62 year old single male, without kids, unemployed, living with a roomate, and receiving public assistance. This is one of multiple admissions for patient. Pt. admitted to for alcohol dependence. Substance Abuse History: Following information confirmed with Mr. Castro: Smoking Cessation. Smoking history: Current every day smoker. Have you smoked in the past 12 months: Yes. Aproximately how many cigarettes per day: 10. Cigars Per Day: 0. Hx Chewing Tobacco Use: No. Initiated information on smoking cessation: Yes. 'Breaking Loose' booklet given: 07/29/17. - Substance & Tx. History. Hx Alcohol Use: Yes. Hx Substance Use: Yes. Substance Use Type : Alcohol. Hx Substance Use Treatment: Yes ([facility] 05/03/17 -05/31/17). - Substances Abused. Alcohol. Route: Oral. Frequency: Daily. Amount used: 3 Pints Vodka. Age of first use: 18. Date of Last Use: 07/29/17 Medical History: Hep C, Asthma, Cirrhosis of the liver. Psychiatric History: Pt. denies h/o psychiatric hospitalizations.Outpatient care is provided by Dr. Cano at [facility]. Pt. has a diagnosis of Bipolar disorder and is prescribed Wellbutrin 150mg Xl, Busparl 10mg BID, Trazdone 100mg qhs + Seroquel 200mg qhs. Pt. denies h/o suicide attempt. Pt. currently denies suicidal ideation. Physical/Sexual Abuse/Trauma History: Denies. Mental Status Exam - Mental Status Exam Alert and Oriented to: Time, Place, Person Cognitive Function: Good Patient Appearance: Unkempt Mood: Hopeful Affect: Mood Congruent Patient Behavior: Appropriate, Cooperative Speech Pattern: Clear, Appropriate Voice Loudness: Normal Thought Process: Goal Oriented Thought Disorder: Not Present Hallucinations: Denies Suicidal Ideation: Denies Homicidal Ideation: Denies Insight/Judgement: Poor Sleep: Fair Appetite: Fair Muscle strength/Tone: Normal Gait/Station: Other (Pt. uses a cane to ambulate) Psychiatric Findings - Problem List ([place] 1, 2,3) (1) Alcohol dependence with uncomplicated withdrawal Current Visit: Yes Status: Acute (2) Alcohol dependence Current Visit: Yes Status: Acute (3) Bipolar disorder Current Visit: Yes Status: Chronic Comment: Self reports. (4) Substance induced mood disorder Current Visit: Yes Status: Acute - Initial Treatment Plan Initial Treatment Plan: Psychoeducation provided. Detoxification provided. Wellbutrin 150mg XL + Buspar 10 BID + Trazodone 50mg qhs + Seroquel 50mg qhs ordered (reduce dosage of seroquel and trazodone to prevent oversedation). Benefits and side effects discussed. Verbal consent given. Will continue to monitor.
--- NOTE | 2017-07-30 10:21 | PN ---
S CIWA - CIWA Score Nausea/Vomitin Muscle Tremors: 3 Anxiety: 3 Agitation: 3 Paroxysmal Sweats: 2 Orientation: 0-Oriented Tacttile Disturbances: 1-Very Mild Itch/Numbness Auditory Disturbances: 1-Very Mild Visual Disturbances: 0-None Headache: 2-Mild CIWA-Ar Total Score: 18 S Progress Note (SOAP) Subjective: ALERT,IRRITABLE,ANXIOUS,INTERRUPTED SLEEP,PAIN IN THE BODY AND BACK,KNEES Objective: 07/30/17 10:29 Vital Signs Temperature 98.2 F 07/30/17 06:14 Pulse Rate 84 07/30/17 08:00 Respiratory Rate 18 07/30/17 08:00 Blood Pressure 155/85 07/30/17 06:14 O2 Sat by Pulse Oximetry (%) EKG NSR,NORMAL ECG 07/30/17 10:30 Laboratory Last Values Urine Color Yellow 07/29/17 20:05 Urine Appearance Clear 07/29/17 20:05 Urine pH 5.0 (5.0-8.0) 07/29/17 20:05 Ur Specific [place] 1.020 (1.001-1.035) 07/29/17 20:05 Urine Protein Negative (NEGATIVE) 07/29/17 20:05 Urine Glucose (UA) Negative (NEGATIVE) 07/29/17 20:05 Urine Ketones Negative (NEGATIVE) 07/29/17 20:05 Urine Blood Negative (NEGATIVE) 07/29/17 20:05 Urine Nitrite Negative (NEGATIVE) 07/29/17 20:05 Urine Bilirubin Negative (<2.0 mg/dL) 07/29/17 20:05 Urine Urobilinogen Negative mg/dL (0.2-1.0) 07/29/17 20:05 Ur Leukocyte Esterase Trace (NEGATIVE) 07/29/17 20:05 Urine WBC (Auto) 1 /hpf (3-5) 07/29/17 20:05 Urine RBC (Auto) None /hpf (0-3) 07/29/17 20:05 Ur Epithelial Cells Rare /HPF (FEW) 07/29/17 20:05 Urine Bacteria Rare /hpf (NONE SEEN) 07/29/17 20:05 Hyaline Casts 6 /lpf 07/29/17 20:05 Urine Mucus Rare 07/29/17 20:05 LABS PENDING Assessment: 07/30/17 10:30 WITHDRAWAL SYMPTOM Plan: CONTINUE DETOX
[2017-07-30] MEDS: NICOTINE 14 MG/24 HOURS TOPICAL PATCH TD SCH (10:24)
[2017-07-30] MEDS: RANITIDINE HCL 150 MG TABLET (FP) PO SCH (10:24)
[2017-07-30] MEDS: PRENATAL VITAMINS W/ FOLIC ACID TABLET (FP) PO SCH (10:24)
[2017-07-30] MEDS: GABAPENTIN 100 MG CAPSULE (FP) PO SCH ×2 (10:24→22:21)
[2017-07-30] MEDS: METHADONE 40 MG, METHADONE 20 MG PO SCH (10:24)
[2017-07-30] MEDS: busPIRone HCL 10 MG TABLET (FP) PO SCH ×2 (10:24→22:21)
[2017-07-30 10:25] LABS: HEMATOCRIT 32.1 % (35.4-49); HEMOGLOBIN 10.6 GM/dL (11.7-16.9); MCH 32.3 pg (25.7-33.7); MEAN PLT VOLUME 7.4 fl (7.5-11.1); PLATELET COUNT 118 K/MM3 (134-434); RBC 3.28 M/mm3 (4.00-5.60); RDW 17.1 % (11.9-15.9)
[2017-07-30] MEDS: HYDROCHLOROTHIAZIDE 25 MG TABLET (FP) PO SCH (10:25)
--- NOTE | 2017-07-30 10:41 | EKG ---
Test Reason : Blood Pressure : / mmHG Vent. Rate : 084 BPM Atrial Rate : 084 BPM P-R Int : 134 ms QRS Dur : 080 ms QT Int : 382 ms P-R-T Axes : 059 064 060 degrees QTc Int : 451 ms NORMAL SINUS RHYTHM NORMAL ECG WHEN COMPARED WITH ECG OF 03-MAY-2017 14:44, NONSPECIFIC T WAVE ABNORMALITY NO LONGER EVIDENT IN INFERIOR LEADS QT HAS SHORTENED Confirmed by MD Sukumar, Cesar ([id number]) on 07/30/2017 10:41:44 AM Referred By: Confirmed By:Cesar Patino MD
[2017-07-30 10:55] LABS: CHLORIDE 101 mmol/L (98-107); POTASSIUM 4.8 mmol/L (3.5-5.1); SODIUM 142 mmol/L (136-145)
[2017-07-30 11:06] LABS: ALBUMIN 3.2 g/dl (3.4-5.0); ALK PHOS 78 U/L (45-117); ANION GAP 7 (8-16); BILIRUBIN,TOTAL 0.6 mg/dL (0.2-1.0); BLOOD UREA NITROGEN 14 mg/dL (7-18); CALCIUM 8.6 mg/dL (8.5-10.1); CO2 34 mmol/L (21-32); CREATININE 0.7 mg/dL (0.7-1.3); GLUCOSE,RANDOM 100 mg/dL (74-106); SGOT/AST 57 U/L (15-37); SGPT/ALT 29 U/L (12-78); TOT PROT 6.3 g/dl (6.4-8.2)
[2017-07-30] MEDS ORDERED: QUEtiapine FUMARATE 50 MG TABLET PO SCH (22:00)
[2017-07-30] MEDS: traZODone HCL 50 MG TABLET (FP) PO SCH (22:21)
[2017-07-30] MEDS: THIAMINE HCL 100 MG TABLET (FP) PO SCH (22:21)
[2017-07-31] MEDS ORDERED: METHADONE HCL 40 MG DISPERSABLE TABLET ONE (04:31)
[2017-07-31] MEDS ORDERED: METHADONE HCL 10 MG TABLET ONE (04:31)
[2017-07-31] MEDS: METHADONE 40 MG, METHADONE 20 MG PO SCH (05:35)
[2017-07-31] MEDS: chlordiazePOXIDE HCL 25 MG CAPSULE PO SCH ×3 (05:36→17:35)
[2017-07-31] MEDS: metFORMIN HCL 500 MG TABLET (FP) PO SCH ×2 (08:44→17:25)
--- NOTE | 2017-07-31 10:03 | PN ---
S CIWA - CIWA Score Nausea/Vomitin Muscle Tremors: 3 Anxiety: 3 Agitation: 2 Paroxysmal Sweats: 1-Minimal Palms Moist Orientation: 0-Oriented Tacttile Disturbances: 1-Very Mild Itch/Numbness Auditory Disturbances: 1-Very Mild Visual Disturbances: 0-None Headache: 2-Mild CIWA-Ar Total Score: 16 BHS Progress Note (SOAP) Subjective: ALERT,IRRITABLE,ANXIOUS,INTERRUPTED SLEEP,TREMOR,FEEL WEAK,PAIN IN THE KNEES Objective: 07/31/17 10:01 Vital Signs Temperature 98.1 F 07/31/17 09:16 Pulse Rate 88 07/31/17 09:16 Respiratory Rate 18 07/31/17 09:16 Blood Pressure 106/54 07/31/17 09:16 O2 Sat by Pulse Oximetry (%) Laboratory Last Values WBC 3.0 K/mm3 (4.0-10.0) L D 07/30/17 07:00 RBC 3.28 M/mm3 (4.00-5.60) L 07/30/17 07:00 Hgb 10.6 GM/dL (11.7-16.9) L D 07/30/17 07:00 Hct 32.1 % (35.4-49) L 07/30/17 07:00 MCV 98.0 fl (80-96) H 07/30/17 07:00 MCH 32.3 pg (25.7-33.7) 07/30/17 07:00 MCHC 33.0 g/dl (32.0-35.9) 07/30/17 07:00 RDW 17.1 % (11.9-15.9) H D 07/30/17 07:00 Plt Count 118 K/MM3 (134-434) L D 07/30/17 07:00 MPV 7.4 fl (7.5-11.1) L D 07/30/17 07:00 Sodium 142 mmol/L (136-145) 07/30/17 07:00 Potassium 4.8 mmol/L (3.5-5.1) 07/30/17 07:00 Chloride 101 mmol/L (98-107) 07/30/17 07:00 Carbon Dioxide 34 mmol/L (21-32) H 07/30/17 07:00 Anion Gap 7 (8-16) L 04/10/18 07:00 BUN 14 mg/dL (7-18) 07/30/17 07:00 Creatinine 0.7 mg/dL (0.7-1.3) D 07/30/17 07:00 Creat Clearance w eGFR > 60 (>60) 07/30/17 07:00 POC Glucometer 95 UNITS (80-120) 07/31/17 05:34 Random Glucose 100 mg/dL (74-106) 07/30/17 07:00 Calcium 8.6 mg/dL (8.5-10.1) 07/30/17 07:00 Total Bilirubin 0.6 mg/dL (0.2-1.0) D 07/30/17 07:00 AST 57 U/L (15-37) H D 07/30/17 07:00 ALT 29 U/L (12-78) D 07/30/17 07:00 Alkaline Phosphatase 78 U/L (45-117) D 07/30/17 07:00 Total Protein 6.3 g/dl (6.4-8.2) L 07/30/17 07:00 Albumin 3.2 g/dl (3.4-5.0) L 07/30/17 07:00 Urine Color Yellow 07/29/17 20:05 Urine Appearance Clear 07/29/17 20:05 Urine pH 5.0 (5.0-8.0) 07/29/17 20:05 Ur Specific [place] 1.020 (1.001-1.035) 07/29/17 20:05 Urine Protein Negative (NEGATIVE) 07/29/17 20:05 Urine Glucose (UA) Negative (NEGATIVE) 07/29/17 20:05 Urine Ketones Negative (NEGATIVE) 07/29/17 20:05 Urine Blood Negative (NEGATIVE) 07/29/17 20:05 Urine Nitrite Negative (NEGATIVE) 07/29/17 20:05 Urine Bilirubin Negative (<2.0 mg/dL) 07/29/17 20:05 Urine Urobilinogen Negative mg/dL (0.2-1.0) 07/29/17 20:05 Ur Leukocyte Esterase Trace (NEGATIVE) 07/29/17 20:05 Urine WBC (Auto) 1 /hpf (3-5) 07/29/17 20:05 Urine RBC (Auto) None /hpf (0-3) 07/29/17 20:05 Ur Epithelial Cells Rare /HPF (FEW) 07/29/17 20:05 Urine Bacteria Rare /hpf (NONE SEEN) 07/29/17 20:05 Hyaline Casts 6 /lpf 07/29/17 20:05 Urine Mucus Rare 07/29/17 20:05 HIV 1&2 Antibody Screen Negative 07/30/17 07:00 HIV P24 Antigen Negative 07/30/17 07:00 07/31/17 10:02 RPR PENDING Assessment: 07/31/17 10:02 WITHDRAWAL SYMPTOM Plan: CONTINUE DETOX
[2017-07-31] MEDS: busPIRone HCL 10 MG TABLET (FP) PO SCH ×2 (10:30→22:04)
[2017-07-31] MEDS: RANITIDINE HCL 150 MG TABLET (FP) PO SCH (10:30)
[2017-07-31] MEDS: HYDROCHLOROTHIAZIDE 25 MG TABLET (FP) PO SCH (10:30)
[2017-07-31] MEDS: GABAPENTIN 100 MG CAPSULE (FP) PO SCH ×2 (10:30→22:03)
[2017-07-31] MEDS: NICOTINE 14 MG/24 HOURS TOPICAL PATCH TD SCH (10:31)
[2017-07-31] MEDS: PRENATAL VITAMINS W/ FOLIC ACID TABLET (FP) PO SCH (10:31)
--- NOTE | 2017-07-31 17:33 | PN ---
[facility] Progress Note Note: Psychiatric nurse practitioner note: Pt. requesting seroquel 50mg dose to be discontinued. Seroquel 50mg discontinued.
[2017-07-31] MEDS: THIAMINE HCL 100 MG TABLET (FP) PO SCH (22:03)
[2017-07-31] MEDS: traZODone HCL 50 MG TABLET (FP) PO SCH (22:03)
[2017-07-31] MEDS: chlordiazePOXIDE 5 MG CAPSULE PO SCH (22:04)
[2017-08-01] MEDS ORDERED: METHADONE HCL 40 MG DISPERSABLE TABLET ONE (04:57)
[2017-08-01] MEDS ORDERED: METHADONE HCL 10 MG TABLET ONE (04:57)
[2017-08-01] MEDS: chlordiazePOXIDE 5 MG CAPSULE PO SCH ×3 (05:15→17:29)
[2017-08-01] MEDS: METHADONE 40 MG, METHADONE 20 MG PO SCH (05:16)
[2017-08-01] MEDS: metFORMIN HCL 500 MG TABLET (FP) PO SCH ×2 (07:00→17:29)
[2017-08-01] MEDS: HYDROCHLOROTHIAZIDE 25 MG TABLET (FP) PO SCH (10:14)
[2017-08-01] MEDS: GABAPENTIN 100 MG CAPSULE (FP) PO SCH ×2 (10:14→22:07)
[2017-08-01] MEDS: PRENATAL VITAMINS W/ FOLIC ACID TABLET (FP) PO SCH (10:14)
[2017-08-01] MEDS: busPIRone HCL 10 MG TABLET (FP) PO SCH ×2 (10:14→22:08)
[2017-08-01] MEDS: RANITIDINE HCL 150 MG TABLET (FP) PO SCH (10:15)
[2017-08-01] MEDS: NICOTINE 14 MG/24 HOURS TOPICAL PATCH TD SCH (10:15)
--- NOTE | 2017-08-01 11:50 | PN ---
[facility] Progress Note (SOAP) Subjective: ALERT,IRRITABLE,ANXIOUS,INTERRUPTED SLEEP,PAIN IN THE BODY Objective: 08/01/17 11:49 Vital Signs Temperature 98.1 F 08/01/17 10:13 Pulse Rate 85 08/01/17 10:13 Respiratory Rate 18 08/01/17 10:13 Blood Pressure 107/64 08/01/17 10:13 O2 Sat by Pulse Oximetry (%) Assessment: 08/01/17 11:49 WITHDRAWAL SYMPTOM Plan: CONTINUE DETOX
[2017-08-01] MEDS: THIAMINE HCL 100 MG TABLET (FP) PO SCH (22:07)
[2017-08-01] MEDS: chlordiazePOXIDE HCL 10 MG CAPSULE PO SCH (22:08)
[2017-08-01] MEDS: traZODone HCL 50 MG TABLET (FP) PO SCH (22:08)
[2017-08-02] MEDS ORDERED: METHADONE HCL 40 MG DISPERSABLE TABLET ONE (04:59)
[2017-08-02] MEDS ORDERED: METHADONE HCL 10 MG TABLET ONE (04:59)
[2017-08-02] MEDS: METHADONE 40 MG, METHADONE 20 MG PO SCH (05:29)
[2017-08-02] MEDS: chlordiazePOXIDE HCL 10 MG CAPSULE PO SCH ×2 (05:29→10:55)
[2017-08-02] MEDS: metFORMIN HCL 500 MG TABLET (FP) PO SCH ×2 (07:28→16:55)
--- NOTE | 2017-08-02 10:35 | PN ---
S Progress Note (SOAP) Subjective: ALERT,NO COMPLAINT Objective: 08/02/17 10:33 Vital Signs Temperature 98.2 F 08/02/17 09:55 Pulse Rate 86 08/02/17 09:55 Respiratory Rate 18 08/02/17 09:55 Blood Pressure 133/55 08/02/17 09:55 O2 Sat by Pulse Oximetry (%) Assessment: 08/02/17 10:33 NO WITHDRAWAL SYMPTOM Plan: CONTINUE DETOX,TRANSFER TO [facility] FOR CONTINUATION OF CARE
--- NOTE | 2017-08-02 10:39 | DS ---
[facility] Detox Discharge Summary Admission Date: 07/29/17 Discharge Date: 08/02/17 - History Present History: Alcohol Dependence, MMTP Additional Comments: TRANSFER TO [address] FOR FURTHER LEVEL OF CARE Pertinent Past History: CIRRHOSIS ASTHMA DIABETES MELLITUS NICOTINE DEPENDENCE LOW BACK PAIN ARTHRITIS BOTH KNEES - Physical Exam Results Vital Signs: Vital Signs Temperature 98.2 F 08/02/17 09:55 Pulse Rate 86 08/02/17 09:55 Respiratory Rate 18 08/02/17 09:55 Blood Pressure 133/55 08/02/17 09:55 O2 Sat by Pulse Oximetry (%) Pertinent Admission Physical Exam Findings: WITHDRAWAL SIGNS AND SYMPTOM - Treatment Hospital Course: Detox Protocol Followed, Detoxed Safely, Responded well, Discharged Condition Good, Rehab Referral Accepted Patient has Accepted a Rehab Referral to: [facility] [place] - Medication Discharge Medications: Ambulatory Orders Folic Acid - 1 mg PO DAILY #30 tablet 06/19/16 Gabapentin [Neurontin -] 200 mg PO BID #120 capsule 06/19/16 Thiamine HCl [Vitamin B1 -] 100 mg PO HS #30 tablet 06/19/16 Acamprosate Calcium [Campral -] 666 mg PO TID #180 tab 07/17/16 Bupropion HCl [Wellbutrin Xl -] 150 mg PO DAILY #30 tab 10/09/16 Magnesium Oxide [Mag-Ox -] 400 mg PO BID #60 tablet 10/09/16 Methadone [Dolophine -] 60 mg PO DAILY 05/03/17 Quetiapine Fumarate [Seroquel] 100 mg PO HS #30 tablet 05/13/17 traZODone HCL [Desyrel -] 100 mg PO HS #30 tablet 05/13/17 Albuterol Sulfate Inhaler - [Ventolin HFA Inhaler -] 2 inh IH Q4H PRN #1 inh 01/07 Hydrochlorothiazide [Hctz -] 25 mg PO DAILY #30 tablet 05/31/17 Metformin HCl [Glucophage] 1,000 mg PO BID #60 tablet 05/31/17 Quetiapine Fumarate [Seroquel] 100 mg PO HS #30 tablet 05/31/17 Spironolactone [Aldactone -] 100 mg PO DAILY #30 tablet 05/31/17 traZODone HCL [Desyrel -] 100 mg PO HS #30 tablet 05/31/17 - Diagnosis (1) Alcohol dependence with uncomplicated withdrawal Current Visit: Yes Status: Acute (2) Arthritis Current Visit: Yes Status: Acute (3) Low back pain Current Visit: Yes Status: Acute Qualifiers: Chronicity: acute Back pain laterality: midline Sciatica presence: without sciatica Qualified Code(s): M54.5 - Low back pain (4) Asthma Current Visit: Yes Status: Chronic Qualifiers: Asthma severity: mild Asthma persistence: unspecified Asthma complication type: unspecified Qualified Code(s): J45.998 - Other asthma (5) Cirrhosis Current Visit: Yes Status: Chronic Qualifiers: Hepatic cirrhosis type: unspecified hepatic cirrhosis (6) Diabetes mellitus Current Visit: Yes Status: Chronic Qualifiers: Diabetes mellitus type: type 2 Diabetes mellitus tong setter insulin use: without tong setter use Diabetes mellitus complication status: without complication Qualified Code(s): E11.9 - Type 2 diabetes mellitus without complications (7) GERD (gastroesophageal reflux disease) Current Visit: Yes Status: Chronic Qualifiers: Esophagitis presence: without esophagitis Qualified Code(s): K21.9 - Gastro -esophageal reflux disease without esophagitis (8) Hypertension Current Visit: Yes Status: Chronic Qualifiers: Hypertension type: essential hypertension Qualified Code(s): I10 - Essential (primary) hypertension (9) Nicotine dependence Current Visit: Yes Status: Chronic Qualifiers: Nicotine product type: cigarettes (10) Opioid dependence on agonist therapy Current Visit: Yes Status: Chronic (11) Use of cane as ambulatory aid Current Visit: Yes Status: Chronic
[2017-08-02] MEDS: busPIRone HCL 10 MG TABLET (FP) PO SCH ×2 (10:55→21:15)
[2017-08-02] MEDS: PRENATAL VITAMINS W/ FOLIC ACID TABLET (FP) PO SCH (10:55)
[2017-08-02] MEDS: RANITIDINE HCL 150 MG TABLET (FP) PO SCH (10:55)
[2017-08-02] MEDS: HYDROCHLOROTHIAZIDE 25 MG TABLET (FP) PO SCH (10:55)
[2017-08-02] MEDS: NICOTINE 14 MG/24 HOURS TOPICAL PATCH TD SCH (10:56)
[2017-08-02] MEDS: GABAPENTIN 100 MG CAPSULE (FP) PO SCH ×2 (10:57→21:15)
[2017-08-02] MEDS: guaiFENesin/D-METHORPHAN HB 10 ML UNIT-DOSE CUPS PO PRN (16:57)
[2017-08-02] MEDS: THIAMINE HCL 100 MG TABLET (FP) PO SCH (21:15)
[2017-08-02] MEDS: QUEtiapine FUMARATE 100 MG TABLET (FP) PO SCH (21:15)
[2017-08-02] MEDS: traZODone HCL 50 MG TABLET (FP) PO SCH (21:15)
[2017-08-02] MEDS ORDERED: QUEtiapine FUMARATE 200 MG TABLET PO SCH (22:00)
[2017-08-02] MEDS ORDERED: traZODone HCL 100 MG TABLET (FP) PO SCH (22:00)
[2017-08-03] MEDS ORDERED: METHADONE HCL 10 MG TABLET ONE (03:56)
[2017-08-03] MEDS ORDERED: METHADONE HCL 40 MG DISPERSABLE TABLET ONE (03:57)
[2017-08-03] MEDS: METHADONE 40 MG, METHADONE 20 MG PO SCH (05:56)
[2017-08-03] MEDS: metFORMIN HCL 500 MG TABLET (FP) PO SCH ×2 (07:10→16:47)
[2017-08-03] MEDS: PRENATAL VITAMINS W/ FOLIC ACID TABLET (FP) PO SCH (09:34)
[2017-08-03] MEDS: NICOTINE 14 MG/24 HOURS TOPICAL PATCH TD SCH (09:34)
[2017-08-03] MEDS: GABAPENTIN 100 MG CAPSULE (FP) PO SCH ×2 (09:34→21:19)
[2017-08-03] MEDS: RANITIDINE HCL 150 MG TABLET (FP) PO SCH (09:34)
[2017-08-03] MEDS: busPIRone HCL 10 MG TABLET (FP) PO SCH ×2 (09:34→21:19)
[2017-08-03] MEDS: HYDROCHLOROTHIAZIDE 25 MG TABLET (FP) PO SCH (09:34)
[2017-08-03] MEDS: QUEtiapine FUMARATE 100 MG TABLET (FP) PO SCH (21:19)
[2017-08-03] MEDS: traZODone HCL 50 MG TABLET (FP) PO SCH (21:19)
[2017-08-03] MEDS: THIAMINE HCL 100 MG TABLET (FP) PO SCH (21:19)
[2017-08-04] MEDS ORDERED: METHADONE HCL 10 MG TABLET ONE (04:08)
[2017-08-04] MEDS ORDERED: METHADONE HCL 40 MG DISPERSABLE TABLET ONE (04:09)
[2017-08-04] MEDS: METHADONE 40 MG, METHADONE 20 MG PO SCH (05:54)
[2017-08-04] MEDS: metFORMIN HCL 500 MG TABLET (FP) PO SCH ×2 (07:10→16:50)
[2017-08-04] MEDS: busPIRone HCL 10 MG TABLET (FP) PO SCH ×2 (09:27→21:11)
[2017-08-04] MEDS: RANITIDINE HCL 150 MG TABLET (FP) PO SCH (09:27)
[2017-08-04] MEDS: PRENATAL VITAMINS W/ FOLIC ACID TABLET (FP) PO SCH (09:27)
[2017-08-04] MEDS: HYDROCHLOROTHIAZIDE 25 MG TABLET (FP) PO SCH (09:27)
[2017-08-04] MEDS: NICOTINE 14 MG/24 HOURS TOPICAL PATCH TD SCH (09:27)
[2017-08-04] MEDS: GABAPENTIN 100 MG CAPSULE (FP) PO SCH ×2 (09:27→21:12)
[2017-08-04] MEDS: QUEtiapine FUMARATE 100 MG TABLET (FP) PO SCH (21:11)
[2017-08-04] MEDS: THIAMINE HCL 100 MG TABLET (FP) PO SCH (21:11)
[2017-08-04] MEDS: traZODone HCL 50 MG TABLET (FP) PO SCH (21:11)
[2017-08-05] MEDS ORDERED: METHADONE HCL 40 MG DISPERSABLE TABLET ONE (03:07)
[2017-08-05] MEDS ORDERED: METHADONE HCL 10 MG TABLET ONE (03:07)
[2017-08-05] MEDS: METHADONE 40 MG, METHADONE 20 MG PO SCH (06:04)
[2017-08-05] MEDS: metFORMIN HCL 500 MG TABLET (FP) PO SCH ×2 (06:05→16:43)
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
[2017-08-05] MEDS: RANITIDINE HCL 150 MG TABLET (FP) PO SCH (10:16)
[2017-08-05] MEDS: HYDROCHLOROTHIAZIDE 25 MG TABLET (FP) PO SCH (10:16)
[2017-08-05] MEDS: busPIRone HCL 10 MG TABLET (FP) PO SCH ×2 (10:16→21:11)
[2017-08-05] MEDS: NICOTINE 14 MG/24 HOURS TOPICAL PATCH TD SCH (10:16)
[2017-08-05] MEDS: GABAPENTIN 100 MG CAPSULE (FP) PO SCH ×2 (10:16→21:11)
[2017-08-05] MEDS: PRENATAL VITAMINS W/ FOLIC ACID TABLET (FP) PO SCH (10:17)
--- NOTE | 2017-08-05 13:18 | PN ---
[facility] Progress Note Note: Pt complains of LBP and joint pain. Laboratory Tests 07/29/17 07/29/17 07/30/17 19:48 20:05 05:29 WBC RBC Hgb Hct MCV MCH MCHC RDW Plt Count MPV Sodium Potassium Chloride Carbon Dioxide Anion Gap BUN Creatinine Creat Clearance w eGFR POC Glucometer 92 119 Random Glucose Calcium Total Bilirubin AST ALT Alkaline Phosphatase Total Protein Albumin Urine Color Yellow Urine Appearance Clear Urine pH 5.0 Ur Specific [place] 1.020 Urine Protein Negative Urine Glucose (UA) Negative Urine Ketones Negative Urine Blood Negative Urine Nitrite Negative Urine Bilirubin Negative Urine Urobilinogen Negative Ur Leukocyte Esterase Trace Urine WBC (Auto) 1 Urine RBC (Auto) None Ur Epithelial Cells Rare Urine Bacteria Rare Hyaline Casts 6 Urine Mucus Rare RPR Titer HIV 1&2 Antibody Screen HIV P24 Antigen 07/30/17 07/30/17 07/30/17 07:00 07:00 07:00 WBC 3.0 L D RBC 3.28 L Hgb 10.6 L D Hct 32.1 L MCV 98.0 H MCH 32.3 MCHC 33.0 RDW 17.1 H D Plt Count 118 L D MPV 7.4 L D Sodium 142 Potassium 4.8 Chloride 101 Carbon Dioxide 34 H Anion Gap 7 L BUN 14 Creatinine 0.7 D Creat Clearance w eGFR > 60 POC Glucometer Random Glucose 100 Calcium 8.6 Total Bilirubin 0.6 D AST 57 H D ALT 29 D Alkaline Phosphatase 78 D Total Protein 6.3 L Albumin 3.2 L Urine Color Urine Appearance Urine pH Ur Specific [place] Urine Protein Urine Glucose (UA) Urine Ketones Urine Blood Urine Nitrite Urine Bilirubin Urine Urobilinogen Ur Leukocyte Esterase Urine WBC (Auto) Urine RBC (Auto) Ur Epithelial Cells Urine Bacteria Hyaline Casts Urine Mucus RPR Titer Nonreactive HIV 1&2 Antibody Screen HIV P24 Antigen 07/30/17 07/31/17 08/01/17 07:00 05:34 05:21 WBC RBC Hgb Hct MCV MCH MCHC RDW Plt Count MPV Sodium Potassium Chloride Carbon Dioxide Anion Gap BUN Creatinine Creat Clearance w eGFR POC Glucometer 95 119 Random Glucose Calcium Total Bilirubin AST ALT Alkaline Phosphatase Total Protein Albumin Urine Color Urine Appearance Urine pH Ur Specific [place] Urine Protein Urine Glucose (UA) Urine Ketones Urine Blood Urine Nitrite Urine Bilirubin Urine Urobilinogen Ur Leukocyte Esterase Urine WBC (Auto) Urine RBC (Auto) Ur Epithelial Cells Urine Bacteria Hyaline Casts Urine Mucus RPR Titer HIV 1&2 Antibody Screen Negative HIV P24 Antigen Negative 08/02/17 08/02/17 08/03/17 05:28 16:54 05:56 WBC RBC Hgb Hct MCV MCH MCHC RDW Plt Count MPV Sodium Potassium Chloride Carbon Dioxide Anion Gap BUN Creatinine Creat Clearance w eGFR POC Glucometer 119 120 99 Random Glucose Calcium Total Bilirubin AST ALT Alkaline Phosphatase Total Protein Albumin Urine Color Urine Appearance Urine pH Ur Specific [place] Urine Protein Urine Glucose (UA) Urine Ketones Urine Blood Urine Nitrite Urine Bilirubin Urine Urobilinogen Ur Leukocyte Esterase Urine WBC (Auto) Urine RBC (Auto) Ur Epithelial Cells Urine Bacteria Hyaline Casts Urine Mucus RPR Titer HIV 1&2 Antibody Screen HIV P24 Antigen 08/03/17 16:47 WBC RBC Hgb Hct MCV MCH MCHC RDW Plt Count MPV Sodium Potassium Chloride Carbon Dioxide Anion Gap BUN Creatinine Creat Clearance w eGFR POC Glucometer 165 Random Glucose Calcium Total Bilirubin AST ALT Alkaline Phosphatase Total Protein Albumin Urine Color Urine Appearance Urine pH Ur Specific [place] Urine Protein Urine Glucose (UA) Urine Ketones Urine Blood Urine Nitrite Urine Bilirubin Urine Urobilinogen Ur Leukocyte Esterase Urine WBC (Auto) Urine RBC (Auto) Ur Epithelial Cells Urine Bacteria Hyaline Casts Urine Mucus RPR Titer HIV 1&2 Antibody Screen HIV P24 Antigen Vital Signs Temperature 98.2 F 08/05/17 07:02 Pulse Rate 88 08/05/17 10:00 Respiratory Rate 18 08/05/17 10:00 Blood Pressure 117/69 08/05/17 10:00 O2 Sat by Pulse Oximetry (%) Obj: General: alert and oriented x 3. In NAD. Ambulates with cane. Car: S1S2. RRR. Resp: CTA BL MS: + LS spine tenderness. A/P: LBP Will add Lidocaine patch to lower back daily continue to monitor clinically
[2017-08-05] MEDS: QUEtiapine FUMARATE 100 MG TABLET (FP) PO SCH (21:11)
[2017-08-05] MEDS: THIAMINE HCL 100 MG TABLET (FP) PO SCH (21:11)
[2017-08-05] MEDS: LIDOCAINE PATCH REMOVAL MC SCH (21:12)
[2017-08-06] MEDS ORDERED: METHADONE HCL 10 MG TABLET ONE (05:04)
[2017-08-06] MEDS ORDERED: METHADONE HCL 40 MG DISPERSABLE TABLET ONE (05:05)
[2017-08-06] MEDS: METHADONE 40 MG, METHADONE 20 MG PO SCH (06:07)
[2017-08-06] MEDS: metFORMIN HCL 500 MG TABLET (FP) PO SCH ×2 (07:00→16:26)
[2017-08-06] MEDS: LIDOCAINE 5% TOPICAL PATCH TP SCH (09:56)
[2017-08-06] MEDS: NICOTINE 14 MG/24 HOURS TOPICAL PATCH TD SCH (09:56)
[2017-08-06] MEDS: GABAPENTIN 100 MG CAPSULE (FP) PO SCH ×2 (09:56→21:23)
[2017-08-06] MEDS: HYDROCHLOROTHIAZIDE 25 MG TABLET (FP) PO SCH (09:56)
[2017-08-06] MEDS: busPIRone HCL 10 MG TABLET (FP) PO SCH ×2 (09:56→21:23)
[2017-08-06] MEDS: RANITIDINE HCL 150 MG TABLET (FP) PO SCH (09:56)
[2017-08-06] MEDS: PRENATAL VITAMINS W/ FOLIC ACID TABLET (FP) PO SCH (09:56)
[2017-08-06] MEDS: QUEtiapine FUMARATE 100 MG TABLET (FP) PO SCH (21:23)
[2017-08-06] MEDS: LIDOCAINE PATCH REMOVAL MC SCH (22:11)
[2017-08-06] MEDS: THIAMINE HCL 100 MG TABLET (FP) PO SCH (22:11)
[2017-08-07] MEDS ORDERED: METHADONE HCL 10 MG TABLET ONE (04:10)
[2017-08-07] MEDS ORDERED: METHADONE HCL 40 MG DISPERSABLE TABLET ONE (04:10)
[2017-08-07] MEDS: METHADONE 40 MG, METHADONE 20 MG PO SCH (05:54)
[2017-08-07] MEDS: guaiFENesin/D-METHORPHAN HB 10 ML UNIT-DOSE CUPS PO PRN (05:55)
[2017-08-07] MEDS: metFORMIN HCL 500 MG TABLET (FP) PO SCH ×2 (07:20→16:45)
[2017-08-07] MEDS: busPIRone HCL 10 MG TABLET (FP) PO SCH ×2 (10:02→21:15)
[2017-08-07] MEDS: GABAPENTIN 100 MG CAPSULE (FP) PO SCH ×2 (10:02→21:15)
[2017-08-07] MEDS: LIDOCAINE 5% TOPICAL PATCH TP SCH (10:02)
[2017-08-07] MEDS: PRENATAL VITAMINS W/ FOLIC ACID TABLET (FP) PO SCH (10:02)
[2017-08-07] MEDS: RANITIDINE HCL 150 MG TABLET (FP) PO SCH (10:02)
[2017-08-07] MEDS: HYDROCHLOROTHIAZIDE 25 MG TABLET (FP) PO SCH (10:02)
[2017-08-07] MEDS: NICOTINE 14 MG/24 HOURS TOPICAL PATCH TD SCH (10:03)
[2017-08-07] MEDS: THIAMINE HCL 100 MG TABLET (FP) PO SCH (21:15)
[2017-08-07] MEDS: QUEtiapine FUMARATE 100 MG TABLET (FP) PO SCH (21:15)
[2017-08-07] MEDS: LIDOCAINE PATCH REMOVAL MC SCH (21:17)
[2017-08-08] MEDS ORDERED: METHADONE HCL 40 MG DISPERSABLE TABLET ONE (04:08)
[2017-08-08] MEDS ORDERED: METHADONE HCL 10 MG TABLET ONE (04:08)
[2017-08-08] MEDS: METHADONE 40 MG, METHADONE 20 MG PO SCH (06:01)
[2017-08-08] MEDS: guaiFENesin/D-METHORPHAN HB 10 ML UNIT-DOSE CUPS PO PRN (06:04)
[2017-08-08] MEDS: metFORMIN HCL 500 MG TABLET (FP) PO SCH ×2 (07:52→16:50)
[2017-08-08] MEDS: PRENATAL VITAMINS W/ FOLIC ACID TABLET (FP) PO SCH (09:48)
[2017-08-08] MEDS: busPIRone HCL 10 MG TABLET (FP) PO SCH ×2 (09:48→21:18)
[2017-08-08] MEDS: GABAPENTIN 100 MG CAPSULE (FP) PO SCH ×2 (09:48→21:18)
[2017-08-08] MEDS: NICOTINE 14 MG/24 HOURS TOPICAL PATCH TD SCH (09:49)
[2017-08-08] MEDS: HYDROCHLOROTHIAZIDE 25 MG TABLET (FP) PO SCH (09:49)
[2017-08-08] MEDS: RANITIDINE HCL 150 MG TABLET (FP) PO SCH (09:49)
[2017-08-08] MEDS: LIDOCAINE 5% TOPICAL PATCH TP SCH (10:36)
[2017-08-08] MEDS: QUEtiapine FUMARATE 100 MG TABLET (FP) PO SCH (21:18)
[2017-08-08] MEDS: THIAMINE HCL 100 MG TABLET (FP) PO SCH (21:18)
[2017-08-08] MEDS: LIDOCAINE PATCH REMOVAL MC SCH (22:34)
[2017-08-09] MEDS ORDERED: METHADONE HCL 10 MG TABLET ONE (04:01)
[2017-08-09] MEDS ORDERED: METHADONE HCL 40 MG DISPERSABLE TABLET ONE (04:01)
[2017-08-09] MEDS: METHADONE 40 MG, METHADONE 20 MG PO SCH (05:59)
[2017-08-09] MEDS: metFORMIN HCL 500 MG TABLET (FP) PO SCH ×2 (07:11→16:50)
[2017-08-09] MEDS: NICOTINE 14 MG/24 HOURS TOPICAL PATCH TD SCH (09:58)
[2017-08-09] MEDS: GABAPENTIN 100 MG CAPSULE (FP) PO SCH ×2 (09:58→21:19)
[2017-08-09] MEDS: busPIRone HCL 10 MG TABLET (FP) PO SCH ×2 (09:59→21:19)
[2017-08-09] MEDS: HYDROCHLOROTHIAZIDE 25 MG TABLET (FP) PO SCH (09:59)
[2017-08-09] MEDS: LIDOCAINE 5% TOPICAL PATCH TP SCH (09:59)
[2017-08-09] MEDS: PRENATAL VITAMINS W/ FOLIC ACID TABLET (FP) PO SCH (09:59)
[2017-08-09] MEDS: RANITIDINE HCL 150 MG TABLET (FP) PO SCH (09:59)
--- NOTE | 2017-08-09 11:01 | PN ---
Psychiatric Progress Note Vital Signs: Vital Signs Period Temp Pulse Resp BP Sys/Cavazos Pulse Ox Last 24 Hr 98 F 80-89 18-18 113-120/72-75 Date of Session: 08/09/17 Chief Complaint:: Insomnia HPI: Patient addressing Alcohol Dependence comorbid with Opioid Dependence on Agonist Therapy, Nicotine Dependence, Bipolar Disorder, Substance-Induced Mood Disorder and Substance-Induced Sleep Disorder ROS: Asthma, HTN, DM, GERD, Arthritis, LBP Current Medications: Active Medications Generic Name Dose Route Start Last Admin Trade Name Freq PRN Reason Stop Dose Admin Acetaminophen 650 mg 07/29/17 18:45 Tylenol - PO Q4H PRN FEVER Al Hydroxide/Mg Hydroxide 30 ml 07/29/17 18:45 Mylanta Oral Suspension - PO Q6H PRN DYSPEPSIA Albuterol Sulfate 2 puff 07/29/17 18:48 Ventolin Hfa Inhaler - IH Q4H PRN ASTHMA Bupropion HCl 150 mg 07/30/17 10:00 08/09/17 09:59 Wellbutrin Xl - PO 150 mg DAILY THERESA Administration Buspirone HCl 10 mg 07/30/17 10:00 08/09/17 09:59 Buspar - PO 10 mg BID THERESA Administration Eucalyptus/Menthol/Phenol/Sorbitol 1 each 07/29/17 18:45 Cepastat Lozenge - MM Q4H PRN SORE THROAT Gabapentin 200 mg 07/29/17 22:00 08/09/17 09:58 Neurontin - PO 200 mg BID THERESA Administration Guaifenesin 10 ml 07/29/17 18:45 08/08/17 06:04 Robitussin Dm - PO 10 ml Q6H PRN Administration COUGH Hydrochlorothiazide 25 mg 07/30/17 10:00 08/09/17 09:59 Hctz - PO 25 mg DAILY THERESA Administration Hydroxyzine Pamoate 25 mg 07/29/17 18:45 Vistaril - PO Q4H PRN AGITATION Ibuprofen 600 mg 07/29/17 18:50 08/04/17 12:47 Motrin - PO 600 mg Q8H PRN Administration PAIN LEVEL 4-6 Lidocaine 1 patch 08/06/17 10:00 08/09/17 09:59 Lidoderm Patch - TP 1 patch DAILY HTERESA Administration Loperamide HCl 4 mg 07/29/17 18:45 Imodium - PO Q6H PRN DIARRHEA Magnesium Citrate 300 ml 07/29/17 18:45 Citroma - PO Q48H PRN CONSTIPATION Magnesium Hydroxide 30 ml 07/29/17 18:45 Milk Of Magnesia - PO DAILY PRN CONSTIPATION Metformin HCl 1,000 mg 07/30/17 07:00 08/09/17 07:11 Glucophage - PO 1,000 mg BIDAC THERESA Administration Methadone HCl 40 mg/ Methadone 60 mg 08/06/17 06:00 08/09/17 05:59 HCl 20 mg PO 60 mg DAILY@0600 THERESA Administration Miscellaneous 1 each 08/05/17 22:00 08/08/17 22:34 Lidoderm Patch Removal MC 1 each DAILY@2200 THERESA Administration Nicotine 14 mg 07/30/17 10:00 08/09/17 09:58 Nicoderm Patch - TD 14 mg DAILY THERESA Administration Nicotine Polacrilex 2 mg 07/29/17 18:45 Nicorette Gum - BC Q2H PRN NICOTINE REPLACEMENT RX Multivit/Folic Acid/Iron 1 tab 07/30/17 10:00 08/09/17 09:59 Vitamins (Sjr) - PO 1 tab DAILY THERESA Administration Pseudoephedrine/Triprolidine 1 combo 07/29/17 18:45 Actifed - PO TID PRN NASAL CONGESTION Quetiapine Fumarate 150 mg 08/09/17 22:00 Seroquel - PO HS THERESA Ranitidine HCl 150 mg 07/30/17 10:00 08/09/17 09:59 Zantac - PO 150 mg DAILY THERESA Administration Thiamine HCl 100 mg 07/29/17 22:00 08/08/17 21:18 Vitamin B1 - PO 100 mg HS THERESA Administration Medication(s) Change(s): Increase Seroquel dosage to 150 mg po HS Current Side Effect: No Lab tests ordered: Yes Lab tests reviewed: Yes Provider note:: Patient reports experiencing difficulty to sleep. 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 Requested that Seroquel dosage be increased Total face to face time:: 15 Mental Status Exam - Mental Status Exam Alert and Oriented to: Time, Place, Person Cognitive Function: Fair Patient Appearance: Well Groomed Mood: Hopeful, Euthymic Affect: Appropriate Patient Behavior: Cooperative Speech Pattern: Clear Voice Loudness: Normal Thought Process: Intact Thought Disorder: Not Present Hallucinations: Denies Suicidal Ideation: Denies Homicidal Ideation: Denies Insight/Judgement: Fair Sleep: Poorly Appetite: Good Muscle strength/Tone: Normal Gait/Station: Normal Psychiatric Treatment Plan - Problem List (1) Alcohol dependence Current Visit: Yes (2) Opioid dependence on agonist therapy Current Visit: Yes (3) Nicotine dependence Current Visit: Yes (4) Bipolar disorder Current Visit: Yes (5) Substance induced mood disorder Current Visit: Yes (6) Substance-induced sleep disorder Current Visit: Yes (7) Arthritis Current Visit: Yes (8) Low back pain Current Visit: Yes Qualifiers: Chronicity: acute Back pain laterality: midline Sciatica presence: without sciatica Qualified Code(s): M54.5 - Low back pain (9) Asthma Current Visit: Yes Qualifiers: Asthma severity: mild Asthma persistence: unspecified Asthma complication type: unspecified Qualified Code(s): J45.998 - Other asthma (10) Diabetes mellitus Current Visit: Yes Qualifiers: Diabetes mellitus type: type 2 Diabetes mellitus aviation electronic warfare operator insulin use: without aviation electronic warfare operator use Diabetes mellitus complication status: without complication Qualified Code(s): E11.9 - Type 2 diabetes mellitus without complications (11) GERD (gastroesophageal reflux disease) Current Visit: Yes Qualifiers: Esophagitis presence: without esophagitis Qualified Code(s): K21.9 - Gastro -esophageal reflux disease without esophagitis (12) Hypertension Current Visit: Yes Qualifiers: Hypertension type: essential hypertension Qualified Code(s): I10 - Essential (primary) hypertension Initial treatment plan: 1) Discontinue Seroquel as currently ordered. 2) Start Seroquel 150 mg po HS. 3) Monitor progress
[2017-08-09] MEDS: QUEtiapine FUMARATE 50 MG TABLET PO SCH (21:18)
[2017-08-09] MEDS: THIAMINE HCL 100 MG TABLET (FP) PO SCH (21:18)
[2017-08-09] MEDS: LIDOCAINE PATCH REMOVAL MC SCH (21:20)
[2017-08-10] MEDS ORDERED: METHADONE HCL 10 MG TABLET ONE (03:14)
[2017-08-10] MEDS ORDERED: METHADONE HCL 40 MG DISPERSABLE TABLET ONE (03:14)
[2017-08-10] MEDS: METHADONE 40 MG, METHADONE 20 MG PO SCH (05:58)
[2017-08-10] MEDS: metFORMIN HCL 500 MG TABLET (FP) PO SCH ×2 (07:56→16:05)
[2017-08-10] MEDS: LIDOCAINE 5% TOPICAL PATCH TP SCH (09:21)
[2017-08-10] MEDS: busPIRone HCL 10 MG TABLET (FP) PO SCH ×2 (09:21→21:25)
[2017-08-10] MEDS: NICOTINE 14 MG/24 HOURS TOPICAL PATCH TD SCH (09:21)
[2017-08-10] MEDS: PRENATAL VITAMINS W/ FOLIC ACID TABLET (FP) PO SCH (09:21)
[2017-08-10] MEDS: GABAPENTIN 100 MG CAPSULE (FP) PO SCH ×2 (09:21→21:24)
[2017-08-10] MEDS: RANITIDINE HCL 150 MG TABLET (FP) PO SCH (09:21)
[2017-08-10] MEDS: HYDROCHLOROTHIAZIDE 25 MG TABLET (FP) PO SCH (09:22)
[2017-08-10] MEDS: QUEtiapine FUMARATE 50 MG TABLET PO SCH (21:25)
[2017-08-10] MEDS: THIAMINE HCL 100 MG TABLET (FP) PO SCH (21:25)
[2017-08-10] MEDS: LIDOCAINE PATCH REMOVAL MC SCH (21:25)
[2017-08-11] MEDS ORDERED: METHADONE HCL 10 MG TABLET ONE (03:14)
[2017-08-11] MEDS ORDERED: METHADONE HCL 40 MG DISPERSABLE TABLET ONE (03:14)
[2017-08-11] MEDS: METHADONE 40 MG, METHADONE 20 MG PO SCH (06:03)
[2017-08-11] MEDS: metFORMIN HCL 500 MG TABLET (FP) PO SCH ×2 (07:07→16:38)
[2017-08-11] MEDS: LIDOCAINE 5% TOPICAL PATCH TP SCH (09:58)
[2017-08-11] MEDS: busPIRone HCL 10 MG TABLET (FP) PO SCH ×2 (09:58→21:42)
[2017-08-11] MEDS: GABAPENTIN 100 MG CAPSULE (FP) PO SCH ×2 (09:59→21:42)
[2017-08-11] MEDS: PRENATAL VITAMINS W/ FOLIC ACID TABLET (FP) PO SCH (09:59)
[2017-08-11] MEDS: HYDROCHLOROTHIAZIDE 25 MG TABLET (FP) PO SCH (09:59)
[2017-08-11] MEDS: NICOTINE 14 MG/24 HOURS TOPICAL PATCH TD SCH (09:59)
[2017-08-11] MEDS: RANITIDINE HCL 150 MG TABLET (FP) PO SCH (09:59)
[2017-08-11] MEDS: LIDOCAINE PATCH REMOVAL MC SCH (21:42)
[2017-08-11] MEDS: QUEtiapine FUMARATE 50 MG TABLET PO SCH (21:42)
[2017-08-11] MEDS: THIAMINE HCL 100 MG TABLET (FP) PO SCH (21:42)
[2017-08-12] MEDS ORDERED: METHADONE HCL 10 MG TABLET ONE (04:14)
[2017-08-12] MEDS ORDERED: METHADONE HCL 40 MG DISPERSABLE TABLET ONE (04:14)
[2017-08-12] MEDS: METHADONE 40 MG, METHADONE 20 MG PO SCH (05:56)
[2017-08-12] MEDS: metFORMIN HCL 500 MG TABLET (FP) PO SCH ×2 (07:21→16:47)
[2017-08-12] MEDS: HYDROCHLOROTHIAZIDE 25 MG TABLET (FP) PO SCH (09:49)
[2017-08-12] MEDS: PRENATAL VITAMINS W/ FOLIC ACID TABLET (FP) PO SCH (09:49)
[2017-08-12] MEDS: NICOTINE 14 MG/24 HOURS TOPICAL PATCH TD SCH (09:49)
[2017-08-12] MEDS: GABAPENTIN 100 MG CAPSULE (FP) PO SCH ×2 (09:49→21:19)
[2017-08-12] MEDS: RANITIDINE HCL 150 MG TABLET (FP) PO SCH (09:49)
[2017-08-12] MEDS: LIDOCAINE 5% TOPICAL PATCH TP SCH (09:50)
[2017-08-12] MEDS: busPIRone HCL 10 MG TABLET (FP) PO SCH ×2 (09:51→21:19)
[2017-08-12] MEDS: QUEtiapine FUMARATE 50 MG TABLET PO SCH (21:19)
[2017-08-12] MEDS: THIAMINE HCL 100 MG TABLET (FP) PO SCH (21:19)
[2017-08-12] MEDS: LIDOCAINE PATCH REMOVAL MC SCH (22:21)
[2017-08-13] MEDS ORDERED: METHADONE HCL 10 MG TABLET ONE (04:07)
[2017-08-13] MEDS ORDERED: METHADONE HCL 40 MG DISPERSABLE TABLET ONE (04:08)
[2017-08-13] MEDS: METHADONE 40 MG, METHADONE 20 MG PO SCH (06:04)
[2017-08-13] MEDS: metFORMIN HCL 500 MG TABLET (FP) PO SCH ×2 (07:22→16:47)
[2017-08-13] MEDS: GABAPENTIN 100 MG CAPSULE (FP) PO SCH ×2 (09:43→21:21)
[2017-08-13] MEDS: NICOTINE 14 MG/24 HOURS TOPICAL PATCH TD SCH (09:43)
[2017-08-13] MEDS: busPIRone HCL 10 MG TABLET (FP) PO SCH ×2 (09:43→21:21)
[2017-08-13] MEDS: RANITIDINE HCL 150 MG TABLET (FP) PO SCH (09:43)
[2017-08-13] MEDS: HYDROCHLOROTHIAZIDE 25 MG TABLET (FP) PO SCH (09:43)
[2017-08-13] MEDS: LIDOCAINE 5% TOPICAL PATCH TP SCH (09:43)
[2017-08-13] MEDS: PRENATAL VITAMINS W/ FOLIC ACID TABLET (FP) PO SCH (09:43)
[2017-08-13] MEDS: THIAMINE HCL 100 MG TABLET (FP) PO SCH (21:21)
[2017-08-13] MEDS: QUEtiapine FUMARATE 50 MG TABLET PO SCH (21:21)
[2017-08-13] MEDS: LIDOCAINE PATCH REMOVAL MC SCH (21:22)
[2017-08-14] MEDS ORDERED: METHADONE HCL 10 MG TABLET ONE (04:58)
[2017-08-14] MEDS ORDERED: METHADONE HCL 40 MG DISPERSABLE TABLET ONE (04:59)
[2017-08-14] MEDS: METHADONE 40 MG, METHADONE 20 MG PO SCH (05:53)
[2017-08-14] MEDS: metFORMIN HCL 500 MG TABLET (FP) PO SCH ×2 (07:04→16:53)
[2017-08-14] MEDS: PRENATAL VITAMINS W/ FOLIC ACID TABLET (FP) PO SCH (09:40)
[2017-08-14] MEDS: GABAPENTIN 100 MG CAPSULE (FP) PO SCH ×2 (09:40→21:19)
[2017-08-14] MEDS: RANITIDINE HCL 150 MG TABLET (FP) PO SCH (09:40)
[2017-08-14] MEDS: busPIRone HCL 10 MG TABLET (FP) PO SCH ×2 (09:40→21:19)
[2017-08-14] MEDS: HYDROCHLOROTHIAZIDE 25 MG TABLET (FP) PO SCH (09:40)
[2017-08-14] MEDS: NICOTINE 14 MG/24 HOURS TOPICAL PATCH TD SCH (09:40)
[2017-08-14] MEDS: LIDOCAINE 5% TOPICAL PATCH TP SCH (09:40)
[2017-08-14] MEDS: THIAMINE HCL 100 MG TABLET (FP) PO SCH (21:19)
[2017-08-14] MEDS: QUEtiapine FUMARATE 50 MG TABLET PO SCH (21:19)
[2017-08-14] MEDS: LIDOCAINE PATCH REMOVAL MC SCH (21:20)
[2017-08-15] MEDS ORDERED: METHADONE HCL 40 MG DISPERSABLE TABLET ONE (03:22)
[2017-08-15] MEDS ORDERED: METHADONE HCL 10 MG TABLET ONE (03:22)
[2017-08-15] MEDS: METHADONE 40 MG, METHADONE 20 MG PO SCH (06:01)
[2017-08-15] MEDS: metFORMIN HCL 500 MG TABLET (FP) PO SCH ×2 (07:00→16:43)
[2017-08-15] MEDS: busPIRone HCL 10 MG TABLET (FP) PO SCH ×2 (09:37→21:14)
[2017-08-15] MEDS: HYDROCHLOROTHIAZIDE 25 MG TABLET (FP) PO SCH (09:37)
[2017-08-15] MEDS: GABAPENTIN 100 MG CAPSULE (FP) PO SCH ×2 (09:37→21:14)
[2017-08-15] MEDS: PRENATAL VITAMINS W/ FOLIC ACID TABLET (FP) PO SCH (09:37)
[2017-08-15] MEDS: LIDOCAINE 5% TOPICAL PATCH TP SCH (09:38)
[2017-08-15] MEDS: RANITIDINE HCL 150 MG TABLET (FP) PO SCH (09:38)
[2017-08-15] MEDS: NICOTINE 14 MG/24 HOURS TOPICAL PATCH TD SCH (09:39)
[2017-08-15] MEDS: QUEtiapine FUMARATE 50 MG TABLET PO SCH (21:14)
[2017-08-15] MEDS: LIDOCAINE PATCH REMOVAL MC SCH (21:14)
[2017-08-15] MEDS: THIAMINE HCL 100 MG TABLET (FP) PO SCH (21:14)
[2017-08-16] MEDS ORDERED: METHADONE HCL 10 MG TABLET ONE (03:10)
[2017-08-16] MEDS ORDERED: METHADONE HCL 40 MG DISPERSABLE TABLET ONE (03:11)
[2017-08-16] MEDS: METHADONE 40 MG, METHADONE 20 MG PO SCH (06:00)
[2017-08-16] MEDS: metFORMIN HCL 500 MG TABLET (FP) PO SCH ×2 (07:48→16:47)
[2017-08-16] MEDS: PRENATAL VITAMINS W/ FOLIC ACID TABLET (FP) PO SCH (09:43)
[2017-08-16] MEDS: NICOTINE 14 MG/24 HOURS TOPICAL PATCH TD SCH (09:43)
[2017-08-16] MEDS: HYDROCHLOROTHIAZIDE 25 MG TABLET (FP) PO SCH (09:43)
[2017-08-16] MEDS: RANITIDINE HCL 150 MG TABLET (FP) PO SCH (09:44)
[2017-08-16] MEDS: LIDOCAINE 5% TOPICAL PATCH TP SCH (09:44)
[2017-08-16] MEDS: busPIRone HCL 10 MG TABLET (FP) PO SCH ×2 (09:44→21:18)
[2017-08-16] MEDS: GABAPENTIN 100 MG CAPSULE (FP) PO SCH ×2 (09:44→21:18)
[2017-08-16] MEDS: QUEtiapine FUMARATE 50 MG TABLET PO SCH (21:18)
[2017-08-16] MEDS: THIAMINE HCL 100 MG TABLET (FP) PO SCH (21:18)
[2017-08-16] MEDS: LIDOCAINE PATCH REMOVAL MC SCH (21:19)
[2017-08-17] MEDS ORDERED: METHADONE HCL 40 MG DISPERSABLE TABLET ONE (04:25)
[2017-08-17] MEDS ORDERED: METHADONE HCL 10 MG TABLET ONE (04:25)
[2017-08-17] MEDS: METHADONE 40 MG, METHADONE 20 MG PO SCH (05:56)
[2017-08-17] MEDS: metFORMIN HCL 500 MG TABLET (FP) PO SCH ×2 (07:31→16:45)
[2017-08-17] MEDS: busPIRone HCL 10 MG TABLET (FP) PO SCH ×2 (09:46→21:19)
[2017-08-17] MEDS: LIDOCAINE 5% TOPICAL PATCH TP SCH (09:46)
[2017-08-17] MEDS: GABAPENTIN 100 MG CAPSULE (FP) PO SCH ×2 (09:46→21:19)
[2017-08-17] MEDS: NICOTINE 14 MG/24 HOURS TOPICAL PATCH TD SCH (09:46)
[2017-08-17] MEDS: RANITIDINE HCL 150 MG TABLET (FP) PO SCH (09:46)
[2017-08-17] MEDS: HYDROCHLOROTHIAZIDE 25 MG TABLET (FP) PO SCH (09:46)
[2017-08-17] MEDS: PRENATAL VITAMINS W/ FOLIC ACID TABLET (FP) PO SCH (09:46)
[2017-08-17] MEDS: THIAMINE HCL 100 MG TABLET (FP) PO SCH (21:19)
[2017-08-17] MEDS: QUEtiapine FUMARATE 50 MG TABLET PO SCH (21:19)
[2017-08-17] MEDS: LIDOCAINE PATCH REMOVAL MC SCH (21:53)
[2017-08-18] MEDS ORDERED: METHADONE HCL 40 MG DISPERSABLE TABLET ONE (04:00)
[2017-08-18] MEDS ORDERED: METHADONE HCL 10 MG TABLET ONE (04:00)
[2017-08-18] MEDS: METHADONE 40 MG, METHADONE 20 MG PO SCH (05:58)
[2017-08-18] MEDS: metFORMIN HCL 500 MG TABLET (FP) PO SCH ×2 (07:10→16:42)
[2017-08-18] MEDS: LIDOCAINE 5% TOPICAL PATCH TP SCH (09:42)
[2017-08-18] MEDS: busPIRone HCL 10 MG TABLET (FP) PO SCH ×2 (09:42→21:14)
[2017-08-18] MEDS: NICOTINE 14 MG/24 HOURS TOPICAL PATCH TD SCH (09:42)
[2017-08-18] MEDS: GABAPENTIN 100 MG CAPSULE (FP) PO SCH ×2 (09:42→21:14)
[2017-08-18] MEDS: HYDROCHLOROTHIAZIDE 25 MG TABLET (FP) PO SCH (09:42)
[2017-08-18] MEDS: RANITIDINE HCL 150 MG TABLET (FP) PO SCH (09:42)
[2017-08-18] MEDS: PRENATAL VITAMINS W/ FOLIC ACID TABLET (FP) PO SCH (09:43)
[2017-08-18] MEDS: THIAMINE HCL 100 MG TABLET (FP) PO SCH (21:14)
[2017-08-18] MEDS: QUEtiapine FUMARATE 50 MG TABLET PO SCH (21:14)
[2017-08-18] MEDS: LIDOCAINE PATCH REMOVAL MC SCH (21:15)
[2017-08-19] MEDS ORDERED: METHADONE HCL 40 MG DISPERSABLE TABLET ONE (03:12)
[2017-08-19] MEDS ORDERED: METHADONE HCL 10 MG TABLET ONE (03:12)
[2017-08-19] MEDS: METHADONE 40 MG, METHADONE 20 MG PO SCH (06:02)
[2017-08-19] MEDS: metFORMIN HCL 500 MG TABLET (FP) PO SCH ×2 (07:31→16:46)
[2017-08-19] MEDS: PRENATAL VITAMINS W/ FOLIC ACID TABLET (FP) PO SCH (09:45)
[2017-08-19] MEDS: HYDROCHLOROTHIAZIDE 25 MG TABLET (FP) PO SCH (09:46)
[2017-08-19] MEDS: RANITIDINE HCL 150 MG TABLET (FP) PO SCH (09:46)
[2017-08-19] MEDS: busPIRone HCL 10 MG TABLET (FP) PO SCH ×2 (09:46→21:13)
[2017-08-19] MEDS: LIDOCAINE 5% TOPICAL PATCH TP SCH (09:46)
[2017-08-19] MEDS: NICOTINE 14 MG/24 HOURS TOPICAL PATCH TD SCH (09:46)
[2017-08-19] MEDS: GABAPENTIN 100 MG CAPSULE (FP) PO SCH ×2 (09:46→21:12)
[2017-08-19] MEDS: THIAMINE HCL 100 MG TABLET (FP) PO SCH (21:12)
[2017-08-19] MEDS: QUEtiapine FUMARATE 50 MG TABLET PO SCH (21:13)
[2017-08-19] MEDS: LIDOCAINE PATCH REMOVAL MC SCH (21:14)
[2017-08-20] MEDS ORDERED: METHADONE HCL 10 MG TABLET ONE (04:08)
[2017-08-20] MEDS ORDERED: METHADONE HCL 40 MG DISPERSABLE TABLET ONE (04:08)
[2017-08-20] MEDS: METHADONE 40 MG, METHADONE 20 MG PO SCH (05:47)
[2017-08-20] MEDS: metFORMIN HCL 500 MG TABLET (FP) PO SCH ×2 (07:18→16:58)
[2017-08-20] MEDS: PRENATAL VITAMINS W/ FOLIC ACID TABLET (FP) PO SCH (09:46)
[2017-08-20] MEDS: LIDOCAINE 5% TOPICAL PATCH TP SCH (09:47)
[2017-08-20] MEDS: busPIRone HCL 10 MG TABLET (FP) PO SCH ×2 (09:47→21:20)
[2017-08-20] MEDS: GABAPENTIN 100 MG CAPSULE (FP) PO SCH ×2 (09:47→21:20)
[2017-08-20] MEDS: HYDROCHLOROTHIAZIDE 25 MG TABLET (FP) PO SCH (09:47)
[2017-08-20] MEDS: NICOTINE 14 MG/24 HOURS TOPICAL PATCH TD SCH (09:47)
[2017-08-20] MEDS: RANITIDINE HCL 150 MG TABLET (FP) PO SCH (09:47)
[2017-08-20] MEDS: QUEtiapine FUMARATE 50 MG TABLET PO SCH (21:20)
[2017-08-20] MEDS: THIAMINE HCL 100 MG TABLET (FP) PO SCH (21:21)
[2017-08-20] MEDS: LIDOCAINE PATCH REMOVAL MC SCH (21:21)
[2017-08-21] MEDS ORDERED: METHADONE HCL 10 MG TABLET ONE (02:48)
[2017-08-21] MEDS ORDERED: METHADONE HCL 40 MG DISPERSABLE TABLET ONE (02:48)
[2017-08-21] MEDS: METHADONE 40 MG, METHADONE 20 MG PO SCH (06:04)
[2017-08-21] MEDS: metFORMIN HCL 500 MG TABLET (FP) PO SCH ×2 (07:18→16:44)
[2017-08-21] MEDS: NICOTINE 14 MG/24 HOURS TOPICAL PATCH TD SCH (10:17)
[2017-08-21] MEDS: GABAPENTIN 100 MG CAPSULE (FP) PO SCH ×2 (10:18→21:17)
[2017-08-21] MEDS: busPIRone HCL 10 MG TABLET (FP) PO SCH ×2 (10:18→21:17)
[2017-08-21] MEDS: HYDROCHLOROTHIAZIDE 25 MG TABLET (FP) PO SCH (10:18)
[2017-08-21] MEDS: RANITIDINE HCL 150 MG TABLET (FP) PO SCH (10:18)
[2017-08-21] MEDS: PRENATAL VITAMINS W/ FOLIC ACID TABLET (FP) PO SCH (10:19)
[2017-08-21] MEDS: LIDOCAINE 5% TOPICAL PATCH TP SCH (10:19)
[2017-08-21] MEDS: QUEtiapine FUMARATE 50 MG TABLET PO SCH (21:17)
[2017-08-21] MEDS: THIAMINE HCL 100 MG TABLET (FP) PO SCH (21:17)
[2017-08-21] MEDS: LIDOCAINE PATCH REMOVAL MC SCH (21:18)
[2017-08-22] MEDS ORDERED: METHADONE HCL 10 MG TABLET ONE (05:30)
[2017-08-22] MEDS ORDERED: METHADONE HCL 40 MG DISPERSABLE TABLET ONE (05:30)
[2017-08-22] MEDS: METHADONE 40 MG, METHADONE 20 MG PO SCH (06:06)
[2017-08-22] MEDS: metFORMIN HCL 500 MG TABLET (FP) PO SCH ×2 (06:56→17:10)
[2017-08-22] MEDS: GABAPENTIN 100 MG CAPSULE (FP) PO SCH ×2 (09:55→21:19)
[2017-08-22] MEDS: PRENATAL VITAMINS W/ FOLIC ACID TABLET (FP) PO SCH (09:56)
[2017-08-22] MEDS: HYDROCHLOROTHIAZIDE 25 MG TABLET (FP) PO SCH (09:56)
[2017-08-22] MEDS: busPIRone HCL 10 MG TABLET (FP) PO SCH ×2 (09:56→21:19)
[2017-08-22] MEDS: RANITIDINE HCL 150 MG TABLET (FP) PO SCH (09:56)
[2017-08-22] MEDS: NICOTINE 14 MG/24 HOURS TOPICAL PATCH TD SCH (09:58)
[2017-08-22] MEDS: LIDOCAINE 5% TOPICAL PATCH TP SCH (09:59)
[2017-08-22] MEDS: QUEtiapine FUMARATE 50 MG TABLET PO SCH (21:19)
[2017-08-22] MEDS: THIAMINE HCL 100 MG TABLET (FP) PO SCH (21:19)
[2017-08-22] MEDS: LIDOCAINE PATCH REMOVAL MC SCH (21:20)
[2017-08-23] MEDS ORDERED: METHADONE HCL 10 MG TABLET ONE (04:48)
[2017-08-23] MEDS ORDERED: METHADONE HCL 40 MG DISPERSABLE TABLET ONE (04:48)
[2017-08-23] MEDS: METHADONE 40 MG, METHADONE 20 MG PO SCH (05:58)
[2017-08-23] MEDS: metFORMIN HCL 500 MG TABLET (FP) PO SCH ×2 (07:13→16:48)
[2017-08-23] MEDS: GABAPENTIN 100 MG CAPSULE (FP) PO SCH ×2 (09:59→21:27)
[2017-08-23] MEDS: PRENATAL VITAMINS W/ FOLIC ACID TABLET (FP) PO SCH (09:59)
[2017-08-23] MEDS: LIDOCAINE 5% TOPICAL PATCH TP SCH (09:59)
[2017-08-23] MEDS: HYDROCHLOROTHIAZIDE 25 MG TABLET (FP) PO SCH (09:59)
[2017-08-23] MEDS: NICOTINE 14 MG/24 HOURS TOPICAL PATCH TD SCH (09:59)
[2017-08-23] MEDS: busPIRone HCL 10 MG TABLET (FP) PO SCH ×2 (09:59→21:25)
[2017-08-23] MEDS: RANITIDINE HCL 150 MG TABLET (FP) PO SCH (10:00)
[2017-08-23] MEDS: THIAMINE HCL 100 MG TABLET (FP) PO SCH (21:25)
[2017-08-23] MEDS: QUEtiapine FUMARATE 50 MG TABLET PO SCH (21:26)
[2017-08-23] MEDS: LIDOCAINE PATCH REMOVAL MC SCH (21:27)
[2017-08-24] MEDS ORDERED: METHADONE HCL 10 MG TABLET ONE (05:50)
[2017-08-24] MEDS ORDERED: METHADONE HCL 40 MG DISPERSABLE TABLET ONE (05:51)
[2017-08-24] MEDS: METHADONE 40 MG, METHADONE 20 MG PO SCH (06:01)
[2017-08-24] MEDS: metFORMIN HCL 500 MG TABLET (FP) PO SCH ×2 (07:39→16:46)
[2017-08-24] MEDS: PRENATAL VITAMINS W/ FOLIC ACID TABLET (FP) PO SCH (09:57)
[2017-08-24] MEDS: GABAPENTIN 100 MG CAPSULE (FP) PO SCH ×2 (09:57→21:33)
[2017-08-24] MEDS: LIDOCAINE 5% TOPICAL PATCH TP SCH (09:57)
[2017-08-24] MEDS: HYDROCHLOROTHIAZIDE 25 MG TABLET (FP) PO SCH (09:57)
[2017-08-24] MEDS: busPIRone HCL 10 MG TABLET (FP) PO SCH ×2 (09:57→21:33)
[2017-08-24] MEDS: RANITIDINE HCL 150 MG TABLET (FP) PO SCH (09:57)
[2017-08-24] MEDS: NICOTINE 14 MG/24 HOURS TOPICAL PATCH TD SCH (09:58)
[2017-08-24] MEDS: QUEtiapine FUMARATE 50 MG TABLET PO SCH (21:33)
[2017-08-24] MEDS: THIAMINE HCL 100 MG TABLET (FP) PO SCH (21:33)
[2017-08-24] MEDS: LIDOCAINE PATCH REMOVAL MC SCH (21:34)
[2017-08-25] MEDS ORDERED: METHADONE HCL 10 MG TABLET ONE (02:52)
[2017-08-25] MEDS ORDERED: METHADONE HCL 40 MG DISPERSABLE TABLET ONE (02:52)
[2017-08-25] MEDS: METHADONE 40 MG, METHADONE 20 MG PO SCH (05:59)
[2017-08-25] MEDS: metFORMIN HCL 500 MG TABLET (FP) PO SCH ×2 (06:59→17:29)
[2017-08-25] MEDS: RANITIDINE HCL 150 MG TABLET (FP) PO SCH (10:11)
[2017-08-25] MEDS: NICOTINE 14 MG/24 HOURS TOPICAL PATCH TD SCH (10:11)
[2017-08-25] MEDS: busPIRone HCL 10 MG TABLET (FP) PO SCH ×2 (10:11→21:22)
[2017-08-25] MEDS: PRENATAL VITAMINS W/ FOLIC ACID TABLET (FP) PO SCH (10:12)
[2017-08-25] MEDS: GABAPENTIN 100 MG CAPSULE (FP) PO SCH ×2 (10:12→21:21)
[2017-08-25] MEDS: HYDROCHLOROTHIAZIDE 25 MG TABLET (FP) PO SCH (10:12)
[2017-08-25] MEDS: LIDOCAINE 5% TOPICAL PATCH TP SCH (10:13)
[2017-08-25] MEDS: THIAMINE HCL 100 MG TABLET (FP) PO SCH (21:21)
[2017-08-25] MEDS: QUEtiapine FUMARATE 50 MG TABLET PO SCH (21:21)
[2017-08-25] MEDS: LIDOCAINE PATCH REMOVAL MC SCH (21:22)
[2017-08-26] MEDS ORDERED: METHADONE HCL 10 MG TABLET ONE (04:20)
[2017-08-26] MEDS ORDERED: METHADONE HCL 40 MG DISPERSABLE TABLET ONE (04:20)
[2017-08-26] MEDS: METHADONE 40 MG, METHADONE 20 MG PO SCH (05:49)
[2017-08-26] MEDS: metFORMIN HCL 500 MG TABLET (FP) PO SCH ×2 (07:18→16:41)
[2017-08-26] MEDS: NICOTINE 14 MG/24 HOURS TOPICAL PATCH TD SCH (09:41)
[2017-08-26] MEDS: GABAPENTIN 100 MG CAPSULE (FP) PO SCH ×2 (09:42→21:40)
[2017-08-26] MEDS: PRENATAL VITAMINS W/ FOLIC ACID TABLET (FP) PO SCH (09:42)
[2017-08-26] MEDS: HYDROCHLOROTHIAZIDE 25 MG TABLET (FP) PO SCH (09:42)
[2017-08-26] MEDS: LIDOCAINE 5% TOPICAL PATCH TP SCH (09:42)
[2017-08-26] MEDS: busPIRone HCL 10 MG TABLET (FP) PO SCH ×2 (09:42→21:40)
[2017-08-26] MEDS: RANITIDINE HCL 150 MG TABLET (FP) PO SCH (09:42)
[2017-08-26] MEDS: THIAMINE HCL 100 MG TABLET (FP) PO SCH (21:40)
[2017-08-26] MEDS: QUEtiapine FUMARATE 50 MG TABLET PO SCH (21:40)
[2017-08-26] MEDS: hydrOXYzine PAMOATE 25 MG CAPSULE (FP) PO PRN (21:41)
[2017-08-26] MEDS: LIDOCAINE PATCH REMOVAL MC SCH (21:42)
[2017-08-27] MEDS ORDERED: METHADONE HCL 10 MG TABLET ONE (05:02)
[2017-08-27] MEDS ORDERED: METHADONE HCL 40 MG DISPERSABLE TABLET ONE (05:03)
[2017-08-27] MEDS: METHADONE 40 MG, METHADONE 20 MG PO SCH (06:02)
[2017-08-27] MEDS: metFORMIN HCL 500 MG TABLET (FP) PO SCH ×2 (07:01→16:53)
[2017-08-27] MEDS: RANITIDINE HCL 150 MG TABLET (FP) PO SCH (09:43)
[2017-08-27] MEDS: GABAPENTIN 100 MG CAPSULE (FP) PO SCH ×2 (09:43→21:37)
[2017-08-27] MEDS: busPIRone HCL 10 MG TABLET (FP) PO SCH ×2 (09:43→21:37)
[2017-08-27] MEDS: PRENATAL VITAMINS W/ FOLIC ACID TABLET (FP) PO SCH (09:43)
[2017-08-27] MEDS: HYDROCHLOROTHIAZIDE 25 MG TABLET (FP) PO SCH (09:43)
[2017-08-27] MEDS: NICOTINE 14 MG/24 HOURS TOPICAL PATCH TD SCH (09:44)
[2017-08-27] MEDS: LIDOCAINE 5% TOPICAL PATCH TP SCH (09:44)
[2017-08-27] MEDS: QUEtiapine FUMARATE 50 MG TABLET PO SCH (21:37)
[2017-08-27] MEDS: LIDOCAINE PATCH REMOVAL MC SCH (21:37)
[2017-08-27] MEDS: THIAMINE HCL 100 MG TABLET (FP) PO SCH (21:37)
[2017-08-27] MEDS: hydrOXYzine PAMOATE 25 MG CAPSULE (FP) PO PRN (21:38)
[2017-08-28] MEDS ORDERED: METHADONE HCL 10 MG TABLET ONE (04:54)
[2017-08-28] MEDS ORDERED: METHADONE HCL 40 MG DISPERSABLE TABLET ONE (04:54)
[2017-08-28] MEDS: METHADONE 40 MG, METHADONE 20 MG PO SCH (05:56)
[2017-08-28] MEDS: metFORMIN HCL 500 MG TABLET (FP) PO SCH ×2 (07:03→16:47)
--- NOTE | 2017-08-28 07:43 | PN ---
Psychiatric Progress Note Vital Signs: Vital Signs Period Temp Pulse Resp BP Sys/Cavazos Pulse Ox Last 24 Hr 98.5 F 75-86 18-20 101-132/64-77 Date of Session: 08/28/17 Chief Complaint:: Discharge Note HPI: Patient addressing Alcohol Dependence comorbid with Opioid Dependence on Agonist Therapy, Nicotine Dependence, Bipolar Disorder, Substance-Induced Mood Disorder and Substance-Induce Sleep Disorder ROS: Asthma, HTN, DM, GERD. Arthritis Current Medications: Active Medications Generic Name Dose Route Start Last Admin Trade Name Freq PRN Reason Stop Dose Admin Acetaminophen 650 mg 07/29/17 18:45 Tylenol - PO Q4H PRN FEVER Al Hydroxide/Mg Hydroxide 30 ml 07/29/17 18:45 Mylanta Oral Suspension - PO Q6H PRN DYSPEPSIA Albuterol Sulfate 2 puff 07/29/17 18:48 Ventolin Hfa Inhaler - IH Q4H PRN ASTHMA Bupropion HCl 150 mg 07/30/17 10:00 08/27/17 09:43 Wellbutrin Xl - PO 150 mg DAILY THERESA Administration Buspirone HCl 10 mg 07/30/17 10:00 08/27/17 21:37 Buspar - PO 10 mg BID THERESA Administration Eucalyptus/Menthol/Phenol/Sorbitol 1 each 07/29/17 18:45 Cepastat Lozenge - MM Q4H PRN SORE THROAT Gabapentin 200 mg 07/29/17 22:00 08/27/17 21:37 Neurontin - PO 200 mg BID THERESA Administration Guaifenesin 10 ml 07/29/17 18:45 08/08/17 06:04 Robitussin Dm - PO 10 ml Q6H PRN Administration COUGH Hydrochlorothiazide 25 mg 07/30/17 10:00 08/27/17 09:43 Hctz - PO 25 mg DAILY THERESA Administration Hydroxyzine Pamoate 25 mg 07/29/17 18:45 08/27/17 21:38 Vistaril - PO 25 mg Q4H PRN Administration AGITATION Ibuprofen 600 mg 07/29/17 18:50 08/04/17 12:47 Motrin - PO 600 mg Q8H PRN Administration PAIN LEVEL 4-6 Lidocaine 1 patch 08/06/17 10:00 08/27/17 09:44 Lidoderm Patch - TP Not Given DAILY THERESA Loperamide HCl 4 mg 07/29/17 18:45 Imodium - PO Q6H PRN DIARRHEA Magnesium Citrate 300 ml 07/29/17 18:45 Citroma - PO Q48H PRN CONSTIPATION Magnesium Hydroxide 30 ml 07/29/17 18:45 Milk Of Magnesia - PO DAILY PRN CONSTIPATION Metformin HCl 1,000 mg 07/30/17 07:00 08/28/17 07:03 Glucophage - PO 1,000 mg BIDAC THERESA Administration Methadone HCl 40 mg/ Methadone 60 mg 08/24/17 06:00 08/28/17 05:56 HCl 20 mg PO 08/31/17 05:59 60 mg DAILY@0600 THERESA Administration Miscellaneous 1 each 08/05/17 22:00 08/27/17 21:37 Lidoderm Patch Removal MC 1 each DAILY@2200 THERESA Administration Nicotine 14 mg 07/30/17 10:00 08/27/17 09:44 Nicoderm Patch - TD 14 mg DAILY THERESA Administration Nicotine Polacrilex 2 mg 07/29/17 18:45 Nicorette Gum - BC Q2H PRN NICOTINE REPLACEMENT RX Multivit/Folic Acid/Iron 1 tab 07/30/17 10:00 08/27/17 09:43 Vitamins (Sjr) - PO 1 tab DAILY THERESA Administration Pseudoephedrine/Triprolidine 1 combo 07/29/17 18:45 Actifed - PO TID PRN NASAL CONGESTION Quetiapine Fumarate 150 mg 08/09/17 22:00 08/27/17 21:37 Seroquel - PO 150 mg HS THERESA Administration Ranitidine HCl 150 mg 07/30/17 10:00 08/27/17 09:43 Zantac - PO 150 mg DAILY THERESA Administration Thiamine HCl 100 mg 07/29/17 22:00 08/27/17 21:37 Vitamin B1 - PO 100 mg HS THERESA Administration Current Side Effect: No Lab tests ordered: Yes Lab tests reviewed: Yes Provider note:: Patient will complete this program on 08/29/17. He has met his treatment goals and will continue to address his issues in outpatient treatment at [facility]. He responded well to Wellbutrin XL 150 mg po daily, Buspar 10 mg po BID and Seroquel 150 mg po HS. Scripts for 30 days supply of these medications will be electronically transmitted to [facility] at [address] [place] [address]. He is stable for discharge on 02/06 Total face to face time:: 35 Mental Status Exam - Mental Status Exam Alert and Oriented to: Time, Place, Person Cognitive Function: Fair Patient Appearance: Well Groomed Mood: Hopeful, Euthymic Affect: Appropriate Patient Behavior: Cooperative Speech Pattern: Clear Voice Loudness: Normal Thought Process: Intact, Goal Oriented Thought Disorder: Not Present Hallucinations: Denies Suicidal Ideation: Denies Homicidal Ideation: Denies Insight/Judgement: Fair Sleep: Fair Appetite: Good Muscle strength/Tone: Normal Gait/Station: Normal Psychiatric Treatment Plan - Problem List (1) Alcohol dependence Current Visit: Yes (2) Opioid dependence on agonist therapy Current Visit: Yes (3) Nicotine dependence Current Visit: Yes (4) Bipolar disorder Current Visit: Yes (5) Substance induced mood disorder Current Visit: Yes (6) Substance-induced sleep disorder Current Visit: Yes (7) Arthritis Current Visit: Yes (8) Low back pain Current Visit: Yes Qualifiers: Chronicity: acute Back pain laterality: midline Sciatica presence: without sciatica Qualified Code(s): M54.5 - Low back pain (9) Asthma Current Visit: Yes Qualifiers: Asthma severity: mild Asthma persistence: unspecified Asthma complication type: unspecified Qualified Code(s): J45.998 - Other asthma (10) Diabetes mellitus Current Visit: Yes Qualifiers: Diabetes mellitus type: type 2 Diabetes mellitus [facility] insulin use: without rn long term care use Diabetes mellitus complication status: without complication Qualified Code(s): E11.9 - Type 2 diabetes mellitus without complications (11) GERD (gastroesophageal reflux disease) Current Visit: Yes Qualifiers: Esophagitis presence: without esophagitis Qualified Code(s): K21.9 - Gastro -esophageal reflux disease without esophagitis (12) Hypertension Current Visit: Yes Qualifiers: Hypertension type: essential hypertension Qualified Code(s): I10 - Essential (primary) hypertension Initial treatment plan: Patient will be discharged tomorrowand referred to [facility] for outpatient treatment
[2017-08-28] MEDS: PRENATAL VITAMINS W/ FOLIC ACID TABLET (FP) PO SCH (09:57)
[2017-08-28] MEDS: busPIRone HCL 10 MG TABLET (FP) PO SCH ×2 (09:57→21:26)
[2017-08-28] MEDS: RANITIDINE HCL 150 MG TABLET (FP) PO SCH (09:57)
[2017-08-28] MEDS: LIDOCAINE 5% TOPICAL PATCH TP SCH (09:57)
[2017-08-28] MEDS: HYDROCHLOROTHIAZIDE 25 MG TABLET (FP) PO SCH (09:57)
[2017-08-28] MEDS: GABAPENTIN 100 MG CAPSULE (FP) PO SCH ×2 (09:57→21:26)
[2017-08-28] MEDS: NICOTINE 14 MG/24 HOURS TOPICAL PATCH TD SCH (09:58)
[2017-08-28] MEDS: QUEtiapine FUMARATE 50 MG TABLET PO SCH (21:25)
[2017-08-28] MEDS: LIDOCAINE PATCH REMOVAL MC SCH (21:26)
[2017-08-28] MEDS: THIAMINE HCL 100 MG TABLET (FP) PO SCH (21:26)
[2017-08-29] MEDS ORDERED: METHADONE HCL 40 MG DISPERSABLE TABLET ONE (03:19)
[2017-08-29] MEDS ORDERED: METHADONE HCL 10 MG TABLET ONE (03:19)
[2017-08-29] MEDS: METHADONE 40 MG, METHADONE 20 MG PO SCH (06:01)
[2017-08-29 06:47] VITALS: BP 124/69; PULSE 70; TEMP 98
[2017-08-29] MEDS: metFORMIN HCL 500 MG TABLET (FP) PO SCH (07:04)
== END 2017-08-29 08:45 | disposition home or self-care (01) | DRG 895 ==
LOC: YASAS 16:02 → Y6N 20:18 → Y3W 08-02 14:38
PROVIDERS: ADMIT Internal Medicine; ATTEND Psychiatry & Neurology Psychiatry
PROC: HZ2ZZZZ Detoxification Services for Substance Abuse Treatment (ICD-10-PCS; 2017-07-29)
PROC: HZ42ZZZ Group Counseling for Substance Abuse Treatment, Cognitive-Behavioral (ICD-10-PCS; principal; 2017-08-02)
DX: F11.23 Opioid dependence with withdrawal (principal); F19.282 Other psychoactive substance dependence with psychoactive substance-induced sleep disorder; F10.230 Alcohol dependence with withdrawal, uncomplicated; F17.213 Nicotine dependence, cigarettes, with withdrawal; F31.9 Bipolar disorder, unspecified; F19.24 Other psychoactive substance dependence with psychoactive substance-induced mood disorder; I10 Essential (primary) hypertension; K21.9 Gastro-esophageal reflux disease without esophagitis; E11.9 Type 2 diabetes mellitus without complications; Z79.84 Long term (current) use of oral hypoglycemic drugs; K74.60 Unspecified cirrhosis of liver; J45.998 Other asthma; M54.5 Low back pain; M12.9 Arthropathy, unspecified; R26.89 Other abnormalities of gait and mobility; Z99.89 Dependence on other enabling machines and devices
CPT/HCPCS: 36415; 80053; 81003; 81015; 82962; 85027; 86593; 87389; 93005; 93010

== ENCOUNTER 2019-03-08 08:58 | Inpatient (IN) | payer OTHER ==
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
[2019-03-08] MEDS ORDERED: MENTHOL/PHENOL 1 EACH UD MM PRN (10:46)
[2019-03-08] MEDS ORDERED: NICOTINE POLACRILEX 2 MG GUM BUC PRN (10:46)
[2019-03-08] MEDS ORDERED: hydrOXYzine PAMOATE 25 MG CAPSULE (FP) PO PRN (10:46)
[2019-03-08] MEDS ORDERED: METHOCARBAMOL 500 MG TABLET PO PRN (10:46)
[2019-03-08] MEDS ORDERED: MAGNESIUM CITRATE 300 ML BOTTLE PO PRN (10:46)
[2019-03-08] MEDS ORDERED: ACETAMINOPHEN 325 MG TABLET (FP) PO PRN (10:46)
[2019-03-08] MEDS ORDERED: MAGNESIUM HYDROX 2400MG/30ML ORAL SUSPENSION 30 ML CUP PO PRN (10:46)
[2019-03-08] MEDS ORDERED: IBUPROFEN 400 MG TABLET (FP) PO PRN (10:46)
[2019-03-08] MEDS ORDERED: ONDANSETRON *ODT* 4 MG TABLET SL PRN (10:46)
[2019-03-08] MEDS ORDERED: chlordiazePOXIDE HCL 10 MG CAPSULE PO PRN (10:46)
[2019-03-08] MEDS ORDERED: ALBUTEROL SO4 8 GM HFA INHALER IH PRN (10:48)
[2019-03-08] MEDS: SPIRONOLACTONE 25 MG TABLET (FP) PO SCH (12:04)
[2019-03-08] MEDS: GABAPENTIN 100 MG CAPSULE (FP) PO SCH ×2 (12:05→21:19)
[2019-03-08] MEDS: chlordiazePOXIDE HCL 25 MG CAPSULE PO SCH ×2 (12:05→21:20)
[2019-03-08] MEDS: NICOTINE 14 MG/24 HOURS TOPICAL PATCH TD SCH (12:06)
[2019-03-08 13:32] VITALS: BMI 27.4
[2019-03-08] MEDS: metFORMIN HCL 500 MG TABLET (FP) PO SCH (16:48)
[2019-03-08] MEDS: chlordiazePOXIDE HCL 10 MG CAPSULE PO SCH (16:50)
[2019-03-08] MEDS: THIAMINE HCL 100 MG TABLET (FP) PO SCH (21:19)
[2019-03-08] MEDS ORDERED: QUEtiapine FUMARATE 50 MG TABLET PO ONE (22:00)
[2019-03-09] MEDS: chlordiazePOXIDE HCL 25 MG CAPSULE PO SCH ×3 (05:41→21:40)
[2019-03-09] MEDS: metFORMIN HCL 500 MG TABLET (FP) PO SCH ×2 (07:09→16:52)
[2019-03-09] MEDS ORDERED: METHADONE HCL 10 MG TABLET PO ONE (09:32)
[2019-03-09] MEDS: PRENATAL VITAMINS W/ FOLIC ACID TABLET (FP) PO SCH (10:16)
[2019-03-09] MEDS: GABAPENTIN 100 MG CAPSULE (FP) PO SCH ×2 (10:16→21:40)
[2019-03-09] MEDS: NICOTINE 14 MG/24 HOURS TOPICAL PATCH TD SCH (10:16)
[2019-03-09] MEDS: SPIRONOLACTONE 25 MG TABLET (FP) PO SCH (10:16)
--- NOTE | 2019-03-09 11:21 | PN ---
S CIWA - CIWA Score Nausea/Vomitin-Mild Nausea/No Vomiting Muscle Tremors: 2 Anxiety: 2 Agitation: 2 Paroxysmal Sweats: 1-Minimal Palms Moist Orientation: 0-Oriented Tacttile Disturbances: 1-Very Mild Itch/Numbness Auditory Disturbances: 0-None Visual Disturbances: 0-None Headache: 2-Mild CIWA-Ar Total Score: 11 BHS Progress Note (SOAP) Subjective: alert,irritable,anxious,interrupted sleep,tremor Objective: 03/09/19 11:24 Vital Signs Temperature 98.6 F 03/09/19 09:19 Pulse Rate 88 03/09/19 09:19 Respiratory Rate 18 03/09/19 09:19 Blood Pressure 149/81 03/09/19 09:19 O2 Sat by Pulse Oximetry (%) Laboratory Last Values POC Glucometer 97 UNITS (80-120) 03/09/19 05:39 03/09/19 11:24 labs pending Assessment: 03/09/19 11:24 withdrawal symptom Plan: continue detox librium regimen,bgm monitoring
[2019-03-09] MEDS ORDERED: METHADONE 40 MG, METHADONE 10 MG PO ONE (11:30)
[2019-03-09] MEDS ORDERED: METHADONE HCL 40 MG DISPERSABLE TABLET ONE (11:36)
[2019-03-09] MEDS ORDERED: METHADONE HCL 10 MG TABLET ONE (11:36)
[2019-03-09 12:10] LABS: ALBUMIN 2.9 g/dl (3.4-5.0); BILIRUBIN,TOTAL 0.8 mg/dL (0.2-1); BLOOD UREA NITROGEN 11.4 mg/dL (7-18); CALCIUM 8.3 mg/dL (8.5-10.1); CREATININE 0.9 mg/dL (0.55-1.3); POTASSIUM 3.5 mmol/L (3.5-5.1); TOT PROT 5.6 g/dl (6.4-8.2)
[2019-03-09 12:16] LABS: HEMATOCRIT 31.2 % (35.4-49); MCH 28.1 pg (25.7-33.7); MCHC 32.2 g/dl (32.0-35.9); MEAN CELL VOLUME 87.2 fl (80-96); MEAN PLT VOLUME 7.7 fl (7.5-11.1); PLATELET COUNT 100 K/MM3 (134-434); RBC 3.57 M/mm3 (4.00-5.60); RDW 20.8 % (11.9-15.9); WHITE BLOOD COUNT 2.1 K/mm3 (4.0-10.0)
[2019-03-09] MEDS: MELATONIN 5 MG TABLETS PO PRN (21:41)
[2019-03-09] MEDS: THIAMINE HCL 100 MG TABLET (FP) PO SCH (21:41)
[2019-03-10] MEDS ORDERED: METHADONE HCL 10 MG TABLET ONE (05:12)
[2019-03-10] MEDS ORDERED: METHADONE HCL 40 MG DISPERSABLE TABLET ONE (05:13)
[2019-03-10] MEDS: chlordiazePOXIDE 5 MG CAPSULE PO SCH ×3 (05:39→21:16)
[2019-03-10] MEDS ORDERED: METHADONE HCL 40 MG DISPERSABLE TABLET PO SCH (06:00)
[2019-03-10] MEDS ORDERED: METHADONE 40 MG, METHADONE 10 MG PO ONE (06:00)
[2019-03-10] MEDS: metFORMIN HCL 500 MG TABLET (FP) PO SCH ×2 (06:02→16:44)
[2019-03-10] MEDS: NICOTINE 14 MG/24 HOURS TOPICAL PATCH TD SCH (10:14)
[2019-03-10] MEDS: GABAPENTIN 100 MG CAPSULE (FP) PO SCH ×2 (10:14→21:16)
[2019-03-10] MEDS: SPIRONOLACTONE 25 MG TABLET (FP) PO SCH (10:14)
[2019-03-10] MEDS: PRENATAL VITAMINS W/ FOLIC ACID TABLET (FP) PO SCH (10:15)
--- NOTE | 2019-03-10 10:26 | PN ---
[facility] CIWA - CIWA Score Nausea/Vomitin-No Nausea/No Vomiting Muscle Tremors: 1-None Visible, but [place] Anxiety: 2 Agitation: 2 Paroxysmal Sweats: No Perspiration Orientation: 0-Oriented Tacttile Disturbances: 1-Very Mild Itch/Numbness Auditory Disturbances: 0-None Visual Disturbances: 0-None Headache: 1-Very Mild CIWA-Ar Total Score: 7 BHS Progress Note (SOAP) Subjective: alert,irritable,anxious,interrupted sleep,pain in the body Objective: 03/10/19 10:24 Vital Signs Temperature 98.1 F 03/10/19 10:18 Pulse Rate 91 H 03/10/19 10:18 Respiratory Rate 18 03/10/19 10:18 Blood Pressure 131/80 03/10/19 10:18 O2 Sat by Pulse Oximetry (%) Laboratory Last Values WBC 2.1 K/mm3 (4.0-10.0) L 03/09/19 08:15 RBC 3.57 M/mm3 (4.00-5.60) L 03/09/19 08:15 Hgb 10.0 GM/dL (11.7-16.9) L 03/09/19 08:15 Hct 31.2 % (35.4-49) L 03/09/19 08:15 MCV 87.2 fl (80-96) 03/09/19 08:15 MCH 28.1 pg (25.7-33.7) D 03/09/19 08:15 MCHC 32.2 g/dl (32.0-35.9) 03/09/19 08:15 RDW 20.8 % (11.9-15.9) H 03/09/19 08:15 Plt Count 100 K/MM3 (134-434) L 03/09/19 08:15 MPV 7.7 fl (7.5-11.1) 03/09/19 08:15 Sodium 141 mmol/L (136-145) 03/09/19 08:15 Potassium 3.5 mmol/L (3.5-5.1) 03/09/19 08:15 Chloride 104 mmol/L (98-107) 03/09/19 08:15 Carbon Dioxide 32 mmol/L (21-32) 03/09/19 08:15 Anion Gap 5 MMOL/L (8-16) L 03/09/19 08:15 BUN 11.4 mg/dL (7-18) 03/09/19 08:15 Creatinine 0.9 mg/dL (0.55-1.3) 03/09/19 08:15 Est GFR (CKD-EPI)AfAm 104.98 03/09/19 08:15 Est GFR (CKD-EPI)NonAf 90.58 03/09/19 08:15 POC Glucometer 106 UNITS (80-120) 03/10/19 05:45 Random Glucose 92 mg/dL (74-106) 03/09/19 08:15 Calcium 8.3 mg/dL (8.5-10.1) L 03/09/19 08:15 Total Bilirubin 0.8 mg/dL (0.2-1) 03/09/19 08:15 AST 32 U/L (15-37) 03/09/19 08:15 ALT 25 U/L (13-61) 03/09/19 08:15 Alkaline Phosphatase 124 U/L (45-117) H 03/09/19 08:15 Total Protein 5.6 g/dl (6.4-8.2) L 03/09/19 08:15 Albumin 2.9 g/dl (3.4-5.0) L 03/09/19 08:15 RPR Titer Nonreactive (NONREACTIVE) 03/09/19 08:15 Assessment: 03/10/19 10:25 withdrawal symptom Plan: continue detox librium regimen
[2019-03-10] MEDS: THIAMINE HCL 100 MG TABLET (FP) PO SCH (21:16)
[2019-03-10] MEDS: MELATONIN 5 MG TABLETS PO PRN (21:17)
[2019-03-11] MEDS ORDERED: chlordiazePOXIDE HCL 10 MG CAPSULE PO PRN
[2019-03-11] MEDS ORDERED: METHADONE HCL 10 MG TABLET ONE (04:18)
[2019-03-11] MEDS ORDERED: METHADONE HCL 40 MG DISPERSABLE TABLET ONE (04:19)
[2019-03-11] MEDS: METHADONE 40 MG, METHADONE 20 MG PO SCH (05:52)
[2019-03-11] MEDS: chlordiazePOXIDE HCL 10 MG CAPSULE PO SCH ×3 (05:53→22:01)
[2019-03-11] MEDS: metFORMIN HCL 500 MG TABLET (FP) PO SCH ×2 (06:20→17:25)
[2019-03-11] MEDS: NICOTINE 14 MG/24 HOURS TOPICAL PATCH TD SCH (09:54)
[2019-03-11] MEDS: PRENATAL VITAMINS W/ FOLIC ACID TABLET (FP) PO SCH (09:55)
[2019-03-11] MEDS: GABAPENTIN 100 MG CAPSULE (FP) PO SCH ×2 (09:56→22:00)
[2019-03-11] MEDS: SPIRONOLACTONE 25 MG TABLET (FP) PO SCH (09:56)
--- NOTE | 2019-03-11 12:05 | PN ---
[facility] CIWA - CIWA Score Nausea/Vomitin-No Nausea/No Vomiting Muscle Tremors: 1-None Visible, but [place] Anxiety: 2 Agitation: 2 Paroxysmal Sweats: No Perspiration Orientation: 0-Oriented Tacttile Disturbances: 1-Very Mild Itch/Numbness Auditory Disturbances: 0-None Visual Disturbances: 0-None Headache: 1-Very Mild CIWA-Ar Total Score: 7 BHS Progress Note (SOAP) Subjective: alert,irritable anxious,interrupted sleep,ambulation with walker Objective: 03/11/19 12:03 Vital Signs Temperature 98.2 F 03/11/19 09:34 Pulse Rate 82 03/11/19 09:34 Respiratory Rate 18 03/11/19 09:34 Blood Pressure 123/82 03/11/19 09:34 O2 Sat by Pulse Oximetry (%) 03/11/19 12:03 bgm 134 Assessment: 03/11/19 12:04 withdrawal symptom Plan: continue detox,bgm monitoring,possible trnsfer to revalation for further level of care
[2019-03-11] MEDS: THIAMINE HCL 100 MG TABLET (FP) PO SCH (22:00)
[2019-03-11] MEDS: MELATONIN 5 MG TABLETS PO PRN (22:04)
[2019-03-12] MEDS ORDERED: chlordiazePOXIDE HCL 10 MG CAPSULE PO ONE (05:00)
[2019-03-12] MEDS ORDERED: METHADONE HCL 10 MG TABLET ONE (05:23)
[2019-03-12] MEDS ORDERED: METHADONE HCL 40 MG DISPERSABLE TABLET ONE (05:23)
[2019-03-12] MEDS: METHADONE 40 MG, METHADONE 20 MG PO SCH (05:54)
[2019-03-12] MEDS ORDERED: METHADONE HCL 10 MG TABLET PO SCH (06:00)
[2019-03-12] MEDS: metFORMIN HCL 500 MG TABLET (FP) PO SCH ×2 (06:09→16:45)
--- NOTE | 2019-03-12 08:56 | DS ---
[facility] Detox Discharge Summary Admission Date: 03/08/19 Discharge Date: 03/12/19 - History Present History: Alcohol Dependence, MMTP - Physical Exam Results Vital Signs: Vital Signs Temperature 97.7 F 03/12/19 06:21 Pulse Rate 70 03/12/19 06:21 Respiratory Rate 18 03/12/19 06:21 Blood Pressure 123/72 03/12/19 06:21 O2 Sat by Pulse Oximetry (%) Pertinent Admission Physical Exam Findings: pt arrived in withdrawals Vital Signs Temperature 97.7 F 03/12/19 06:21 Pulse Rate 70 03/12/19 06:21 Respiratory Rate 18 03/12/19 06:21 Blood Pressure 123/72 03/12/19 06:21 O2 Sat by Pulse Oximetry (%) Laboratory Tests 03/08/19 03/09/19 03/09/19 10:49 05:39 08:15 WBC 2.1 L RBC 3.57 L Hgb 10.0 L Hct 31.2 L MCV 87.2 MCH 28.1 D MCHC 32.2 RDW 20.8 H Plt Count 100 L MPV 7.7 Sodium Potassium Chloride Carbon Dioxide Anion Gap BUN Creatinine Est GFR (CKD-EPI)AfAm Est GFR (CKD-EPI)NonAf POC Glucometer 180 97 Random Glucose Calcium Total Bilirubin AST ALT Alkaline Phosphatase Total Protein Albumin RPR Titer 03/09/19 03/09/19 03/10/19 08:15 08:15 05:45 WBC RBC Hgb Hct MCV MCH MCHC RDW Plt Count MPV Sodium 141 Potassium 3.5 Chloride 104 Carbon Dioxide 32 Anion Gap 5 L BUN 11.4 Creatinine 0.9 Est GFR (CKD-EPI)AfAm 104.98 Est GFR (CKD-EPI)NonAf 90.58 POC Glucometer 106 Random Glucose 92 Calcium 8.3 L Total Bilirubin 0.8 AST 32 ALT 25 Alkaline Phosphatase 124 H Total Protein 5.6 L Albumin 2.9 L RPR Titer Nonreactive 03/10/19 03/11/19 03/12/19 16:12 05:51 05:52 WBC RBC Hgb Hct MCV MCH MCHC RDW Plt Count MPV Sodium Potassium Chloride Carbon Dioxide Anion Gap BUN Creatinine Est GFR (CKD-EPI)AfAm Est GFR (CKD-EPI)NonAf POC Glucometer 136 134 122 Random Glucose Calcium Total Bilirubin AST ALT Alkaline Phosphatase Total Protein Albumin RPR Titer today pt is aaox3 ambulating no acute distress - Treatment Hospital Course: Detox Protocol Followed, Detoxed Safely, Responded well, Discharged Condition Good, Rehab Referral Accepted Patient has Accepted a Rehab Referral to: pt referred to inpatient rehab - Medication Discharge Medications: Ambulatory Orders Folic Acid - 1 mg PO DAILY #30 tablet 06/19/16 Gabapentin [Neurontin -] 200 mg PO BID #120 capsule 06/19/16 Thiamine HCl [Vitamin B1 -] 100 mg PO HS #30 tablet 06/19/16 Acamprosate Calcium [Campral -] 666 mg PO TID #180 tab 07/17/16 Bupropion HCl [Wellbutrin Xl -] 150 mg PO DAILY #30 tab 10/09/16 Magnesium Oxide [Mag-Ox -] 400 mg PO BID #60 tablet 10/09/16 Methadone [Dolophine -] 60 mg PO DAILY 05/03/17 Quetiapine Fumarate [Seroquel] 100 mg PO HS #30 tablet 05/31/17 traZODone HCL [Desyrel -] 100 mg PO HS #30 tablet 05/31/17 Albuterol Sulfate Inhaler - [Ventolin HFA Inhaler -] 2 inh IH Q4H PRN #1 inh 01/07 Bupropion HCl [Wellbutrin Xl -] 150 mg PO DAILY #30 tab.sr.24h 08/28/17 Buspirone HCl [Buspar -] 10 mg PO BID #60 tablet 08/28/17 Hydrochlorothiazide [Hctz -] 25 mg PO DAILY #30 tablet 08/28/17 Metformin HCl [Glucophage] 1,000 mg PO BID #60 tablet 08/28/17 Quetiapine Fumarate [Seroquel -] 150 mg PO HS #90 tablet 08/28/17 Spironolactone [Aldactone -] 100 mg PO DAILY #30 tablet 08/28/17 - Diagnosis (1) Alcohol dependence with uncomplicated withdrawal Current Visit: Yes Status: Chronic (2) Cirrhosis Current Visit: Yes Status: Chronic Qualifiers: Hepatic cirrhosis type: alcoholic cirrhosis (3) Diabetes mellitus Current Visit: Yes Status: Chronic Qualifiers: Diabetes mellitus type: type 2 Diabetes mellitus shelter insulin use: without shelter use Diabetes mellitus complication status: without complication Qualified Code(s): E11.9 - Type 2 diabetes mellitus without complications (4) GERD (gastroesophageal reflux disease) Current Visit: Yes Status: Chronic Qualifiers: Esophagitis presence: without esophagitis Qualified Code(s): K21.9 - Gastro -esophageal reflux disease without esophagitis (5) Neuropathy Current Visit: Yes Status: Chronic (6) Swelling of both lower extremities Current Visit: Yes Status: Chronic (7) Acute bilateral low back pain Current Visit: No Status: Acute Qualifiers: Sciatica laterality: sciatica laterality unspecified (8) Alcohol dependence Current Visit: No Status: Acute (9) Arthritis Current Visit: No Status: Acute (10) DVT prophylaxis Current Visit: No Status: Acute (11) Depressed mood Current Visit: No Status: Acute (12) Dilated bile duct Current Visit: No Status: Acute (13) Electrolyte imbalance Current Visit: No Status: Acute (14) Hepatomegaly Current Visit: No Status: Acute (15) Heroin dependence Current Visit: No Status: Acute (16) Insomnia Current Visit: No Status: Acute (17) Lactic acidemia Current Visit: No Status: Acute (18) Low back pain Current Visit: No Status: Acute Qualifiers: Chronicity: acute Back pain laterality: midline Sciatica presence: without sciatica Qualified Code(s): M54.5 - Low back pain (19) MDD (major depressive disorder), recurrent episode, moderate Current Visit: No Status: Acute (20) Pneumonia Current Visit: No Status: Acute (21) Portal hypertension Current Visit: No Status: Acute (22) Shortness of breath Current Visit: No Status: Acute (23) Substance induced mood disorder Current Visit: No Status: Acute (24) Substance induced mood disorder Current Visit: No Status: Acute (25) Substance-induced sleep disorder Current Visit: No Status: Acute (26) Substance-induced sleep disorder Current Visit: No Status: Acute (27) Asthma Current Visit: No Status: Chronic Qualifiers: Asthma severity: mild Asthma persistence: unspecified Asthma complication type: unspecified (28) Bilateral edema of lower extremity Current Visit: No Status: Chronic (29) Bipolar disorder Current Visit: No Status: Chronic (30) Hypertension Current Visit: No Status: Chronic Qualifiers: Hypertension type: essential hypertension Qualified Code(s): I10 - Essential (primary) hypertension (31) Methadone maintenance therapy patient Current Visit: No Status: Chronic (32) Nicotine dependence Current Visit: No Status: Chronic (33) Opioid dependence on agonist therapy Current Visit: No Status: Chronic (34) Opioid dependence on agonist therapy Current Visit: No Status: Chronic (35) Swelling of both knees Current Visit: No Status: Chronic (36) Use of cane as ambulatory aid Current Visit: No Status: Chronic (37) Depressive disorder Current Visit: No Status: Suspected (38) Substance induced mood disorder Current Visit: No Status: Suspected - AMA Did Patient Leave Against Medical Advice: No
[2019-03-12] MEDS: GABAPENTIN 100 MG CAPSULE (FP) PO SCH ×2 (10:16→21:33)
[2019-03-12] MEDS: SPIRONOLACTONE 25 MG TABLET (FP) PO SCH (10:16)
[2019-03-12] MEDS: NICOTINE 14 MG/24 HOURS TOPICAL PATCH TD SCH (10:17)
[2019-03-12] MEDS: PRENATAL VITAMINS W/ FOLIC ACID TABLET (FP) PO SCH (10:17)
[2019-03-12] MEDS: THIAMINE HCL 100 MG TABLET (FP) PO SCH (21:33)
[2019-03-12] MEDS: MELATONIN 5 MG TABLETS PO PRN (21:33)
[2019-03-13] MEDS ORDERED: METHADONE HCL 40 MG DISPERSABLE TABLET ONE (05:51)
[2019-03-13] MEDS ORDERED: METHADONE HCL 10 MG TABLET ONE (05:51)
[2019-03-13] MEDS ORDERED: METHADONE HCL 40 MG DISPERSABLE TABLET PO SCH (06:00)
[2019-03-13] MEDS ORDERED: METHADONE HCL 10 MG TABLET PO ONE (06:00)
[2019-03-13] MEDS: METHADONE 40 MG, METHADONE 30 MG PO SCH (06:06)
[2019-03-13] MEDS: metFORMIN HCL 500 MG TABLET (FP) PO SCH ×2 (06:07→16:45)
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
[2019-03-13] MEDS: GABAPENTIN 100 MG CAPSULE (FP) PO SCH ×2 (10:36→21:25)
[2019-03-13] MEDS: PRENATAL VITAMINS W/ FOLIC ACID TABLET (FP) PO SCH (10:36)
[2019-03-13] MEDS: SPIRONOLACTONE 25 MG TABLET (FP) PO SCH (10:36)
[2019-03-13] MEDS: NICOTINE 14 MG/24 HOURS TOPICAL PATCH TD SCH (10:37)
[2019-03-13] MEDS ORDERED: PT OWN MED DRAWER 7, Y5N ONE ×2 (15:02→15:06)
[2019-03-13] MEDS: BISMUTH SUBSALICYLATE 524 MG/30 ML UD PO PRN (15:03)
[2019-03-13] MEDS: MELATONIN 5 MG TABLETS PO PRN (21:25)
[2019-03-13] MEDS: THIAMINE HCL 100 MG TABLET (FP) PO SCH (21:25)
[2019-03-13] MEDS: RAMELTEON 8 MG TABLET PO SCH (21:25)
[2019-03-13] MEDS ORDERED: traZODone HCL 100 MG TABLET (FP) PO SCH (22:00)
[2019-03-14] MEDS ORDERED: METHADONE HCL 10 MG TABLET ONE (05:32)
[2019-03-14] MEDS ORDERED: METHADONE HCL 40 MG DISPERSABLE TABLET ONE (05:32)
[2019-03-14] MEDS: METHADONE 40 MG, METHADONE 30 MG PO SCH (05:49)
[2019-03-14] MEDS ORDERED: METHADONE HCL 10 MG TABLET PO SCH (06:00)
[2019-03-14] MEDS: metFORMIN HCL 500 MG TABLET (FP) PO SCH ×2 (07:06→16:46)
[2019-03-14] MEDS: PRENATAL VITAMINS W/ FOLIC ACID TABLET (FP) PO SCH (09:38)
[2019-03-14] MEDS: SPIRONOLACTONE 25 MG TABLET (FP) PO SCH (09:38)
[2019-03-14] MEDS: GABAPENTIN 100 MG CAPSULE (FP) PO SCH ×2 (09:39→21:29)
[2019-03-14] MEDS: BISMUTH SUBSALICYLATE 524 MG/30 ML UD PO PRN (09:39)
[2019-03-14] MEDS: NICOTINE 14 MG/24 HOURS TOPICAL PATCH TD SCH (09:39)
--- NOTE | 2019-03-14 17:51 | EKG ---
Test Reason : Blood Pressure : / mmHG Vent. Rate : 067 BPM Atrial Rate : 067 BPM P-R Int : 142 ms QRS Dur : 088 ms QT Int : 452 ms P-R-T Axes : 051 049 049 degrees QTc Int : 477 ms NORMAL SINUS RHYTHM NORMAL ECG WHEN COMPARED WITH ECG OF 29-JUL-2017 21:43, NO SIGNIFICANT CHANGE WAS FOUND Confirmed by MD Javier Edward ([id number]) on 03/14/2019 5:50:45 PM Referred By: Confirmed By:Jeremy Javier MD
[2019-03-14] MEDS ORDERED: PT OWN MED DRAWER 7, Y5N ONE ×2 (20:29→21:34)
[2019-03-14] MEDS: THIAMINE HCL 100 MG TABLET (FP) PO SCH (21:29)
[2019-03-14] MEDS: MAG HYDROX/AL HYDROX/SIMETH 30 ML UNIT-DOSE CUP PO PRN (21:31)
[2019-03-14] MEDS: RAMELTEON 8 MG TABLET PO SCH (23:20)
[2019-03-15] MEDS ORDERED: PT OWN MED DRAWER 7, Y5N ONE (03:24)
[2019-03-15] MEDS: BISMUTH SUBSALICYLATE 524 MG/30 ML UD PO PRN ×2 (03:25→23:36)
[2019-03-15] MEDS ORDERED: METHADONE HCL 40 MG DISPERSABLE TABLET ONE (05:30)
[2019-03-15] MEDS ORDERED: METHADONE HCL 10 MG TABLET ONE (05:30)
[2019-03-15] MEDS: METHADONE 40 MG, METHADONE 30 MG PO SCH (05:45)
[2019-03-15] MEDS: metFORMIN HCL 500 MG TABLET (FP) PO SCH ×2 (07:02→16:45)
[2019-03-15] MEDS: SPIRONOLACTONE 25 MG TABLET (FP) PO SCH (09:45)
[2019-03-15] MEDS: GABAPENTIN 100 MG CAPSULE (FP) PO SCH ×2 (09:45→21:40)
[2019-03-15] MEDS: PRENATAL VITAMINS W/ FOLIC ACID TABLET (FP) PO SCH (09:45)
[2019-03-15] MEDS: NICOTINE 14 MG/24 HOURS TOPICAL PATCH TD SCH (09:45)
[2019-03-15] MEDS: MAG HYDROX/AL HYDROX/SIMETH 30 ML UNIT-DOSE CUP PO PRN (16:46)
[2019-03-15] MEDS: RAMELTEON 8 MG TABLET PO SCH (21:40)
[2019-03-15] MEDS: traZODone HCL 100 MG TABLET (FP) PO SCH (21:40)
[2019-03-15] MEDS: QUEtiapine FUMARATE 50 MG TABLET PO SCH (21:40)
[2019-03-15] MEDS: THIAMINE HCL 100 MG TABLET (FP) PO SCH (21:41)
[2019-03-15] MEDS ORDERED: QUEtiapine FUMARATE 50 MG TABLET PO SCH (22:00)
[2019-03-15] MEDS ORDERED: traZODone HCL 100 MG TABLET (FP) PO SCH (22:00)
[2019-03-16] MEDS ORDERED: METHADONE HCL 40 MG DISPERSABLE TABLET ONE (03:47)
[2019-03-16] MEDS ORDERED: METHADONE HCL 10 MG TABLET ONE (03:47)
[2019-03-16] MEDS: METHADONE HCL 40 MG DISPERSABLE TABLET PO SCH (05:41)
[2019-03-16] MEDS: metFORMIN HCL 500 MG TABLET (FP) PO SCH ×2 (06:13→16:56)
[2019-03-16] MEDS ORDERED: RANITIDINE HCL 150 MG/10 ML UNIT-DOSE PO SCH (10:00)
[2019-03-16] MEDS: NICOTINE 14 MG/24 HOURS TOPICAL PATCH TD SCH (10:01)
[2019-03-16] MEDS: PRENATAL VITAMINS W/ FOLIC ACID TABLET (FP) PO SCH (10:01)
[2019-03-16] MEDS: GABAPENTIN 100 MG CAPSULE (FP) PO SCH ×2 (10:01→21:33)
[2019-03-16] MEDS: SPIRONOLACTONE 25 MG TABLET (FP) PO SCH (10:03)
--- NOTE | 2019-03-16 12:05 | PN ---
[facility] Progress Note Note: Patient presents with complaints of indigestion and acid reflux. Patient denies nausea and vomiting. + 2 episodes of soft stool. Laboratory Tests 03/08/19 03/09/19 03/09/19 10:49 05:39 08:15 WBC 2.1 L RBC 3.57 L Hgb 10.0 L Hct 31.2 L MCV 87.2 MCH 28.1 D MCHC 32.2 RDW 20.8 H Plt Count 100 L MPV 7.7 Sodium Potassium Chloride Carbon Dioxide Anion Gap BUN Creatinine Est GFR (CKD-EPI)AfAm Est GFR (CKD-EPI)NonAf POC Glucometer 180 97 Random Glucose Calcium Total Bilirubin AST ALT Alkaline Phosphatase Total Protein Albumin RPR Titer 03/09/19 03/09/19 03/10/19 08:15 08:15 05:45 WBC RBC Hgb Hct MCV MCH MCHC RDW Plt Count MPV Sodium 141 Potassium 3.5 Chloride 104 Carbon Dioxide 32 Anion Gap 5 L BUN 11.4 Creatinine 0.9 Est GFR (CKD-EPI)AfAm 104.98 Est GFR (CKD-EPI)NonAf 90.58 POC Glucometer 106 Random Glucose 92 Calcium 8.3 L Total Bilirubin 0.8 AST 32 ALT 25 Alkaline Phosphatase 124 H Total Protein 5.6 L Albumin 2.9 L RPR Titer Nonreactive 03/10/19 03/11/19 03/12/19 16:12 05:51 05:52 WBC RBC Hgb Hct MCV MCH MCHC RDW Plt Count MPV Sodium Potassium Chloride Carbon Dioxide Anion Gap BUN Creatinine Est GFR (CKD-EPI)AfAm Est GFR (CKD-EPI)NonAf POC Glucometer 136 134 122 Random Glucose Calcium Total Bilirubin AST ALT Alkaline Phosphatase Total Protein Albumin RPR Titer 03/13/19 03/14/19 03/15/19 06:06 05:47 05:44 WBC RBC Hgb Hct MCV MCH MCHC RDW Plt Count MPV Sodium Potassium Chloride Carbon Dioxide Anion Gap BUN Creatinine Est GFR (CKD-EPI)AfAm Est GFR (CKD-EPI)NonAf POC Glucometer 101 109 84 Random Glucose Calcium Total Bilirubin AST ALT Alkaline Phosphatase Total Protein Albumin RPR Titer 03/15/19 03/16/19 16:44 05:39 WBC RBC Hgb Hct MCV MCH MCHC RDW Plt Count MPV Sodium Potassium Chloride Carbon Dioxide Anion Gap BUN Creatinine Est GFR (CKD-EPI)AfAm Est GFR (CKD-EPI)NonAf POC Glucometer 82 157 Random Glucose Calcium Total Bilirubin AST ALT Alkaline Phosphatase Total Protein Albumin RPR Titer Vital Signs Temperature 97.4 F L 03/16/19 07:15 Pulse Rate 74 03/16/19 09:30 Respiratory Rate 18 03/16/19 09:30 Blood Pressure 101/64 03/16/19 09:30 O2 Sat by Pulse Oximetry (%) PE: alert and oriented x 3 skin warm and dry car s1s2, rrr resp cta bl, no wheezes or rales gi nt, nd ext full rom, no tremors amb ad aura with walker A/P: GERD add pepcid 10mg bid to medication regimen monitor clinically
[2019-03-16] MEDS: FAMOTIDINE 10 MG TABLET PO SCH ×2 (12:57→21:33)
[2019-03-16] MEDS: MAG HYDROX/AL HYDROX/SIMETH 30 ML UNIT-DOSE CUP PO PRN (19:08)
[2019-03-16] MEDS: BISMUTH SUBSALICYLATE 524 MG/30 ML UD PO PRN (21:32)
[2019-03-16] MEDS: THIAMINE HCL 100 MG TABLET (FP) PO SCH (21:33)
[2019-03-16] MEDS: QUEtiapine FUMARATE 50 MG TABLET PO SCH (21:33)
[2019-03-16] MEDS: traZODone HCL 100 MG TABLET (FP) PO SCH (21:33)
[2019-03-16] MEDS: MELATONIN 5 MG TABLETS PO PRN (21:33)
[2019-03-16] MEDS: RAMELTEON 8 MG TABLET PO SCH (21:40)
[2019-03-17] MEDS: BISMUTH SUBSALICYLATE 524 MG/30 ML UD PO PRN ×2 (01:55→06:09)
[2019-03-17] MEDS: METHADONE HCL 40 MG DISPERSABLE TABLET PO SCH (06:07)
[2019-03-17] MEDS: metFORMIN HCL 500 MG TABLET (FP) PO SCH ×2 (07:28→16:32)
[2019-03-17] MEDS: PRENATAL VITAMINS W/ FOLIC ACID TABLET (FP) PO SCH (09:51)
[2019-03-17] MEDS: SPIRONOLACTONE 25 MG TABLET (FP) PO SCH (09:52)
[2019-03-17] MEDS: FAMOTIDINE 10 MG TABLET PO SCH ×2 (09:52→21:05)
[2019-03-17] MEDS: GABAPENTIN 100 MG CAPSULE (FP) PO SCH ×2 (09:52→21:05)
[2019-03-17] MEDS: NICOTINE 14 MG/24 HOURS TOPICAL PATCH TD SCH (09:52)
[2019-03-17] MEDS: LOPERAMIDE HCL 2 MG CAPSULE PO PRN ×2 (09:54→21:07)
[2019-03-17] MEDS ORDERED: PT OWN MED DRAWER 7, Y5N ONE (19:36)
[2019-03-17] MEDS: traZODone HCL 100 MG TABLET (FP) PO SCH (21:05)
[2019-03-17] MEDS: RAMELTEON 8 MG TABLET PO SCH (21:05)
[2019-03-17] MEDS: QUEtiapine FUMARATE 50 MG TABLET PO SCH (21:05)
[2019-03-17] MEDS: MELATONIN 5 MG TABLETS PO PRN (21:06)
[2019-03-17] MEDS: THIAMINE HCL 100 MG TABLET (FP) PO SCH (21:06)
[2019-03-18] MEDS: METHADONE HCL 40 MG DISPERSABLE TABLET PO SCH (06:10)
[2019-03-18] MEDS: metFORMIN HCL 500 MG TABLET (FP) PO SCH ×2 (06:12→16:33)
[2019-03-18] MEDS: FAMOTIDINE 10 MG TABLET PO SCH ×2 (10:30→21:21)
[2019-03-18] MEDS: PRENATAL VITAMINS W/ FOLIC ACID TABLET (FP) PO SCH (10:30)
[2019-03-18] MEDS: NICOTINE 14 MG/24 HOURS TOPICAL PATCH TD SCH (10:30)
[2019-03-18] MEDS: GABAPENTIN 100 MG CAPSULE (FP) PO SCH ×2 (10:30→21:21)
[2019-03-18] MEDS: SPIRONOLACTONE 25 MG TABLET (FP) PO SCH (10:30)
[2019-03-18] MEDS: LOPERAMIDE HCL 2 MG CAPSULE PO PRN (10:32)
[2019-03-18] MEDS: RAMELTEON 8 MG TABLET PO SCH (21:21)
[2019-03-18] MEDS: QUEtiapine FUMARATE 50 MG TABLET PO SCH (21:21)
[2019-03-18] MEDS: MELATONIN 5 MG TABLETS PO PRN (21:21)
[2019-03-18] MEDS: THIAMINE HCL 100 MG TABLET (FP) PO SCH (21:21)
[2019-03-18] MEDS: traZODone HCL 100 MG TABLET (FP) PO SCH (21:21)
[2019-03-19] MEDS: LOPERAMIDE HCL 2 MG CAPSULE PO PRN ×3 (00:25→16:29)
[2019-03-19] MEDS: METHADONE HCL 40 MG DISPERSABLE TABLET PO SCH (06:10)
[2019-03-19] MEDS: metFORMIN HCL 500 MG TABLET (FP) PO SCH ×2 (07:19→16:29)
[2019-03-19] MEDS: GABAPENTIN 100 MG CAPSULE (FP) PO SCH ×2 (10:05→21:35)
[2019-03-19] MEDS: NICOTINE 14 MG/24 HOURS TOPICAL PATCH TD SCH (10:05)
[2019-03-19] MEDS: SPIRONOLACTONE 25 MG TABLET (FP) PO SCH (10:05)
[2019-03-19] MEDS: FAMOTIDINE 10 MG TABLET PO SCH ×2 (10:05→21:37)
[2019-03-19] MEDS: PRENATAL VITAMINS W/ FOLIC ACID TABLET (FP) PO SCH (10:09)
[2019-03-19] MEDS: THIAMINE HCL 100 MG TABLET (FP) PO SCH (21:35)
[2019-03-19] MEDS: MELATONIN 5 MG TABLETS PO PRN (21:35)
[2019-03-19] MEDS: QUEtiapine FUMARATE 50 MG TABLET PO SCH (21:35)
[2019-03-19] MEDS: traZODone HCL 100 MG TABLET (FP) PO SCH (21:35)
[2019-03-19] MEDS: RAMELTEON 8 MG TABLET PO SCH (21:36)
[2019-03-19] MEDS ORDERED: PT OWN MED DRAWER 7, Y5N ONE (21:36)
[2019-03-20] MEDS: LOPERAMIDE HCL 2 MG CAPSULE PO PRN ×3 (00:25→18:43)
[2019-03-20] MEDS: METHADONE HCL 40 MG DISPERSABLE TABLET PO SCH (05:49)
[2019-03-20] MEDS: metFORMIN HCL 500 MG TABLET (FP) PO SCH ×2 (06:39→18:42)
[2019-03-20] MEDS: PRENATAL VITAMINS W/ FOLIC ACID TABLET (FP) PO SCH (09:05)
[2019-03-20] MEDS: GABAPENTIN 100 MG CAPSULE (FP) PO SCH ×2 (09:05→21:11)
[2019-03-20] MEDS ORDERED: PT OWN MED DRAWER 7, Y5N ONE ×2 (09:06→21:12)
[2019-03-20] MEDS: NICOTINE 14 MG/24 HOURS TOPICAL PATCH TD SCH (10:25)
[2019-03-20] MEDS: FAMOTIDINE 10 MG TABLET PO SCH ×2 (10:25→21:11)
[2019-03-20] MEDS: SPIRONOLACTONE 25 MG TABLET (FP) PO SCH (11:00)
[2019-03-20] MEDS: traZODone HCL 100 MG TABLET (FP) PO SCH (21:11)
[2019-03-20] MEDS: QUEtiapine FUMARATE 50 MG TABLET PO SCH (21:12)
[2019-03-20] MEDS: THIAMINE HCL 100 MG TABLET (FP) PO SCH (21:12)
[2019-03-20] MEDS: RAMELTEON 8 MG TABLET PO SCH (21:13)
[2019-03-21] MEDS: METHADONE HCL 40 MG DISPERSABLE TABLET PO SCH (06:10)
[2019-03-21] MEDS: LOPERAMIDE HCL 2 MG CAPSULE PO PRN (06:23)
[2019-03-21] MEDS: metFORMIN HCL 500 MG TABLET (FP) PO SCH ×2 (07:10→17:03)
[2019-03-21] MEDS: FAMOTIDINE 10 MG TABLET PO SCH ×2 (09:35→21:09)
[2019-03-21] MEDS: NICOTINE 14 MG/24 HOURS TOPICAL PATCH TD SCH (09:36)
[2019-03-21] MEDS: SPIRONOLACTONE 25 MG TABLET (FP) PO SCH (09:36)
[2019-03-21] MEDS: GABAPENTIN 100 MG CAPSULE (FP) PO SCH ×2 (09:36→21:08)
[2019-03-21] MEDS: PRENATAL VITAMINS W/ FOLIC ACID TABLET (FP) PO SCH (09:36)
[2019-03-21] MEDS: ACETAMINOPHEN 325 MG TABLET (FP) PO PRN (17:04)
[2019-03-21] MEDS ORDERED: PT OWN MED DRAWER 7, Y5N ONE (19:16)
[2019-03-21] MEDS: RAMELTEON 8 MG TABLET PO SCH (21:08)
[2019-03-21] MEDS: THIAMINE HCL 100 MG TABLET (FP) PO SCH (21:09)
[2019-03-21] MEDS: QUEtiapine FUMARATE 50 MG TABLET PO SCH (21:09)
[2019-03-21] MEDS: traZODone HCL 100 MG TABLET (FP) PO SCH (21:09)
[2019-03-21] MEDS: MELATONIN 5 MG TABLETS PO PRN (21:09)
[2019-03-22] MEDS: LOPERAMIDE HCL 2 MG CAPSULE PO PRN ×2 (02:24→09:23)
[2019-03-22] MEDS: METHADONE HCL 40 MG DISPERSABLE TABLET PO SCH (06:05)
[2019-03-22] MEDS: metFORMIN HCL 500 MG TABLET (FP) PO SCH ×2 (07:28→16:27)
[2019-03-22] MEDS: NICOTINE 14 MG/24 HOURS TOPICAL PATCH TD SCH (09:20)
[2019-03-22] MEDS: SPIRONOLACTONE 25 MG TABLET (FP) PO SCH (09:20)
[2019-03-22] MEDS: FAMOTIDINE 10 MG TABLET PO SCH ×2 (09:20→21:17)
[2019-03-22] MEDS: PRENATAL VITAMINS W/ FOLIC ACID TABLET (FP) PO SCH (09:20)
[2019-03-22] MEDS: GABAPENTIN 100 MG CAPSULE (FP) PO SCH ×2 (09:20→21:18)
[2019-03-22] MEDS: traZODone HCL 100 MG TABLET (FP) PO SCH (21:17)
[2019-03-22] MEDS: QUEtiapine FUMARATE 50 MG TABLET PO SCH (21:17)
[2019-03-22] MEDS: RAMELTEON 8 MG TABLET PO SCH (21:18)
[2019-03-22] MEDS: THIAMINE HCL 100 MG TABLET (FP) PO SCH (21:19)
[2019-03-23] MEDS: METHADONE HCL 40 MG DISPERSABLE TABLET PO SCH (06:10)
[2019-03-23] MEDS: metFORMIN HCL 500 MG TABLET (FP) PO SCH ×2 (07:46→16:29)
[2019-03-23] MEDS: GABAPENTIN 100 MG CAPSULE (FP) PO SCH ×2 (10:06→21:07)
[2019-03-23] MEDS: NICOTINE 14 MG/24 HOURS TOPICAL PATCH TD SCH (10:06)
[2019-03-23] MEDS: PRENATAL VITAMINS W/ FOLIC ACID TABLET (FP) PO SCH (10:06)
[2019-03-23] MEDS: SPIRONOLACTONE 25 MG TABLET (FP) PO SCH (10:06)
--- NOTE | 2019-03-23 10:12 | PN ---
[facility] Progress Note Note: PATIENT SEEN FOR C/O INDIGESTION, STATES PEPCID NOT WORKING. DENIES N/V/D AND FEVER. Laboratory Tests 03/08/19 03/09/19 03/09/19 10:49 05:39 08:15 WBC 2.1 L RBC 3.57 L Hgb 10.0 L Hct 31.2 L MCV 87.2 MCH 28.1 D MCHC 32.2 RDW 20.8 H Plt Count 100 L MPV 7.7 Sodium Potassium Chloride Carbon Dioxide Anion Gap BUN Creatinine Est GFR (CKD-EPI)AfAm Est GFR (CKD-EPI)NonAf POC Glucometer 180 97 Random Glucose Calcium Total Bilirubin AST ALT Alkaline Phosphatase Total Protein Albumin RPR Titer 03/09/19 03/09/19 03/10/19 08:15 08:15 05:45 WBC RBC Hgb Hct MCV MCH MCHC RDW Plt Count MPV Sodium 141 Potassium 3.5 Chloride 104 Carbon Dioxide 32 Anion Gap 5 L BUN 11.4 Creatinine 0.9 Est GFR (CKD-EPI)AfAm 104.98 Est GFR (CKD-EPI)NonAf 90.58 POC Glucometer 106 Random Glucose 92 Calcium 8.3 L Total Bilirubin 0.8 AST 32 ALT 25 Alkaline Phosphatase 124 H Total Protein 5.6 L Albumin 2.9 L RPR Titer Nonreactive 03/10/19 03/11/19 03/12/19 16:12 05:51 05:52 WBC RBC Hgb Hct MCV MCH MCHC RDW Plt Count MPV Sodium Potassium Chloride Carbon Dioxide Anion Gap BUN Creatinine Est GFR (CKD-EPI)AfAm Est GFR (CKD-EPI)NonAf POC Glucometer 136 134 122 Random Glucose Calcium Total Bilirubin AST ALT Alkaline Phosphatase Total Protein Albumin RPR Titer 03/13/19 03/14/19 03/15/19 06:06 05:47 05:44 WBC RBC Hgb Hct MCV MCH MCHC RDW Plt Count MPV Sodium Potassium Chloride Carbon Dioxide Anion Gap BUN Creatinine Est GFR (CKD-EPI)AfAm Est GFR (CKD-EPI)NonAf POC Glucometer 101 109 84 Random Glucose Calcium Total Bilirubin AST ALT Alkaline Phosphatase Total Protein Albumin RPR Titer 03/15/19 03/16/19 03/16/19 16:44 05:39 16:55 WBC RBC Hgb Hct MCV MCH MCHC RDW Plt Count MPV Sodium Potassium Chloride Carbon Dioxide Anion Gap BUN Creatinine Est GFR (CKD-EPI)AfAm Est GFR (CKD-EPI)NonAf POC Glucometer 82 157 94 Random Glucose Calcium Total Bilirubin AST ALT Alkaline Phosphatase Total Protein Albumin RPR Titer 03/17/19 03/17/19 03/18/19 06:07 16:31 06:11 WBC RBC Hgb Hct MCV MCH MCHC RDW Plt Count MPV Sodium Potassium Chloride Carbon Dioxide Anion Gap BUN Creatinine Est GFR (CKD-EPI)AfAm Est GFR (CKD-EPI)NonAf POC Glucometer 81 136 108 Random Glucose Calcium Total Bilirubin AST ALT Alkaline Phosphatase Total Protein Albumin RPR Titer 03/18/19 03/19/19 03/19/19 16:34 06:09 16:30 WBC RBC Hgb Hct MCV MCH MCHC RDW Plt Count MPV Sodium Potassium Chloride Carbon Dioxide Anion Gap BUN Creatinine Est GFR (CKD-EPI)AfAm Est GFR (CKD-EPI)NonAf POC Glucometer 103 76 104 Random Glucose Calcium Total Bilirubin AST ALT Alkaline Phosphatase Total Protein Albumin RPR Titer 03/20/19 03/21/19 03/21/19 05:48 06:09 17:01 WBC RBC Hgb Hct MCV MCH MCHC RDW Plt Count MPV Sodium Potassium Chloride Carbon Dioxide Anion Gap BUN Creatinine Est GFR (CKD-EPI)AfAm Est GFR (CKD-EPI)NonAf POC Glucometer 112 75 116 Random Glucose Calcium Total Bilirubin AST ALT Alkaline Phosphatase Total Protein Albumin RPR Titer 03/22/19 03/22/19 03/23/19 06:05 16:28 06:09 WBC RBC Hgb Hct MCV MCH MCHC RDW Plt Count MPV Sodium Potassium Chloride Carbon Dioxide Anion Gap BUN Creatinine Est GFR (CKD-EPI)AfAm Est GFR (CKD-EPI)NonAf POC Glucometer 76 102 192 Random Glucose Calcium Total Bilirubin AST ALT Alkaline Phosphatase Total Protein Albumin RPR Titer Vital Signs Temperature 97.8 F 03/23/19 07:05 Pulse Rate 76 03/23/19 07:05 Respiratory Rate 18 03/23/19 07:05 Blood Pressure 117/74 03/23/19 07:05 O2 Sat by Pulse Oximetry (%) PE: ALERT AND ORIENTED X 3 SKIN WARM AND DRY CAR S1S2 RESP CTA BL GI SOFT,NT, ND +BS EXT FULL ROM AMB AD CHIDI A/P: INDIGESTION D/C PEPCID START SIMETHICONE PRN MONITOR CLINICALLY
[2019-03-23] MEDS: QUEtiapine FUMARATE 50 MG TABLET PO SCH (21:07)
[2019-03-23] MEDS: RAMELTEON 8 MG TABLET PO SCH (21:08)
[2019-03-23] MEDS: THIAMINE HCL 100 MG TABLET (FP) PO SCH (21:08)
[2019-03-23] MEDS: traZODone HCL 100 MG TABLET (FP) PO SCH (21:08)
[2019-03-23] MEDS: MELATONIN 5 MG TABLETS PO PRN (21:08)
[2019-03-24] MEDS: METHADONE HCL 40 MG DISPERSABLE TABLET PO SCH (05:43)
[2019-03-24] MEDS: SIMETHICONE 80 MG TAB.CHEW (FP) PO PRN ×3 (05:44→20:18)
[2019-03-24] MEDS: metFORMIN HCL 500 MG TABLET (FP) PO SCH ×2 (06:44→17:39)
[2019-03-24] MEDS: PRENATAL VITAMINS W/ FOLIC ACID TABLET (FP) PO SCH (10:11)
[2019-03-24] MEDS: SPIRONOLACTONE 25 MG TABLET (FP) PO SCH (10:11)
[2019-03-24] MEDS: GABAPENTIN 100 MG CAPSULE (FP) PO SCH ×2 (10:11→21:04)
[2019-03-24] MEDS: NICOTINE 14 MG/24 HOURS TOPICAL PATCH TD SCH (10:12)
[2019-03-24] MEDS ORDERED: PT OWN MED DRAWER 7, Y5N ONE (20:07)
[2019-03-24] MEDS: LOPERAMIDE HCL 2 MG CAPSULE PO PRN (20:18)
[2019-03-24] MEDS: RAMELTEON 8 MG TABLET PO SCH (21:03)
[2019-03-24] MEDS: traZODone HCL 100 MG TABLET (FP) PO SCH (21:04)
[2019-03-24] MEDS: QUEtiapine FUMARATE 50 MG TABLET PO SCH (21:04)
[2019-03-24] MEDS: THIAMINE HCL 100 MG TABLET (FP) PO SCH (21:05)
[2019-03-25] MEDS: METHADONE HCL 40 MG DISPERSABLE TABLET PO SCH (06:04)
[2019-03-25] MEDS: metFORMIN HCL 500 MG TABLET (FP) PO SCH ×2 (08:11→16:39)
[2019-03-25] MEDS ORDERED: PT OWN MED DRAWER 7, Y5N ONE ×2 (08:47→18:43)
[2019-03-25] MEDS: NICOTINE 14 MG/24 HOURS TOPICAL PATCH TD SCH (09:36)
[2019-03-25] MEDS: PRENATAL VITAMINS W/ FOLIC ACID TABLET (FP) PO SCH (09:36)
[2019-03-25] MEDS: GABAPENTIN 100 MG CAPSULE (FP) PO SCH ×2 (09:36→21:07)
[2019-03-25] MEDS: SPIRONOLACTONE 25 MG TABLET (FP) PO SCH (09:36)
[2019-03-25] MEDS: SIMETHICONE 80 MG TAB.CHEW (FP) PO PRN ×2 (09:38→14:09)
[2019-03-25] MEDS: RAMELTEON 8 MG TABLET PO SCH (21:06)
[2019-03-25] MEDS: traZODone HCL 100 MG TABLET (FP) PO SCH (21:06)
[2019-03-25] MEDS: QUEtiapine FUMARATE 50 MG TABLET PO SCH (21:06)
[2019-03-25] MEDS: MELATONIN 5 MG TABLETS PO PRN (21:07)
[2019-03-25] MEDS: THIAMINE HCL 100 MG TABLET (FP) PO SCH (21:07)
[2019-03-26] MEDS: METHADONE HCL 40 MG DISPERSABLE TABLET PO SCH (06:19)
[2019-03-26] MEDS: metFORMIN HCL 500 MG TABLET (FP) PO SCH ×2 (06:19→16:46)
[2019-03-26] MEDS: NICOTINE 14 MG/24 HOURS TOPICAL PATCH TD SCH (09:45)
[2019-03-26] MEDS: SPIRONOLACTONE 25 MG TABLET (FP) PO SCH (09:46)
[2019-03-26] MEDS: GABAPENTIN 100 MG CAPSULE (FP) PO SCH ×2 (09:47→21:16)
[2019-03-26] MEDS: PRENATAL VITAMINS W/ FOLIC ACID TABLET (FP) PO SCH (09:47)
[2019-03-26] MEDS: SIMETHICONE 80 MG TAB.CHEW (FP) PO PRN (09:48)
[2019-03-26] MEDS ORDERED: PT OWN MED DRAWER 7, Y5N ONE (09:49)
[2019-03-26] MEDS: QUEtiapine FUMARATE 50 MG TABLET PO SCH (21:16)
[2019-03-26] MEDS: traZODone HCL 100 MG TABLET (FP) PO SCH (21:16)
[2019-03-26] MEDS: RAMELTEON 8 MG TABLET PO SCH (21:16)
[2019-03-26] MEDS: THIAMINE HCL 100 MG TABLET (FP) PO SCH (21:16)
[2019-03-26] MEDS: MELATONIN 5 MG TABLETS PO PRN (21:16)
[2019-03-27] MEDS: METHADONE HCL 40 MG DISPERSABLE TABLET PO SCH (05:47)
[2019-03-27] MEDS: metFORMIN HCL 500 MG TABLET (FP) PO SCH ×2 (07:02→16:57)
[2019-03-27] MEDS: SIMETHICONE 80 MG TAB.CHEW (FP) PO PRN ×2 (07:28→15:41)
[2019-03-27] MEDS: PRENATAL VITAMINS W/ FOLIC ACID TABLET (FP) PO SCH (09:30)
[2019-03-27] MEDS: NICOTINE 14 MG/24 HOURS TOPICAL PATCH TD SCH (09:30)
[2019-03-27] MEDS: SPIRONOLACTONE 25 MG TABLET (FP) PO SCH (09:30)
[2019-03-27] MEDS: GABAPENTIN 100 MG CAPSULE (FP) PO SCH ×2 (09:30→21:26)
[2019-03-27] MEDS: ACETAMINOPHEN 325 MG TABLET (FP) PO PRN (15:41)
[2019-03-27] MEDS: QUEtiapine FUMARATE 50 MG TABLET PO SCH (21:26)
[2019-03-27] MEDS: RAMELTEON 8 MG TABLET PO SCH (21:26)
[2019-03-27] MEDS: traZODone HCL 100 MG TABLET (FP) PO SCH (21:26)
[2019-03-27] MEDS: THIAMINE HCL 100 MG TABLET (FP) PO SCH (21:27)
[2019-03-28] MEDS: METHADONE HCL 40 MG DISPERSABLE TABLET PO SCH (06:11)
[2019-03-28] MEDS: metFORMIN HCL 500 MG TABLET (FP) PO SCH ×2 (07:07→16:59)
[2019-03-28] MEDS: NICOTINE 14 MG/24 HOURS TOPICAL PATCH TD SCH (09:45)
[2019-03-28] MEDS: GABAPENTIN 100 MG CAPSULE (FP) PO SCH ×2 (09:45→21:01)
[2019-03-28] MEDS: SPIRONOLACTONE 25 MG TABLET (FP) PO SCH (09:45)
[2019-03-28] MEDS: PRENATAL VITAMINS W/ FOLIC ACID TABLET (FP) PO SCH (09:45)
[2019-03-28] MEDS: SIMETHICONE 80 MG TAB.CHEW (FP) PO PRN ×3 (09:46→21:03)
[2019-03-28] MEDS ORDERED: PT OWN MED DRAWER 7, Y5N ONE ×2 (17:33→21:04)
[2019-03-28] MEDS: traZODone HCL 100 MG TABLET (FP) PO SCH (21:01)
[2019-03-28] MEDS: QUEtiapine FUMARATE 50 MG TABLET PO SCH (21:01)
[2019-03-28] MEDS: RAMELTEON 8 MG TABLET PO SCH (21:02)
[2019-03-28] MEDS: THIAMINE HCL 100 MG TABLET (FP) PO SCH (21:03)
[2019-03-29] MEDS: METHADONE HCL 40 MG DISPERSABLE TABLET PO SCH (05:52)
[2019-03-29] MEDS: metFORMIN HCL 500 MG TABLET (FP) PO SCH ×2 (06:58→16:27)
[2019-03-29] MEDS: SIMETHICONE 80 MG TAB.CHEW (FP) PO PRN ×3 (07:30→15:43)
[2019-03-29] MEDS: NICOTINE 14 MG/24 HOURS TOPICAL PATCH TD SCH (09:32)
[2019-03-29] MEDS: SPIRONOLACTONE 25 MG TABLET (FP) PO SCH (09:32)
[2019-03-29] MEDS: PRENATAL VITAMINS W/ FOLIC ACID TABLET (FP) PO SCH (09:32)
[2019-03-29] MEDS: GABAPENTIN 100 MG CAPSULE (FP) PO SCH ×2 (09:32→21:12)
[2019-03-29] MEDS ORDERED: PT OWN MED DRAWER 7, Y5N ONE (09:33)
[2019-03-29] MEDS: LOPERAMIDE HCL 2 MG CAPSULE PO PRN (09:35)
[2019-03-29] MEDS: MAG HYDROX/AL HYDROX/SIMETH 30 ML UNIT-DOSE CUP PO PRN (16:28)
[2019-03-29] MEDS: QUEtiapine FUMARATE 50 MG TABLET PO SCH (21:12)
[2019-03-29] MEDS: THIAMINE HCL 100 MG TABLET (FP) PO SCH (21:12)
[2019-03-29] MEDS: traZODone HCL 100 MG TABLET (FP) PO SCH (21:12)
[2019-03-29] MEDS: RAMELTEON 8 MG TABLET PO SCH (21:12)
[2019-03-30] MEDS: METHADONE HCL 40 MG DISPERSABLE TABLET PO SCH (06:09)
[2019-03-30] MEDS: metFORMIN HCL 500 MG TABLET (FP) PO SCH ×2 (07:14→16:29)
[2019-03-30] MEDS: SPIRONOLACTONE 25 MG TABLET (FP) PO SCH (09:19)
[2019-03-30] MEDS: NICOTINE 14 MG/24 HOURS TOPICAL PATCH TD SCH (09:19)
[2019-03-30] MEDS: PRENATAL VITAMINS W/ FOLIC ACID TABLET (FP) PO SCH (09:19)
[2019-03-30] MEDS: GABAPENTIN 100 MG CAPSULE (FP) PO SCH ×2 (09:19→21:13)
[2019-03-30] MEDS: SIMETHICONE 80 MG TAB.CHEW (FP) PO PRN ×2 (09:19→21:51)
[2019-03-30] MEDS: traZODone HCL 100 MG TABLET (FP) PO SCH (21:13)
[2019-03-30] MEDS: RAMELTEON 8 MG TABLET PO SCH (21:13)
[2019-03-30] MEDS: QUEtiapine FUMARATE 50 MG TABLET PO SCH (21:13)
[2019-03-30] MEDS: MELATONIN 5 MG TABLETS PO PRN (21:13)
[2019-03-30] MEDS: THIAMINE HCL 100 MG TABLET (FP) PO SCH (21:13)
[2019-03-30] MEDS: LOPERAMIDE HCL 2 MG CAPSULE PO PRN (21:49)
[2019-03-31] MEDS: METHADONE HCL 40 MG DISPERSABLE TABLET PO SCH (05:52)
[2019-03-31 06:59] VITALS: PULSE 62
[2019-03-31] MEDS: metFORMIN HCL 500 MG TABLET (FP) PO SCH ×2 (07:05→16:48)
[2019-03-31] MEDS: PRENATAL VITAMINS W/ FOLIC ACID TABLET (FP) PO SCH (09:50)
[2019-03-31] MEDS: SPIRONOLACTONE 25 MG TABLET (FP) PO SCH (09:50)
[2019-03-31] MEDS: GABAPENTIN 100 MG CAPSULE (FP) PO SCH ×2 (09:50→21:16)
[2019-03-31] MEDS: NICOTINE 14 MG/24 HOURS TOPICAL PATCH TD SCH (09:50)
[2019-03-31] MEDS: SIMETHICONE 80 MG TAB.CHEW (FP) PO PRN ×2 (09:51→21:16)
--- NOTE | 2019-03-31 14:52 | DS ---
[facility] Rehab Discharge Summary - [facility] Rehab Discharge Summary Admission Date: 03/08/19 Discharge Date: 04/01/19 - History Present History: Alcohol dependence, MMTP Pertinent Past History: 63 year old man with alcohol dependence, he reports alcohol related blackout and seizure 2 weeks ago. Patient reports he is on methadone maintenance ( Opioid treatment center on [facility]). - Discharge Physical Exam Vital Signs: Vital Signs Temperature 97.8 F 03/31/19 06:58 Pulse Rate 62 03/31/19 06:58 Respiratory Rate 18 03/31/19 06:58 Blood Pressure 112/68 03/31/19 06:58 O2 Sat by Pulse Oximetry (%) Pertinent Admission Physical Exam Findings: - Physical General Appearance: No Apparent Distress HEENTM: Normocephalic, Respiratory: Lungs clear Neck: Supple Cardiology: S1, S2 Abdominal: +Bowel Sounds, Non Tender, Soft Musculoskeletal: Full ROM< steady gait, full weight bearing Neurological: Cn 2-12 intact - Treatment Discharge Condition: Outpatient referral accepted (medically stable for discharge. Patient will go to [facility] Hospital Course: Patient attended groups, was adherent to his medication and treatment plan. He had no significant medical problems during his stay in rehab. - Medication Discharge Medications: Ambulatory Orders Gabapentin [Neurontin -] 200 mg PO BID #120 capsule 06/19/16 Methadone [Dolophine -] 60 mg PO DAILY 05/03/17 Quetiapine Fumarate [Seroquel] 100 mg PO HS #30 tablet 05/31/17 traZODone HCL [Desyrel -] 100 mg PO HS #30 tablet 05/31/17 Bupropion HCl [Wellbutrin Xl -] 150 mg PO DAILY #30 tab.sr.24h 08/28/17 Buspirone HCl [Buspar -] 10 mg PO BID #60 tablet 08/28/17 Quetiapine Fumarate [Seroquel -] 50 mg PO HS 03/13/19 Ramelteon [Rozerem] 8 mg PO HS 03/13/19 Acamprosate Calcium [Campral -] 666 mg PO TID #180 tab 03/31/19 Albuterol Sulfate Inhaler - [Ventolin HFA Inhaler -] 2 inh IH Q4H PRN #1 inh 02/07 Folic Acid - 1 mg PO DAILY #30 tablet 03/31/19 Hydrochlorothiazide [Hctz -] 25 mg PO DAILY #30 tablet 03/31/19 Magnesium Oxide [Mag-Ox -] 400 mg PO BID #60 tablet 03/31/19 Metformin HCl [Glucophage] 1,000 mg PO BID #60 tablet 03/31/19 Spironolactone [Aldactone -] 100 mg PO DAILY #30 tablet 03/31/19 Thiamine HCl [Vitamin B1 -] 100 mg PO HS #30 tablet 03/31/19 - Medication-Assisted Treatment (MAT) Medication-Assisted Treatment (MAT): No MAT Follow-up Referral: MMTP - Discharge Instructions Diet, activity, other medical instructions: Diet: as tolerated Activity: as tolerated Other medical instructions: Please follow up with aftercare referral. Please see PCP within 2 weeks of discharge. - Diagnosis (1) Alcohol dependence Current Visit: Yes Status: Chronic - Follow-up Referral Minutes to complete discharge: 20 - AMA Did Patient Leave Against Medical Advice: No Additional Comments: Prescriptions sent to patient's pharmacy.
[2019-03-31] MEDS: THIAMINE HCL 100 MG TABLET (FP) PO SCH (21:16)
[2019-03-31] MEDS: traZODone HCL 100 MG TABLET (FP) PO SCH (21:16)
[2019-03-31] MEDS: MELATONIN 5 MG TABLETS PO PRN (21:16)
[2019-03-31] MEDS: QUEtiapine FUMARATE 50 MG TABLET PO SCH (21:16)
[2019-03-31] MEDS: RAMELTEON 8 MG TABLET PO SCH (21:17)
[2019-04-01] MEDS: METHADONE HCL 40 MG DISPERSABLE TABLET PO SCH (05:59)
[2019-04-01 07:09] VITALS: BP 109/70; TEMP 98.4
[2019-04-01] MEDS: metFORMIN HCL 500 MG TABLET (FP) PO SCH (07:26)
[2019-04-01] MEDS: NICOTINE 14 MG/24 HOURS TOPICAL PATCH TD SCH (09:01)
[2019-04-01] MEDS: PRENATAL VITAMINS W/ FOLIC ACID TABLET (FP) PO SCH (09:01)
[2019-04-01] MEDS: SPIRONOLACTONE 25 MG TABLET (FP) PO SCH (09:01)
[2019-04-01] MEDS: GABAPENTIN 100 MG CAPSULE (FP) PO SCH (09:01)
[2019-04-01] MEDS: SIMETHICONE 80 MG TAB.CHEW (FP) PO PRN (09:01)
== END 2019-04-01 09:40 | disposition home or self-care (01) | DRG 895 ==
LOC: YASAS 08:58 → Y6N 10:52 → Y3W 03-12 12:28
PROVIDERS: ADMIT Allergy & Immunology; ATTEND Allergy & Immunology
PROC: HZ2ZZZZ Detoxification Services for Substance Abuse Treatment (ICD-10-PCS; 2019-03-08)
PROC: HZ42ZZZ Group Counseling for Substance Abuse Treatment, Cognitive-Behavioral (ICD-10-PCS; principal; 2019-03-12)
DX: F10.20 Alcohol dependence, uncomplicated (principal); F11.20 Opioid dependence, uncomplicated; F19.282 Other psychoactive substance dependence with psychoactive substance-induced sleep disorder; F33.1 Major depressive disorder, recurrent, moderate; F17.210 Nicotine dependence, cigarettes, uncomplicated; F19.24 Other psychoactive substance dependence with psychoactive substance-induced mood disorder; F31.9 Bipolar disorder, unspecified; K70.30 Alcoholic cirrhosis of liver without ascites; I10 Essential (primary) hypertension; E11.9 Type 2 diabetes mellitus without complications; Z79.84 Long term (current) use of oral hypoglycemic drugs; J45.20 Mild intermittent asthma, uncomplicated; K21.9 Gastro-esophageal reflux disease without esophagitis; K30 Functional dyspepsia; R56.9 Unspecified convulsions; M17.0 Bilateral primary osteoarthritis of knee; M19.032 Primary osteoarthritis, left wrist; M19.031 Primary osteoarthritis, right wrist; M47.9 Spondylosis, unspecified
CPT/HCPCS: 36415; 80053; 82962; 85027; 86593; 93005; 93010

== ENCOUNTER 2019-05-14 19:28 | Inpatient (IN) | payer OTHER ==
[2019-05-14 20:19] VITALS: BMI 28.0
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
[2019-05-15] MEDS ORDERED: MENTHOL/PHENOL 1 EACH UD MM PRN (03:31)
[2019-05-15] MEDS ORDERED: MAG HYDROX/AL HYDROX/SIMETH 30 ML UNIT-DOSE CUP PO PRN (03:31)
[2019-05-15] MEDS ORDERED: BISMUTH SUBSALICYLATE 524 MG/30 ML UD PO PRN (03:31)
[2019-05-15] MEDS ORDERED: MAGNESIUM CITRATE 300 ML BOTTLE PO PRN (03:31)
[2019-05-15] MEDS ORDERED: MAGNESIUM HYDROX 2400MG/30ML ORAL SUSPENSION 30 ML CUP PO PRN (03:31)
[2019-05-15] MEDS ORDERED: NICOTINE POLACRILEX 2 MG GUM BUC PRN (03:31)
[2019-05-15] MEDS ORDERED: ACETAMINOPHEN 325 MG TABLET (FP) PO PRN ×2 (03:31)
[2019-05-15] MEDS ORDERED: ALBUTEROL SO4 HFA INHALER IH PRN (03:35)
[2019-05-15] MEDS: LORazepam 2 MG TABLET PO SCH ×4 (04:55→22:02)
[2019-05-15] MEDS: metFORMIN HCL 500 MG TABLET (FP) PO SCH ×2 (07:25→17:25)
--- NOTE | 2019-05-15 09:15 | PN ---
S CIWA - CIWA Score Nausea/Vomitin Muscle Tremors: 4-Moderate,w/Arms Extend Anxiety: 3 Agitation: 0-Normal Activity Paroxysmal Sweats: 2 Orientation: 0-Oriented Tacttile Disturbances: 1-Very Mild Itch/Numbness Auditory Disturbances: 0-None Visual Disturbances: 1-Very Mild Sensitivity Headache: 1-Very Mild CIWA-Ar Total Score: 15 BHS COWS - Scale Resting Pulse: 1= TN 81-100 Sweatin= Chills/Flushing Restless Observation: 0= Sits Still Pupil Size: 0= Normal to Room Light Bone or Joint Aches: 1= Mild Discomfort Runny Nose/ Eye Tearin= None GI Upset > 30mins: 3= Vomiting/Diarrhea Tremor Observation of Outstretched Hands: 0= None Yawning Observation: 0= None Anxiety or Irritability: 2=Irritable/Anxious Goose Flesh Skin: 0=Smooth Skin COWS Score: 8 BHS Progress Note (SOAP) Subjective: Patient is 64 yo male with hx of opiod and alcohol dependence is here seeking inpatient detox. Utox on admission positive for BZO and MTD, technical document writer inquires about tox, patient denies recent detox, reports using street methadone. Patient was resistant through assessment to answer the question. Patient reports currently homeless and is linked to MMTP at [facility] on 80 mg qd last medicated April 05 2019 (verified). Patient c/o of nausea, diarrhea, vomiting and body aches. Denies chest pain or SOB. Objective: 05/15/19 09:10 Vital Signs Temperature 98.2 F 05/15/19 06:45 Pulse Rate 90 05/15/19 06:45 Respiratory Rate 16 05/15/19 06:45 Blood Pressure 162/81 05/15/19 06:45 O2 Sat by Pulse Oximetry (%) Laboratory Last Values POC Glucometer 108 UNITS (80-120) 05/15/19 07:21 labs pending Assessment: 05/15/19 09:14 Patient AOx3 no acute distress EENT WNL, + poor dentition missing multiple teeth + bilateral hand tremors full ROM ambulating in the unit withdrawal sx Plan: MMTP : start on methadone 10 mg qd, patient to follow up MMTP at [facility] Continue Ativan detox protocol fall precautions lbs pending continue to monitor
[2019-05-15] MEDS: SPIRONOLACTONE 25 MG TABLET (FP) PO SCH (10:07)
[2019-05-15] MEDS: PRENATAL VITAMINS W/ FOLIC ACID TABLET (FP) PO SCH (10:11)
[2019-05-15] MEDS: HYDROCHLOROTHIAZIDE 25 MG TABLET (FP) PO SCH (10:11)
[2019-05-15] MEDS: PANTOPRAZOLE 20 MG TABLET PO SCH (10:13)
[2019-05-15] MEDS: NICOTINE 14 MG/24 HOURS TOPICAL PATCH TD SCH (10:14)
[2019-05-15] MEDS: METHADONE HCL 10 MG TABLET PO SCH (10:17)
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
[2019-05-15] MEDS: LORazepam 1 MG TABLET PO PRN ×2 (13:30→19:28)
[2019-05-15] MEDS ORDERED: QUEtiapine FUMARATE 50 MG TABLET PO SCH (22:00)
[2019-05-15] MEDS: MELATONIN 5 MG TABLETS PO PRN (22:02)
[2019-05-15] MEDS: METHOCARBAMOL 500 MG TABLET PO PRN (22:03)
[2019-05-15] MEDS: THIAMINE HCL 100 MG TABLET (FP) PO SCH (22:04)
[2019-05-16] MEDS: METHADONE HCL 10 MG TABLET PO SCH (05:19)
[2019-05-16] MEDS: LORazepam 1 MG TABLET PO SCH ×4 (05:19→22:00)
[2019-05-16] MEDS: IBUPROFEN 400 MG TABLET (FP) PO PRN (06:39)
[2019-05-16] MEDS: metFORMIN HCL 500 MG TABLET (FP) PO SCH ×2 (06:39→17:25)
[2019-05-16] MEDS: PANTOPRAZOLE 20 MG TABLET PO SCH (10:15)
[2019-05-16] MEDS: SPIRONOLACTONE 25 MG TABLET (FP) PO SCH (10:15)
[2019-05-16] MEDS: PRENATAL VITAMINS W/ FOLIC ACID TABLET (FP) PO SCH (10:15)
[2019-05-16] MEDS: HYDROCHLOROTHIAZIDE 25 MG TABLET (FP) PO SCH (10:15)
[2019-05-16] MEDS: NICOTINE 14 MG/24 HOURS TOPICAL PATCH TD SCH (10:16)
--- NOTE | 2019-05-16 10:58 | PN ---
S CIWA - CIWA Score Nausea/Vomitin-No Nausea/No Vomiting Muscle Tremors: 2 Anxiety: 3 Agitation: 0-Normal Activity Paroxysmal Sweats: 3 Orientation: 0-Oriented Tacttile Disturbances: 0-None Auditory Disturbances: 0-None Visual Disturbances: 0-None Headache: 2-Mild CIWA-Ar Total Score: 10 BHS Progress Note (SOAP) Subjective: c/o sweats, headache, shakes, and anxiety. Objective: 05/16/19 10:57 Vital Signs 05/16/19 05/16/19 05/16/19 03:30 06:21 09:08 Temperature 97.4 F L 99.2 F Pulse Rate 88 89 Respiratory 18 18 18 Rate Blood Pressure 117/70 148/87 Labs pending. Assessment: 05/16/19 10:58 AOX3, in no acute respiratory distress. Full ROM, ambulating in the unit. Withdrawal symptoms. Plan: continue detox.
[2019-05-16 11:40] LABS: BILIRUBIN,TOTAL 1.2 mg/dL (0.2-1); BLOOD UREA NITROGEN 8.4 mg/dL (7-18); CALCIUM 8.3 mg/dL (8.5-10.1); CREATININE 0.9 mg/dL (0.55-1.3); POTASSIUM 3.9 mmol/L (3.5-5.1); TOT PROT 6.3 g/dl (6.4-8.2)
[2019-05-16] MEDS: LORazepam 1 MG TABLET PO PRN ×2 (13:56→23:59)
[2019-05-16] MEDS: THIAMINE HCL 100 MG TABLET (FP) PO SCH (22:00)
[2019-05-16] MEDS: MELATONIN 5 MG TABLETS PO PRN (22:01)
[2019-05-16] MEDS: METHOCARBAMOL 500 MG TABLET PO PRN (22:01)
[2019-05-17] MEDS ORDERED: LORazepam 0.5 MG TABLET PO PRN
[2019-05-17] MEDS: METHADONE HCL 10 MG TABLET PO SCH (05:22)
[2019-05-17] MEDS: LORazepam 0.5 MG TABLET PO SCH ×4 (05:22→21:59)
[2019-05-17] MEDS: metFORMIN HCL 500 MG TABLET (FP) PO SCH ×2 (07:41→17:13)
[2019-05-17] MEDS: HYDROCHLOROTHIAZIDE 25 MG TABLET (FP) PO SCH (10:26)
[2019-05-17] MEDS: PRENATAL VITAMINS W/ FOLIC ACID TABLET (FP) PO SCH (10:26)
[2019-05-17] MEDS: PANTOPRAZOLE 20 MG TABLET PO SCH (10:26)
[2019-05-17] MEDS: NICOTINE 14 MG/24 HOURS TOPICAL PATCH TD SCH (10:28)
[2019-05-17] MEDS: SPIRONOLACTONE 25 MG TABLET (FP) PO SCH (10:28)
--- NOTE | 2019-05-17 10:33 | PN ---
S CIWA - CIWA Score Nausea/Vomitin-Mild Nausea/No Vomiting Muscle Tremors: 2 Anxiety: 2 Agitation: 1-Slight > Activity Paroxysmal Sweats: 1-Minimal Palms Moist Orientation: 0-Oriented Tacttile Disturbances: 0-None Auditory Disturbances: 0-None Visual Disturbances: 0-None Headache: 0-None Present CIWA-Ar Total Score: 7 BHS Progress Note (SOAP) Subjective: 64 years old male admitted on 05/15/19 for alcohol withdrawal sx management treating with ativan detox regimen feeling better today slept through the night less tremor mild anxiety ambulating with walker steady gait discussed aftercare with staff Objective: 05/17/19 10:32 Vital Signs Temperature 99.2 F 05/17/19 09:31 Pulse Rate 99 H 05/17/19 09:31 Respiratory Rate 210 H 05/17/19 09:31 Blood Pressure 115/74 05/17/19 09:31 O2 Sat by Pulse Oximetry (%) Laboratory Last Values Sodium 137 mmol/L (136-145) 05/16/19 08:00 Potassium 3.9 mmol/L (3.5-5.1) 05/16/19 08:00 Chloride 101 mmol/L (98-107) 05/16/19 08:00 Carbon Dioxide 26 mmol/L (21-32) 05/16/19 08:00 Anion Gap 11 MMOL/L (8-16) 05/16/19 08:00 BUN 8.4 mg/dL (7-18) 05/16/19 08:00 Creatinine 0.9 mg/dL (0.55-1.3) 05/16/19 08:00 Est GFR (CKD-EPI)AfAm 104.24 05/16/19 08:00 Est GFR (CKD-EPI)NonAf 89.94 05/16/19 08:00 POC Glucometer 147 UNITS (80-120) 05/17/19 05:24 Random Glucose 93 mg/dL (74-106) 05/16/19 08:00 Calcium 8.3 mg/dL (8.5-10.1) L 05/16/19 08:00 Total Bilirubin 1.2 mg/dL (0.2-1) H 05/16/19 08:00 AST 69 U/L (15-37) H 05/16/19 08:00 ALT 32 U/L (13-61) 05/16/19 08:00 Alkaline Phosphatase 162 U/L (45-117) H 05/16/19 08:00 Total Protein 6.3 g/dl (6.4-8.2) L 05/16/19 08:00 Albumin 3.0 g/dl (3.4-5.0) L 05/16/19 08:00 lab noted Assessment: 05/17/19 10:32 alcohol withdrawal Plan: ativan regimen
[2019-05-17] MEDS ORDERED: ACETAMINOPHEN 325 MG TABLET (FP) PO ONE (12:27)
[2019-05-17] MEDS: IBUPROFEN 400 MG TABLET (FP) PO PRN (12:29)
[2019-05-17] MEDS: METHOCARBAMOL 500 MG TABLET PO PRN ×2 (17:16→23:09)
[2019-05-17] MEDS: MELATONIN 5 MG TABLETS PO PRN (22:00)
[2019-05-17] MEDS: THIAMINE HCL 100 MG TABLET (FP) PO SCH (22:00)
[2019-05-18] MEDS ORDERED: MELATONIN 5 MG TABLETS PO ONE (00:53)
[2019-05-18] MEDS: IBUPROFEN 400 MG TABLET (FP) PO PRN (02:44)
[2019-05-18] MEDS ORDERED: LORazepam 0.5 MG TABLET PO ONE (05:00)
[2019-05-18] MEDS: METHADONE HCL 10 MG TABLET PO SCH (05:11)
[2019-05-18] MEDS: metFORMIN HCL 500 MG TABLET (FP) PO SCH (06:31)
[2019-05-18 09:23] VITALS: BP 136/70; PULSE 92; TEMP 97.8
--- NOTE | 2019-05-18 09:55 | DS ---
[facility] Detox Discharge Summary Admission Date: 05/15/19 Discharge Date: 05/18/19 - History Present History: Alcohol Dependence Additional Comments: 64 years old male admitted on 05/15/19 for alcohol withdrawal sx management treated with ativan detox regiment patient has completed ativan regiment and tolerated well alert oriented x 3 seen by psychiatrist resume trazadone and welbutrim cardiac s1s2 regular rate rhythm respiratory clear lungs bilaterally on auscultation ambulating with cane steady gait skin warm and dry - Physical Exam Results Vital Signs: Vital Signs Temperature 97.8 F 05/18/19 09:23 Pulse Rate 92 H 05/18/19 09:23 Respiratory Rate 18 05/18/19 09:23 Blood Pressure 136/70 05/18/19 09:23 O2 Sat by Pulse Oximetry (%) Pertinent Admission Physical Exam Findings: alcohol withdrawal Vital Signs Temperature 97.8 F 05/18/19 09:23 Pulse Rate 92 H 05/18/19 09:23 Respiratory Rate 18 05/18/19 09:23 Blood Pressure 136/70 05/18/19 09:23 O2 Sat by Pulse Oximetry (%) Laboratory Last Values Sodium 137 mmol/L (136-145) 05/16/19 08:00 Potassium 3.9 mmol/L (3.5-5.1) 05/16/19 08:00 Chloride 101 mmol/L (98-107) 05/16/19 08:00 Carbon Dioxide 26 mmol/L (21-32) 05/16/19 08:00 Anion Gap 11 MMOL/L (8-16) 05/16/19 08:00 BUN 8.4 mg/dL (7-18) 05/16/19 08:00 Creatinine 0.9 mg/dL (0.55-1.3) 05/16/19 08:00 Est GFR (CKD-EPI)AfAm 104.24 05/16/19 08:00 Est GFR (CKD-EPI)NonAf 89.94 05/16/19 08:00 POC Glucometer 102 UNITS (80-120) 05/18/19 05:11 Random Glucose 93 mg/dL (74-106) 05/16/19 08:00 Calcium 8.3 mg/dL (8.5-10.1) L 05/16/19 08:00 Total Bilirubin 1.2 mg/dL (0.2-1) H 05/16/19 08:00 AST 69 U/L (15-37) H 05/16/19 08:00 ALT 32 U/L (13-61) 05/16/19 08:00 Alkaline Phosphatase 162 U/L (45-117) H 05/16/19 08:00 Total Protein 6.3 g/dl (6.4-8.2) L 05/16/19 08:00 Albumin 3.0 g/dl (3.4-5.0) L 05/16/19 08:00 RPR Titer Nonreactive (NONREACTIVE) 05/16/19 08:00 lab noted - Treatment Hospital Course: Detox Protocol Followed, Detoxed Safely, Responded well, Discharged Condition Good, Rehab Referral Accepted Patient has Accepted a Re[facility] Referral to: [facility] - Medication Discharge Medications: Ambulatory Orders Gabapentin [Neurontin -] 200 mg PO BID #120 capsule 06/19/16 Methadone [Dolophine -] 80 mg PO DAILY 05/03/17 Quetiapine Fumarate [Seroquel -] 100 mg PO HS #30 tablet 05/31/17 traZODone HCL [Desyrel -] 100 mg PO HS #30 tablet 05/31/17 Bupropion HCl [Wellbutrin Xl -] 150 mg PO DAILY #30 tab.sr.24h 08/28/17 Buspirone HCl [Buspar -] 10 mg PO BID #60 tablet 08/28/17 Quetiapine Fumarate [Seroquel -] 50 mg PO HS 03/13/19 Ramelteon [Rozerem] 8 mg PO HS 03/13/19 Acamprosate Calcium [Campral -] 666 mg PO TID #180 tab 03/31/19 Albuterol Sulfate Inhaler - [Ventolin HFA Inhaler -] 2 inh IH Q4H PRN #1 inh 02/07 Folic Acid - 1 mg PO DAILY #30 tablet 03/31/19 Hydrochlorothiazide [Hctz -] 25 mg PO DAILY #30 tablet 03/31/19 Magnesium Oxide [Mag-Ox -] 400 mg PO BID #60 tablet 03/31/19 Metformin HCl [Glucophage] 1,000 mg PO BID #60 tablet 03/31/19 Spironolactone [Aldactone -] 100 mg PO DAILY #30 tablet 03/31/19 Thiamine HCl [Vitamin B1 -] 100 mg PO HS #30 tablet 03/31/19 - Diagnosis (1) Liver cirrhosis Status: Chronic Qualifiers: Hepatic cirrhosis type: alcoholic cirrhosis Ascites presence: without ascites Qualified Code(s): K70.30 - Alcoholic cirrhosis of liver without ascites (2) Portal hypertension Status: Chronic (3) Substance induced mood disorder Status: Suspected (4) Alcohol dependence with uncomplicated withdrawal Status: Acute (5) Asthma Status: Chronic Qualifiers: Asthma severity: mild Asthma persistence: intermittent Asthma complication type: with status asthmaticus Qualified Code(s): J45.22 - Mild intermittent asthma with status asthmaticus (6) Diabetes mellitus Status: Chronic Qualifiers: Diabetes mellitus type: type 2 Diabetes mellitus emt intermediate insulin use: without intermediate use Diabetes mellitus complication status: without complication Qualified Code(s): E11.9 - Type 2 diabetes mellitus without complications (7) GERD (gastroesophageal reflux disease) Status: Chronic Qualifiers: Esophagitis presence: without esophagitis Qualified Code(s): K21.9 - Gastro -esophageal reflux disease without esophagitis (8) Hep C w/ coma, chronic Status: Chronic (9) Hypertension Status: Chronic Qualifiers: Hypertension type: essential hypertension Qualified Code(s): I10 - Essential (primary) hypertension (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 (11) Nicotine dependence Status: Acute Qualifiers: Nicotine product type: cigarettes Substance use status: in withdrawal Qualified Code(s): F17.213 - Nicotine dependence, cigarettes, with withdrawal (12) Substance induced mood disorder Status: Suspected (13) Use of cane as ambulatory aid Status: Chronic (14) Substance induced mood disorder Status: Suspected - AMA Did Patient Leave Against Medical Advice: No CIWA Score - CIWA Score Nausea/Vomitin-No Nausea/No Vomiting Muscle Tremors: 1-None Visible, but [place] Anxiety: 1-Mildly Anxious Agitation: 1-Slight > Activity Paroxysmal Sweats: 1-Minimal Palms Moist Orientation: 0-Oriented Tacttile Disturbances: 0-None Auditory Disturbances: 0-None Visual Disturbances: 0-None Headache: 0-None Present CIWA-Ar Total Score: 4
--- NOTE | 2019-05-19 15:11 | EKG ---
Test Reason : Blood Pressure : / mmHG Vent. Rate : 084 BPM Atrial Rate : 084 BPM P-R Int : 130 ms QRS Dur : 082 ms QT Int : 438 ms P-R-T Axes : 063 056 046 degrees QTc Int : 517 ms NORMAL SINUS RHYTHM NONSPECIFIC ST ABNORMALITY PROLONGED QT ABNORMAL ECG WHEN COMPARED WITH ECG OF 13-MAR-2019 12:10, NO SIGNIFICANT CHANGE WAS FOUND Confirmed by MD Yaya, Jeremy ([id number]) on 05/19/2019 3:11:08 PM Referred By: Herve Rodrigues Confirmed By:Jeremy Javier MD
== END 2019-05-18 09:15 | disposition home or self-care (01) | DRG 897 ==
LOC: YASAS 19:28 → Y3N 05-15 03:34
PROVIDERS: ADMIT Allergy & Immunology; ATTEND Allergy & Immunology
PROC: HZ2ZZZZ Detoxification Services for Substance Abuse Treatment (ICD-10-PCS; principal; 2019-05-15)
DX: F10.230 Alcohol dependence with withdrawal, uncomplicated (principal); F11.20 Opioid dependence, uncomplicated; J45.22 Mild intermittent asthma with status asthmaticus; K76.6 Portal hypertension; F17.213 Nicotine dependence, cigarettes, with withdrawal; F19.24 Other psychoactive substance dependence with psychoactive substance-induced mood disorder; I10 Essential (primary) hypertension; R00.0 Tachycardia, unspecified; K70.30 Alcoholic cirrhosis of liver without ascites; K21.9 Gastro-esophageal reflux disease without esophagitis; E11.9 Type 2 diabetes mellitus without complications; B18.2 Chronic viral hepatitis C; G47.00 Insomnia, unspecified; M19.90 Unspecified osteoarthritis, unspecified site; R29.2 Abnormal reflex; Z99.89 Dependence on other enabling machines and devices; Z79.84 Long term (current) use of oral hypoglycemic drugs
CPT/HCPCS: 36415; 80053; 82962; 86593; 93005; 93010